=== PATIENT | male | born 1940 | race Caucasian/White ===

== ENCOUNTER → 2018-03-17 | Outpatient (CLI) | payer MEDICARE, BC | END | disposition home or self-care (01) | LOC: RADMRIMAIN 10:21 | PROVIDERS: ATTEND Urology | DX: C61 Malignant neoplasm of prostate (principal) | CPT/HCPCS: 82565 ==

== ENCOUNTER 2020-05-22 06:13 | Day surgery (SDC) | payer MEDICARE, BC ==
--- NOTE | 2020-05-01 15:23 | P.GSHP ---
History of Present Illness H&P Date: 05/01/20 Chief Complaint: Prostate Cancer The patient is a 79-year-old white male originally diagnosed with prostate cancer in May 2016. He was initially managed with active surveillance, but there has been evidence of disease progression. His most recent PSA level was 12.10. 4 of 12 biopsies performed in October 2019 showed evidence of prostate cancer ([place] 3+3/3+4), and the Polaris score was 3.8. His prostate volume is 52 mL. He has elected to be treated with IMRT without androgen deprivation therapy. He has been offered SpaceOAR implant prior to radiation therapy to decrease rectal toxicity and has elected to proceed with this. - Constitutional Constitutional: Denies weight gain, Denies weight loss - Genitourinary (Male) Genitourinary: Reports nocturia Past Medical History Past Medical History: Coronary Artery Disease (CAD), CVA/TIA, Diabetes Mellitus, Eye Disorder, Hyperlipidemia, Hypertension, Myocardial Infarction ([place]), Osteoarthritis (OA), Vascular Disorder Additional Past Medical History / Comment(s): Other HX: Severe PAD with occluded bilateral SFA, L eye catarac-no [facility] Vision LT Eye, [id number] RT Hand; Diet Controlled DM; "leaky valve". AAA, BEING MONITORED. Last Myocardial Infarction Date:: 2011 History of Any Multi-Drug Resistant Organisms: None Reported Past Surgical History: Back Surgery, Coronary Bypass/CABG, Heart Catheterization Additional Past Surgical History / Comment(s): 02/20/15 r femoral popliteal atherectomy with PTBA and 2 stents. Tod Carotid Endarterectomy; Triple Bypass. STENT TOD ILIAC ARTERIES. 08/14/14: LEFT FEMEROL ANGIOGRAM WITH ATTEMPTED CONVERTIBLE SOFA BEDSPRING TESTER. 10-23-14 Stent to Distal SFA. Past Anesthesia/Blood Transfusion Reactions: No Reported Reaction Past Psychological History: No Psychological Hx Reported Additional Psychological History / Comment(s): Pt states he resides with his spouse. He is independent. He uses no assistive device. He drives. Past Alcohol Use History: Rare Additional Past Alcohol Use History / Comment(s): STARTED SMOKING AT AGE 22- SMOKED 1PPD,QUIT -2013 Past Drug Use History: None Reported - Past Family History Father Family Medical History: Hypertension Additional Family Medical History / Comment(s): Father at age 82yrs. Mother Family Medical History: Diabetes Mellitus Additional Family Medical History / Comment(s): Mother at age 69yrs. Medications and Allergies Home Medications Medication Instructions Recorded Confirmed Type Aspirin 81 mg PO HS 01/30/14 02/20/15 History Atorvastatin [Lipitor] 40 mg PO HS 01/30/14 02/20/15 History Fenofibrate [Lofibra] 160 mg PO QAM 01/30/14 02/20/15 History Metoprolol Tartrate [Lopressor] 25 mg PO BID 01/30/14 02/20/15 History allopurinoL [Zyloprim] 100 mg PO DAILY 01/30/14 02/20/15 History lisinopriL [Zestril] 10 mg PO BID 01/30/14 02/20/15 History Acetaminophen/Diphenhydramine 2 tab PO HS PRN 02/01/14 02/20/15 History [Tylenol PM 500-25mg] Cholecalciferol [Vitamin D3 (25 2,000 unit PO DAILY 02/01/14 02/20/15 History Mcg = 1000 Iu)] Clopidogrel [Plavix] 75 mg PO QAM 05/02/14 02/20/15 History Ascorbic Acid [Vitamin C] 500 mg PO HS 08/14/14 02/20/15 History Magnesium Oxide [Mag-Ox] 250 mg PO DAILY 08/14/14 02/20/15 History Chlorthalidone [Hygroton] 25 mg PO PC-SUPPER 12/23/14 02/20/15 History Fluticasone Nasal [place] [Flonase 2 spray EA NOSTRIL HS 12/23/14 02/20/15 History Nasal [place]] Allergies Allergy/AdvReac Type Severity Reaction Status Date / Time No Known Allergies Allergy Verified 02/20/15 13:31 Surgical - Exam - General well developed, well nourished, no distress - Respiratory normal respiratory effort, clear to auscultation - Cardiovascular Rhythm: regular Abnormal Heart Sounds: systolic murmur - Abdomen Abdomen: soft, non tender, no guarding, no rigid, no rebound - Genitourinary normal penis with no external lesions, testicles non-tender - Rectum Rectum: normal sphincter tone, no masses, other (prostate enlarged and smooth) - Psychiatric oriented to time, oriented to person, oriented to place, speech is normal, memory intact Assessment and Plan (1) Malignant neoplasm of prostate Status: Acute Code(s): C61 - MALIGNANT NEOPLASM OF PROSTATE SNOMED Code(s): 095576929 Plan: The SpaceOar implant has been reviewed in detail with the patient. He understands that the rationale for this is to create separation between the prostate and rectum, thus reducing the risk of radiation proctitis. The material begins to breakdown 12-13 weeks following implant, and is reabsorbed by the body. Risks include anesthesia, bleeding, infection, and perineal discomfort. He understands that if the rectal wall is perforated the procedure will need to be aborted.
[2020-05-19 11:44] VITALS: BMI 29.4
[~2020-05-22 06:13] MED LIST: HYDROmorphone 0.5 MG/0.5 ML SYRINGE IVP PRN; LACTATED RINGERS 1,000 ML IV SCH; ONDANSETRON 4 MG/2 ML VIAL IVP ONE; fentaNYL (PF) 50 MCG/ML 2 ML AMP IV PRN
[2020-05-22 06:39] VITALS: RESP 18; TEMP 97.8
[2020-05-22] MEDS ORDERED: LACTATED RINGERS 1,000 ML IV ONE (06:39)
[2020-05-22 06:52] LABS: Glucose,Whole Blood 130 mg/dL (75-99)
[2020-05-22] MEDS ORDERED: MIDAZOLAM 2 MG/2 ML VIAL ONE (07:23)
[2020-05-22] MEDS ORDERED: fentaNYL (PF) 50 MCG/ML 2 ML AMP ONE (07:23)
[2020-05-22] MEDS ORDERED: PROPOFOL 10 MG/ML 20 ML VIAL IV ONE (07:23)
[2020-05-22] MEDS ORDERED: LIDOCAINE 2% INJ 20 MG/ML SQ ONE ×2 (07:44)
--- NOTE | 2020-05-22 08:19 | P.OP ---
Date of Procedure: 05/22/20 Preoperative Diagnosis: Adenocarcinoma of the prostate Postoperative Diagnosis: Same Procedure(s) Performed: SpaceOAR Implant Anesthesia: MAC Surgeon: Sreekanth Parsons Estimated Blood Loss (ml): 10 IV fluids (ml): 500 Pathology: none sent Condition: stable Disposition: PACU Indications for Procedure: The patient is a 79-year-old white male originally diagnosed with prostate cancer in May 2016. He was initially managed with active surveillance, but there has been evidence of disease progression. His most recent PSA level was 12.10. 4 of 12 biopsies performed in October 2019 showed evidence of prostate cancer ([place] 3+3/3+4), and the Polaris score was 3.8. His prostate volume is 52 mL. He has elected to be treated with IMRT without androgen deprivation therapy. He has been offered SpaceOAR implant prior to radiation therapy to decrease rectal toxicity and has elected to proceed with this. Operative Findings: Excellent separation created between prostate and rectum. Description of Procedure: The patient was taken to the operating room and placed in the dorsolithotomy position, with his legs supported in Erwin stirrups. The external genitalia was prepped and draped sterilely. The Bruel and Kjaer transrectal ultrasound probe was placed intrarectally. The prostate was imaged. The probe was then placed within the stabilizing stand. A spinal needle was advanced under ultrasonic guidance to the level of the urogenital diaphragm, and lidocaine was used to infiltrate the tissues as the needle was withdrawn. Next, the SpaceOAR needle was passed through the midline of the perineum, 1-2 cm anterior to the anal opening. The needle was slowly advanced under ultrasonic guidance until the needle tip was located within the fat plane between the prostate and rectum, at the level of the mid prostate gland. The needle was confirmed to be midline on the axial imaging. A small amount of normal saline was injected for hydrodissection. Next, the SpaceOAR components were mixed and loaded into the Y connector per protocol. The Y connector was then connected to the needle, and the components were injected slowly over a course of approximately 12 seconds. A total of 10 ml was injected. Approximately 11 mm of distance was created between the prostate and rectum, as desired. It should be noted that at no point was there any concern of rectal perforation. The needle was withdrawn, as well as the transrectal ultrasound probe, and the procedure was terminated. The patient tolerated the procedure well and was taken to the recovery room in stable condition.
[2020-05-22 09:20] VITALS: BP 110/55; PULSE 53
== END 2020-05-22 09:23 | disposition home or self-care (01) ==
LOC: OR 06:13
PROVIDERS: ATTEND Urology
DX: C61 Malignant neoplasm of prostate (principal); I25.10 Atherosclerotic heart disease of native coronary artery without angina pectoris; I10 Essential (primary) hypertension; I69.398 Other sequelae of cerebral infarction; E11.51 Type 2 diabetes mellitus with diabetic peripheral angiopathy without gangrene; E78.5 Hyperlipidemia, unspecified; I71.4 Abdominal aortic aneurysm, without rupture; I38 Endocarditis, valve unspecified; I25.2 Old myocardial infarction; M19.90 Unspecified osteoarthritis, unspecified site; Z95.1 Presence of aortocoronary bypass graft; Z95.820 Peripheral vascular angioplasty status with implants and grafts; Z98.890 Other specified postprocedural states; H26.9 Unspecified cataract; Z87.891 Personal history of nicotine dependence; Z97.2 Presence of dental prosthetic device (complete) (partial); Z82.49 Family history of ischemic heart disease and other diseases of the circulatory system; Z83.3 Family history of diabetes mellitus; Z79.02 Long term (current) use of antithrombotics/antiplatelets; Z79.82 Long term (current) use of aspirin; Z79.899 Other long term (current) drug therapy
CPT/HCPCS: 55874; J2001; J2250; J0690; J2405; J3010; J2704

== ENCOUNTER 2020-06-16 11:01 | Inpatient (IN) | payer MEDICARE, BC ==
[2020-06-16] MEDS ORDERED: SODIUM CHLORIDE 0.9% 1,000 ML IV ONE (11:48)
[2020-06-16] MEDS ORDERED: SODIUM CHLORIDE 0.9% 1,000 ML IV SCH ×2 (12:00→12:45)
[2020-06-16 12:17] LABS: Basophils % (A) 0 %; Eosinophils % (A) 0 %; HCT 39.4 % (39.0-53.0); Lymphocytes # (A) 0.8 k/uL (1.0-4.8); Lymphocytes % (A) 7 %; MCH 32.8 pg (25.0-35.0); MCHC 33.1 g/dL (31.0-37.0); Mean Platelet Volume 7.2; Monocytes # (A) 0.7 k/uL (0-1.0); Monocytes % (A) 6 %; Neutrophils # (A) 9.3 k/uL (1.3-7.7); Neutrophils % (A) 85 %; Platelet Count 221 k/uL (150-450); RBC 3.97 m/uL (4.30-5.90); RDW 13.7 % (11.5-15.5)
[2020-06-16 12:19] LABS: Albumin 3.8 g/dL (3.5-5.0); Calcium 9.3 mg/dL (8.4-10.2); Magnesium 1.6 mg/dL (1.6-2.3); Potassium 5.2 mmol/L (3.5-5.1); Total Bilirubin 1.3 mg/dL (0.2-1.3); Total Protein 6.7 g/dL (6.3-8.2)
[2020-06-16 12:19] LABS: Appearance,Urine Clear (Clear); Bilirubin,Urine Negative (Negative); Blood,Urine Negative (Negative); Color,Urine Yellow; Glucose,Urine (UA) Negative (Negative); Ketones,Urine Negative (Negative); Leukocyte Esterase,Urine Negative (Negative); Nitrite,Urine Negative (Negative); Protein,Urine Negative (Negative); Specific Gravity,Urine 1.013 (1.001-1.035); Urobilinogen,Urine <2.0 mg/dL (<2.0)
[2020-06-16 12:25] LABS: INR 1.1 (<1.2); Partial Thromboplastin Time 27.7 sec (22.0-30.0); Prothrombin Time 11.8 sec (9.0-12.0)
--- NOTE | 2020-06-16 12:37 | XR ---
EXAMINATION TYPE: XR chest 2V DATE OF EXAM: 06/16/2020 COMPARISON: 01/28/2014 HISTORY: Shortness of breath TECHNIQUE: Frontal and lateral views of the chest are obtained. FINDINGS: Scattered senescent parenchymal changes noted. Hyperinflation compatible with COPD. No evidence for infiltrate. No evidence for atelectasis. Heart size is stable. Mediastinal structures are stable and grossly unremarkable. No evidence for hilar prominence. Degenerative changes dorsal spine. IMPRESSION: 1. No evidence for acute pulmonary disease.
[2020-06-16] MEDS ORDERED: ASPIRIN 81 MG PO STA (12:59)
[2020-06-16] MEDS ORDERED: NALOXONE 0.4 MG/ML 1 ML VIAL IV PRN (13:00)
--- NOTE | 2020-06-16 13:06 | ED ---
Male Urogenital HPI - General Chief complaint: Urogenital Stated complaint: Urinary Issues sent Dr Bradley Time Seen by Provider: 06/16/20 11:13 Source: patient Mode of arrival: wheelchair Limitations: no limitations - History of Present Illness Initial comments: 79-year-old male of CVA/PVD/CO/DM, HTN, HLD, memory loss presenting today for urinary retention x1.5 day. Patient states he has not urinated in a day and a half. Patient states that he recently had radiation of his prostate is not sure if this is related. Patient states he does have active prostate cancer. Patient denies any hematuria he appears slightly pale her on a history taking I asked if he felt unwell patient states he did have a OF lightheaded this morning and felt slightly weak but otherwise at this time he has no complaints he does not feel weak lightheaded dizzy chest pain shortness of breath.she denies palpitations bloody or dark stools. The patient inspiration he denies any leg swelling nausea vomiting abdominal pain. Patient denies additional complaints. he appears nontoxic in no acute distress. very pleasant. - Related Data Home Medications Medication Instructions Recorded Confirmed Aspirin 81 mg PO HS 01/30/14 06/16/20 Atorvastatin [Lipitor] 40 mg PO HS 01/30/14 06/16/20 Metoprolol Tartrate [Lopressor] 12.5 mg PO DAILY 01/30/14 06/16/20 allopurinoL [Zyloprim] 100 mg PO DAILY 01/30/14 06/16/20 Acetaminophen/Diphenhydramine 2 tab PO HS PRN 02/01/14 06/16/20 [Tylenol PM 500-25mg] Cholecalciferol [Vitamin D3 (25 50 mcg PO DAILY 02/01/14 06/16/20 Mcg = 1000 Iu)] Clopidogrel [Plavix] 75 mg PO DAILY 05/02/14 06/16/20 Ascorbic Acid [Vitamin C] 500 mg PO HS 08/14/14 06/16/20 Magnesium Oxide [Mag-Ox] 250 mg PO DAILY 08/14/14 06/16/20 Fluticasone Nasal [place] [Flonase 2 spray EA NOSTRIL HS 12/23/14 06/16/20 Nasal [place]] Ferrous Sulfate [Feosol] 325 mg PO BID 05/19/20 06/16/20 lisinopriL [Zestril] 5 mg PO DAILY 05/19/20 06/16/20 Magnesium Oxide [Mag-Ox] 500 mg PO HS 06/16/20 06/16/20 SILVER sulfADIAZINE Cream 1 applic TOPICAL BID 06/16/20 06/16/20 [Silvadene 1% Cream] Tamsulosin [Flomax] 0.4 mg PO HS 06/16/20 06/16/20 hydroCHLOROthiazide 25 mg PO HS 06/16/20 06/16/20 Allergies Allergy/AdvReac Type Severity Reaction Status Date / Time No Known Allergies Allergy Verified 06/16/20 12:54 Review of Systems ROS Statement: Those systems with pertinent positive or pertinent negative responses have been documented in the HPI. ROS Other: All systems not noted in ROS Statement are negative. Past Medical History Past Medical History: Coronary Artery Disease (CAD), Cancer, CVA/TIA, Diabetes Mellitus, Eye Disorder, Hyperlipidemia, Hypertension, Myocardial Infarction ([place]), Osteoarthritis ([place]), Vascular Disorder Additional Past Medical History / Comment(s): Severe PAD with occluded bilateral SFA, L eye cataract-no [facility] Vision LT Eye, [id number] RT Hand; Diet Controlled DM; "leaky valve". AAA, BEING MONITORED. PROTATE CANCER Last Myocardial Infarction Date:: 2011 History of Any Multi-Drug Resistant Organisms: None Reported Past Surgical History: Back Surgery, Coronary Bypass/CABG, Heart Catheterization, Heart Catheterization With Stent Additional Past Surgical History / Comment(s): 02/20/15 r femoral popliteal atherectomy with PTBA and 2 stents. Ken Carotid Endarterectomy; Triple Bypass. STENT KEN ILIAC ARTERIES. 08/14/14: LEFT FEMEROL ANGIOGRAM WITH ATTEMPTED CHILDCARE ATTENDANT. 10-23-15 Stent to Distal SFA. COLONOSCOPY, PROSTATE BX, Past Anesthesia/Blood Transfusion Reactions: No Reported Reaction Date of Last Stent Placement:: 2014 Past Psychological History: No Psychological Hx Reported Smoking Status: Former smoker - Past Family History Father Family Medical History: Hypertension Additional Family Medical History / Comment(s): Father at age 82yrs. Mother Family Medical History: Diabetes Mellitus Additional Family Medical History / Comment(s): Mother at age 69yrs. General Exam - General Exam Comments Initial Comments: General: The patient is awake and alert, in no distress Eye: +3 mm pupils are equal, round and reactive to light, extra-ocular movements are intact. No nystagmus. There is normal conjunctiva bilaterally. No signs of icterus. Ears, nose, mouth and throat: There are dry mucous membranes and no oral lesions. Neck: The neck is supple, there is no tenderness or JVD. Cardiovascular: There is a regular rate and rhythm. No murmur, rub or gallop is appreciated. Respiratory: Lungs are clear to auscultation, respirations are non-labored, breath sounds are equal. No wheezes, stridor, rales, or rhonchi. Gastrointestinal: Soft, non-distended, non-tender abdomen without masses or or ganomegaly noted. There is no rebound or guarding present. Musculoskeletal: Normal ROM, no tenderness. Strength 5/5. Sensation intact. Radial and DP pulses equal bilaterally 2+. Neurological: A&O x 3. CN II-XII intact grossly, There are no obvious motor or sensory deficits. Coordination appears grossly intact. Speech is normal. Skin: Skin is warm and dry and no rashes or lesions are noted. Psychiatric: Cooperative, appropriate mood & affect, normal judgment. Limitations: no limitations Course Vital Signs 06/16/20 06/16/20 11:07 12:25 Temperature 97.7 F Pulse Rate 59 L 72 Respiratory 18 18 Rate Blood Pressure 95/61 101/58 O2 Sat by Pulse 97 94 L Oximetry Medical Decision Making - Medical Decision Making 79-year-old male presenting for urinary retention. He states he did have episode of lightheadedness/weakness this morning that resolved. Patient's EKG reveals PVCs and some repolarization abnormalities. This is different from his EKG 6 years ago there is not another more recent EKG.patient denied chest pain shortness of breath he did have a mildly elevated troponin at 0.088. We will trend this. Patient states he has not ate or drank very much in the past 1-2 days is concerned of dehydration as well this could contribute to the elevation of troponin patient was given an aspirin serum troponins were placed. Patient w as also found to have hyponatremia at `120 and was placed on 0.9% NS @75ml/hr per attending recommending. at this time we will keep patient for further monitoring, repeat labs. Patient agreeable to admission and care plan. - Lab Data Result diagrams: 06/16/20 11:48 06/16/20 11:48 Lab Results 06/16/20 06/16/20 06/16/20 Range/Units 11:48 11:48 11:48 WBC 11.0 H (3.8-10.6) k/uL RBC 3.97 L (4.30-5.90) m/uL Hgb 13.0 (13.0-17.5) gm/dL Hct 39.4 (39.0-53.0) % MCV 99.0 (80.0-100.0) fL MCH 32.8 (25.0-35.0) pg MCHC 33.1 (31.0-37.0) g/dL RDW 13.7 (11.5-15.5) % Plt Count 221 (150-450) k/uL MPV 7.2 Neutrophils % 85 % Lymphocytes % 7 % Monocytes % 6 % Eosinophils % 0 % Basophils % 0 % Neutrophils # 9.3 H (1.3-7.7) k/uL Lymphocytes # 0.8 L (1.0-4.8) k/uL Monocytes # 0.7 (0-1.0) k/uL Eosinophils # 0.0 (0-0.7) k/uL Basophils # 0.0 (0-0.2) k/uL PT 11.8 (9.0-12.0) sec INR 1.1 (<1.2) APTT 27.7 (22.0-30.0) sec Sodium 120 L (137-145) mmol/L Potassium 5.2 H (3.5-5.1) mmol/L Chloride 89 L (98-107) mmol/L Carbon Dioxide 19 L (22-30) mmol/L Anion Gap 12 mmol/L BUN 34 H (9-20) mg/dL Creatinine 1.75 H (0.66-1.25) mg/dL Est GFR (CKD-EPI)AfAm 43 (>60 ml/min/1.73 sqM) Est GFR (CKD-EPI)NonAf 37 (>60 ml/min/1.73 sqM) Glucose 121 H (74-99) mg/dL Plasma Lactic Acid [place] (0.7-2.0) mmol/L Calcium 9.3 (8.4-10.2) mg/dL Magnesium 1.6 (1.6-2.3) mg/dL Total Bilirubin 1.3 (0.2-1.3) mg/dL AST 24 (17-59) U/L ALT 12 (4-49) U/L Alkaline Phosphatase 43 (38-126) U/L Troponin I (0.000-0.034) ng/mL Total Protein 6.7 (6.3-8.2) g/dL Albumin 3.8 (3.5-5.0) g/dL Urine Color Urine Appearance (Clear) Urine pH (5.0-8.0) Ur Specific [place] (1.001-1.035) Urine Protein (Negative) Urine Glucose (UA) (Negative) Urine Ketones (Negative) Urine Blood (Negative) Urine Nitrite (Negative) Urine Bilirubin (Negative) Urine Urobilinogen (<2.0) mg/dL Ur Leukocyte Esterase (Negative) Blood Type Blood Type Recheck Bld Type Recheck Status Antibody Screen Spec Expiration Date 06/16/20 06/16/20 06/16/20 Range/Units 11:48 11:48 11:50 WBC (3.8-10.6) k/uL RBC (4.30-5.90) m/uL Hgb (13.0-17.5) gm/dL Hct (39.0-53.0) % MCV (80.0-100.0) fL MCH (25.0-35.0) pg MCHC (31.0-37.0) g/dL RDW (11.5-15.5) % Plt Count (150-450) k/uL MPV Neutrophils % % Lymphocytes % % Monocytes % % Eosinophils % % Basophils % % Neutrophils # (1.3-7.7) k/uL Lymphocytes # (1.0-4.8) k/uL Monocytes # (0-1.0) k/uL Eosinophils # (0-0.7) k/uL Basophils # (0-0.2) k/uL PT (9.0-12.0) sec INR (<1.2) APTT (22.0-30.0) sec Sodium (137-145) mmol/L Potassium (3.5-5.1) mmol/L Chloride (98-107) mmol/L Carbon Dioxide (22-30) mmol/L Anion Gap mmol/L BUN (9-20) mg/dL Creatinine (0.66-1.25) mg/dL Est GFR (CKD-EPI)AfAm (>60 ml/min/1.73 sqM) Est GFR (CKD-EPI)NonAf (>60 ml/min/1.73 sqM) Glucose (74-99) mg/dL Plasma Lactic Acid [place] 1.5 (0.7-2.0) mmol/L Calcium (8.4-10.2) mg/dL Magnesium (1.6-2.3) mg/dL Total Bilirubin (0.2-1.3) mg/dL AST (17-59) U/L ALT (4-49) U/L Alkaline Phosphatase (38-126) U/L Troponin I 0.088 H* (0.000-0.034) ng/mL Total Protein (6.3-8.2) g/dL Albumin (3.5-5.0) g/dL Urine Color Urine Appearance (Clear) Urine pH (5.0-8.0) Ur Specific [place] (1.001-1.035) Urine Protein (Negative) Urine Glucose (UA) (Negative) Urine Ketones (Negative) Urine Blood (Negative) Urine Nitrite (Negative) Urine Bilirubin (Negative) Urine Urobilinogen (<2.0) mg/dL Ur Leukocyte Esterase (Negative) Blood Type A Positive Blood Type Recheck A Pos Bld Type Recheck Status No Antibody Screen NEGATIVE Spec Expiration Date 06/19/2020 - 234906/16/20 Range/Units 12:05 WBC (3.8-10.6) k/uL RBC (4.30-5.90) m/uL Hgb (13.0-17.5) gm/dL Hct (39.0-53.0) % MCV (80.0-100.0) fL MCH (25.0-35.0) pg MCHC (31.0-37.0) g/dL RDW (11.5-15.5) % Plt Count (150-450) k/uL MPV Neutrophils % % Lymphocytes % % Monocytes % % Eosinophils % % Basophils % % Neutrophils # (1.3-7.7) k/uL Lymphocytes # (1.0-4.8) k/uL Monocytes # (0-1.0) k/uL Eosinophils # (0-0.7) k/uL Basophils # (0-0.2) k/uL PT (9.0-12.0) sec INR (<1.2) APTT (22.0-30.0) sec Sodium (137-145) mmol/L Potassium (3.5-5.1) mmol/L Chloride (98-107) mmol/L Carbon Dioxide (22-30) mmol/L Anion Gap mmol/L BUN (9-20) mg/dL Creatinine (0.66-1.25) mg/dL Est GFR (CKD-EPI)AfAm (>60 ml/min/1.73 sqM) Est GFR (CKD-EPI)NonAf (>60 ml/min/1.73 sqM) Glucose (74-99) mg/dL Plasma Lactic Acid [place] (0.7-2.0) mmol/L Calcium (8.4-10.2) mg/dL Magnesium (1.6-2.3) mg/dL Total Bilirubin (0.2-1.3) mg/dL AST (17-59) U/L ALT (4-49) U/L Alkaline Phosphatase (38-126) U/L Troponin I (0.000-0.034) ng/mL Total Protein (6.3-8.2) g/dL Albumin (3.5-5.0) g/dL Urine Color Yellow Urine Appearance Clear (Clear) Urine pH 5.0 (5.0-8.0) Ur Specific [place] 1.013 (1.001-1.035) Urine Protein Negative (Negative) Urine Glucose (UA) Negative (Negative) Urine Ketones Negative (Negative) Urine Blood Negative (Negative) Urine Nitrite Negative (Negative) Urine Bilirubin Negative (Negative) Urine Urobilinogen <2.0 (<2.0) mg/dL Ur Leukocyte Esterase Negative (Negative) Blood Type Blood Type Recheck Bld Type Recheck Status Antibody Screen Spec Expiration Date Disposition Clinical Impression: Urinary retention, Elevated troponin, Dehydration, Hyponatremia Disposition: ADMITTED IP TO THIS [facility] Condition: Stable Is patient prescribed a controlled substance at d/c from ED?: No Referrals: Navi Jimenez MD [Primary Care Provider] - 1-2 days Time of Disposition: 13:07 Decision to Admit Reason: Admit from EC Decision Date: 06/16/20 Decision Time: 13:07
[2020-06-16] MEDS ORDERED: NON FORMULARY DRUG (Acetaminophen/Diphenhydramine [Tylenol Pm 500-25mg] 1 EACH Tablet) PO PRN (13:18)
--- NOTE | 2020-06-16 13:26 | P.HPIM ---
History of Present Illness Patient is a pleasant 79-year-old came in with the complaints of inability to urinate for couple days and generalized weakness patient does have history of prostate cancer for which patient is undergoing radiation therapy and the pat ient denied any fever chills nausea vomiting abdominal pain dysuria patient has low sodium of 120 patient is on hydrochlorothiazide patient that presently has a Blanton catheter. Patient does have chronic kidney disease with baseline creatinine of around 1.7 and patient's present creatinine is around 1.7 patient denied any chest pain patient has mildly elevated troponin of 0.88. Patient does have leukocytosis no fever. Urine analysis is essentially within normal limits. Review of Systems REVIEW OF SYSTEMS: CONSTITUTIONAL: No fever, no malaise, no fatigue. HEENT: No recent visual problems or hearing problems. Denied any sore throat. CARDIOVASCULAR: No chest pain, orthopnea, PND, no palpitations, no syncope. PULMONARY: No shortness of breath, no cough, no hemoptysis. GASTROINTESTINAL: No diarrhea, no nausea, no vomiting, no abdominal pain. NEUROLOGICAL: No headaches, no weakness, no numbness. HEMATOLOGICAL: Denies any bleeding or petechiae. GENITOURINARY: As mentioned in HPI MUSCULOSKELETAL/RHEUMATOLOGICAL: Denies any joint pain, swelling, or any muscle pain. ENDOCRINE: Denies any polyuria or polydipsia. The rest of the 14-point review of systems is negative. Past Medical History Past Medical History: Coronary Artery Disease (CAD), Cancer, CVA/TIA, Diabetes Mellitus, Eye Disorder, Hyperlipidemia, Hypertension, Myocardial Infarction ([place]), Osteoarthritis (OA), Vascular Disorder Additional Past Medical History / Comment(s): Severe PAD with occluded bilateral SFA, L eye cataract-no Central Vision LT Eye, [id number] RT Hand; Diet Controlled DM; "leaky valve". AAA, BEING MONITORED. PROTATE CANCER Last Myocardial Infarction Date:: 2011 History of Any Multi-Drug Resistant Organisms: None Reported Past Surgical History: Back Surgery, Coronary Bypass/CABG, Heart Catheterization, Heart Catheterization With Stent Additional Past Surgical History / Comment(s): 02/20/15 r femoral popliteal atherectomy with PTBA and 2 stents. Ken Carotid Endarterectomy; Triple Byp ass. STENT KEN ILIAC ARTERIES. 08/14/14: LEFT FEMEROL ANGIOGRAM WITH ATTEMPTED MULTIPLE DRUM SANDER HELPER. 10-23-14 Stent to Distal SFA. COLONOSCOPY, PROSTATE BX, Past Anesthesia/Blood Transfusion Reactions: No Reported Reaction Date of Last Stent Placement:: 2014 Past Psychological History: No Psychological Hx Reported Smoking Status: Former smoker - Past Family History Father Family Medical History: Hypertension Additional Family Medical History / Comment(s): Father at age 82yrs. Mother Family Medical History: Diabetes Mellitus Additional Family Medical History / Comment(s): Mother at age 69yrs. Medications and Allergies Home Medications Medication Instructions Recorded Confirmed Type Aspirin 81 mg PO HS 01/30/14 06/16/20 History Atorvastatin [Lipitor] 40 mg PO HS 01/30/14 06/16/20 History Metoprolol Tartrate [Lopressor] 12.5 mg PO DAILY 01/30/14 06/16/20 History allopurinoL [Zyloprim] 100 mg PO DAILY 01/30/14 06/16/20 History Acetaminophen/Diphenhydramine 2 tab PO HS PRN 02/01/14 06/16/20 History [Tylenol PM 500-25mg] Cholecalciferol [Vitamin D3 (25 50 mcg PO DAILY 02/01/14 06/16/20 History Mcg = 1000 Iu)] Clopidogrel [Plavix] 75 mg PO DAILY 05/02/14 06/16/20 History Ascorbic Acid [Vitamin C] 500 mg PO HS 08/14/14 06/16/20 History Magnesium Oxide [Mag-Ox] 250 mg PO DAILY 08/14/14 06/16/20 History Fluticasone Nasal [place] [Flonase 2 spray EA NOSTRIL HS 12/23/14 06/16/20 History Nasal [place]] Ferrous Sulfate [Feosol] 325 mg PO BID 05/19/20 06/16/20 History lisinopriL [Zestril] 5 mg PO DAILY 05/19/20 06/16/20 History Magnesium Oxide [Mag-Ox] 500 mg PO HS 06/16/20 06/16/20 History SILVER sulfADIAZINE Cream 1 applic TOPICAL BID 06/16/20 06/16/20 History [Silvadene 1% Cream] Tamsulosin [Flomax] 0.4 mg PO HS 06/16/20 06/16/20 History hydroCHLOROthiazide 25 mg PO HS 06/16/20 06/16/20 History Allergies Allergy/AdvReac Type Severity Reaction Status Date / Time No Known Allergies Allergy Verified 06/16/20 12:54 Physical Exam Vitals: Vital Signs Temp Pulse Resp BP Pulse Ox 06/16/20 13:05 64 18 106/75 98 06/16/20 12:25 72 18 101/58 94 L 06/16/20 11:07 97.7 F 59 L 18 95/61 97 Intake and Output 06/15/20 06/16/20 06/16/20 22:59 06:59 14:59 Output Total 450 Balance -450 Output: Urine 450 Uretheral (Blanton) 450 Other: Weight 111.13 kg PHYSICAL EXAMINATION: GENERAL: The patient is alert and oriented x3, not in any acute distress. Well developed, well nourished. HEENT: Pupils are round and equally reacting to light. EOMI. No scleral icterus. No conjunctival pallor. Normocephalic, atraumatic. No pharyngeal erythema. No thyromegaly. CARDIOVASCULAR: S1 and S2 present. No murmurs, rubs, or gallops. PULMONARY: Chest is clear to auscultation, no wheezing or crackles. ABDOMEN: Soft, nontender, nondistended, normoactive bowel sounds. No palpable organomegaly. MUSCULOSKELETAL: No joint swelling or deformity. EXTREMITIES: No cyanosis, clubbing, or pedal edema. NEUROLOGICAL: Gross neurological examination did not reveal any focal deficits. SKIN: No rashes. Results CBC & Chem 7: 06/16/20 11:48 06/16/20 11:48 Labs: Abnormal Lab Results - Last 24 Hours (Table) 06/16/20 06/16/20 06/16/20 Range/Units 11:48 11:48 11:48 WBC 11.0 H (3.8-10.6) k/uL RBC 3.97 L (4.30-5.90) m/uL Neutrophils # 9.3 H (1.3-7.7) k/uL Lymphocytes # 0.8 L (1.0-4.8) k/uL Sodium 120 L (137-145) mmol/L Potassium 5.2 H (3.5-5.1) mmol/L Chloride 89 L (98-107) mmol/L Carbon Dioxide 19 L (22-30) mmol/L BUN 34 H (9-20) mg/dL Creatinine 1.75 H (0.66-1.25) mg/dL Glucose 121 H (74-99) mg/dL Troponin I 0.088 H* (0.000-0.034) ng/mL Assessment and Plan Plan: -Severe hyponatremia: Most probably seconded urine any obstruction. Patient has a Port-A-Cath for now we'll obtain ultrasound of the kidney urology will be consulted. We'll also obtain urine random sodium urine random creatinine TSH, urine and serum osmolality and urine random uric acid. Nephrology will be consulted -hyperkalemia secondary to obstructive uropathy and the lisinopril lisinopril is being held -Non-anion gap of ACIDOSIS secondary to renal failure -Generalized weakness secondary to cancer next and-mildly elevated troponin seconded chronic kidney disease stage III. 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
--- NOTE | 2020-06-16 14:09 | US ---
EXAMINATION TYPE: US kidneys/renal and bladder DATE OF EXAM: 06/16/2020 COMPARISON: NONE CLINICAL HISTORY: VERONICA. VERONICA EXAM MEASUREMENTS: Right Kidney: 12.8 x 5.9 x 5.7 cm Left Kidney: 11.8 x 6.0 x 5.0 cm Right Kidney: Two hypoechoic lesions lower pole 1)= 1.3 x 1.3 cm 2= 1.2 x 1.5 cm, No evidence of hy genesis Left Kidney: Two hypoechoic lesions, 1)= lateral 2.1 x 1.8 cm, 2)= 2.4 x 1.7 cm, No evidence of hyd ro Bladder: Pt has cath in place There is no evidence for hydronephrosis at this point in time. No nephrolithiasis is seen. No solid masses are identified. The urinary bladder is anechoic. Bilateral ureteral jets are seen. IMPRESSION: Hypoechoic lesions bilaterally felt to reflect cysts.
[2020-06-16] MEDS: ATORVASTATIN 40 MG TAB PO SCH (21:18)
[2020-06-16] MEDS: MAGNESIUM OXIDE 400 MG TAB PO SCH (21:18)
[2020-06-16] MEDS: TAMSULOSIN 0.4 MG CAP.ER.24H PO SCH (21:19)
[2020-06-16] MEDS: HEPARIN SODIUM,PORCINE 5,000 UNIT/ML 1 ML VIAL SQ SCH (21:19)
[2020-06-17 06:28] LABS: Glucose,Whole Blood 99 mg/dL (75-99)
[2020-06-17 09:03] LABS: Calcium 9.2 mg/dL (8.4-10.2); Magnesium 1.8 mg/dL (1.6-2.3); Potassium 4.4 mmol/L (3.5-5.1)
[2020-06-17] MEDS: allopurinoL 100 MG TAB PO SCH (09:19)
[2020-06-17] MEDS: CLOPIDOGREL 75 MG TAB PO SCH (09:19)
[2020-06-17] MEDS: HEPARIN SODIUM,PORCINE 5,000 UNIT/ML 1 ML VIAL SQ SCH ×2 (09:20→20:08)
[2020-06-17] MEDS ORDERED: DEXTROSE 5% IN WATER 1,000 ML IV ONE (09:22)
[2020-06-17] MEDS: MAGNESIUM OXIDE 400 MG TAB PO SCH ×2 (09:24→20:08)
[2020-06-17] MEDS: METOPROLOL TARTRATE 12.5 MG TAB PO SCH (09:26)
--- NOTE | 2020-06-17 10:51 | P.NPCON ---
History of Present Illness - Reason for Consult acute renal failure, hyponatremia - History of Present Illness Reason for consultation: Acute kidney injury and hyponatremia History of present illness: Patient is a 79-year-old male seen in renal consultation for hyponatremia. Sodium level was 120 on admission on 06/16/2020. He was given a fluid bolus in the ER and then started on normal saline at 75 mL an hour. Later in the evening his sodium was 125 and the fluids were discontinued. This morning his sodium level is 129. He is awake and alert. Sitting up in a chair. He is wearing compression stocking as he does get edema in his lower extremity intermittently. Good urine output. Has a Blanton catheter at this time. Patient has chronic kidney disease stage with baseline creatinine near 1.6-1.8. This admission his creatinine was 2.1 and is down to 1.44 today. He denies use of nonsteroidals. He was on hydrochlorothiazide outpatient. Patient has history of prostate cancer and recently started radiation therapy. Patient is a developed quite a bit of diarrhea the last few days. He was having difficulty urinating and subsequently came to the hospital. Overall he is feeling better. Oral intake is also improving. Hemodynamically stable. Vital signs are stable. General: The patient appeared well nourished and normally developed. HEENT: Head exam is unremarkable. Neck is without jugular venous distension. LUNGS: Breath sounds decreased. HEART: Rate and Rhythm are regular. ABDOMEN: Soft, nontender. EXTREMITITES: No clubbing, cyanosis, or edema. 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 Last Myocardial Infarction Date:: 2011 History of Any Multi-Drug Resistant Organisms: None Reported Past Surgical History: Back Surgery, Coronary Bypass/CABG, Heart Catheterization, Heart Catheterization With Stent Additional Past Surgical History / Comment(s): 2011 CABG 3 vessel, vascular procedures/stents in bilaeteral common iliac arteries, bilateral SFA stents, colonoscopy, prostate biopsy, spacOAR implant Past Anesthesia/Blood Transfusion Reactions: No Reported Reaction Date of Last Stent Placement:: 2014 Smoking Status: Former smoker - Past Family History Father Family Medical History: Hypertension Additional Family Medical History / Comment(s): Father at age 82yrs. Mother Family Medical History: Diabetes Mellitus Additional Family Medical History / Comment(s): Mother at age 69yrs. Medications and Allergies Home Medications Medication Instructions Recorded Confirmed Type Aspirin 81 mg PO HS 01/30/14 06/16/20 History Atorvastatin [Lipitor] 40 mg PO HS 01/30/14 06/16/20 History Metoprolol Tartrate [Lopressor] 12.5 mg PO DAILY 01/30/14 06/16/20 History allopurinoL [Zyloprim] 100 mg PO DAILY 01/30/14 06/16/20 History Acetaminophen/Diphenhydramine 2 tab PO HS PRN 02/01/14 06/16/20 History [Tylenol PM 500-25mg] Cholecalciferol [Vitamin D3 (25 50 mcg PO DAILY 02/01/14 06/16/20 History Mcg = 1000 Iu)] Clopidogrel [Plavix] 75 mg PO DAILY 05/02/14 06/16/20 History Ascorbic Acid [Vitamin C] 500 mg PO HS 08/14/14 06/16/20 History Magnesium Oxide [Mag-Ox] 250 mg PO DAILY 08/14/14 06/16/20 History Fluticasone Nasal [place] [Flonase 2 spray EA NOSTRIL HS 12/23/14 06/16/20 History Nasal [place]] Ferrous Sulfate [Feosol] 325 mg PO BID 05/19/20 06/16/20 History lisinopriL [Zestril] 5 mg PO DAILY 05/19/20 06/16/20 History Magnesium Oxide [Mag-Ox] 500 mg PO HS 06/16/20 06/16/20 History SILVER sulfADIAZINE Cream 1 applic TOPICAL BID 06/16/20 06/16/20 History [Silvadene 1% Cream] Tamsulosin [Flomax] 0.4 mg PO HS 06/16/20 06/16/20 History hydroCHLOROthiazide 25 mg PO HS 06/16/20 06/16/20 History Allergies Allergy/AdvReac Type Severity Reaction Status Date / Time No Known Allergies Allergy Verified 06/16/20 12:54 Physical Exam Vitals: Vital Signs Temp Pulse Pulse Resp BP BP Pulse Ox 06/17/20 07:52 98.1 F 78 16 140/65 97 06/17/20 03:33 88 17 149/69 96 06/17/20 01:05 85 17 06/17/20 00:00 85 17 117/62 93 L 06/16/20 20:00 97.9 F 73 17 129/60 94 L 06/16/20 14:50 98.2 F 85 16 152/83 94 L 06/16/20 13:05 64 18 106/75 98 06/16/20 12:25 72 18 101/58 94 L 06/16/20 11:07 97.7 F 59 L 18 95/61 97 Intake and Output 06/16/20 06/17/20 06/17/20 22:59 06:59 14:59 Intake Total 600 270 Output Total 1300 2850 Balance -700 -2580 Intake: IV 75 Sodium Chloride 0.9% 1, 75 000 ml @ 75 mls/hr IV . [id number] [facility] Rx#:[id number] Intake, IV Titration 35 20 Amount Sodium Chloride 0.9% 1, 35 000 ml @ 130 mls/hr IV . [id number] [facility] Rx#:[id number] Sodium Chloride 0.9% 1, 20 000 ml @ 75 mls/hr IV . [id number] [facility] Rx#:[id number] Oral 490 250 Output: Urine 1300 2850 Other: Voiding Method Indwelling Catheter Indwelling Catheter # Bowel Movements 2 Weight 112.5 kg Results - Lab Results Most recent lab results Calcium 9.2 mg/dL (8.4-10.2) 06/17/20 07:41 Magnesium 1.8 mg/dL (1.6-2.3) 06/17/20 07:41 06/16/20 11:48 06/17/20 07:41 Assessment and Plan Plan: Assessment: 1. Hypovolemic hyponatremia further worsened with the use of hydrochlorothiazide. Improved with IV hydration. Sodium level 129 this morning. Urine osmolality 314. Urine sodium 54. 2. Acute kidney injury mostly prerenal secondary to hypovolemia improved with IV hydration. 3. Chronic kidney disease stage IIIB with baseline creatinine in the range of 1.6-1.8. Etiology is nephrosclerosis. UA benign. 4. Metabolic acidosis secondary to GI losses and acute kidney injury. Resolved. 5. Prostate cancer. Recently started on radiation therapy. Plan: Start D5W at 75 mL an hour. Recheck sodium level this afternoon. Encourage oral intake. Avoid nephrotoxins. Hold hydrochlorothiazide. Thank you for the consultation. I will continue to follow the patient with you during his hospital stay.
--- NOTE | 2020-06-17 11:50 | P.PN ---
Subjective 79-year-old came in with the complaints of inability to urinate for couple days and generalized weakness patient does have history of prostate cancer for which patient is undergoing radiation therapy and the patient denied any fever chills nausea vomiting abdominal pain dysuria patient has low sodium of 120 patient is on hydrochlorothiazide patient that presently has a Blanton catheter. Patient does have chronic kidney disease with baseline creatinine of around 1.7 and patient's present creatinine is around 1.7 patient denied any chest pain patient has mildly elevated troponin of 0.88. Patient does have leukocytosis no fever. Urine analysis is essentially within normal limits. 06/17/2020 Patient's creatinine improved to 1.44 potassium improved as well as sodium improved although sodium rapidly improved from 120-129 because of which patient is being started on D5W with nephrology. Patient's HIDA chlorothiazide is being held. Constitutional: Denied any fatigue denied any fever. Cardio vascular: denied any chest pain, palpitations Gastrointestinal denied any nausea vomiting Pulmonary: Denied any shortness of breath cough Neurologic denied any new focal deficits All inpatient medications were reviewed and appropriate changes in these medications as dictated in the interval history and assessment and plan. Objective - Vital Signs Vital signs: Vital Signs Temp 98 F 06/17/20 11:47 Pulse 69 06/17/20 11:47 Resp 16 06/17/20 11:47 BP 110/56 06/17/20 11:47 Pulse Ox 95 06/17/20 11:47 Intake & Output 06/16/20 06/17/20 06/17/20 18:59 06:59 18:59 Intake Total 315 555 Output Total 1275 3325 350 Balance -960 -2770 -350 Weight 111.13 kg 112.5 kg Intake: IV 75 Sodium Chloride 0.9% 1, 75 000 ml @ 75 mls/hr IV . [id number] [facility] Rx#:[id number] Intake, IV Titration 55 Amount Sodium Chloride 0.9% 1, 35 000 ml @ 130 mls/hr IV . [id number] [facility] Rx#:[id number] Sodium Chloride 0.9% 1, 20 000 ml @ 75 mls/hr IV . [id number] [facility] Rx#:[id number] Oral 240 500 Output: Urine 1275 3325 350 Uretheral (Blanton) 450 Other: Voiding Method Indwelling Catheter Indwelling Catheter Indwelling Catheter # Bowel Movements 2 - Exam PHYSICAL EXAMINATION: GENERAL: The patient is alert and oriented x3, not in any acute distress. Well developed, well nourished. HEENT: Pupils are round and equally reacting to light. EOMI. No scleral icterus. No conjunctival pallor. Normocephalic, atraumatic. No pharyngeal erythema. No thyromegaly. CARDIOVASCULAR: S1 and S2 present. No murmurs, rubs, or gallops. PULMONARY: Chest is clear to auscultation, no wheezing or crackles. ABDOMEN: Soft, nontender, nondistended, normoactive bowel sounds. No palpable organomegaly. MUSCULOSKELETAL: No joint swelling or deformity. EXTREMITIES: No cyanosis, clubbing, or pedal edema. NEUROLOGICAL: Gross neurological examination did not reveal any focal deficits. SKIN: No rashes. - Labs CBC & Chem 7: 06/16/20 11:48 06/17/20 07:41 Labs: Abnormal Lab Results - Last 24 Hours (Table) 06/16/20 06/16/20 06/16/20 Range/Units 11:48 11:48 11:48 WBC 11.0 H (3.8-10.6) k/uL RBC 3.97 L (4.30-5.90) m/uL Neutrophils # 9.3 H (1.3-7.7) k/uL Lymphocytes # 0.8 L (1.0-4.8) k/uL Sodium 120 L (137-145) mmol/L Potassium 5.2 H (3.5-5.1) mmol/L Chloride 89 L (98-107) mmol/L Carbon Dioxide 19 L (22-30) mmol/L BUN 34 H (9-20) mg/dL Creatinine 1.75 H (0.66-1.25) mg/dL Glucose 121 H (74-99) mg/dL Osmolality (280-301) mosm/kg Troponin I 0.088 H* (0.000-0.034) ng/mL 06/16/20 06/16/20 06/16/20 Range/Units 11:48 15:04 17:54 WBC (3.8-10.6) k/uL RBC (4.30-5.90) m/uL Neutrophils # (1.3-7.7) k/uL Lymphocytes # (1.0-4.8) k/uL Sodium 125 L (137-145) mmol/L Potassium (3.5-5.1) mmol/L Chloride (98-107) mmol/L Carbon Dioxide (22-30) mmol/L BUN (9-20) mg/dL Creatinine (0.66-1.25) mg/dL Glucose (74-99) mg/dL Osmolality 265 L (280-301) mosm/kg Troponin I 0.095 H* (0.000-0.034) ng/mL 06/17/20 Range/Units 07:41 WBC (3.8-10.6) k/uL RBC (4.30-5.90) m/uL Neutrophils # (1.3-7.7) k/uL Lymphocytes # (1.0-4.8) k/uL Sodium 129 L (137-145) mmol/L Potassium (3.5-5.1) mmol/L Chloride 92 L (98-107) mmol/L Carbon Dioxide (22-30) mmol/L BUN 33 H (9-20) mg/dL Creatinine 1.44 H (0.66-1.25) mg/dL Glucose 100 H (74-99) mg/dL Osmolality (280-301) mosm/kg Troponin I (0.000-0.034) ng/mL Assessment and Plan Plan: -Severe hyponatremia: Most probably secondary to hydrochlorothiazide and urinary obstruction. Patient presently has a Blanton catheter in place urology will evaluated the patient probably related to the patient patient's sodium went up to rapidly because of which patient was started on D5W -hyperkalemia secondary to obstructive uropathy and the lisinopril lisinopril is being held for hyperkalemia improved -Acute renal failure pedal azotemia improved with IV fluids -Non-anion gap of ACIDOSIS secondary to renal failure -Generalized weakness secondary to cancer n -mildly elevated troponin seconded chronic kidney disease stage III. 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 -Diarrhea will rule out C. diff most probably secondary to radiation patient will be started on symptomatic treatment for that
--- NOTE | 2020-06-17 12:48 | P.GSCN ---
History of Present Illness Consult date: 06/17/20 Reason for Consult: Urinary retention History of present illness: Mr Chapman is a 79 yo male with hx of prostate cancer currently on EBRT. He pr esented to the ED with difficulty voiding an weakness. In the ED his bladder scan showed PVR of 450 mL and reese was placed. Denies any voiding issues at baseline. Denies any hx of gross hematuria or dysuria. No previous hx of urinary retention. His creat was elevated to 1.77 on presentation which is up from his baseline of 1.4-1.5. His RBUS showed no evidence of hydronephrosis. He denies any complaints today, reese draining clear yellow Review of Systems - Constitutional Reports weakness, Denies chills, Denies fever, Denies weight loss - Cardiovascular Denies chest pain, Denies shortness of breath - Respiratory Denies cough, Denies 7 - Gastrointestinal Reports as per HPI - Genitourinary Reports urinary retention - Integumentary Denies rash, Denies unusual bruising - Psychiatric Denies anxiety, Denies confusion Past Medical History Past Medical History: Coronary Artery Disease (CAD), Cancer, CVA/TIA, Diabetes Mellitus, Eye Disorder, Hyperlipidemia, Hypertension, Myocardial Infarction ([place]), Osteoarthritis (OA), Vascular Disorder Additional Past Medical History / Comment(s): 2017 Prostate cancer and is currently undergoing radiation treatments, 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 Last Myocardial Infarction Date:: 2011 History of Any Multi-Drug Resistant Organisms: None Reported Past Surgical History: Back Surgery, Coronary Bypass/CABG, Heart Catheterization, Heart Catheterization With Stent Additional Past Surgical History / Comment(s): 2011 CABG 3 vessel, vascular procedures/stents in bilaeteral common iliac arteries, bilateral SFA stents, colonoscopy, prostate biopsy, spacOAR implant Past Anesthesia/Blood Transfusion Reactions: No Reported Reaction Date of Last Stent Placement:: 2014 Smoking Status: Former smoker - Past Family History Father Family Medical History: Hypertension Additional Family Medical History / Comment(s): Father at age 82yrs. Mother Family Medical History: Diabetes Mellitus Additional Family Medical History / Comment(s): Mother at age 69yrs. Medications and Allergies Home Medications Medication Instructions Recorded Confirmed Type Aspirin 81 mg PO HS 01/30/14 06/16/20 History Atorvastatin [Lipitor] 40 mg PO HS 01/30/14 06/16/20 History Metoprolol Tartrate [Lopressor] 12.5 mg PO DAILY 01/30/14 06/16/20 History allopurinoL [Zyloprim] 100 mg PO DAILY 01/30/14 06/16/20 History Acetaminophen/Diphenhydramine 2 tab PO HS PRN 02/01/14 06/16/20 History [Tylenol PM 500-25mg] Cholecalciferol [Vitamin D3 (25 50 mcg PO DAILY 02/01/14 06/16/20 History Mcg = 1000 Iu)] Clopidogrel [Plavix] 75 mg PO DAILY 05/02/14 06/16/20 History Ascorbic Acid [Vitamin C] 500 mg PO HS 08/14/14 06/16/20 History Magnesium Oxide [Mag-Ox] 250 mg PO DAILY 08/14/14 06/16/20 History Fluticasone Nasal [place] [Flonase 2 spray EA NOSTRIL HS 12/23/14 06/16/20 History Nasal [place]] Ferrous Sulfate [Feosol] 325 mg PO BID 05/19/20 06/16/20 History lisinopriL [Zestril] 5 mg PO DAILY 05/19/20 06/16/20 History Magnesium Oxide [Mag-Ox] 500 mg PO HS 06/16/20 06/16/20 History SILVER sulfADIAZINE Cream 1 applic TOPICAL BID 06/16/20 06/16/20 History [Silvadene 1% Cream] Tamsulosin [Flomax] 0.4 mg PO HS 06/16/20 06/16/20 History hydroCHLOROthiazide 25 mg PO HS 06/16/20 06/16/20 History Allergies Allergy/AdvReac Type Severity Reaction Status Date / Time No Known Allergies Allergy Verified 06/16/20 12:54 Surgical - Exam Vital Signs Temp Pulse Resp BP Pulse Ox 97.7 F 59 L 18 95/61 97 06/16/20 11:07 06/16/20 11:07 06/16/20 11:07 06/16/20 11:07 06/16/20 11:07 - General well developed, well nourished, no distress, no pain - Eyes PERRL, normal ocular movement - ENT normal nares, no hearing loss - Respiratory normal expansion, normal respiratory effort - Abdomen Abdomen: soft, non tender - Psychiatric oriented to time, oriented to person, oriented to place, speech is normal Results - Labs 06/16/20 11:48 06/17/20 07:41 Abnormal Lab Results - Last 24 Hours (Table) 06/16/20 06/16/20 06/16/20 Range/Units 11:48 11:48 15:04 Sodium (137-145) mmol/L Chloride (98-107) mmol/L BUN (9-20) mg/dL Creatinine (0.66-1.25) mg/dL Glucose (74-99) mg/dL Osmolality 265 L (280-301) mosm/kg Troponin I 0.088 H* 0.095 H* (0.000-0.034) ng/mL 06/16/20 06/17/20 Range/Units 17:54 07:41 Sodium 125 L 129 L (137-145) mmol/L Chloride 92 L (98-107) mmol/L BUN 33 H (9-20) mg/dL Creatinine 1.44 H (0.66-1.25) mg/dL Glucose 100 H (74-99) mg/dL Osmolality (280-301) mosm/kg Troponin I (0.000-0.034) ng/mL Diabetes panel 06/16/20 06/17/20 Range/Units 17:54 07:41 Sodium 125 L 129 L (137-145) mmol/L Potassium 4.4 (3.5-5.1) mmol/L Chloride 92 L (98-107) mmol/L Carbon Dioxide 28 (22-30) mmol/L BUN 33 H (9-20) mg/dL Creatinine 1.44 H (0.66-1.25) mg/dL Glucose 100 H (74-99) mg/dL Calcium 9.2 (8.4-10.2) mg/dL Thyroid panel 06/16/20 Range/Units 11:48 TSH 1.420 (0.465-4.680) mIU/L Calcium panel 06/17/20 Range/Units 07:41 Calcium 9.2 (8.4-10.2) mg/dL Pituitary panel 06/16/20 06/16/20 06/17/20 Range/Units 11:48 17:54 07:41 Sodium 125 L 129 L (137-145) mmol/L Potassium 4.4 (3.5-5.1) mmol/L Chloride 92 L (98-107) mmol/L Carbon Dioxide 28 (22-30) mmol/L BUN 33 H (9-20) mg/dL Creatinine 1.44 H (0.66-1.25) mg/dL Glucose 100 H (74-99) mg/dL Calcium 9.2 (8.4-10.2) mg/dL TSH 1.420 (0.465-4.680) mIU/L Adrenal panel 06/16/20 06/17/20 Range/Units 17:54 07:41 Sodium 125 L 129 L (137-145) mmol/L Potassium 4.4 (3.5-5.1) mmol/L Chloride 92 L (98-107) mmol/L Carbon Dioxide 28 (22-30) mmol/L BUN 33 H (9-20) mg/dL Creatinine 1.44 H (0.66-1.25) mg/dL Glucose 100 H (74-99) mg/dL Calcium 9.2 (8.4-10.2) mg/dL Assessment and Plan Assessment: 79 yo male with hx of prostate cancer currently undergoing EBRT. Admitted with urinary retention, VERONICA and hyponatremia. Reese placed for PVR of 450 mL no previous hx of retention. UA negative for UTI, his urinary retention is most likely secondary to inflammation secondary to his EBRT. recommend to keep reese in placed for one week, ok for discharge home with the reese, he can f/u with Dr Parsons in one week for TOV. Recommend to discharge home with the flomax
[2020-06-17] MEDS: LOPERAMIDE 2 MG CAP PO PRN ×3 (15:00→20:08)
[2020-06-17] MEDS: TAMSULOSIN 0.4 MG CAP.ER.24H PO SCH (20:08)
[2020-06-17] MEDS: ATORVASTATIN 40 MG TAB PO SCH (20:08)
[2020-06-17] MEDS ORDERED: ASPIRIN 81 MG PO SCH (21:00)
[2020-06-18 08:32] LABS: Calcium 8.7 mg/dL (8.4-10.2); Magnesium 1.6 mg/dL (1.6-2.3); Potassium 4.2 mmol/L (3.5-5.1)
--- NOTE | 2020-06-18 09:03 | P.PN ---
Subjective Patient is seen in follow-up for hyponatremia. Sodium level 132 this morning. Having breakfast. Nonoliguric. Has a Blanton catheter. No chest pain or shortness of breath. Vital signs are stable. General: The patient appeared well nourished and normally developed. HEENT: Head exam is unremarkable. Neck is without jugular venous distension. LUNGS: Breath sounds decreased. HEART: Rate and Rhythm are regular. ABDOMEN: Soft, nontender. EXTREMITITES: No edema. Lower extremities wrapped. Objective - Vital Signs Vital signs: Vital Signs Temp 97.6 F 06/18/20 08:00 Pulse 89 06/18/20 08:00 Resp 19 06/18/20 08:00 BP 130/62 06/18/20 08:00 Pulse Ox 95 06/18/20 08:00 Intake & Output 06/17/20 06/18/20 06/18/20 18:59 06:59 18:59 Intake Total 1040 100 Output Total 1550 1425 450 Balance -510 -1325 -450 Weight 108.2 kg Intake: Oral 1040 100 Output: Urine 1550 1425 450 Other: Voiding Method Indwelling Catheter Indwelling Catheter - Labs CBC & Chem 7: 06/16/20 11:48 06/18/20 07:12 Labs: Abnormal Lab Results - Last 24 Hours (Table) 06/17/20 06/17/20 06/17/20 Range/Units 07:41 10:39 12:38 Sodium 129 L 129 L (137-145) mmol/L Chloride 92 L (98-107) mmol/L BUN 33 H (9-20) mg/dL Creatinine 1.44 H (0.66-1.25) mg/dL Glucose 100 H (74-99) mg/dL Troponin I 0.064 H* (0.000-0.034) ng/mL 06/18/20 Range/Units 07:12 Sodium 132 L (137-145) mmol/L Chloride 95 L (98-107) mmol/L BUN 30 H (9-20) mg/dL Creatinine (0.66-1.25) mg/dL Glucose 102 H (74-99) mg/dL Troponin I (0.000-0.034) ng/mL Assessment and Plan Plan: Assessment: 1. Hypovolemic hyponatremia further worsened with the use of hydrochlorothiaz benita. Improved with IV hydration. Sodium level 132 this morning. Urine osmolality 314. Urine sodium 54. 2. Acute kidney injury mostly prerenal secondary to hypovolemia improved with IV hydration. Creatinine 1.1 today. 3. Chronic kidney disease stage IIIB with baseline creatinine in the range of 1.6-1.8. Etiology is nephrosclerosis. UA benign. 4. Metabolic acidosis secondary to GI losses and acute kidney injury. Resolved. 5. Prostate cancer. Recently started on radiation therapy. 6. Diarrhea. C. diff negative. 7. Hypomagnesemia secondary to diuretics and GI losses. Maintained on oral magnesium oxide. Plan: Encouraged oral intake. Avoid nephrotoxins. Hold hydrochlorothiazide. 2 g IV magnesium sulfate today. Anticipate discharge soon. Follow up outpatient in 1-2 weeks.
[2020-06-18] MEDS: CLOPIDOGREL 75 MG TAB PO SCH (09:57)
[2020-06-18] MEDS: allopurinoL 100 MG TAB PO SCH (09:57)
[2020-06-18] MEDS: HEPARIN SODIUM,PORCINE 5,000 UNIT/ML 1 ML VIAL SQ SCH (09:58)
[2020-06-18] MEDS: METOPROLOL TARTRATE 12.5 MG TAB PO SCH (09:59)
[2020-06-18] MEDS: MAGNESIUM OXIDE 400 MG TAB PO SCH (09:59)
[2020-06-18] MEDS: MAGNESIUM SULFATE-D5W PMX 1 GM in DEXTROSE/WATER 1 100ML.BAG IVPB SCH ×2 (11:45→13:37)
[2020-06-18] MEDS ORDERED: MAGNESIUM SULFATE-D5W PMX 1 GM in DEXTROSE/WATER 1 100ML.BAG IVPB ONE (11:48)
--- NOTE | 2020-06-18 11:58 | P.DS ---
Providers Date of admission: 06/16/20 13:05 Attending physician: Toma An Consults: 06/16/20 13:16 Consult Physician Routine Consulting Provider: Titus Disla Consult Reason/Comments: Hyponatremia Do you want consulting provider notified?: Yes 06/16/20 13:18 Consult Physician Routine Consulting Provider: Sreekanth Parsons Consult Reason/Comments: Obstructive uropathy Do you want consulting provider notified?: Yes 06/17/20 11:06 Consult Physician Routine Consulting Provider: Josiah Bradley Consult Reason/Comments: currently receiving radiation Do you want consulting provider notified?: Yes Primary care physician: Navi Jimenez MD Hospital Course: 79-year-old came in with the complaints of inability to urinate for couple days and generalized weakness patient does have history of prostate cancer for which patient is undergoing radiation therapy and the patient denied any fever chills nausea vomiting abdominal pain dysuria patient has low sodium of 120 patient is on hydrochlorothiazide patient that presently has a Blanton catheter. Patient does have chronic kidney disease with baseline creatinine of around 1.7 and patient's present creatinine is around 1.7 patient denied any chest pain patient has mildly elevated troponin of 0.88. Patient does have leukocytosis no fever. Urine analysis is essentially within normal limits. 06/17/2020 Patient's creatinine improved to 1.44 potassium improved as well as sodium improved although sodium rapidly improved from 120-129 because of which patient is being started on D5W with nephrology. Patient's HIDA chlorothiazide is being held. 06/18/2020 Patient's sodium did improve to 131 hyponatremia as it will be discontinued patient will be discharged today creatinine improved. Neurology evaluated the patient and recommended keeping the Blanton catheter for a week and follow-up with urology as an outpatient. PHYSICAL EXAMINATION: GENERAL: The patient is alert and oriented x3, not in any acute distress. Well developed, well nourished. HEENT: Pupils are round and equally reacting to light. EOMI. No scleral icterus. No conjunctival pallor. Normocephalic, atraumatic. No pharyngeal erythema. No thyromegaly. CARDIOVASCULAR: S1 and S2 present. No murmurs, rubs, or gallops. PULMONARY: Chest is clear to auscultation, no wheezing or crackles. ABDOMEN: Soft, nontender, nondistended, normoactive bowel sounds. No palpable organomegaly. MUSCULOSKELETAL: No joint swelling or deformity. EXTREMITIES: No cyanosis, clubbing, or pedal edema. NEUROLOGICAL: Gross neurological examination did not reveal any focal deficits. SKIN: No rashes. Assessment and Plan Plan: -Severe hyponatremia: Most probably secondary to hydrochlorothiazide and urinary obstruction. Patient's a sodium improved to 131 -hyperkalemia secondary to obstructive uropathy and the lisinopril, hypokalemia improved patient will be discharged today -Acute renal failure pedal azotemia improved with IV fluids -Non-anion gap of ACIDOSIS secondary to renal failure -Generalized weakness secondary to cancer n -mildly elevated troponin seconded chronic kidney disease stage III. 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 -Diarrhea will rule out C. diff most probably secondary to radiation patient will be started on symptomatic treatment for that Patient Condition at Discharge: Stable Plan - Discharge Summary Discharge Rx Participant: No New Discharge Prescriptions: Continue Metoprolol Tartrate [Lopressor] 12.5 mg PO DAILY allopurinoL [Zyloprim] 100 mg PO DAILY Atorvastatin [Lipitor] 40 mg PO HS Aspirin 81 mg PO HS Acetaminophen/Diphenhydramine [Tylenol PM 500-25mg] 2 tab PO HS PRN PRN Reason: Insomnia Cholecalciferol [Vitamin D3 (25 Mcg = 1000 Iu)] 50 mcg PO DAILY Clopidogrel [Plavix] 75 mg PO DAILY Magnesium Oxide [Mag-Ox] 250 mg PO DAILY Ascorbic Acid [Vitamin C] 500 mg PO HS Fluticasone Nasal [place] [Flonase Nasal [place]] 2 spray EA NOSTRIL HS lisinopriL [Zestril] 5 mg PO DAILY Ferrous Sulfate [Iron (65 MG Elemental)] 325 mg PO BID SILVER sulfADIAZINE Cream [Silvadene 1% Cream] 1 applic TOPICAL BID Magnesium Oxide [Mag-Ox] 500 mg PO HS Tamsulosin [Flomax] 0.4 mg PO HS Discontinued hydroCHLOROthiazide 25 mg PO HS Discharge Medication List Aspirin 81 mg PO HS 01/30/14 [History] Atorvastatin [Lipitor] 40 mg PO HS 01/30/14 [History] allopurinoL [Zyloprim] 100 mg PO DAILY 01/30/14 [History] Acetaminophen/Diphenhydramine [Tylenol PM 500-25mg] 2 tab PO HS PRN 02/01/14 [History] Cholecalciferol [Vitamin D3 (25 Mcg = 1000 Iu)] 50 mcg PO DAILY 02/01/14 [History] Clopidogrel [Plavix] 75 mg PO DAILY 05/02/14 [History] Ascorbic Acid [Vitamin C] 500 mg PO HS 08/14/14 [History] Magnesium Oxide [Mag-Ox] 250 mg PO DAILY 08/14/14 [History] Fluticasone Nasal [place] [Flonase Nasal [place]] 2 spray EA NOSTRIL HS 12/23/14 [History] Ferrous Sulfate [Iron (65 MG Elemental)] 325 mg PO BID 05/19/20 [History] lisinopriL [Zestril] 5 mg PO DAILY 05/19/20 [History] Magnesium Oxide [Mag-Ox] 500 mg PO HS 06/16/20 [History] SILVER sulfADIAZINE Cream [Silvadene 1% Cream] 1 applic TOPICAL BID 06/16/20 [History] Tamsulosin [Flomax] 0.4 mg PO HS 06/16/20 [History] Metoprolol Tartrate [Lopressor] 12.5 mg PO BID #0 06/18/20 [Rx] Follow up Appointment(s)/Referral(s): Navi Jimenez MD [Primary Care Provider] - 3 Days Sreekanth Parsons MD [STAFF PHYSICIAN] - 1 Week
[2020-06-18 12:03] VITALS: BP 101/61; PULSE 80; RESP 18; TEMP 98.1
== END 2020-06-18 16:45 | disposition home or self-care (01) | DRG 641 ==
LOC: EC 11:01 → 3SCARD 13:05
PROVIDERS: ADMIT Internal Medicine; ATTEND Internal Medicine
DX: E87.1 Hypo-osmolality and hyponatremia (principal); N17.9 Acute kidney failure, unspecified; K52.0 Gastroenteritis and colitis due to radiation; I12.9 Hypertensive chronic kidney disease with stage 1 through stage 4 chronic kidney disease, or unspecified chronic kidney disease; I25.10 Atherosclerotic heart disease of native coronary artery without angina pectoris; E87.6 Hypokalemia; E87.5 Hyperkalemia; E87.2 Acidosis; I49.3 Ventricular premature depolarization; N18.32 Chronic kidney disease, stage 3b; C61 Malignant neoplasm of prostate; N13.9 Obstructive and reflux uropathy, unspecified; T50.2X5A Adverse effect of carbonic-anhydrase inhibitors, benzothiadiazides and other diuretics, initial encounter; E86.0 Dehydration; E83.42 Hypomagnesemia; E11.51 Type 2 diabetes mellitus with diabetic peripheral angiopathy without gangrene; E11.22 Type 2 diabetes mellitus with diabetic chronic kidney disease; E78.5 Hyperlipidemia, unspecified; E86.1 Hypovolemia; I25.2 Old myocardial infarction; Z85.46 Personal history of malignant neoplasm of prostate; Z83.3 Family history of diabetes mellitus; Z82.49 Family history of ischemic heart disease and other diseases of the circulatory system; Z79.899 Other long term (current) drug therapy; Z79.02 Long term (current) use of antithrombotics/antiplatelets; Z95.1 Presence of aortocoronary bypass graft; Z86.73 Personal history of transient ischemic attack (TIA), and cerebral infarction without residual deficits; Z79.82 Long term (current) use of aspirin; Z87.891 Personal history of nicotine dependence
CPT/HCPCS: 36415; 51702; 51798; 71046; 76770; 80048; 80053; 81003; 82570; 83605; 83735; 83930; 83935; 84295; 84300; 84443; 84484; 84560; 85025; 85610; 85730; 86850; 86900; 86901; 87324; 93005; 96360; 96361; 99285

== ENCOUNTER 2020-06-23 05:46 | Emergency (ER) | payer MEDICARE, BC ==
[2020-06-23 05:57] VITALS: TEMP 98.6
--- NOTE | 2020-06-23 06:31 | ED ---
General Adult HPI - General Chief complaint: Urogenital Stated complaint: Catheter issues Time Seen by Provider: 06/23/20 06:06 Source: patient, EMS, RN notes reviewed Mode of arrival: EMS Limitations: no limitations - History of Present Illness Initial comments: Patient's a 79-year-old male presenting to the emergency room today by EMS, the chief complaint of problem removing his Blanton catheter. He does need a Blanton catheter placed last week. He states that he was going for treatment today for prostate cancer at [facility]. He was instructed to remove the Blanton catheter at home. He states he cut the Blanton. He states that he is concerned that he did not deflate the balloon first was concerned that there could be something left in. He does admit that he's had blood coming from the penis. Patient does admit that he was on blood thinner Plavix. Patient denies any recent fever, chills, shortness of breath, chest pain, back pain, abdominal pain, nausea or vomiting, headaches or visual changes, or any other complaints. - Related Data Home Medications Medication Instructions Recorded Confirmed Aspirin 81 mg PO HS 01/30/14 06/23/20 Atorvastatin [Lipitor] 40 mg PO HS 01/30/14 06/23/20 allopurinoL [Zyloprim] 100 mg PO DAILY 01/30/14 06/23/20 Acetaminophen/Diphenhydramine 2 tab PO HS PRN 02/01/14 06/23/20 [Tylenol PM 500-25mg] Cholecalciferol [Vitamin D3 (25 50 mcg PO DAILY 02/01/14 06/23/20 Mcg = 1000 Iu)] Clopidogrel [Plavix] 75 mg PO DAILY 05/02/14 06/23/20 Ascorbic Acid [Vitamin C] 500 mg PO HS 08/14/14 06/23/20 Magnesium Oxide [Mag-Ox] 250 mg PO DAILY 08/14/14 06/23/20 Fluticasone Nasal [place] [Flonase 2 spray EA NOSTRIL HS 12/23/14 06/23/20 Nasal [place]] Ferrous Sulfate [Iron (65 MG 325 mg PO BID 05/19/20 06/23/20 Elemental)] lisinopriL [Zestril] 5 mg PO DAILY 05/19/20 06/23/20 Magnesium Oxide [Mag-Ox] 500 mg PO HS 06/16/20 06/23/20 SILVER sulfADIAZINE Cream 1 applic TOPICAL BID 06/16/20 06/23/20 [Silvadene 1% Cream] Tamsulosin [Flomax] 0.4 mg PO HS 06/16/20 06/23/20 Previous Rx's Medication Instructions Recorded Metoprolol Tartrate [Lopressor] 12.5 mg PO BID #0 06/18/20 Allergies Allergy/AdvReac Type Severity Reaction Status Date / Time No Known Allergies Allergy Verified 06/23/20 07:21 Review of Systems ROS Statement: Those systems with pertinent positive or pertinent negative responses have been documented in the HPI. ROS Other: All systems not noted in ROS Statement are negative. 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 Last Myocardial Infarction Date:: 2011 History of Any Multi-Drug Resistant Organisms: None Reported Past Surgical History: Back Surgery, Coronary Bypass/CABG, Heart Catheterization, Heart Catheterization With Stent Additional Past Surgical History / Comment(s): 2011 CABG 3 vessel, vascular procedures/stents in bilaeteral common iliac arteries, bilateral SFA stents, colonoscopy, prostate biopsy, spacOAR implant Past Anesthesia/Blood Transfusion Reactions: No Reported Reaction Date of Last Stent Placement:: 2014 Past Psychological History: No Psychological Hx Reported Smoking Status: Former smoker Past Alcohol Use History: Rare Past Drug Use History: None Reported - Past Family History Father Family Medical History: Hypertension Additional Family Medical History / Comment(s): Father at age 82yrs. Mother Family Medical History: Diabetes Mellitus Additional Family Medical History / Comment(s): Mother at age 69yrs. General Exam - General Exam Comments Initial Comments: General: The patient is awake and alert, in no distress, and does not appear acutely ill. Eye: There is normal conjunctiva bilaterally. No signs of icterus. Ears, nose, mouth and throat: There are moist mucous membranes and no oral lesions. Neck: The neck is supple Respiratory: respirations are non-labored, breath sounds are equal. Gastrointestinal: Soft on palpation. Nontender. Musculoskeletal: Normal ROM, no tenderness. Strength 5/5. Sensation intact. Pulses equal bilaterally 2+. Neurological: A&O x 3. CN II-XII intact, There are no obvious motor or sensory deficits. Coordination appears grossly intact. Speech is normal. Skin: Skin is warm and dry and no rashes or lesions are noted. Psychiatric: Cooperative, appropriate mood & affect, normal judgment. Limitations: no limitations Course Vital Signs 06/23/20 05:48 Temperature 98.6 F Pulse Rate 82 Respiratory 18 Rate Blood Pressure 125/65 O2 Sat by Pulse 96 Oximetry Medical Decision Making - Medical Decision Making Patient reexamined at this time is resting comfortably. He does not that this morning he cut the Blanton catheter. He states that he then removed it but he did have some difficulty. Is unclear if the wound completely deflated or not. At this time but can was obtained had 160 mL in the bladder. He does not feel the urge to void. Patient did have some bleeding this morning which has stopped. Was discussed with patient about replacing Blanton catheter. He states that the urologist oncologist 1 full catheter removed this morning does have appointment 11:30 AM. Was discussed with continuing to follow with his appointment to have him evaluated then and return if he is unable to void for Blanton catheter. He is in agreement with this plan. Disposition Clinical Impression: Blanton catheter problem Disposition: HOME SELF-CARE Condition: Good Instructions (If sedation given, give patient instructions): Blanton Catheter Placement and Care (ED) Is patient prescribed a controlled substance at d/c from ED?: No Referrals: Navi Jimenez MD [Primary Care Provider] - 1-2 days Time of Disposition: 08:00
[2020-06-23 08:06] VITALS: BP 96/70; PULSE 81; RESP 16
== END 2020-06-23 08:24 | disposition home or self-care (01) ==
LOC: EC 05:46
DX: T83.091A Other mechanical complication of indwelling urethral catheter, initial encounter (principal); C61 Malignant neoplasm of prostate; E78.5 Hyperlipidemia, unspecified; I10 Essential (primary) hypertension; M19.90 Unspecified osteoarthritis, unspecified site; I25.10 Atherosclerotic heart disease of native coronary artery without angina pectoris; I25.2 Old myocardial infarction; Z79.899 Other long term (current) drug therapy; Z79.82 Long term (current) use of aspirin; Z79.02 Long term (current) use of antithrombotics/antiplatelets; Z79.51 Long term (current) use of inhaled steroids; Z86.73 Personal history of transient ischemic attack (TIA), and cerebral infarction without residual deficits; Z87.891 Personal history of nicotine dependence
CPT/HCPCS: 51798; 99283

== ENCOUNTER 2020-08-04 19:24 | Inpatient (IN) | payer MEDICARE, BC ==
[2020-08-04] MEDS ORDERED: SODIUM CHLORIDE 0.9% 500 ML 500 ML IV STA (20:02)
[2020-08-04] MEDS ORDERED: SODIUM CHLORIDE 0.9% 1,000 ML IV STA (20:02)
[2020-08-04] MEDS ORDERED: guaiFENesin-DM 600/30MG 1 EACH TAB.ER.12H PO STA (20:06)
[2020-08-04] MEDS ORDERED: LOPERAMIDE 2 MG CAP PO STA (20:39)
[2020-08-04 21:33] LABS: Appearance,Urine Turbid (Clear); Bacteria,Urine Rare /hpf; Bilirubin,Urine Negative (Negative); Blood,Urine Moderate (Negative); Budding Yeast,Urine Few /hpf; Color,Urine Yellow; Glucose,Urine (UA) Negative (Negative); Hyaline Casts,Urine 44 /lpf (0-2); Ketones,Urine Negative (Negative); Leukocyte Esterase,Urine Large (Negative); Mucus,Urine Occasional /hpf; Nitrite,Urine Negative (Negative); PH, Urine 5.5 (5.0-8.0); Protein,Urine 1+ (Negative); RBC,Urine 71 /hpf (0-5); Specific Gravity,Urine 1.024 (1.001-1.035); Squamous Epithelial Cell,Urine 1 /hpf (0-4); Urobilinogen,Urine <2.0 mg/dL (<2.0); WBC,Urine >182 /hpf (0-5)
--- NOTE | 2020-08-04 21:44 | ED ---
General Adult HPI - General Chief complaint: Recheck/Abnormal Lab/Rx Stated complaint: Cardiac issues Time Seen by Provider: 08/04/20 19:36 Source: patient, EMS Mode of arrival: EMS - History of Present Illness Initial comments: This 79-year-old male presents with a complaint of falling. He was sent here from [facility] after he had a workup at their facility. He relates that he has had recurrent falls over the last 2 months. He has been treated for prostate cancer and states that he had an intensive radiation treatment cycle over a short period of time. He started having some diarrhea prior to this but it got worse after his radiation therapy. He has fallen many times. Today he apparently stood up and was walking to answer the phone when he became weak and fell and hit his head. He also obtained right arm abrasions. He was seen at the other hospital and found to have a heart rate of approximately 44 and his blood pressure was down to 70 systolic. This did improve to over 100 systolic with IV fluids. He also had a elevated d-dimer but his BUN/creatinine and creatinine was elevated so they did not perform a VQ scan. The patient does relate having some nasal congestion which is due to his sinuses and states that this is been somewhat chronic in nature and he normally takes DayQuil and NyQuil for this. He denies any fevers or chills. He does have a chronic indwelling Blanton catheter. His urinalysis from the other hospital is positive for infection. He states that he feels improved at this point in time. No other complaints or modifying factors. - Related Data Home Medications Medication Instructions Recorded Confirmed Aspirin 81 mg PO HS 01/30/14 08/04/20 Atorvastatin [Lipitor] 40 mg PO HS 01/30/14 08/04/20 allopurinoL [Zyloprim] 100 mg PO DAILY 01/30/14 08/04/20 Acetaminophen/Diphenhydramine 2 tab PO HS PRN 02/01/14 08/04/20 [Tylenol PM 500-25mg] Cholecalciferol [Vitamin D3 (25 50 mcg PO DAILY 02/01/14 08/04/20 Mcg = 1000 Iu)] Clopidogrel [Plavix] 75 mg PO DAILY 05/02/14 08/04/20 Ascorbic Acid [Vitamin C] 500 mg PO HS 08/14/14 08/04/20 Magnesium Oxide [Mag-Ox] 250 mg PO DAILY 08/14/14 08/04/20 Fluticasone Nasal [place] [Flonase 2 spray EA NOSTRIL HS 12/23/14 08/04/20 Nasal [place]] Ferrous Sulfate [Iron (65 MG 325 mg PO BID 05/19/20 08/04/20 Elemental)] lisinopriL [Zestril] 5 mg PO DAILY 05/19/20 08/04/20 Magnesium Oxide [Mag-Ox] 500 mg PO HS 06/16/20 08/04/20 SILVER sulfADIAZINE Cream 1 applic TOPICAL BID 06/16/20 08/04/20 [Silvadene 1% Cream] Tamsulosin [Flomax] 0.4 mg PO BID 06/16/20 08/04/20 ALPRAZolam [Xanax] 0.25 mg PO BID PRN 08/04/20 08/04/20 Previous Rx's Medication Instructions Recorded Metoprolol Tartrate [Lopressor] 12.5 mg PO BID #0 06/18/20 Allergies Allergy/AdvReac Type Severity Reaction Status Date / Time No Known Allergies Allergy Verified 08/04/20 20:07 Review of Systems ROS Statement: Those systems with pertinent positive or pertinent negative responses have been documented in the HPI. ROS Other: All systems not noted in ROS Statement are negative. 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 Last Myocardial Infarction Date:: 2011 History of Any Multi-Drug Resistant Organisms: None Reported Past Surgical History: Back Surgery, Coronary Bypass/CABG, Heart Catheterization, Heart Catheterization With Stent Additional Past Surgical History / Comment(s): 2011 CABG 3 vessel, vascular procedures/stents in bilaeteral common iliac arteries, bilateral SFA stents, colonoscopy, prostate biopsy, spacOAR implant Past Anesthesia/Blood Transfusion Reactions: No Reported Reaction Date of Last Stent Placement:: 2014 Past Psychological History: No Psychological Hx Reported Smoking Status: Former smoker Past Alcohol Use History: Rare Past Drug Use History: None Reported - Past Family History Father Family Medical History: Hypertension Additional Family Medical History / Comment(s): Father at age 82yrs. Mother Family Medical History: Diabetes Mellitus Additional Family Medical History / Comment(s): Mother at age 69yrs. General Exam - General Exam Comments Initial Comments: GENERAL: The patient is well nourished and well hydrated. VITAL SIGNS: Heart rate, blood pressure, respiratory rate reviewed as recorded in nurse's notes. EYES: Pupils are round and reactive. Extraocular movements are intact. No conjunctival / lid redness or swelling. ENT: No external evidence of injury, swelling, or ecchymosis. Airway is patent. Throat is clear. NECK: Nontender. No swelling or evidence of injury. No subcutaneous emphysema. Trachea is midline. No thyroid mass. HEART: Regular rate and rhythm. Good peripheral pulses. LUNGS/CHEST: Breath sounds clear and equal bilaterally. No rales, rhonchi, or wheezes. No ecchymosis, subcutaneous emphysema, or tenderness. ABDOMEN: Abdomen soft without tenderness. No palpable masses or organomegaly. No peritoneal signs. No abdominal wall swelling or ecchymosis. EXTREMITIES: No extremity tenderness. Normal muscle tone and function. No thoracolumbar tenderness. NEUROLOGIC: Sensation is grossly intact. Cranial nerve exam reveals face is symmetrical, tongue is midline, speech is clear. SKIN: Right arm abrasions noted. No induration or masses noted. PSYCHIATRIC: Alert and oriented. Appropriate behavior and judgment. Course Vital Signs 08/04/20 08/04/20 08/04/20 19:27 19:38 20:00 Temperature 97.8 F Pulse Rate 70 62 Pulse Rate [ 67 Community Marketing Manager ] Respiratory 18 18 18 Rate Blood Pressure 110/63 101/59 O2 Sat by Pulse 94 L 98 Oximetry 08/04/20 21:00 Temperature Pulse Rate 65 Pulse Rate [ Community Marketing Manager ] Respiratory 18 Rate Blood Pressure 104/59 O2 Sat by Pulse 98 Oximetry Medical Decision Making - Medical Decision Making The patient was seen and examined. The results were reviewed from the other hospital. A repeat EKG was done at our facility and this does show evidence of a normal sinus rhythm at a rate of 68. There is evidence of a left bundle branch block with associated ST-T wave changes. The KS intervals 216, QRS duration is 174, and the QTc interval is 512. The workup from the other facility did show a negative computed tomography scan of the head and neck as well as a chest x-ray which shows cardiomegaly and chronic changes. The urinalysis is positive for infection with many bacteria and over 100 white blood cells and positive leukocyte esterase. Laboratory does show a chloride low at 93 creatinine elevated at 1.74, B urine elevated at 36, sodium low at 125, and a d-dimer elevated. He is given some IV fluids as well as Rocephin intravenously. Blanton catheter is been present for approximately one month and this is changed out and urine cultures completed. The case is discussed with Dr. Levy and he is agreeable with admission with cardiology to consult. It is felt as though he could have a degree of dehydration from his diarrhea related to his radiation treatment. The exact cause of his bradycardia is not determined. - Lab Data Lab Results 08/04/20 Range/Units 21:05 Urine Color Yellow Urine Appearance Turbid (Clear) Urine pH 5.5 (5.0-8.0) Ur Specific [place] 1.024 (1.001-1.035) Urine Protein 1+ H (Negative) Urine Glucose (UA) Negative (Negative) Urine Ketones Negative (Negative) Urine Blood Moderate H (Negative) Urine Nitrite Negative (Negative) Urine Bilirubin Negative (Negative) Urine Urobilinogen <2.0 (<2.0) mg/dL Ur Leukocyte Esterase Large H (Negative) Urine RBC 71 H (0-5) /hpf Urine WBC >182 H (0-5) /hpf Urine WBC Clumps Many H (None) /hpf Ur Squamous Epith Cells 1 (0-4) /hpf Urine Bacteria Rare H (None) /hpf Hyaline Casts 44 H (0-2) /lpf Urine Mucus Occasional H (None) /hpf Urine Yeast (Budding) Few H (None) /hpf Disposition Clinical Impression: Bradycardia, Hypotension, Head injury, Arm abrasion, Hyponatremia, UTI (urinary tract infection), Elevated d-dimer, History of prostate cancer, Hypochloremia, Diarrhea Disposition: ADMITTED IP TO THIS HOSP Condition: Fair Is patient prescribed a controlled substance at d/c from ED?: No Referrals: Navi Jimenez MD [Primary Care Provider] - 1-2 days Time of Disposition: 21:44 Decision Date: 08/04/20 Decision Time: 21:44
[2020-08-04] MEDS ORDERED: ALPRAZolam 0.25 MG TAB PO PRN (21:45)
[2020-08-04] MEDS ORDERED: NON FORMULARY DRUG (Acetaminophen/Diphenhydramine [Tylenol Pm 500-25mg] 1 EACH Tablet) PO PRN (21:45)
[2020-08-04] MEDS ORDERED: LOPERAMIDE 2 MG CAP PO PRN (21:46)
[2020-08-04] MEDS ORDERED: ONDANSETRON 4 MG/2 ML VIAL IVP PRN (21:46)
[2020-08-04] MEDS ORDERED: NALOXONE 0.4 MG/ML 1 ML VIAL IV PRN (21:46)
[2020-08-04] MEDS ORDERED: ACETAMINOPHEN TAB 325 MG TAB PO PRN (21:46)
[2020-08-05] MEDS: ENOXAPARIN 40 MG/0.4 ML SYRINGE SQ SCH ×2 (00:12→11:16)
[2020-08-05 03:30] LABS: Basophils # (A) 0.1 k/uL (0-0.2); Basophils % (A) 1 %; Eosinophils # (A) 0.1 k/uL (0-0.7); Eosinophils % (A) 1 %; HCT 32.7 % (39.0-53.0); HGB 10.8 gm/dL (13.0-17.5); Lymphocytes # (A) 0.5 k/uL (1.0-4.8); Lymphocytes % (A) 7 %; MCH 32.4 pg (25.0-35.0); MCV 98.3 fL (80.0-100.0); Macrocytosis Slight; Mean Platelet Volume 7.3; Monocytes # (A) 0.6 k/uL (0-1.0); Monocytes % (A) 9 %; Neutrophils # (A) 5.9 k/uL (1.3-7.7); Neutrophils % (A) 82 %; Platelet Count 224 k/uL (150-450); RBC 3.33 m/uL (4.30-5.90); RDW 15.1 % (11.5-15.5); WBC 7.2 k/uL (3.8-10.6)
[2020-08-05 03:50] LABS: Albumin 2.9 g/dL (3.5-5.0); Calcium 8.5 mg/dL (8.4-10.2); Potassium 4.8 mmol/L (3.5-5.1); Total Bilirubin 0.4 mg/dL (0.2-1.3); Total Protein 5.6 g/dL (6.3-8.2)
[2020-08-05] MEDS ORDERED: FERROUS SULFATE 325 MG TAB PO SCH (09:00)
[2020-08-05] MEDS ORDERED: lisinopriL 5 MG TAB PO SCH (09:00)
--- NOTE | 2020-08-05 09:23 | NM ---
EXAMINATION TYPE: NM pul vent and perfuse DATE OF EXAM: 08/05/2020 COMPARISON: Chest x-ray 08/04/2020, CT 08/04/2020 from outside institution HISTORY: Weakness, elevated d-dimer TECHNIQUE: Utilizing inhalation of 36.1 mCi Tc 99m DTPA aerosol and intravenous injection of 5.0 mCi of Tc 99m MAA, ventilation and perfusion images are acquired post injection in multiple projections. FINDINGS: Overall the radiotracer uptake on perfusion imaging is improved as compared to the ventilation imagin g. Central clumping of radiopharmaceutical is noted on dilation images suggesting underlying COPD, co nfirmed on CT. Chest x-ray demonstrates some patchy lower lobe increased attenuation, CT scan shows p robable right pleural effusion. No ventilation/perfusion mismatches. IMPRESSION: Low probability for pulmonary embolus.
[2020-08-05] MEDS: allopurinoL 100 MG TAB PO SCH (11:15)
[2020-08-05] MEDS: CHOLECALCIFEROL 25 MCG (1000 IU) TABLET PO SCH (11:15)
[2020-08-05] MEDS: CLOPIDOGREL 75 MG TAB PO SCH (11:16)
[2020-08-05] MEDS: MAGNESIUM OXIDE 400 MG TAB PO SCH ×2 (11:17→20:56)
[2020-08-05] MEDS: METOPROLOL TARTRATE 12.5 MG TAB PO SCH ×2 (11:17→20:57)
[2020-08-05] MEDS: TAMSULOSIN 0.4 MG CAP.ER.24H PO SCH ×3 (11:18→20:57)
--- NOTE | 2020-08-05 11:30 | ECHOF ---
Referral Reason:hypotension, bradycardia MEASUREMENTS -------- HEIGHT: 193.0 cm WEIGHT: 102.1 kg BP: 102/60 RVIDd: 3.5 cm (< 3.3) IVSd: 1.4 cm (0.6 - 1.1) LVIDd: 6.0 cm (3.9 - 5.3) LVPWd: 1.2 cm (0.6 - 1.1) IVSs: 1.9 cm LVIDs: 4.5 cm LVPWs: 1.7 cm LA Diam: 3.9 cm (2.7 - 3.8) LAESV Index (A-L): 43.81 ml/m Ao Diam: 3.7 cm (2.0 - 3.7) MV EXCURSION: 12.495 mm (> 18.000) MV EF SLOPE: 66 mm/s (70 - 150) EPSS: 1.7 cm MV E Matthew: 1.11 m/s MV DecT: 188 ms MV A Matthew: 0.98 m/s MV E/A Ratio: 1.13 AV maxP.53 mmHg AV meanP.46 mmHg RAP: 5.00 mmHg RVSP: 54.92 mmHg FINDINGS -------- This was a technically difficult study with suboptimal apical views. The left ventricle is mildly dilated. There is moderate concentric left ventricular hypertrophy. Overall left ventricular systolic function is severely impaired with, an EF < 20%. The right ventricle is mildly enlarged. LA is severely dilated >40 ml/m2 The right atrium is normal in size. 5.0mg of Lumason was utilized for enhancement of images Interatrial and interventricular septum intact. There is severe aortic valve sclerosis. There is mild aortic regurgitation. Moderate to severe ao rtic stenosis with peak/mean pressure gradient of 34.53mmHg / 15.46mmHg, the aortic valve area by con tinuity equation is 0.9cm. Peak/mean gradient across the Aortic Valve is 34.53mmHg / 15.46mmHg. The mitral valve leaflets are mildly thickened. Mild mitral regurgitation is present. Mild tricuspid regurgitation present. There is moderate to severe pulmonary hypertension. The rig ht ventricular systolic pressure, as measured by Doppler, is 54.92mmHg. Trace/mild (physiologic) pulmonic regurgitation. The aortic root size is normal. The inferior vena cava is mildly dilated. There is no pericardial effusion. CONCLUSIONS -------- 1. The left ventricle is mildly dilated. 2. There is moderate concentric left ventricular hypertrophy. 3. Overall left ventricular systolic function is severely impaired with, an EF < 20%. 4. The right ventricle is mildly enlarged. 5. LA is severely dilated >40 ml/m2 6. 5.0mg of Lumason was utilized for enhancement of images 7. There is severe aortic valve sclerosis. 8. There is mild aortic regurgitation. 9. Moderate to severe aortic stenosis with peak/mean pressure gradient of 34.53mmHg / 15.46mmHg, the aortic valve area by continuity equation is 0.9cm. 10. Peak/mean gradient across the Aortic Valve is 34.53mmHg / 15.46mmHg. 11. The mitral valve leaflets are mildly thickened. 12. Mild mitral regurgitation is present. 13. Mild tricuspid regurgitation present. 14. There is moderate to severe pulmonary hypertension. 15. The right ventricular systolic pressure, as measured by Doppler, is 54.92mmHg. 16. Trace/mild (physiologic) pulmonic regurgitation. 17. The inferior vena cava is mildly dilated. 18. There is no pericardial effusion. SURGICAL BRACE MAKER: Aileen Thomas RDCS
--- NOTE | 2020-08-05 12:13 | P.CRDCN ---
History of Present Illness History of present illness: HISTORY OF PRESENTING ILLNESS This is a pleasant 79-year-old male past medical history significant for abdominal aortic aneurysm, bilateral carotid artery disease, hypertension, coronary artery disease status post bypass grafting 2012, ischemic cardiomyopathy with ejection fraction 35%, valvular heart disease with moderate mitral regurgitation and moderate aortic insufficiency, dyslipidemia, chronic kidney disease and former nicotine dependence. He follows in the office with Dr. Cochran. We have been asked to see in consultation for bradycardia and hypotension. He presented to the hospital after suffering a fall at home. He states for the previous 2 months he has been having frequent falls secondary to overall generalized weakness. He completed radiation for prostate cancer in June and feels as though since that time he has been extremely weak and has no energy. He is seen and examined resting comfortably in bed in no acute distress. He denies having symptoms of chest discomfort, shortness of breath, palpitations or dizziness. He initially presented to [facility] and was found to be hypotensive on arrival. His blood pressure did improve with IV fluids and he was transferred here for further evaluation. DIAGNOSTICS EKG reveals left bundle branch block with underlying sinus mechanism and PVCs. VQ scan has a low probability for PE. Laboratory reviewed, WBC 7.2, hemoglobin 10.8, sodium 127, potassium 4.8, creatinine 1.54, troponin 0.120, 0.119 and 0.130. Current cardiac medications include aspirin 81 mg daily, atorvastatin 40 mg daily, Plavix 75 mg daily, lisinopril 5 mg daily and Lopressor 12.5 mg twice a day. Most recent echocardiogram obtained December 2019 revealed severely decreased LV systolic function with ejection fraction 35%, moderate concentric LV hypertrophy hypertrophy, akinesia with an aneurysm of the inferior wall from the base to the mid wall, the remainder of the LV is hypokinetic, grade 2 diastolic dysfunction, moderately calcified aortic valve with moderate aortic regurgitation, mild to moderate aortic stenosis with a valve area of 0.82 cm and a mean gradient of 14 mmHg, moderate mitral regurgitation and mild pulmonic regurgitation. REVIEW OF SYSTEMS At the time of my exam: CONSTITUTIONAL: Denies fever or chills. CARDIOVASCULAR: Denies chest pain, shortness of breath, orthopnea, PND or palpitations. RESPIRATORY: Denies cough. GASTROINTESTINAL: Denies abdominal pain, diarrhea, constipation, nausea or vomiting. MUSCULOSKELETAL: Denies myalgias. NEUROLOGIC: Denies numbness, tingling, headacbe or weakness. ENDOCRINE: Denies fatigue, weight change, polydipsia or polyurina. GENITOURINARY: Denies burning, hematuria or urgency with micturation. HEMATOLOGIC: Denies history of anemia or bleeding. PHYSICAL EXAMINATION Blood pressure 102/60 heart rate 67 afebrile and maintaining oxygen saturation on room air. CONSTITUTIONAL: No apparent distress. HEENT: Head is normocephalic. Pupils are equal, round. Sclerae anicteric. Mucous membranes of the mouth are moist. No JVD. No carotid bruit. CHEST EXAMINATION: Lungs are clear to auscultation. No chest wall tenderness is noted on palpation or with deep breathing. HEART EXAMINATION: Regular rate and rhythm. S1, S2 heard. Systolic ejection murmur at the base, no gallops or rub. ABDOMEN: Soft, nontender. Positive bowel sounds. EXTREMITIES: 2+ peripheral pulses, no lower extremity edema and no calf tenderness. NEUROLOGIC EXAMINATION: Patient is awake, alert and oriented x3. ASSESSMENT Hyponatremia Dehydration Fall Troponin leak not related to primary myocardial injury Urinary tract infection History of coronary artery disease status post bypass grafting Chronic systolic heart failure Ischemic cardiomyopathy Chronic kidney disease Hypertension Dyslipidemia Valvular heart disease, aortic stenosis, aortic regurgitation and mitral regurgi tation PLAN Repeat echo has been ordered and will be reviewed. Continue medical management of urinary tract infection and dehydration. He is maintained on appropriate heart failure regimen. Thank you kindly for this consultation. Nurse Practitioner note has been reviewed, I agree with a documented findings and plan of care. Patient was seen and examined. 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 Last Myocardial Infarction Date:: 2011 History of Any Multi-Drug Resistant Organisms: None Reported Past Surgical History: Back Surgery, Coronary Bypass/CABG, Heart Catheterization, Heart Catheterization With Stent Additional Past Surgical History / Comment(s): 2011 CABG 3 vessel, vascular procedures/stents in bilaeteral common iliac arteries, bilateral SFA stents, colonoscopy, prostate biopsy, spacOAR implant Past Anesthesia/Blood Transfusion Reactions: No Reported Reaction Date of Last Stent Placement:: 2014 Past Psychological History: No Psychological Hx Reported Additional Psychological History / Comment(s): Pt resides alone. He is independent. Smoking Status: Former smoker Past Alcohol Use History: Rare Additional Past Alcohol Use History / Comment(s): Pt started smoking in 1962 and quit in 2011 Past Drug Use History: None Reported - Past Family History Father Family Medical History: Hypertension Additional Family Medical History / Comment(s): Father at age 82yrs. Mother Family Medical History: Diabetes Mellitus Additional Family Medical History / Comment(s): Mother at age 69yrs. Medications and Allergies Home Medications Medication Instructions Recorded Confirmed Type Aspirin 81 mg PO HS 01/30/14 08/04/20 History Atorvastatin [Lipitor] 40 mg PO HS 01/30/14 08/04/20 History allopurinoL [Zyloprim] 100 mg PO DAILY 01/30/14 08/04/20 History Acetaminophen/Diphenhydramine 2 tab PO HS PRN 02/01/14 08/04/20 History [Tylenol PM 500-25mg] Cholecalciferol [Vitamin D3 (25 50 mcg PO DAILY 02/01/14 08/04/20 History Mcg = 1000 Iu)] Clopidogrel [Plavix] 75 mg PO DAILY 05/02/14 08/04/20 History Ascorbic Acid [Vitamin C] 500 mg PO HS 08/14/14 08/04/20 History Magnesium Oxide [Mag-Ox] 250 mg PO DAILY 08/14/14 08/04/20 History Fluticasone Nasal [place] [Flonase 2 spray EA NOSTRIL HS 12/23/14 08/04/20 History Nasal [place]] Ferrous Sulfate [Iron (65 MG 325 mg PO BID 05/19/20 08/04/20 History Elemental)] lisinopriL [Zestril] 5 mg PO DAILY 05/19/20 08/04/20 History Magnesium Oxide [Mag-Ox] 500 mg PO HS 06/16/20 08/04/20 History SILVER sulfADIAZINE Cream 1 applic TOPICAL BID 06/16/20 08/04/20 History [Silvadene 1% Cream] Tamsulosin [Flomax] 0.4 mg PO BID 06/16/20 08/04/20 History Metoprolol Tartrate [Lopressor] 12.5 mg PO BID #0 06/18/20 08/04/20 Rx ALPRAZolam [Xanax] 0.25 mg PO BID PRN 08/04/20 08/04/20 History Allergies Allergy/AdvReac Type Severity Reaction Status Date / Time No Known Allergies Allergy Verified 08/04/20 20:07 Physical Exam Vitals: Vital Signs Temp Pulse Pulse Resp BP Pulse Ox 08/05/20 04:38 98.7 F 67 18 102/60 96 08/05/20 04:00 68 16 08/05/20 03:00 97.0 F L 66 16 109/67 94 L 08/05/20 00:00 98.0 F 67 18 92/65 95 08/04/20 22:00 54 L 18 97 08/04/20 21:00 65 18 104/59 98 08/04/20 20:00 62 18 101/59 98 08/04/20 19:38 67 18 08/04/20 19:27 97.8 F 70 18 110/63 94 L Intake and Output 08/04/20 08/05/20 08/05/20 22:59 06:59 14:59 Other: Voiding Method Indwelling Catheter Weight 102.058 kg 102.058 kg Results 08/05/20 02:52 08/05/20 02:52 Cardiac Enzymes 08/04/20 08/04/20 08/05/20 Range/Units 21:05 23:50 02:52 AST (17-59) U/L Troponin I 0.120 H* 0.119 H* 0.130 H* (0.000-0.034) ng/mL 08/05/20 Range/Units 02:52 AST 40 (17-59) U/L Troponin I (0.000-0.034) ng/mL CBC 08/05/20 Range/Units 02:52 WBC 7.2 (3.8-10.6) k/uL RBC 3.33 L (4.30-5.90) m/uL Hgb 10.8 L (13.0-17.5) gm/dL Hct 32.7 L (39.0-53.0) % Plt Count 224 (150-450) k/uL Comprehensive Metabolic Panel 08/05/20 Range/Units 02:52 Sodium 127 L (137-145) mmol/L Potassium 4.8 (3.5-5.1) mmol/L Chloride 94 L (98-107) mmol/L Carbon Dioxide 25 (22-30) mmol/L BUN 39 H (9-20) mg/dL Creatinine 1.54 H (0.66-1.25) mg/dL Glucose 124 H (74-99) mg/dL Calcium 8.5 (8.4-10.2) mg/dL AST 40 (17-59) U/L ALT 21 (4-49) U/L Alkaline Phosphatase 74 (38-126) U/L Total Protein 5.6 L (6.3-8.2) g/dL Albumin 2.9 L (3.5-5.0) g/dL Current Medications Generic Name Dose Route Start Last Admin Trade Name Freq PRN Reason Stop Dose Admin Acetaminophen 650 mg 08/04/20 21:46 Acetaminophen Tab 325 Mg Tab PO Q6HR PRN Mild Pain or Fever > 100.5 Allopurinol 100 mg 08/05/20 09:00 08/05/20 11:15 Allopurinol 100 Mg Tab PO 100 mg DAILY JOSI Administration Alprazolam 0.25 mg 08/04/20 21:45 Alprazolam 0.25 Mg Tab PO BID PRN Anxiety Ascorbic Acid 500 mg 08/05/20 21:00 Ascorbic Acid 500 Mg Tab PO HS JOSI Aspirin 81 mg 08/05/20 21:00 Aspirin 81 Mg PO HS JOSI Atorvastatin Calcium 40 mg 08/05/20 21:00 Atorvastatin 40 Mg Tab PO HS [facility] Cholecalciferol 50 mcg 08/05/20 09:00 08/05/20 11:15 Cholecalciferol 25 Mcg (1000 Iu) Tablet PO 50 mcg DAILY JOSI Administration Clopidogrel Bisulfate 75 mg 08/05/20 09:00 08/05/20 11:16 Clopidogrel 75 Mg Tab PO 75 mg DAILY JOSI Administration Enoxaparin Sodium 40 mg 08/04/20 22:00 08/05/20 11:16 Enoxaparin 40 Mg/0.4 Ml Syringe SQ 40 mg DAILY JOSI Administration Ferrous Sulfate 325 mg 08/05/20 09:00 08/05/20 11:17 Ferrous Sulfate 325 Mg Tab PO 325 mg BID JOSI Administration Fluticasone Propionate 2 spray 08/05/20 21:00 Fluticasone 50mcg/[place] Nasal 16gm EA NOSTRIL HS JOSI Ceftriaxone Sodium 1 gm/ 50 mls @ 100 mls/hr 08/05/20 21:00 Sodium Chloride IVPB DAILY@2100 [facility] Lisinopril 5 mg 08/05/20 09:00 08/05/20 11:17 Lisinopril 5 Mg Tab PO 5 mg DAILY JOSI Administration Loperamide HCl 2 mg 08/04/20 21:46 08/05/20 04:32 Loperamide 2 Mg Cap PO 2 mg Q2HR PRN Administration Loose Stool Magnesium Oxide 400 mg 08/05/20 09:00 08/05/20 11:17 Magnesium Oxide 400 Mg Tab PO 400 mg DAILY JOSI Administration Magnesium Oxide 400 mg 08/05/20 21:00 Magnesium Oxide 400 Mg Tab PO [facility] Metoprolol Tartrate 12.5 mg 08/05/20 09:00 08/05/20 11:17 Metoprolol Tartrate 12.5 Mg Tab PO 12.5 mg BID JOSI Administration Naloxone HCl 0.2 mg 08/04/20 21:46 Naloxone 0.4 Mg/Ml 1 Ml Vial IV Q2M PRN Opioid Reversal Ondansetron HCl 4 mg 08/04/20 21:46 Ondansetron 4 Mg/2 Ml Vial IVP Q8HR PRN Nausea And Vomiting Silver Sulfadiazine 1 applic 08/05/20 09:00 Silver Sulfadiazine 1% Cream 25 Gm Tube TOPICAL BID [facility] Tamsulosin HCl 0.4 mg 08/05/20 09:00 08/05/20 11:18 Tamsulosin 0.4 Mg Cap.Er.24h PO Not Given BID [facility] Intake and Output 08/04/20 08/05/20 08/05/20 22:59 06:59 14:59 Other: Voiding Method Indwelling Catheter Weight 102.058 kg 102.058 kg 08/05/20 02:52 08/05/20 02:52
[2020-08-05] MEDS: PSYLLIUM HUSK 100% 6 GM PACKET PO SCH ×2 (14:43→20:56)
[2020-08-05 17:06] LABS: Glucose,Whole Blood 122 mg/dL (75-99)
--- NOTE | 2020-08-05 19:58 | P.HPIM ---
History of Present Illness H&P Date: 08/05/20 Chief Complaint: Fall History of presenting complaint: This is a pleasant 79-year-old patient of Dr. Navi Jimenez. Chronic stable medical conditions include coronary artery disease with history of bypass and stent, diabetes, hypertension, hyperlipidemia, Lia arthritis. Patient was diagnosed with prostate cancer in 2017. Being followed by Dr. Anderson and Dr. Bradley from radiation oncology.. Patient's last radiation treatment was in June of this year. Patient states he is enrolled into her radiation trial. Following his last radiation has been feeling rather weak and legs feel extremely weak. Has had about 5-6 falls.. Appetite is gone on. Poor oral i ntake. No fever no chills. Is also had diarrhea for last 5-6 weeks. Anyway from 1-3 times a day. Tired and rundown. He is also has a Blanton catheter is supposed to follow with Dr. Anderson at his office. His coming Tuesday. Yet again patient presented after he took a fall after he is to reach Dr. West before his legs simply gave September. 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 2011 had a three-vessel bypass. Social history: Lives alone. Does use a walker. Smoked from [id number]. Alcohol rarely. Physical examination: VITAL SIGNS: 97.8, 70, 18, 110/63, 94% on room air GENERAL: BMI 27.4, laying in bed, tired. EYES: [Pupils equal. Conjunctiva pale. HEENT: External appearance of nose and ears normal, oral cavity grossly normal. NECK: JVD not raised; masses not palpable. HEART: First and second heart sounds are normal; no edema. LUNGS: Respiratory rate normal; decreased breath sounds. ABDOMEN: Soft, nontender, liver spleen not palpable, no masses palpable. Blanton catheter PSYCH: Alert and oriented x3; mood and affect normal MUSCULAR skeletal: Evidence of OA. NEUROLOGICAL: Cranial nerves grossly intact; no facial asymmetry, power and sensation grossly intact. LYMPHATICS: No lymph nodes palpable in the axilla and neck INVESTIGATIONS, reviewed in the clinical context: WBC 7.2 hemoglobin 10.8 platelets 224 sodium 127 potassium 4.8 creatinine 1.5 for Troponin I 0.12, 0.11, 0.13 albumin 2.9 UA positive for leukoesterase WBC Coronavirus [PCR] not detected EKG tracing personally reviewed by me-sinus rhythm, first-degree AV block, questionable flutter 2-D echocardiogram: Moderate concentric LVH, EF less than 20% moderate to severe aortic stenosis valve area of 0.9 cm peak and mean gradient 34.5/15.4 moderate to severe pulmonary hypertension Pulmonary ventilation/perfusion scan: Low probability for PE Assessment and plan: -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 Fall precautions. Consult PTOT -Acute UTI with cystitis secondary to Blanton catheter, started on IV ceftriaxone -Acute kidney injury, prerenal from decreased oral intake. Gentle IV fluids. Follow renal function. Hold off GORDY inhibitor -Coronary artery disease with a prior history of bypass and stent. Continue with aspirin, Lopressor -Diabetes mellitus type 2, diet controlled. Follow Accu-Cheks -Essential hypertension, follow blood pressure. Continue antihypertensive -Hyperlipidemia, continue Lipitor -Primary osteoarthritis, use analgesics when necessary -Prostate cancer being treated with radiation treatment. Consult Dr. 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 Due to see Dr. Anderson this Tuesday. We'll consult him -Severe peripheral arterial disease, continue with aspirin -Chronic congestive heart failure from systolic dysfunction EF less than 20%, continue clinically -Moderate to severe aortic stenosis with a valve area of 0.97 m, follow clinically and with cardiology -Secondary pulmonary hypertension -Hyponatremia likely hypoosmolar from decreased oral intake. Gentle saline. -Acute diarrhea. No abdominal pain. No fever no chills. Add Metamucil. For bulk forming. Rule out C. diff though unlikely Consult cardiology, Dr. Harlan Bradley from radiation oncology, Dr. Anderson from neurology. Full liquid diet. 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 Last Myocardial Infarction Date:: 2011 History of Any Multi-Drug Resistant Organisms: None Reported Past Surgical History: Back Surgery, Coronary Bypass/CABG, Heart Catheterization, Heart Catheterization With Stent Additional Past Surgical History / Comment(s): 2011 CABG 3 vessel, vascular procedures/stents in bilaeteral common iliac arteries, bilateral SFA stents, colonoscopy, prostate biopsy, spacOAR implant Past Anesthesia/Blood Transfusion Reactions: No Reported Reaction Date of Last Stent Placement:: 2014 Past Psychological History: No Psychological Hx Reported Additional Psychological History / Comment(s): Pt resides alone. He is independent. Smoking Status: Former smoker Past Alcohol Use History: Rare Additional Past Alcohol Use History / Comment(s): Pt started smoking in 1962 and quit in 2011 Past Drug Use History: None Reported - Past Family History Father Family Medical History: Hypertension Additional Family Medical History / Comment(s): Father at age 82yrs. Mother Family Medical History: Diabetes Mellitus Additional Family Medical History / Comment(s): Mother at age 69yrs. Medications and Allergies Home Medications Medication Instructions Recorded Confirmed Type Aspirin 81 mg PO HS 01/30/14 08/04/20 History Atorvastatin [Lipitor] 40 mg PO HS 01/30/14 08/04/20 History allopurinoL [Zyloprim] 100 mg PO DAILY 01/30/14 08/04/20 History Acetaminophen/Diphenhydramine 2 tab PO HS PRN 02/01/14 08/04/20 History [Tylenol PM 500-25mg] Cholecalciferol [Vitamin D3 (25 50 mcg PO DAILY 02/01/14 08/04/20 History Mcg = 1000 Iu)] Clopidogrel [Plavix] 75 mg PO DAILY 05/02/14 08/04/20 History Ascorbic Acid [Vitamin C] 500 mg PO HS 08/14/14 08/04/20 History Magnesium Oxide [Mag-Ox] 250 mg PO DAILY 08/14/14 08/04/20 History Fluticasone Nasal [place] [Flonase 2 spray EA NOSTRIL HS 12/23/14 08/04/20 History Nasal [place]] Ferrous Sulfate [Iron (65 MG 325 mg PO BID 05/19/20 08/04/20 History Elemental)] lisinopriL [Zestril] 5 mg PO DAILY 05/19/20 08/04/20 History Magnesium Oxide [Mag-Ox] 500 mg PO HS 06/16/20 08/04/20 History SILVER sulfADIAZINE Cream 1 applic TOPICAL BID 06/16/20 08/04/20 History [Silvadene 1% Cream] Tamsulosin [Flomax] 0.4 mg PO BID 06/16/20 08/04/20 History Metoprolol Tartrate [Lopressor] 12.5 mg PO BID #0 06/18/20 08/04/20 Rx ALPRAZolam [Xanax] 0.25 mg PO BID PRN 08/04/20 08/04/20 History Allergies Allergy/AdvReac Type Severity Reaction Status Date / Time No Known Allergies Allergy Verified 08/04/20 20:07 Physical Exam Vitals: Vital Signs Temp Pulse Pulse Resp BP Pulse Ox 08/05/20 04:38 98.7 F 67 18 102/60 96 08/05/20 04:00 68 16 08/05/20 03:00 97.0 F L 66 16 109/67 94 L 08/05/20 00:00 98.0 F 67 18 92/65 95 08/04/20 22:00 54 L 18 97 08/04/20 21:00 65 18 104/59 98 08/04/20 20:00 62 18 101/59 98 08/04/20 19:38 67 18 08/04/20 19:27 97.8 F 70 18 110/63 94 L Intake and Output 08/04/20 08/05/20 08/05/20 22:59 06:59 14:59 Other: Voiding Method Indwelling Catheter Weight 102.058 kg 102.058 kg Results CBC & Chem 7: 08/05/20 02:52 08/05/20 02:52 Labs: Abnormal Lab Results - Last 24 Hours (Table) 08/04/20 08/04/20 08/04/20 Range/Units 21:05 21:05 23:50 RBC (4.30-5.90) m/uL Hgb (13.0-17.5) gm/dL Hct (39.0-53.0) % Lymphocytes # (1.0-4.8) k/uL Sodium (137-145) mmol/L Chloride (98-107) mmol/L BUN (9-20) mg/dL Creatinine (0.66-1.25) mg/dL Glucose (74-99) mg/dL Troponin I 0.120 H* 0.119 H* (0.000-0.034) ng/mL Total Protein (6.3-8.2) g/dL Albumin (3.5-5.0) g/dL Urine Protein 1+ H (Negative) Urine Blood Moderate H (Negative) Ur Leukocyte Esterase Large H (Negative) Urine RBC 71 H (0-5) /hpf Urine WBC >182 H (0-5) /hpf Urine WBC Clumps Many H (None) /hpf Urine Bacteria Rare H (None) /hpf Hyaline Casts 44 H (0-2) /lpf Urine Mucus Occasional H (None) /hpf Urine Yeast (Budding) Few H (None) /hpf 08/05/20 08/05/20 08/05/20 Range/Units 02:52 02:52 02:52 RBC 3.33 L (4.30-5.90) m/uL Hgb 10.8 L (13.0-17.5) gm/dL Hct 32.7 L (39.0-53.0) % Lymphocytes # 0.5 L (1.0-4.8) k/uL Sodium 127 L (137-145) mmol/L Chloride 94 L (98-107) mmol/L BUN 39 H (9-20) mg/dL Creatinine 1.54 H (0.66-1.25) mg/dL Glucose 124 H (74-99) mg/dL Troponin I 0.130 H* (0.000-0.034) ng/mL Total Protein 5.6 L (6.3-8.2) g/dL Albumin 2.9 L (3.5-5.0) g/dL Urine Protein (Negative) Urine Blood (Negative) Ur Leukocyte Esterase (Negative) Urine RBC (0-5) /hpf Urine WBC (0-5) /hpf Urine WBC Clumps (None) /hpf Urine Bacteria (None) /hpf Hyaline Casts (0-2) /lpf Urine Mucus (None) /hpf Urine Yeast (Budding) (None) /hpf Microbiology - Last 24 Hours (Table) 08/04/20 21:05 Urine Culture - Preliminary Urine,Clean Catch Thrombosis Risk Factor Assmnt - Choose All That Apply Each Factor Represents 1 point: Obesity (BMI >25) Each Risk Factor Represents 3 Points: Age 75 years or older Thrombosis Risk Factor Assessment Total Risk Factor Score: 4 Thrombosis Risk Factor Assessment Level: Moderate Risk
[2020-08-05 20:11] LABS: Glucose,Whole Blood 121 mg/dL (75-99)
[2020-08-05] MEDS: SODIUM CHLORIDE 0.9% 1,000 ML IV SCH (20:55)
[2020-08-05] MEDS: ASPIRIN 81 MG PO SCH (20:56)
[2020-08-05] MEDS: ASCORBIC ACID 500 MG TAB PO SCH (20:56)
[2020-08-05] MEDS: ATORVASTATIN 40 MG TAB PO SCH (20:56)
--- NOTE | 2020-08-05 21:55 | P.GSCN ---
History of Present Illness Consult date: 08/05/20 Reason for Consult: Urinary retention, prostate cancer History of present illness: Mr Chapman is a 79-year-old patient with history of [place] 7 prostate cancer, treated with external beam radiation. He is a patient of Dr Parsons. Since starting radiation patient has developed urinary retention, he has failed multiple trial of voids. His urinary retention is currently being managed with a Blanton catheter. He is scheduled to undergo cystoscopy, with urodynamics with Dr. Parsons on August 08. He presents to the ED with weakness and recurrent falls. 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 Last Myocardial Infarction Date:: 2011 History of Any Multi-Drug Resistant Organisms: None Reported Past Surgical History: Back Surgery, Coronary Bypass/CABG, Heart Catheterization, Heart Catheterization With Stent Additional Past Surgical History / Comment(s): 2011 CABG 3 vessel, vascular pr ocedures/stents in bilaeteral common iliac arteries, bilateral SFA stents, colonoscopy, prostate biopsy, spacOAR implant Past Anesthesia/Blood Transfusion Reactions: No Reported Reaction Date of Last Stent Placement:: 2014 Past Psychological History: No Psychological Hx Reported Additional Psychological History / Comment(s): Pt resides alone. He is independent. Smoking Status: Former smoker Past Alcohol Use History: Rare Additional Past Alcohol Use History / Comment(s): Pt started smoking in 1962 and quit in 2011 Past Drug Use History: None Reported - Past Family History Father Family Medical History: Hypertension Additional Family Medical History / Comment(s): Father at age 82yrs. Mother Family Medical History: Diabetes Mellitus Additional Family Medical History / Comment(s): Mother at age 69yrs. Medications and Allergies Home Medications Medication Instructions Recorded Confirmed Type Aspirin 81 mg PO HS 01/30/14 08/04/20 History Atorvastatin [Lipitor] 40 mg PO HS 01/30/14 08/04/20 History allopurinoL [Zyloprim] 100 mg PO DAILY 01/30/14 08/04/20 History Acetaminophen/Diphenhydramine 2 tab PO HS PRN 02/01/14 08/04/20 History [Tylenol PM 500-25mg] Cholecalciferol [Vitamin D3 (25 50 mcg PO DAILY 02/01/14 08/04/20 History Mcg = 1000 Iu)] Clopidogrel [Plavix] 75 mg PO DAILY 05/02/14 08/04/20 History Ascorbic Acid [Vitamin C] 500 mg PO HS 08/14/14 08/04/20 History Magnesium Oxide [Mag-Ox] 250 mg PO DAILY 08/14/14 08/04/20 History Fluticasone Nasal [place] [Flonase 2 spray EA NOSTRIL HS 12/23/14 08/04/20 History Nasal [place]] Ferrous Sulfate [Iron (65 MG 325 mg PO BID 05/19/20 08/04/20 History Elemental)] lisinopriL [Zestril] 5 mg PO DAILY 05/19/20 08/04/20 History Magnesium Oxide [Mag-Ox] 500 mg PO HS 06/16/20 08/04/20 History SILVER sulfADIAZINE Cream 1 applic TOPICAL BID 06/16/20 08/04/20 History [Silvadene 1% Cream] Tamsulosin [Flomax] 0.4 mg PO BID 06/16/20 08/04/20 History Metoprolol Tartrate [Lopressor] 12.5 mg PO BID #0 06/18/20 08/04/20 Rx ALPRAZolam [Xanax] 0.25 mg PO BID PRN 08/04/20 08/04/20 History Allergies Allergy/AdvReac Type Severity Reaction Status Date / Time No Known Allergies Allergy Verified 08/04/20 20:07 Surgical - Exam Vital Signs Temp Pulse Resp BP Pulse Ox 97.8 F 70 18 110/63 94 L 08/04/20 19:27 08/04/20 19:27 08/04/20 19:27 08/04/20 19:27 08/04/20 19:27 - General well developed, well nourished, no distress, no pain - Eyes PERRL, normal ocular movement - ENT normal nares, normal mucosa - Respiratory normal expansion, normal respiratory effort - Genitourinary Blanton in place draining clear yellow urine - Psychiatric oriented to time, oriented to person, oriented to place Results - Labs 08/05/20 02:52 08/05/20 02:52 Abnormal Lab Results - Last 24 Hours (Table) 08/04/20 08/04/20 08/05/20 Range/Units 21:05 23:50 02:52 RBC (4.30-5.90) m/uL Hgb (13.0-17.5) gm/dL Hct (39.0-53.0) % Lymphocytes # (1.0-4.8) k/uL Sodium (137-145) mmol/L Chloride (98-107) mmol/L BUN (9-20) mg/dL Creatinine (0.66-1.25) mg/dL Glucose (74-99) mg/dL POC Glucose (mg/dL) (75-99) mg/dL Troponin I 0.120 H* 0.119 H* 0.130 H* (0.000-0.034) ng/mL Total Protein (6.3-8.2) g/dL Albumin (3.5-5.0) g/dL 08/05/20 08/05/20 08/05/20 Range/Units 02:52 02:52 16:56 RBC 3.33 L (4.30-5.90) m/uL Hgb 10.8 L (13.0-17.5) gm/dL Hct 32.7 L (39.0-53.0) % Lymphocytes # 0.5 L (1.0-4.8) k/uL Sodium 127 L (137-145) mmol/L Chloride 94 L (98-107) mmol/L BUN 39 H (9-20) mg/dL Creatinine 1.54 H (0.66-1.25) mg/dL Glucose 124 H (74-99) mg/dL POC Glucose (mg/dL) 122 H (75-99) mg/dL Troponin I (0.000-0.034) ng/mL Total Protein 5.6 L (6.3-8.2) g/dL Albumin 2.9 L (3.5-5.0) g/dL 08/05/20 Range/Units 20:09 RBC (4.30-5.90) m/uL Hgb (13.0-17.5) gm/dL Hct (39.0-53.0) % Lymphocytes # (1.0-4.8) k/uL Sodium (137-145) mmol/L Chloride (98-107) mmol/L BUN (9-20) mg/dL Creatinine (0.66-1.25) mg/dL Glucose (74-99) mg/dL POC Glucose (mg/dL) 121 H (75-99) mg/dL Troponin I (0.000-0.034) ng/mL Total Protein (6.3-8.2) g/dL Albumin (3.5-5.0) g/dL Microbiology - Last 24 Hours (Table) 08/04/20 21:05 Urine Culture - Preliminary Urine,Clean Catch Diabetes panel 08/05/20 Range/Units 02:52 Sodium 127 L (137-145) mmol/L Potassium 4.8 (3.5-5.1) mmol/L Chloride 94 L (98-107) mmol/L Carbon Dioxide 25 (22-30) mmol/L BUN 39 H (9-20) mg/dL Creatinine 1.54 H (0.66-1.25) mg/dL Glucose 124 H (74-99) mg/dL Calcium 8.5 (8.4-10.2) mg/dL AST 40 (17-59) U/L ALT 21 (4-49) U/L Alkaline Phosphatase 74 (38-126) U/L Total Protein 5.6 L (6.3-8.2) g/dL Albumin 2.9 L (3.5-5.0) g/dL Calcium panel 08/05/20 Range/Units 02:52 Calcium 8.5 (8.4-10.2) mg/dL Albumin 2.9 L (3.5-5.0) g/dL Pituitary panel 08/05/20 Range/Units 02:52 Sodium 127 L (137-145) mmol/L Potassium 4.8 (3.5-5.1) mmol/L Chloride 94 L (98-107) mmol/L Carbon Dioxide 25 (22-30) mmol/L BUN 39 H (9-20) mg/dL Creatinine 1.54 H (0.66-1.25) mg/dL Glucose 124 H (74-99) mg/dL Calcium 8.5 (8.4-10.2) mg/dL Adrenal panel 08/05/20 Range/Units 02:52 Sodium 127 L (137-145) mmol/L Potassium 4.8 (3.5-5.1) mmol/L Chloride 94 L (98-107) mmol/L Carbon Dioxide 25 (22-30) mmol/L BUN 39 H (9-20) mg/dL Creatinine 1.54 H (0.66-1.25) mg/dL Glucose 124 H (74-99) mg/dL Calcium 8.5 (8.4-10.2) mg/dL Total Bilirubin 0.4 (0.2-1.3) mg/dL AST 40 (17-59) U/L ALT 21 (4-49) U/L Alkaline Phosphatase 74 (38-126) U/L Total Protein 5.6 L (6.3-8.2) g/dL Albumin 2.9 L (3.5-5.0) g/dL Assessment and Plan Assessment: 79-year-old male with history of [place] 7 prostate cancer, treated with external beam radiation therapy. He follows up with Dr. Parsons . Post radiation he has developed urinary retention, and has failed multiple trial of void. He's admitted to the hospital with weakness and recurrent falls. Plan: -Keep the catheter in place, if patient is discharged home prior to August 08 then he can keep his follow-up with Dr. Parsons for the cystoscopy and a urody namic. If still in the hospital, then we'll plan on rescheduling his follow-up
[2020-08-05] MEDS: FLUTICASONE 50MCG/SPRAY NASAL 16GM EA NOSTRIL SCH (23:10)
[2020-08-05] MEDS: LORATADINE-PSEUDOEPH 5-120 MG 1 EACH TAB.ER.12H PO SCH (23:10)
[2020-08-06 06:10] LABS: Glucose,Whole Blood 101 mg/dL (75-99)
[2020-08-06] MEDS: allopurinoL 100 MG TAB PO SCH (10:02)
[2020-08-06] MEDS: CHOLECALCIFEROL 25 MCG (1000 IU) TABLET PO SCH (10:03)
[2020-08-06] MEDS: CLOPIDOGREL 75 MG TAB PO SCH (10:03)
[2020-08-06] MEDS: ENOXAPARIN 40 MG/0.4 ML SYRINGE SQ SCH (10:03)
[2020-08-06] MEDS: METOPROLOL TARTRATE 12.5 MG TAB PO SCH (10:05)
[2020-08-06] MEDS: LORATADINE-PSEUDOEPH 5-120 MG 1 EACH TAB.ER.12H PO SCH ×2 (10:05→21:36)
[2020-08-06] MEDS: MAGNESIUM OXIDE 400 MG TAB PO SCH ×2 (10:05→21:37)
[2020-08-06] MEDS: PSYLLIUM HUSK 100% 6 GM PACKET PO SCH ×2 (10:06→21:38)
[2020-08-06] MEDS: TAMSULOSIN 0.4 MG CAP.ER.24H PO SCH ×2 (10:07→21:36)
[2020-08-06 10:16] LABS: Calcium 8.5 mg/dL (8.4-10.2); Potassium 4.6 mmol/L (3.5-5.1)
[2020-08-06 11:53] LABS: Glucose,Whole Blood 155 mg/dL (75-99)
--- NOTE | 2020-08-06 13:12 | CDI ---
Documentation Clarification Form Date: 08/06/2020 12:36:11 PM From: Diane Dos Santos RN CCDS Admit Date: 08/04/2020 09:46:00 PM Patient Name: Justin Chapman Visit Number: [id number] Discharge Date: ATTENTION: The Clinical Documentation Specialists (CDI) and [facility] Coding Staff appreciate your assistance in clarifying documentation. Please respond to the clarification below the line at the bottom and electronically sign. The CDI & [facility] Coding staff will review the response and follow-up if needed. Please note: Queries are made part of the Legal Health Record. If you have any questions, please contact the author of this message via ITS. Dr. Hermelindo Levy, A right buttock pressure ulcer was documented in the Nursing wound assessment and Physical assessment 08/05. Clarification is needed. History/Risk Factors: 79-year-old male presents to the ED for recurrent falls and feeling weak, especially in the legs. Medical History: Diarrhea for the last 5 -6 weeks. DM; Prostate CA last radiation 06/2020 and indwelling reese catheter. H&P 08/05. Clinical Indicators: Nursing Physical assessment 08/05. Patient reports having pressure injury on buttocks for years. Nursing wound assessment and Physical assessment 08/05. Location: Right Buttock Wound description: Stage II Pressure Injury; Skin condition: Warm; Moisture: Moist; Skin color: Erythema; Drainage: Scant. Treatment: Silvadene 08/05 Cream BID; 08/05 Absorbent underpad check hourly. 08/06 Medicated Gel. 08/06 Foam with border. Is there an additional diagnosis that is clinically appropriate for this patient? Right Buttock Pressure Ulcer Stage 2 Other condition, please specify Unable to determine Clinical Definitions: Stage 1 Pressure Ulcer: intact skin, non-blanching redness of local area Stage 2 Pressure Ulcer: Partial thickness, loss of dermis, pink wound bed Stage 3 Pressure Ulcer: Full thickness tissue loss Stage 4 Pressure Ulcer: Full thickness tissue loss with exposed bone, tendon, or muscle. Unstageable pressure ulcer: Full thickness tissue loss in which the base of the ulcer is covered by slough (yellow, valiente, justin, green or brown) and/or eschar (valiente, brown or black) in the wound bed. (Last Revision: February 2017) Right buttock pressure ulcer stage II, POA MTDD
[2020-08-06] MEDS: SODIUM CHLORIDE TAB 1 GM TAB PO SCH ×3 (13:36→21:37)
--- NOTE | 2020-08-06 13:38 | CDI ---
Documentation Clarification Form Date: 08/06/2020 01:13:54 PM From: Diane Dos Santos RN CCDS Admit Date: 08/04/2020 09:46:00 PM Patient Name: Justin Chapman Visit Number: [id number] Discharge Date: ATTENTION: The Clinical Documentation Specialists (CDI) and [facility] Coding Staff appreciate your assistance in clarifying documentation. Please respond to the clarification below the line at the bottom and electronically sign. The CDI & [facility] Coding staff will review the response and follow-up if needed. Please note: Queries are made part of the Legal Health Record. If you have any questions, please contact the author of this message via ITS. Dr. Hermelindo Levy, A stage 2 left buttock distal pressure ulcer is documented in the Nursing Wound Assessment 08/05. Clarification is needed. History/Risk Factors: 79-year-old male presents to the ED for recurrent falls and feeling weak, especially in the legs. Medical History: Diarrhea for the last 5 -6 weeks. DM; Prostate CA last radiation 06/2020 and indwelling reese catheter. H&P 08/05. Clinical Indicators: Nursing Physical assessment 08/05. Patient reports having pressure injury on buttocks for years. Nursing Wound assessment 08/05. Location: Left buttock distal Wound description: Pressure Injury: Stage 2; [place] wound texture: No abnormality; [place] wound moisture: No abnormality; [place] wound color: No abnormality; Drainage amount: Scant. Treatment: 08/05 Silvadene cream bid; 08/05 Absorbent underpad check hourly. 08/06 Saline Irritant, Medicated gel, foam with border. Is there an additional diagnosis that is clinically appropriate for this patient? Left buttock distal Pressure Ulcer Stage 2 Other condition, please specify Unable to determine Clinical Definitions: Stage 1 Pressure Ulcer: intact skin, non-blanching redness of local area Stage 2 Pressure Ulcer: Partial thickness, loss of dermis, pink wound bed Stage 3 Pressure Ulcer: Full thickness tissue loss Stage 4 Pressure Ulcer: Full thickness tissue loss with exposed bone, tendon, or muscle. Unstageable pressure ulcer: Full thickness tissue loss in which the base of the ulcer is covered by slough (yellow, valiente, justin, green or brown) and/or eschar (valiente, brown or black) in the wound bed. (Last Revision: February 2017) Left buttock distal pressure ulcer stage II MTDD
--- NOTE | 2020-08-06 13:38 | P.PN ---
Subjective HISTORY OF PRESENTING ILLNESS This is a pleasant 79-year-old male past medical history significant for abdominal aortic aneurysm, bilateral carotid artery disease, hypertension, coronary artery disease status post bypass grafting 2012, ischemic cardiomyopathy with ejection fraction 35%, valvular heart disease with moderate mitral regurgitation and moderate aortic insufficiency, dyslipidemia, chronic kidney disease and former nicotine dependence. He follows in the office with Dr. Cochran. We have been asked to see in consultation for bradycardia and hypotension. He presented to the hospital after suffering a fall at home. He states for the previous 2 months he has been having frequent falls secondary to overall generalized weakness. He completed radiation for prostate cancer in June and feels as though since that time he has been extremely weak and has no energy. He is seen and examined resting comfortably in bed in no acute distress. He denies having symptoms of chest discomfort, shortness of breath, palpitations or dizziness. He initially presented to [facility] and was found to be hypotensive on arrival. His blood pressure did improve with IV fluids and he was transferred here for further evaluation. 08/06/2020 Patient is seen and examined sitting up in the recliner in no acute distress. He has no symptoms of chest discomfort, shortness of breath, dizziness or palpitations. Echocardiogram obtained revealed severely impaired LV systolic function with ejection fraction less than 20%, severely dilated left atrium, mild aortic stenosis with a mean gradient of 15 mmHg, mild tricuspid regur gitation and moderate to severe pulmonary hypertension with RVSP of 54 mmHg. Blood pressure 96/54 heart rate 60 afebrile maintaining oxygen saturation on room air. Laboratory data reviewed, sodium 127, potassium 4.6, creatinine 1.12. Currently maintained on aspirin 81 mg daily, atorvastatin 40 mg daily, Plavix 75 mg daily, Lopressor 12.5 mg twice a day. Telemetry tracings indicate one episode of atrial tachycardia. PHYSICAL EXAMINATION CONSTITUTIONAL: No apparent distress. HEENT: Head is normocephalic. Pupils are equal, round. Sclerae anicteric. Mucous membranes of the mouth are moist. No JVD. No carotid bruit. CHEST EXAMINATION: Lungs are clear to auscultation. No chest wall tenderness is noted on palpation or with deep breathing. HEART EXAMINATION: Regular rate and rhythm. S1, S2 heard. Systolic ejection murmur at the base, no gallops or rub. EXTREMITIES: 2+ peripheral pulses, no lower extremity edema and no calf tenderness. ASSESSMENT Hyponatremia Dehydration Fall Troponin leak not related to primary myocardial injury Urinary tract infection History of coronary artery disease status post bypass grafting Chronic systolic heart failure Ischemic cardiomyopathy Chronic kidney disease Hypertension Dyslipidemia Valvular heart disease, aortic stenosis, aortic regurgitation and mitral regurgitation PLAN Increase lopressor to 25 mg BID. Not currently on an jayashree secondary to hypotension. Recommend follow up in the outpatient setting for further testing such as possible stress test to assess for change in LV function. Follow up with Dr. Cochran upon discharge, we will follow along as needed. Nurse Practitioner note has been reviewed, I agree with a documented findings and plan of care. Patient was seen and examined. Objective - Vital Signs Vital signs: Vital Signs Temp 97.3 F L 08/06/20 11:37 Pulse 60 08/06/20 11:37 Resp 18 08/06/20 11:37 BP 96/54 08/06/20 11:37 Pulse Ox 97 08/06/20 11:37 Intake & Output 08/05/20 08/06/20 08/06/20 18:59 06:59 18:59 Intake Total 700 236 Output Total 500 925 600 Balance -500 -225 -364 Weight 106.2 kg Intake: Intake, IV Titration 250 Amount Sodium Chloride 0.9% 1, 250 000 ml @ 50 mls/hr IV . Q20H [facility] Rx#:[id number] Oral 450 236 Output: Urine 500 925 600 Other: Voiding Method Indwelling Catheter Indwelling Catheter - Labs CBC & Chem 7: 08/05/20 02:52 08/06/20 09:24 Labs: Abnormal Lab Results - Last 24 Hours (Table) 08/05/20 08/05/20 08/06/20 Range/Units 16:56 20:09 06:09 Sodium (137-145) mmol/L Chloride (98-107) mmol/L BUN (9-20) mg/dL Glucose (74-99) mg/dL POC Glucose (mg/dL) 122 H 121 H 101 H (75-99) mg/dL Osmolality (280-301) mosm/kg 08/06/20 08/06/20 Range/Units 09:24 11:42 Sodium 127 L (137-145) mmol/L Chloride 95 L (98-107) mmol/L BUN 35 H (9-20) mg/dL Glucose 121 H (74-99) mg/dL POC Glucose (mg/dL) 155 H (75-99) mg/dL Osmolality 276 L (280-301) mosm/kg Microbiology - Last 24 Hours (Table) 08/04/20 21:05 Blood Culture - Preliminary Blood No Growth after 24 hours 08/04/20 21:05 Blood Culture - Preliminary Blood No Growth after 24 hours 08/04/20 21:05 Urine Culture - Preliminary Urine,Clean Catch Presumptive Staph aureus Group D Enterococcus
[2020-08-06 13:51] VITALS: BMI 28.5
--- NOTE | 2020-08-06 13:54 | CDI ---
Documentation Clarification Form Date: 08/06/2020 01:39:58 PM From: Diane Dos Santos RN CCDS Admit Date: 08/04/2020 09:46:00 PM Patient Name: Justin Chapman Visit Number: [id number] Discharge Date: ATTENTION: The Clinical Documentation Specialists (CDI) and [facility] Coding Staff appreciate your assistance in clarifying documentation. Please respond to the clarification below the line at the bottom and electronically sign. The CDI & [facility] Coding staff will review the response and follow-up if needed. Please note: Queries are made part of the Legal Health Record. If you have any questions, please contact the author of this message via ITS. Dr. Hermelindo Levy, A stage 2 left buttock proximal pressure ulcer is documented in Nursing wound assessment 08/05. Clarification is needed. History/Risk Factors: 79-year-old male presents to the ED for recurrent falls and feeling weak, especially in the legs. Medical History: Diarrhea for the last 5 -6 weeks. DM; Prostate CA last radiation 06/2020 and indwelling reese catheter. H&P 08/05. Clinical Indicators: Nursing Physical assessment 08/05. Patient reports having pressure injury on buttocks for years. Nursing Wound assessment 08/05. Location: Left buttock proximal. Wound description: Stage 2 pressure injury with scant serosanguineous drainage. Treatment: 08/05 Silvadene cream bid; 08/05 Absorbent underpad check hourly. 08/06 Saline Irritant, Medicated gel, foam with border. Is there an additional diagnosis that is clinically appropriate for this patient? Left buttock proximal Pressure Ulcer Stage 2 Other condition, please specify Unable to determine Clinical Definitions: Stage 1 Pressure Ulcer: intact skin, non-blanching redness of local area Stage 2 Pressure Ulcer: Partial thickness, loss of dermis, pink wound bed Stage 3 Pressure Ulcer: Full thickness tissue loss Stage 4 Pressure Ulcer: Full thickness tissue loss with exposed bone, tendon, or muscle. Unstageable pressure ulcer: Full thickness tissue loss in which the base of the ulcer is covered by slough (yellow, valiente, justin, green or brown) and/or eschar (valiente, brown or black) in the wound bed. (Last Revision: February 2017) Left buttock proximal pressure ulcer stage II MTDD
[2020-08-06] MEDS: SODIUM CHLORIDE 0.9% 1,000 ML IV SCH (16:03)
--- NOTE | 2020-08-06 16:19 | P.PN ---
Subjective Progress Note Date: 08/06/20 No acute overnight events, having good urine output, urine is clear. His urine culture is growing staph aureus and enterococcus. Objective - Vital Signs Vital signs: Vital Signs Temp 97.4 F L 08/06/20 16:07 Pulse 69 08/06/20 16:07 Resp 18 08/06/20 16:07 BP 96/54 08/06/20 16:07 Pulse Ox 94 L 08/06/20 16:07 Intake & Output 08/05/20 08/06/20 08/06/20 18:59 06:59 18:59 Intake Total 700 476 Output Total 500 925 900 Balance -500 -225 -424 Weight 106.2 kg Intake: Intake, IV Titration 250 Amount Sodium Chloride 0.9% 1, 250 000 ml @ 50 mls/hr IV . Q20H [facility] Rx#:[id number] Oral 450 476 Output: Urine 500 925 900 Other: Voiding Method Indwelling Catheter Indwelling Catheter Indwelling Catheter # Bowel Movements 1 - Constitutional General appearance: Present: no acute distress - Gastrointestinal General gastrointestinal: Present: soft. Absent: distended - Genitourinary Genitourinary Comment(s): Blanton draining clear yellow urine - Psychiatric Psychiatric: Present: A&O x's 3 - Labs CBC & Chem 7: 08/05/20 02:52 08/06/20 09:24 Labs: Abnormal Lab Results - Last 24 Hours (Table) 08/05/20 08/05/20 08/06/20 Range/Units 16:56 20:09 06:09 Sodium (137-145) mmol/L Chloride (98-107) mmol/L BUN (9-20) mg/dL Glucose (74-99) mg/dL POC Glucose (mg/dL) 122 H 121 H 101 H (75-99) mg/dL Osmolality (280-301) mosm/kg 08/06/20 08/06/20 Range/Units 09:24 11:42 Sodium 127 L (137-145) mmol/L Chloride 95 L (98-107) mmol/L BUN 35 H (9-20) mg/dL Glucose 121 H (74-99) mg/dL POC Glucose (mg/dL) 155 H (75-99) mg/dL Osmolality 276 L (280-301) mosm/kg Microbiology - Last 24 Hours (Table) 08/04/20 21:05 Blood Culture - Preliminary Blood No Growth after 24 hours 08/04/20 21:05 Blood Culture - Preliminary Blood No Growth after 24 hours 08/04/20 21:05 Urine Culture - Preliminary Urine,Clean Catch Presumptive Staph aureus Group D Enterococcus Assessment and Plan Assessment: 79-year-old male with history of [place] 7 prostate cancer, treated with external beam radiation therapy. He follows up with Dr. Parsons . Post radiation he has developed urinary retention, and has failed multiple trial of void. He's admitted to the hospital with weakness and recurrent falls. His urine culture is growing staph aureus and enterococcus. Plan: -Keep the catheter in place, if patient is discharged home prior to August 08 then he can keep his follow-up with Dr. Parsons for the cystoscopy and a urodynamic. If still in the hospital, then we'll plan on rescheduling his follow-up. -Awaiting final urine culture, His urine culture is growing staph aureus and enterococcus. Recommend treating for a minimum of 7 days, given the planned cystoscopy and urodynamic as an outpatient
[2020-08-06 16:48] LABS: Glucose,Whole Blood 141 mg/dL (75-99)
[2020-08-06 20:05] LABS: Glucose,Whole Blood 146 mg/dL (75-99)
[2020-08-06] MEDS: ASCORBIC ACID 500 MG TAB PO SCH (21:36)
[2020-08-06] MEDS: METOPROLOL TARTRATE 25 MG TAB PO SCH (21:36)
[2020-08-06] MEDS: ASPIRIN 81 MG PO SCH (21:36)
[2020-08-06] MEDS: ATORVASTATIN 40 MG TAB PO SCH (21:36)
[2020-08-06] MEDS: FLUTICASONE 50MCG/SPRAY NASAL 16GM EA NOSTRIL SCH (21:38)
--- NOTE | 2020-08-06 23:20 | P.PN ---
Progress Note - Text Progress Note Date: 08/06/20 Chief Complaint: Fall History of presenting complaint: This is a pleasant 79-year-old patient of Dr. Navi Jimenez. Chronic stable medical conditions include coronary artery disease with history of bypass and stent, diabetes, hypertension, hyperlipidemia, Lia arthritis. Patient was diagnosed with prostate cancer in 2017. Being followed by Dr. Anderson and Dr. Bradley from radiation oncology.. Patient's last radiation treatment was in June of this year. Patient states he is enrolled into her radiation trial. Following his last radiation has been feeling rather weak and legs feel extremely weak. Has had about 5-6 falls.. Appetite is gone on. Poor oral intake. No fever no chills. Is also had diarrhea for last 5-6 weeks. Anyway from 1-3 times a day. Tired and rundown. He is also has a Blanton catheter is supposed to follow with Dr. Anderson at his office. His coming Tuesday. Yet again patient presented after he took a fall after he is to reach Dr. West before his legs simply gave September. No chest pain or palpitation Admitted with recurrent falls from myopathy secondary to metabolic and abnormalities including acute kidney injury. Acute UTI with cystitis secondary to Blanton catheter started on IV ceftriaxone. Acute kidney injury prerenal from decreased oral intake. IV fluids. GORDY inhibitor was held. Acute diarrhea Metamucil added Today-feeling much better. Oral intake improving. Less dizzy and tired. Active Medications Acetaminophen (Acetaminophen Tab 325 Mg Tab) 650 mg PO Q6HR PRN PRN Reason: Mild Pain or Fever > 100.5 Allopurinol (Allopurinol 100 Mg Tab) 100 mg PO DAILY [facility] Last Admin: 08/06/20 10:02 Dose: 100 mg Documented by: Alprazolam (Alprazolam 0.25 Mg Tab) 0.25 mg PO BID PRN PRN Reason: Anxiety Last Admin: 08/06/20 23:06 Dose: 0.25 mg Documented by: Ascorbic Acid (Ascorbic Acid 500 Mg Tab) 500 mg PO [facility] Last Admin: 08/06/20 21:36 Dose: 500 mg Documented by: Aspirin (Aspirin 81 Mg) 81 mg PO [facility] Last Admin: 08/06/20 21:36 Dose: 81 mg Documented by: Atorvastatin Calcium (Atorvastatin 40 Mg Tab) 40 mg PO [facility] Last Admin: 08/06/20 21:36 Dose: 40 mg Documented by: Cholecalciferol (Cholecalciferol 25 Mcg (1000 Iu) Tablet) 50 mcg PO DAILY [facility] Last Admin: 08/06/20 10:03 Dose: 50 mcg Documented by: Clopidogrel Bisulfate (Clopidogrel 75 Mg Tab) 75 mg PO DAILY [facility] Last Admin: 08/06/20 10:03 Dose: 75 mg Documented by: Enoxaparin Sodium (Enoxaparin 40 Mg/0.4 Ml Syringe) 40 mg SQ DAILY [facility] Last Admin: 08/06/20 10:03 Dose: 40 mg Documented by: Fluticasone Propionate (Fluticasone 50mcg/[place] Nasal 16gm) 2 spray EA NOSTRIL [facility] Last Admin: 08/06/20 21:38 Dose: 2 spray Documented by: Sodium Chloride (Saline 0.9%) 1,000 mls @ 50 mls/hr IV .Q20H [facility] Last Admin: 08/06/20 16:03 Dose: 50 mls/hr Documented by: Ceftriaxone Sodium 2 gm/ (Sodium Chloride) 50 mls @ 100 mls/hr IVPB DAILY@2100 [facility] Loperamide HCl (Loperamide 2 Mg Cap) 2 mg PO Q2HR PRN PRN Reason: Loose Stool Last Admin: 08/05/20 04:32 Dose: 2 mg Documented by: Loratadine/Pseudoephedrine Sulfate (Loratadine-Pseudoeph 5-120 Mg 1 Each Tab.Er.12h) 1 each PO Q12HR [facility] Last Admin: 08/06/20 21:36 Dose: 1 each Documented by: Magnesium Oxide (Magnesium Oxide 400 Mg Tab) 400 mg PO DAILY [facility] Last Admin: 08/06/20 10:05 Dose: 400 mg Documented by: Magnesium Oxide (Magnesium Oxide 400 Mg Tab) 400 mg PO [facility] Last Admin: 08/06/20 21:37 Dose: 400 mg Documented by: Metoprolol Tartrate (Metoprolol Tartrate 25 Mg Tab) 25 mg PO BID [facility] Last Admin: 08/06/20 21:36 Dose: 25 mg Documented by: Naloxone HCl (Naloxone 0.4 Mg/Ml 1 Ml Vial) 0.2 mg IV Q2M PRN PRN Reason: Opioid Reversal Ondansetron HCl (Ondansetron 4 Mg/2 Ml Vial) 4 mg IVP Q8HR PRN PRN Reason: Nausea And Vomiting Psyllium Hydrophilic Mucilloid (Psyllium Husk 100% 6 Gm Packet) 6 gm PO BID [facility] Last Admin: 08/06/20 21:38 Dose: 6 gm Documented by: Silver Sulfadiazine (Silver Sulfadiazine 1% Cream 25 Gm Tube) 1 applic TOPICAL BID [facility] Last Admin: 08/06/20 21:39 Dose: 1 applic Documented by: Sodium Chloride (Sodium Chloride Tab 1 Gm Tab) 1 gm PO TID [facility] Last Admin: 08/06/20 21:37 Dose: 1 gm Documented by: Tamsulosin HCl (Tamsulosin 0.4 Mg Cap.Er.24h) 0.4 mg PO BID [facility] Last Admin: 08/06/20 21:36 Dose: 0.4 mg Documented by: Past medical history to include: Coronary artery disease with bypass and stent, diabetes, stroke, hypertension, hyperlipidemia, osteoarthritis, 2017-prostate cancer undergoing radiation treatment, 1997 had a stroke with right-sided shakiness, diabetes type 2 diet controlled, severe peripheral artery disease, abdominal aortic is a being monitored, candidate artery disease. 2011 had a three-vessel bypass. Social history: Lives alone. Does use a walker. Smoked from [id number]. Alcohol rarely. Physical examination: VITAL SIGNS: 97.3, 60, 18, 96/54, 97% room air GENERAL: BMI 27.4, laying in bed, tired. EYES: [Pupils equal. Conjunctiva pale. HEENT: External appearance of nose and ears normal, oral cavity grossly normal. NECK: JVD not raised; masses not palpable. HEART: First and second heart sounds are normal; no edema. LUNGS: Respiratory rate normal; decreased breath sounds. ABDOMEN: Soft, nontender, liver spleen not palpable, no masses palpable. Blanton catheter PSYCH: Alert and oriented x3; mood and affect normal MUSCULAR skeletal: Evidence of OA. NEUROLOGICAL: Cranial nerves grossly intact; no facial asymmetry, power and sensation grossly intact. LYMPHATICS: No lymph nodes palpable in the axilla and neck INVESTIGATIONS, reviewed in the clinical context: Urine culture presumptive staph aureus, group D enterococcus WBC 7.2 hemoglobin 10.8 platelets 224 sodium 127 potassium 4.8 creatinine 1.5 for Troponin I 0.12, 0.11, 0.13 albumin 2.9 UA positive for leukoesterase WBC Coronavirus [PCR] not detected EKG tracing personally reviewed by me-sinus rhythm, first-degree AV block, 2-D echocardiogram: Moderate concentric LVH, EF less than 20% moderate to severe aortic stenosis valve area of 0.9 cm peak and mean gradient 34.5/15.4 moderate to severe pulmonary hypertension Pulmonary ventilation/perfusion scan: Low probability for PE Assessment and plan: -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 Fall precautions. Consult PTOT -Acute UTI with cystitis secondary to Blanton catheter, presumptive staph aureus. Group D enterococcus. Changed to IV Unasyn for now -Acute kidney injury, prerenal from decreased oral intake. Gentle IV fluids. Follow renal function. Hold off GORDY inhibitor -Coronary artery disease with a prior history of bypass and stent. Continue with aspirin, Lopressor -Diabetes mellitus type 2, diet controlled. Follow Accu-Cheks -Essential hypertension, follow blood pressure. Continue antihypertensive -Hyperlipidemia, continue Lipitor -Primary osteoarthritis, use analgesics when necessary -Prostate cancer being treated with radiation treatment. Consult Dr. 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 Seen by Dr. marks. Patient to keep the Blanton catheter and -Severe peripheral arterial disease, continue with aspirin -Chronic congestive heart failure from systolic dysfunction EF less than 20%, continue clinically -Moderate to severe aortic stenosis with a valve area of 0.97 m, follow clinically and with cardiology -Secondary pulmonary hypertension, moderate to severe -Hyponatremia likely hypoosmolar from decreased oral intake. Gentle saline. -Acute diarrhea. No abdominal pain. No fever no chills. Add Metamucil. For bulk forming.-Improved Diet advanced. Diarrhea resolved.
[2020-08-07] MEDS: AMPICILLIN-SULBACTAM 1.5 GM in SODIUM CHLORIDE 0.9% 50 ML IVPB SCH ×2 (02:02→11:00)
[2020-08-07 06:18] LABS: Glucose,Whole Blood 109 mg/dL (75-99)
--- NOTE | 2020-08-07 08:51 | P.CONS ---
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 He elected to undergo SBRT finishing his treatment on 07/02/2020. Unfortunately, part-way through his radiotherapy the patient developed urinary retention and required catheterization. Unfortunately, the patient has continued to have significant difficulties. Specifically, he has had generalized weakness and has had several falls at home. He has been found to be hypotensive, and is also been found to have a worsening ejection fraction. He has unfortunately failed at least 2 separate voiding trials since the completion of his radiation, and is tentatively scheduled to undergo cystoscopy with Dr. Parsons. The patient reports that at this time he is feeling somewhat better but still overall week. He reports he has had loose bowels for a couple of weeks, but this is starting to improve. He notes no difficulty with blood in the stool or blood in the urine. He denies lower abdominal discomfort. Review of Systems Constitutional: Denies chills, Denies fever Eyes: denies blurred vision Cardiovascular: Reports lightheadedness, Denies chest pain Gastrointestinal: Denies abdominal pain, Denies hematochezia Genitourinary: Denies discharge, Denies flank pain Musculoskeletal: Reports muscle weakness Integumentary: Denies rash Neurological: Denies confusion, Denies convulsions Psychiatric: Denies anxiety Past Medical History Past Medical History: Coronary Artery Disease (CAD), Cancer, CVA/TIA, Diabetes Mellitus, Eye Disorder, Hyperlipidemia, Hypertension, Myocardial Infarction (MT), Osteoarthritis (OA), Vascular Disorder Additional Past Medical History / Comment(s): 2016 Prostate cancer and is currently undergoing radiation treatments, 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 Last Myocardial Infarction Date:: 2011 History of Any Multi-Drug Resistant Organisms: None Reported Past Surgical History: Back Surgery, Coronary Bypass/CABG, Heart Catheterization, Heart Catheterization With Stent Additional Past Surgical History / Comment(s): 2011 CABG 3 vessel, vascular procedures/stents in bilaeteral common iliac arteries, bilateral SFA stents, colonoscopy, prostate biopsy, spacOAR implant Past Anesthesia/Blood Transfusion Reactions: No Reported Reaction Date of Last Stent Placement:: 2014 Past Psychological History: No Psychological Hx Reported Additional Psychological History / Comment(s): Pt resides alone. He is independent. Smoking Status: Former smoker Past Alcohol Use History: Rare Additional Past Alcohol Use History / Comment(s): Pt started smoking in 1962 and quit in 2011 Past Drug Use History: None Reported - Past Family History Father Family Medical History: Hypertension Additional Family Medical History / Comment(s): Father at age 82yrs. Mother Family Medical History: Diabetes Mellitus Additional Family Medical History / Comment(s): Mother at age 69yrs. Medications and Allergies Home Medications Medication Instructions Recorded Confirmed Type Aspirin 81 mg PO HS 01/30/14 08/04/20 History Atorvastatin [Lipitor] 40 mg PO HS 01/30/14 08/04/20 History allopurinoL [Zyloprim] 100 mg PO DAILY 01/30/14 08/04/20 History Acetaminophen/Diphenhydramine 2 tab PO HS PRN 02/01/14 08/04/20 History [Tylenol PM 500-25mg] Cholecalciferol [Vitamin D3 (25 50 mcg PO DAILY 02/01/14 08/04/20 History Mcg = 1000 Iu)] Clopidogrel [Plavix] 75 mg PO DAILY 05/02/14 08/04/20 History Ascorbic Acid [Vitamin C] 500 mg PO HS 08/14/14 08/04/20 History Magnesium Oxide [Mag-Ox] 250 mg PO DAILY 08/14/14 08/04/20 History Fluticasone Nasal [place] [Flonase 2 spray EA NOSTRIL HS 12/23/14 08/04/20 History Nasal [place]] Ferrous Sulfate [Iron (65 MG 325 mg PO BID 05/19/20 08/04/20 History Elemental)] lisinopriL [Zestril] 5 mg PO DAILY 05/19/20 08/04/20 History Magnesium Oxide [Mag-Ox] 500 mg PO HS 06/16/20 08/04/20 History SILVER sulfADIAZINE Cream 1 applic TOPICAL BID 06/16/20 08/04/20 History [Silvadene 1% Cream] Tamsulosin [Flomax] 0.4 mg PO BID 06/16/20 08/04/20 History Metoprolol Tartrate [Lopressor] 12.5 mg PO BID #0 06/18/20 08/04/20 Rx ALPRAZolam [Xanax] 0.25 mg PO BID PRN 08/04/20 08/04/20 History Allergies Allergy/AdvReac Type Severity Reaction Status Date / Time No Known Allergies Allergy Verified 08/04/20 20:07 Physical Exam Vitals: Vital Signs Temp Pulse Resp BP Pulse Ox 08/07/20 04:00 65 18 105/86 100 08/07/20 00:00 92 18 93/54 92 L 08/06/20 20:00 76 18 97/52 94 L 08/06/20 16:07 97.4 F L 69 18 96/54 94 L 08/06/20 13:31 60 18 08/06/20 11:37 97.3 F L 60 18 96/54 97 08/06/20 08:52 22 Intake and Output 08/06/20 08/07/20 08/07/20 22:59 06:59 14:59 Intake Total 118 480 Output Total 520 Balance -402 480 Intake: Oral 118 480 Output: Urine 520 Other: Voiding Method Indwelling Catheter Indwelling Catheter Weight 105.5 kg - Constitutional General appearance: no acute distress - EENT Eyes: EOMI, PERRLA ENT: hearing grossly normal - Neck Neck: no lymphadenopathy - Respiratory Respiratory: bilateral: CTA - Cardiovascular Rhythm: regular - Gastrointestinal General gastrointestinal: no distended, soft, no tenderness - Integumentary Integumentary: no calor, no cellulitis - Neurologic Neurologic: CNII-XII intact - Musculoskeletal Musculoskeletal: gait normal - Psychiatric Psychiatric: A&O x's 3, appropriate affect Results CBC & Chem 7: 08/05/20 02:52 08/06/20 09:24 Labs: Abnormal Lab Results - Last 24 Hours (Table) 08/06/20 08/06/20 08/06/20 Range/Units 09:24 11:42 16:46 Sodium 127 L (137-145) mmol/L Chloride 95 L (98-107) mmol/L BUN 35 H (9-20) mg/dL Glucose 121 H (74-99) mg/dL POC Glucose (mg/dL) 155 H 141 H (75-99) mg/dL Osmolality 276 L (280-301) mosm/kg 08/06/20 08/07/20 Range/Units 20:03 06:16 Sodium (137-145) mmol/L Chloride (98-107) mmol/L BUN (9-20) mg/dL Glucose (74-99) mg/dL POC Glucose (mg/dL) 146 H 109 H (75-99) mg/dL Osmolality (280-301) mosm/kg Microbiology - Last 24 Hours (Table) 08/04/20 21:05 Urine Culture - Final Urine,Clean Catch Staphylococcus aureus Enterococcus faecalis 08/04/20 21:05 Blood Culture - Preliminary Blood No Growth after 48 hours 08/04/20 21:05 Blood Culture - Preliminary Blood No Growth after [address] Scan - head: image reviewed Assessment and Plan Assessment: The patient is a 79-year-old male with a history of a group IIB (cT1c, cN0, M0) 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 He elected to undergo SBRT finishing his treatment on 07/02/2020. Unfortunately, part-way through his radiotherapy the patient developed urinary retention and required catheterization. He was hospitalized due to generalized weakness and falls. Plan: 1. Generalized weakness/falls: As per the ongoing medical workup, the patient unfortunately has had persistent difficulty with hypotension and heart failure. I explained to the patient that while radiation may cause some fatigue, typically it will resolve within a few weeks of the completion of therapy. I explained to the patient that it would be unlikely the radiotherapy alone to cause his profound fatigue, generalized weakness and falls. 2. Prostate cancer - s/p radiotherapy. The patient developed urinary retention just partway through his radiation, which was admittedly surprising. He has failed 2 trials voids, and at least one time the patient removed his catheter on his own without properly deflating the balloon likely traumatizing the urethra. I recommended the patient have repeat PSA testing while he is in the hospital. I agree with the patient undergoing cystoscopy in the near future to further evaluate this persistent urinary retention. The patient does have a telehealth visit with me scheduled for next month which we will keep. Time with Patient: Less than 30
[2020-08-07] MEDS: CLOPIDOGREL 75 MG TAB PO SCH (10:02)
[2020-08-07] MEDS: METOPROLOL TARTRATE 25 MG TAB PO SCH (10:02)
[2020-08-07] MEDS: PSYLLIUM HUSK 100% 6 GM PACKET PO SCH (10:02)
[2020-08-07] MEDS: LORATADINE-PSEUDOEPH 5-120 MG 1 EACH TAB.ER.12H PO SCH (10:02)
[2020-08-07] MEDS: CHOLECALCIFEROL 25 MCG (1000 IU) TABLET PO SCH (10:03)
[2020-08-07] MEDS: SODIUM CHLORIDE TAB 1 GM TAB PO SCH (10:03)
[2020-08-07] MEDS: allopurinoL 100 MG TAB PO SCH (10:03)
[2020-08-07] MEDS: TAMSULOSIN 0.4 MG CAP.ER.24H PO SCH (10:03)
[2020-08-07] MEDS: ENOXAPARIN 40 MG/0.4 ML SYRINGE SQ SCH (10:03)
[2020-08-07] MEDS: MAGNESIUM OXIDE 400 MG TAB PO SCH (10:03)
[2020-08-07 10:20] LABS: Basophils % (A) 1 %; Eosinophils # (A) 0.2 k/uL (0-0.7); Eosinophils % (A) 2 %; HCT 34.7 % (39.0-53.0); HGB 10.9 gm/dL (13.0-17.5); Lymphocytes # (A) 0.5 k/uL (1.0-4.8); Lymphocytes % (A) 8 %; MCHC 31.5 g/dL (31.0-37.0); MCV 98.7 fL (80.0-100.0); Macrocytosis Slight; Monocytes # (A) 0.5 k/uL (0-1.0); Monocytes % (A) 7 %; Neutrophils # (A) 5.4 k/uL (1.3-7.7); Neutrophils % (A) 81 %; Platelet Count 249 k/uL (150-450); RBC 3.52 m/uL (4.30-5.90); RDW 15.8 % (11.5-15.5); WBC 6.7 k/uL (3.8-10.6)
[2020-08-07 10:28] LABS: Calcium 8.8 mg/dL (8.4-10.2); Potassium 4.9 mmol/L (3.5-5.1)
[2020-08-07 11:44] LABS: Glucose,Whole Blood 124 mg/dL (75-99)
[2020-08-07] MEDS: SODIUM CHLORIDE 0.9% 1,000 ML IV SCH (12:39)
[2020-08-07 13:24] VITALS: BP 88/50; PULSE 60; RESP 20; TEMP 96
--- NOTE | 2020-08-07 16:04 | CONS ---
CONSULTATION DATE OF SERVICE: 08/07/2020 REASON FOR CONSULTATION: Urinary tract infection. HISTORY OF PRESENT ILLNESS: The patient is a 79-year-old male with a past medical history significant for prostate cancer treated with external beam radiation in this patient who did have problem with urinary retention and did have chronic indwelling Blanton catheter. The patient presented to the ER at [facility] on the July for evaluation of weakness and multiple falls. The patient denies having any fever or any chills. Patient denies having any chest pain or shortness of breath, cough, no abdominal pain. The patient did have diarrhea with multiple loose stools, no blood or in the stool though. The patient has been evaluated by the ER physician. On arrival to the ER, the patient has been afebrile. The patient did have a normal white count. Creatinine was 1.54 on admission with elevated BUN. Did have a positive UA however this has been obtained from the Blanton catheter which has been there for a couple of weeks. Stone PCR was negative. The patient did have blood cultures obtained, which so far negative. Urine is now showing MSSA, Enterococcus faecalis infection. Infectious Disease was consulted for discharge antibiotic. The patient is currently on IV Unasyn. REVIEW OF SYSTEMS: Positive points have been mentioned in HPI. Rest of systems are negative. PAST MEDICAL HISTORY: Coronary artery disease, CVA, TIA, diabetes mellitus, hypertension, hyperlipidemia, HI, osteoarthritis, prostate cancer. PAST SURGICAL HISTORY: Back surgery, coronary artery bypass grafting, PTCA with stent. SOCIAL HISTORY: Remote history of smoking. Rarely drinks. No drug use. FAMILY HISTORY: Father history of hypertension. Mother history of diabetes. ALLERGIES: No known drug allergies. MEDICATIONS: Medications include the patient is currently on Tylenol, Zyloprim, Xanax, Unasyn 1.5 q.8. He is on vitamin C, aspirin, Lipitor, vitamin D3, Plavix, Lovenox, Imodium, Claritin-D, Mag oxide, Lopressor, Narcan, Zofran, Flomax. PHYSICAL EXAMINATION: Blood pressure is 105/86, pulse of 65, temperature 98. He is 100% on room air. General description is an elderly male up in the chair in no distress. No tachypnea or accessory muscles of respiration use. HEENT: Examination shows slight pallor. No scleral icterus. Oral mucous membrane is dry. NECK: Trachea central. No thyromegaly. LUNGS: Unlabored breathing with decreased intensity of breath sounds. No wheeze. HEART: S1, S2. Regular rate and rhythm. ABDOMEN: Soft, no tenderness. EXTREMITIES: No edema of feet. SKIN EXAMINATION: Showed multiple bruises. NEUROLOGICAL: Patient is awake, alert, oriented x3. Mood and affect normal. LABS: Hemoglobin is 10.9, white count 6.7, BUN of 31, creatinine 1.02. Urine is positive. DIAGNOSTIC IMPRESSION AND PLAN: Patient with admission to the hospital with multiple falls, weakness, which is likely multifactorial in this patient who did have a positive urine culture showing MSSA and Enterococcus faecalis. However, this has been obtained from the Blanton catheter with concern for possible Blanton colonization as the patient has no fever or elevated white count. Underlying urinary tract infection not entirely excluded. PLAN: 1. The patient did have change of his Blanton catheter. However, the patient stated that he did have an appointment with his urologist and will be done tomorrow. 2. Antibiotic will be switched over to Augmentin 875 b.i.d. for 10 days. Prescription sent to pharmacy. Thank you for this consultation. MMODL / IJN: [id number] /
--- NOTE | 2020-08-07 16:58 | P.PN ---
Subjective Progress Note Date: 08/07/20 No acute overnight event, Urine clear, Potential discharge home today Objective - Vital Signs Vital signs: Vital Signs Temp 96.0 F L 08/07/20 12:00 Pulse 60 08/07/20 12:00 Resp 20 08/07/20 12:00 BP 88/50 08/07/20 12:00 Pulse Ox 95 08/07/20 12:00 Intake & Output 08/06/20 08/07/20 08/07/20 18:59 06:59 18:59 Intake Total 594 480 240 Output Total 900 220 400 Balance -306 260 -160 Weight 106.2 kg 105.5 kg Intake: Oral 594 480 240 Output: Urine 900 220 400 Other: Voiding Method Indwelling Catheter Indwelling Catheter Indwelling Catheter # Bowel Movements 1 - Constitutional General appearance: Present: no acute distress - Genitourinary Genitourinary Comment(s): Urine clear - Psychiatric Psychiatric: Present: A&O x's 3 - Labs CBC & Chem 7: 08/07/20 09:26 08/07/20 09:26 Labs: Abnormal Lab Results - Last 24 Hours (Table) 08/06/20 08/07/20 08/07/20 Range/Units 20:03 06:16 09:26 RBC 3.52 L (4.30-5.90) m/uL Hgb 10.9 L (13.0-17.5) gm/dL Hct 34.7 L (39.0-53.0) % RDW 15.8 H (11.5-15.5) % Lymphocytes # 0.5 L (1.0-4.8) k/uL Sodium (137-145) mmol/L BUN (9-20) mg/dL Glucose (74-99) mg/dL POC Glucose (mg/dL) 146 H 109 H (75-99) mg/dL 08/07/20 08/07/20 Range/Units 09:26 11:42 RBC (4.30-5.90) m/uL Hgb (13.0-17.5) gm/dL Hct (39.0-53.0) % RDW (11.5-15.5) % Lymphocytes # (1.0-4.8) k/uL Sodium 129 L (137-145) mmol/L BUN 31 H (9-20) mg/dL Glucose 119 H (74-99) mg/dL POC Glucose (mg/dL) 124 H (75-99) mg/dL Microbiology - Last 24 Hours (Table) 08/04/20 21:05 Urine Culture - Final Urine,Clean Catch Staphylococcus aureus Enterococcus faecalis 08/04/20 21:05 Blood Culture - Preliminary Blood No Growth after 48 hours 08/04/20 21:05 Blood Culture - Preliminary Blood No Growth after 48 hours Assessment and Plan Assessment: 79-year-old male with history of Bicknell 7 prostate cancer, treated with external beam radiation therapy. He follows up with Dr. Parsons . Post radiation he has developed urinary retention, and has failed multiple trial of void. He's admitted to the hospital with weakness and recurrent falls. His urine culture is growing staph aureus and enterococcus. Plan: -Keep the catheter in place, the plan is to discharge patient home today, he can keep his follow up with Dr Parsons tomorrow for cystoscopy and a urodynamic. If s - His urine culture is growing staph aureus and enterococcus. Recommend treating for a minimum of 7 days based on susceptibility, given the planned cystoscopy and urodynamic as an outpatient
[2020-08-07 17:07] LABS: Glucose,Whole Blood 131 mg/dL (75-99)
--- NOTE | 2020-08-08 07:07 | P.DS ---
Providers Date of admission: 08/04/20 21:46 Attending physician: Hermelindo Levy Consults: 08/04/20 21:47 Consult Physician Routine Consulting Provider: Mert Cochran Consult Reason/Comments: bradycardia, hypotension Do you want consulting provider notified?: Yes 08/05/20 13:23 Consult Physician Routine Consulting Provider: Sreekanth Parsons Consult Reason/Comments: prostate ca/reese/radiation Do you want consulting provider notified?: Yes 08/05/20 19:53 Consult Physician Routine Consulting Provider: Josiah Bradley Consult Reason/Comments: Prostate cancer/radiation Do you want consulting provider notified?: Yes 08/06/20 21:15 Consult Physician Routine Consulting Provider: Kenya Morales Consult Reason/Comments: UTI Do you want consulting provider notified?: Yes, Notify in am Primary care physician: Navi Jimenez MD Hospital Course: Diagnoses: -Prostate cancer status post radiotherapy and status post indwelling chronic Reese catheter -Acute urinary tract infection secondary to staph aureus and enterococcus, discharged on short course of oral Augmentin -Troponin leak -Cardiomyopathy with ejection fraction less than 20% -Acute kidney injury, improved and back to normal -Chronic hyponatremia, stable -History of Coronary artery disease with a prior history of bypass and stent. -Diabetes mellitus type 2 -Essential hypertension -Hyperlipidemia -Primary osteoarthritis -Severe peripheral arterial disease -Chronic congestive heart failure from systolic dysfunction EF less than 20%, continue clinically -Moderate to severe aortic stenosis with a valve area of 0.97 m -Secondary pulmonary hypertension, moderate to severe Hospital course: This is a pleasant 79-year-old patient of Dr. Navi Jimenez. Chronic stable medical conditions include coronary artery disease with history of bypass and stent, diabetes, hypertension, hyperlipidemia, Lia arthritis. Patient was diagnosed with prostate cancer in 2017. Being followed by Dr. Galarza and Dr. Bradley from radiation oncology.. Patient's last radiation treatment was in June of this year. Patient states he is enrolled into her radiation trial. Following his last radiation has been feeling rather weak and legs feel extremely weak. Has had about 5-6 falls. Patient found to have UTI secondary to staph and enterococcus and treated with Unasyn and Augmentin upon discharge per ID team recommendation. Reese catheter was kept in place and patient today was so eager to be discharged to follow-up with his appointment with Dr. Galarza tomorrow on 3/26. His blood pressure was on the low side after service person increase his metoprolol from 12.5 up to 25 mg twice a day, however patient confirmed to me that at home he was actually on 25 mg twice a day. Lisinopril was held upon discharge and patient informed. His blood pressure upon discharge was 88/50 with heart rate 60, however patient is asymptomatic. Patient also was cleared for discharge by service person Patient wants to go home today and follow-up with his appointment tomorrow. He denies chest pain or dyspnea. No abdominal pain or nausea vomiting. No change in urine or bowel habits. No fever. Patient was cleared for discharge by ID and neurology teams Problems and management plan were discussed with the patient and he verbalized understanding and acceptance Patient was found stable and can be discharged home however he needs follow-up as an outpatient. Patient was instructed to follow up with PCP Dr. Jimenez within one week and patient agrees. Also patient was instructed to follow up with service person Dr. Olson for recommended outpatient stress test and patient agrees with the appointments made for him on 08/29. Also instructed to follow-up with Dr. Parsons tomorrow on 08/08 and he is looking for Physical exam Gen: patient is a AAOx3, no distress CVS: S1-S2, RRR, no murmur Lungs: B/L CTA, no wheezing -Abdomen: soft, no distention, no tenderness, positive bowel sounds. Reese catheter is in place Extremity: no leg edema or induration Time spent more than 35 minutes Patient Condition at Discharge: Fair Plan - Discharge Summary Discharge Rx Participant: No New Discharge Prescriptions: New Amoxic-Pot Clav 875-125Mg [Augmentin 875-125] 1 tab PO Q12HR 10 Days #20 tab Loratadine-Pseudoeph 5-120 mg [Claritin-D 12 Hour] 1 each PO Q12HR 7 Days #14 tab.er.12h Metoprolol Tartrate [Lopressor] 25 mg PO BID #60 tab Acetaminophen Tab [Tylenol] 650 mg PO Q6HR PRN tab PRN Reason: Mild Pain Or Fever > 100.5 Continue allopurinoL [Zyloprim] 100 mg PO DAILY Atorvastatin [Lipitor] 40 mg PO HS Aspirin 81 mg PO HS Cholecalciferol [Vitamin D3 (25 Mcg = 1000 Iu)] 50 mcg PO DAILY Clopidogrel [Plavix] 75 mg PO DAILY Magnesium Oxide [Mag-Ox] 250 mg PO DAILY Ascorbic Acid [Vitamin C] 500 mg PO HS Fluticasone Nasal [place] [Flonase Nasal [place]] 2 spray EA NOSTRIL HS Ferrous Sulfate [Iron (65 MG Elemental)] 325 mg PO BID SILVER sulfADIAZINE Cream [Silvadene 1% Cream] 1 applic TOPICAL BID Magnesium Oxide [Mag-Ox] 500 mg PO HS Tamsulosin [Flomax] 0.4 mg PO BID Discontinued Acetaminophen/Diphenhydramine [Tylenol PM 500-25mg] 2 tab PO HS PRN PRN Reason: Insomnia lisinopriL [Zestril] 5 mg PO DAILY Metoprolol Tartrate [Lopressor] 12.5 mg PO BID #0 ALPRAZolam [Xanax] 0.25 mg PO BID PRN PRN Reason: Anxiety Discharge Medication List Aspirin 81 mg PO HS 01/30/14 [History] Atorvastatin [Lipitor] 40 mg PO HS 01/30/14 [History] allopurinoL [Zyloprim] 100 mg PO DAILY 01/30/14 [History] Cholecalciferol [Vitamin D3 (25 Mcg = 1000 Iu)] 50 mcg PO DAILY 02/01/14 [History] Clopidogrel [Plavix] 75 mg PO DAILY 05/02/14 [History] Ascorbic Acid [Vitamin C] 500 mg PO HS 08/14/14 [History] Magnesium Oxide [Mag-Ox] 250 mg PO DAILY 08/14/14 [History] Fluticasone Nasal [place] [Flonase Nasal [place]] 2 spray EA NOSTRIL HS 12/23/14 [History] Ferrous Sulfate [Iron (65 MG Elemental)] 325 mg PO BID 05/19/20 [History] Magnesium Oxide [Mag-Ox] 500 mg PO HS 06/16/20 [History] SILVER sulfADIAZINE Cream [Silvadene 1% Cream] 1 applic TOPICAL BID 06/16/20 [History] Tamsulosin [Flomax] 0.4 mg PO BID 06/16/20 [History] Acetaminophen Tab [Tylenol] 650 mg PO Q6HR PRN tab 08/07/20 [Rx] Amoxic-Pot Clav 875-125Mg [Augmentin 875-125] 1 tab PO Q12HR 10 Days #20 tab 08/07/20 [Rx] Loratadine-Pseudoeph 5-120 mg [Claritin-D 12 Hour] 1 each PO Q12HR 7 Days #14 tab.er.12h 08/07/20 [Rx] Metoprolol Tartrate [Lopressor] 25 mg PO BID #60 tab 08/07/20 [Rx] Follow up Appointment(s)/Referral(s): Navi Jimenez MD [Primary Care Provider] - 1-2 days (THE OFFICE WILL CALL YOU WITH FOLLOW UP APPOINTMENT DATE AND TIME. ) Mert Cochran MD [STAFF PHYSICIAN] - 08/29/20 10:30 am (we recommend stress test as outpatient) Sreekanth Parsons MD [STAFF PHYSICIAN] - 08/08/20 (Keep original scheduled appointment. ) Jewell Preciado [NON-STAFF] - Patient Instructions/Handouts: Heart Failure (DC), Urinary Tract Infection in Men (DC), Syncope (DC), Hypotension (DC) Discharge Disposition: HOME WITH HOME HEALTH SERVICES
== END 2020-08-07 17:38 | disposition home health service (06) | DRG 699 ==
LOC: EC 19:24 → 5NMEDONC 21:46 → 3SCARD 22:18
PROVIDERS: ADMIT Hospitalist; ATTEND Hospitalist
DX: T83.511A Infection and inflammatory reaction due to indwelling urethral catheter, initial encounter (principal); N30.00 Acute cystitis without hematuria; N17.9 Acute kidney failure, unspecified; I13.0 Hypertensive heart and chronic kidney disease with heart failure and stage 1 through stage 4 chronic kidney disease, or unspecified chronic kidney disease; I47.1 Supraventricular tachycardia; E87.1 Hypo-osmolality and hyponatremia; I50.22 Chronic systolic (congestive) heart failure; I27.29 Other secondary pulmonary hypertension; C61 Malignant neoplasm of prostate; B95.61 Methicillin susceptible Staphylococcus aureus infection as the cause of diseases classified elsewhere; B95.2 Enterococcus as the cause of diseases classified elsewhere; L89.322 Pressure ulcer of left buttock, stage 2; L89.312 Pressure ulcer of right buttock, stage 2; E11.51 Type 2 diabetes mellitus with diabetic peripheral angiopathy without gangrene; E11.22 Type 2 diabetes mellitus with diabetic chronic kidney disease; I71.4 Abdominal aortic aneurysm, without rupture; Z20.822 Contact with and (suspected) exposure to COVID-19; S09.90XA Unspecified injury of head, initial encounter; E87.8 Other disorders of electrolyte and fluid balance, not elsewhere classified; N18.9 Chronic kidney disease, unspecified; S40.811A Abrasion of right upper arm, initial encounter; E78.5 Hyperlipidemia, unspecified; E86.0 Dehydration; I25.5 Ischemic cardiomyopathy; I44.0 Atrioventricular block, first degree; R00.1 Bradycardia, unspecified; I25.10 Atherosclerotic heart disease of native coronary artery without angina pectoris; I08.8 Other rheumatic multiple valve diseases; I44.7 Left bundle-branch block, unspecified; M19.91 Primary osteoarthritis, unspecified site; N32.0 Bladder-neck obstruction; R33.9 Retention of urine, unspecified; R29.6 Repeated falls; H26.9 Unspecified cataract; I95.9 Hypotension, unspecified; F41.9 Anxiety disorder, unspecified; R19.7 Diarrhea, unspecified; I25.2 Old myocardial infarction; R77.8 Other specified abnormalities of plasma proteins; Z79.82 Long term (current) use of aspirin; Z79.02 Long term (current) use of antithrombotics/antiplatelets; Z79.899 Other long term (current) drug therapy; Z95.1 Presence of aortocoronary bypass graft; Z95.5 Presence of coronary angioplasty implant and graft; Z87.891 Personal history of nicotine dependence; Z86.73 Personal history of transient ischemic attack (TIA), and cerebral infarction without residual deficits; W19.XXXA Unspecified fall, initial encounter; Y92.009 Unspecified place in unspecified non-institutional (private) residence as the place of occurrence of the external cause; Y84.6 Urinary catheterization as the cause of abnormal reaction of the patient, or of later complication, without mention of misadventure at the time of the procedure; Z83.3 Family history of diabetes mellitus; Z82.49 Family history of ischemic heart disease and other diseases of the circulatory system
CPT/HCPCS: 36415; 78582; 80048; 80053; 81001; 83735; 83930; 84153; 84484; 85025; 87040; 87077; 87086; 87186; 87635; 93005; 93306; 96372; 99285

== ENCOUNTER 2020-09-03 09:02 | Inpatient (IN) | payer MEDICARE, BC ==
[2020-09-03] MEDS ORDERED: SODIUM CHLORIDE 0.9% 1,000 ML IV STA (09:23)
--- NOTE | 2020-09-03 09:32 | ED ---
Nausea/Vomiting/Diarrhea HPI - General Chief complaint: Nausea/Vomiting/Diarrhea Stated complaint: low pulse ox Time Seen by Provider: 09/03/20 09:02 Source: EMS, RN notes reviewed Mode of arrival: EMS Limitations: no limitations - History of Present Illness Initial comments: This is a 79-year-old male history of multiple medical problems including pros oneal cancer who is status post radiation chemotherapy his last treatment apparently was in July of this year who was brought in from his [facility] with reports of low pulse ox up. Patient has had some nausea and decreased oral intake. He does have a chronic indwelling Blanton catheter. Per paramedics he did have cold extremities so this may be a reason for the low pulse ox. Upon arrival here he had pulse ox is between 90-93%. No cough or phlegm production no chest pain he does have peripheral edema he states he's had since his radiation therapy. No other current complaints or modifying factors MD complaint: nausea, other - Related Data Home Medications Medication Instructions Recorded Confirmed Aspirin 81 mg PO DAILY 01/30/14 09/03/20 Atorvastatin [Lipitor] 40 mg PO HS 01/30/14 09/03/20 allopurinoL [Zyloprim] 100 mg PO DAILY 01/30/14 09/03/20 Clopidogrel [Plavix] 75 mg PO DAILY 05/02/14 09/03/20 Ascorbic Acid [Vitamin C] 500 mg PO DAILY 08/14/14 09/03/20 Magnesium Oxide [Mag-Ox] 250 mg PO DAILY 08/14/14 09/03/20 Ferrous Sulfate [Iron (65 MG 325 mg PO DAILY 05/19/20 09/03/20 Elemental)] Acetaminophen Tab [Tylenol] 650 mg PO HS 09/03/20 09/03/20 Cefuroxime Axetil [Ceftin] 500 mg PO BID 09/03/20 09/03/20 Cholecalciferol [Vitamin D3 (25 50 mcg PO DAILY 09/03/20 09/03/20 Mcg = 1000 Iu)] Cholestyramine (with Sugar) 4 gm PO DAILY 09/03/20 09/03/20 [Cholestyramine Packet] Furosemide [Lasix] 40 mg PO DAILY 09/03/20 09/03/20 Lactobacillus Acidophilus 1 cap PO DAILY 09/03/20 09/03/20 [Acidophilus Probiotic] Loperamide [Imodium] 2 mg PO Q8H PRN 09/03/20 09/03/20 Metoprolol Tartrate [Lopressor] 25 mg PO DAILY 09/03/20 09/03/20 Midodrine HCl [ProAmantine] 2.5 mg PO Q12H 09/03/20 09/03/20 Ondansetron [Zofran] 4 mg PO Q8HR PRN 09/03/20 09/03/20 Temazepam [Restoril] 7.5 mg PO HS PRN 09/03/20 09/03/20 Allergies Allergy/AdvReac Type Severity Reaction Status Date / Time No Known Allergies Allergy Verified 09/03/20 09:57 Review of Systems ROS Statement: Those systems with pertinent positive or pertinent negative responses have been documented in the HPI. ROS Other: All systems not noted in ROS Statement are negative. 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 Last Myocardial Infarction Date:: 2011 History of Any Multi-Drug Resistant Organisms: None Reported Past Surgical History: Back Surgery, Coronary Bypass/CABG, Heart Catheterization, Heart Catheterization With Stent Additional Past Surgical History / Comment(s): 2011 CABG 3 vessel, vascular p rocedures/stents in bilaeteral common iliac arteries, bilateral SFA stents, colonoscopy, prostate biopsy, spacOAR implant Past Anesthesia/Blood Transfusion Reactions: No Reported Reaction Date of Last Stent Placement:: 2014 Past Psychological History: No Psychological Hx Reported Smoking Status: Former smoker Past Alcohol Use History: Rare Past Drug Use History: None Reported - Past Family History Father Family Medical History: Hypertension Additional Family Medical History / Comment(s): Father at age 82yrs. Mother Family Medical History: Diabetes Mellitus Additional Family Medical History / Comment(s): Mother at age 69yrs. General Exam - General Exam Comments Initial Comments: This is a well-developed well-nourished awake alert oriented 3 male Limitations: no limitations General appearance: alert, in no apparent distress Head exam: Present: atraumatic, normocephalic, normal inspection Eye exam: Present: normal appearance, PERRL, EOMI. Absent: scleral icterus, conjunctival injection, periorbital swelling ENT exam: Present: mucous membranes dry Neck exam: Present: normal inspection. Absent: tenderness, meningismus, lymphadenopathy Respiratory exam: Present: decreased breath sounds. Absent: respiratory distress, wheezes, rales, rhonchi, stridor Cardiovascular Exam: Present: regular rate, normal rhythm, normal heart sounds. Absent: systolic murmur, diastolic murmur, rubs, gallop, clicks GI/Abdominal exam: Present: soft, normal bowel sounds. Absent: distended, tenderness, guarding, rebound, rigid, bruit, pulsatile mass exam: Present: other (Blanton catheter in place) Extremities exam: Present: full ROM, normal capillary refill, pedal edema. Absent: tenderness, joint swelling, calf tenderness Back exam: Present: normal inspection Neurological exam: Present: alert, oriented X3, CN II-XII intact Psychiatric exam: Present: normal affect, normal mood Skin exam: Present: dry, intact, pallor, other (Cool extremities to touch). A bsent: rash Course Vital Signs 09/03/20 09/03/20 09:04 09:38 Temperature 98.7 F Pulse Rate 80 74 Respiratory 18 18 Rate Blood Pressure 98/67 92/70 O2 Sat by Pulse 93 L 92 L Oximetry Medical Decision Making - Medical Decision Making I did discuss findings the patient patient will be admitted patient is a city call patient will be admitted his Dr. Zamora. Consultation by cardiology - Lab Data Result diagrams: 09/03/20 09:31 09/03/20 09:31 Lab Results 09/03/20 09/03/20 09/03/20 Range/Units 09:31 09:31 09:31 WBC 8.2 (3.8-10.6) k/uL RBC 4.04 L (4.30-5.90) m/uL Hgb 12.5 L (13.0-17.5) gm/dL Hct 40.1 (39.0-53.0) % MCV 99.3 (80.0-100.0) fL MCH 30.9 (25.0-35.0) pg MCHC 31.2 (31.0-37.0) g/dL RDW 17.2 H (11.5-15.5) % Plt Count 164 (150-450) k/uL MPV 8.6 Neutrophils % 87 % Lymphocytes % 6 % Monocytes % 6 % Eosinophils % 0 % Basophils % 0 % Neutrophils # 7.2 (1.3-7.7) k/uL Lymphocytes # 0.5 L (1.0-4.8) k/uL Monocytes # 0.5 (0-1.0) k/uL Eosinophils # 0.0 (0-0.7) k/uL Basophils # 0.0 (0-0.2) k/uL Hypochromasia Slight Anisocytosis Slight Macrocytosis Slight Sodium 128 L (137-145) mmol/L Potassium 4.5 (3.5-5.1) mmol/L Chloride 92 L (98-107) mmol/L Carbon Dioxide 25 (22-30) mmol/L Anion Gap 11 mmol/L BUN 35 H (9-20) mg/dL Creatinine 1.25 (0.66-1.25) mg/dL Est GFR (CKD-EPI)AfAm 64 (>60 ml/min/1.73 sqM) Est GFR (CKD-EPI)NonAf 56 (>60 ml/min/1.73 sqM) Glucose 136 H (74-99) mg/dL Calcium 8.9 (8.4-10.2) mg/dL Magnesium 1.5 L (1.6-2.3) mg/dL Total Bilirubin 0.9 (0.2-1.3) mg/dL AST 52 (17-59) U/L ALT 34 (4-49) U/L Alkaline Phosphatase 83 (38-126) U/L Creatine Kinase 46 L (55-170) U/L Troponin I (0.000-0.034) ng/mL Total Protein 5.9 L (6.3-8.2) g/dL Albumin 3.2 L (3.5-5.0) g/dL Lipase 97 (23-300) U/L Urine Color Yellow Urine Appearance Cloudy (Clear) Urine pH 5.5 (5.0-8.0) Ur Specific [place] 1.024 (1.001-1.035) Urine Protein 2+ H (Negative) Urine Glucose (UA) Negative (Negative) Urine Ketones Negative (Negative) Urine Blood Negative (Negative) Urine Nitrite Negative (Negative) Urine Bilirubin Negative (Negative) Urine Urobilinogen <2.0 (<2.0) mg/dL Ur Leukocyte Esterase Large H (Negative) Urine WBC >182 H (0-5) /hpf Urine WBC Clumps Occasional H (None) /hpf Ur Squamous Epith Cells 1 (0-4) /hpf Hyaline Casts 7 H (0-2) /lpf Urine Mucus Occasional H (None) /hpf Urine Yeast (Budding) Many H (None) /hpf Coronavirus (PCR) (Not Detectd) 09/03/20 09/03/20 Range/Units 09:31 09:46 WBC (3.8-10.6) k/uL RBC (4.30-5.90) m/uL Hgb (13.0-17.5) gm/dL Hct (39.0-53.0) % MCV (80.0-100.0) fL MCH (25.0-35.0) pg MCHC (31.0-37.0) g/dL RDW (11.5-15.5) % Plt Count (150-450) k/uL MPV Neutrophils % % Lymphocytes % % Monocytes % % Eosinophils % % Basophils % % Neutrophils # (1.3-7.7) k/uL Lymphocytes # (1.0-4.8) k/uL Monocytes # (0-1.0) k/uL Eosinophils # (0-0.7) k/uL Basophils # (0-0.2) k/uL Hypochromasia Anisocytosis Macrocytosis Sodium (137-145) mmol/L Potassium (3.5-5.1) mmol/L Chloride (98-107) mmol/L Carbon Dioxide (22-30) mmol/L Anion Gap mmol/L BUN (9-20) mg/dL Creatinine (0.66-1.25) mg/dL Est GFR (CKD-EPI)AfAm (>60 ml/min/1.73 sqM) Est GFR (CKD-EPI)NonAf (>60 ml/min/1.73 sqM) Glucose (74-99) mg/dL Calcium (8.4-10.2) mg/dL Magnesium (1.6-2.3) mg/dL Total Bilirubin (0.2-1.3) mg/dL AST (17-59) U/L ALT (4-49) U/L Alkaline Phosphatase (38-126) U/L Creatine Kinase (55-170) U/L Troponin I 0.057 H* (0.000-0.034) ng/mL Total Protein (6.3-8.2) g/dL Albumin (3.5-5.0) g/dL Lipase (23-300) U/L Urine Color Urine Appearance (Clear) Urine pH (5.0-8.0) Ur Specific [place] (1.001-1.035) Urine Protein (Negative) Urine Glucose (UA) (Negative) Urine Ketones (Negative) Urine Blood (Negative) Urine Nitrite (Negative) Urine Bilirubin (Negative) Urine Urobilinogen (<2.0) mg/dL Ur Leukocyte Esterase (Negative) Urine WBC (0-5) /hpf Urine WBC Clumps (None) /hpf Ur Squamous Epith Cells (0-4) /hpf Hyaline Casts (0-2) /lpf Urine Mucus (None) /hpf Urine Yeast (Budding) (None) /hpf Coronavirus (PCR) Not Detected (Not Detectd) - Radiology Data Radiology results: report reviewed (Imaging reviewed evidence of increased pulmonary vascular markings pneumonia as not ruled out.), image reviewed Disposition Clinical Impression: Elevated troponin, Urinary tract infection, Hypomagnesemia, Hyponatremia Disposition: ADMITTED IP TO THIS [facility] Condition: Fair Referrals: Alfonso Gross DO [Primary Care Provider] - 1-2 days
[2020-09-03] MEDS: SODIUM CHLORIDE 0.9% 1,000 ML IV STA ×2 (09:38→11:45)
[2020-09-03 10:20] LABS: Albumin 3.2 g/dL (3.5-5.0); Calcium 8.9 mg/dL (8.4-10.2); Magnesium 1.5 mg/dL (1.6-2.3); Potassium 4.5 mmol/L (3.5-5.1); Total Bilirubin 0.9 mg/dL (0.2-1.3); Total Protein 5.9 g/dL (6.3-8.2)
--- NOTE | 2020-09-03 10:22 | XR ---
EXAMINATION TYPE: XR chest 2V DATE OF EXAM: 09/03/2020 COMPARISON: Chest x-ray 06/16/2020, 08/04/2020 HISTORY: Hypoxemia, nausea TECHNIQUE: Frontal and lateral views of the chest are obtained. FINDINGS: Patient is post median sternotomy. There is prominence of the central vascularity and inte rstitium. There is no evident pneumothorax. Difficult to exclude small effusions. There are coronary artery calcifications present. Aorta is dense. IMPRESSION: Correlate for congestive heart failure. Pneumonia not excluded. Possible small effusions .
--- NOTE | 2020-09-03 10:25 | XR ---
KUB HISTORY: Nausea, pain Frontal KUB submitted on 2 images There are dense vascular calcifications present, stent is present along the distribution of the super ficial femoral artery in the right, common iliac arteries. There is a spinal curvature with associate d degenerative disc change. There are overlying leads. No evident bowel obstruction or pneumoperitone um. Gas-filled loops of bowel are present without distention. IMPRESSION: Peripheral vascular occlusive disease. Nonobstructive bowel gas pattern, possible underly ing ileus. Follow-up as indicated.
[2020-09-03 10:32] LABS: Appearance,Urine Cloudy (Clear); Bilirubin,Urine Negative (Negative); Blood,Urine Negative (Negative); Budding Yeast,Urine Many /hpf; Color,Urine Yellow; Glucose,Urine (UA) Negative (Negative); Hyaline Casts,Urine 7 /lpf (0-2); Ketones,Urine Negative (Negative); Leukocyte Esterase,Urine Large (Negative); Mucus,Urine Occasional /hpf; Nitrite,Urine Negative (Negative); PH, Urine 5.5 (5.0-8.0); Protein,Urine 2+ (Negative); Specific Gravity,Urine 1.024 (1.001-1.035); Squamous Epithelial Cell,Urine 1 /hpf (0-4); Urobilinogen,Urine <2.0 mg/dL (<2.0); WBC,Urine >182 /hpf (0-5)
[2020-09-03 10:44] LABS: Anisocytosis Slight; Basophils % (A) 0 %; Eosinophils % (A) 0 %; HCT 40.1 % (39.0-53.0); HGB 12.5 gm/dL (13.0-17.5); Hypochromasia Slight; Lymphocytes # (A) 0.5 k/uL (1.0-4.8); Lymphocytes % (A) 6 %; MCH 30.9 pg (25.0-35.0); MCHC 31.2 g/dL (31.0-37.0); MCV 99.3 fL (80.0-100.0); Macrocytosis Slight; Mean Platelet Volume 8.6; Monocytes # (A) 0.5 k/uL (0-1.0); Monocytes % (A) 6 %; Neutrophils # (A) 7.2 k/uL (1.3-7.7); Neutrophils % (A) 87 %; Platelet Count 164 k/uL (150-450); RBC 4.04 m/uL (4.30-5.90); RDW 17.2 % (11.5-15.5); WBC 8.2 k/uL (3.8-10.6)
[2020-09-03] MEDS ORDERED: MAGNESIUM SULFATE-D5W PMX 1 GM in DEXTROSE/WATER 1 100ML.BAG IVPB ONE (11:01)
[2020-09-03] MEDS ORDERED: NITROGLYCERIN SL TABS 0.4 MG TAB SUBLINGUAL PRN (11:17)
[2020-09-03] MEDS ORDERED: ONDANSETRON 4 MG TAB PO PRN (11:19)
[2020-09-03] MEDS ORDERED: LOPERAMIDE 2 MG CAP PO PRN (11:19)
[2020-09-03] MEDS ORDERED: cefTRIAXone IN SWFI 1,000 MG/10 ML SYRINGE IVP STA (11:20)
[2020-09-03] MEDS: SODIUM CHLORIDE 0.9% 1,000 ML IV SCH ×2 (13:03→20:06)
[2020-09-03] MEDS: MIDODRINE 5 MG TAB PO SCH (20:05)
[2020-09-03] MEDS: ATORVASTATIN 40 MG TAB PO SCH (20:05)
[2020-09-03] MEDS: ACETAMINOPHEN TAB 325 MG TAB PO SCH (20:05)
[2020-09-03 20:48] LABS: Glucose,Whole Blood 147 mg/dL (75-99)
--- NOTE | 2020-09-03 20:59 | HP ---
HISTORY AND PHYSICAL 79-year-old white male comes in with medical problems with a history of prostate cancer status post radiation, chemo July of this year, who was brought in from skilled nursing due to low pulse ox, found to have severe urosepsis and started on IV antibiotics and increased oral intake. He has a chronic indwelling Blanton catheter. He is negative for COVID. His saturations were 90 to 93. I suspect he has urosepsis, hypoxemia of unclear etiology. May be run a CT scan of his lungs later. Home medication: Mag oxide 250 daily, iron 325 daily, Ceftin 500 b.i.d., Cholecystastyrime 4 g daily, Lasix 40 mg daily, Imodium 2 mg q.8 hours, metoprolol tartrate 25 daily, Midodrine 2.5 a.c. q.12h, Zofran 4 mg q.8h, Restoril 7.5 q.h.s. ALLERGIES: No known drug allergies. REVIEW OF SYMPTOMS: 14-point review of systems otherwise negative, unobtainable as he is pretty lethargic and not giving appropriate answers. PAST MEDICAL HISTORY: Coronary artery disease, cancer, CVA, diabetes mellitus, eye disorder, dyslipidemia, hypertension, myocardial infarction, osteoarthritis, vascular disorder in 1997. He had a CVA and prostate cancer in 2017, radiation treatment, AAA being monitored, cataract eye surgery, carotid artery disease. SURGERIES: Back surgery, bypass, heart catheterization with stents, bilateral SFA stents, bilateral common iliac arteries. FAMILY HISTORY: Father hypertension, at age 82. Mother diabetes mellitus. PHYSICAL EXAM: Well developed, well nourished, no acute distress. Cardiovascular S1, S2. LUNGS: Clear. GI soft, distended, obesity. EXTREMITIES: 2+ edema. He has a Blanton in. PSYCH: He is lethargic, not giving any answers. He is sleepy, obtunded. SKIN: He has cool extremities to touch. Decreased skin turgor. Temp 98.7, blood pressure is 90s over 60s, O2 92-93 percent, pulse 74-80, temp 97. ASSESSMENT: 1. Urosepsis. 2. Acute on chronic anemia. 3. Hyponatremia secondary to dehydration. 4. Prerenal renal insufficiency. 5. Hypomagnesemia. 6. Diabetes mellitus. 7. Elevated troponin, unclear etiology. 8. IV antibiotics. 9. IV fluids. 10.Replacement electrolytes. Prognosis guarded. Get multiple consultations. Please see further orders. MMODL / IJN: [id number] /
[2020-09-04 06:00] LABS: Glucose,Whole Blood 144 mg/dL (75-99)
[2020-09-04] MEDS: MIDODRINE 5 MG TAB PO SCH ×2 (06:29→15:47)
[2020-09-04] MEDS ORDERED: FUROSEMIDE 40 MG TAB PO SCH (09:00)
[2020-09-04] MEDS ORDERED: cefTRIAXone 1,000 MG VIAL (IM USE) IM SCH (09:00)
[2020-09-04 09:18] LABS: Albumin 3.1 g/dL (3.5-5.0); Calcium 8.5 mg/dL (8.4-10.2); Total Bilirubin 0.8 mg/dL (0.2-1.3)
--- NOTE | 2020-09-04 09:37 | CONS ---
CONSULTATION DATE OF SERVICE: 09/03/2020 REASON FOR CONSULTATION: Urinary tract infection. HISTORY OF PRESENT ILLNESS: The patient is a 79-year-old male with a past medical history significant for prostate cancer status post radiation chemotherapy in this patient who is a care home resident. The patient has been sent to [facility] for evaluation of nausea and decreased oral intake in this patient that has been going on for a day or two before presentation to the hospital. The patient has been complaining of feeling weak and tired. No energy. The patient denies having any headache or URI symptoms. Denies having any chest pain or shortness of breath. Minimal cough. Some nausea, but no vomiting and abdominal pain. Has been complaining of diarrhea since April with no blood or mucus in the stool. The patient did have a chronic indwelling Blanton catheter. He is not sure when the last time it was changed. Patient on presentation to the hospital was afebrile. The patient saturating 93% to 94%, subsequently 100% on room air. The patient did have a normal white count with mild lymphopenia. Creatinine 1.25. Troponins were elevated. The patient did have a positive UA with large leukocyte esterase more than 182 WBC. Stone PCR was negative. Urine culture has been obtained. The patient did have a chest x-ray, correlate for congestive heart failure. The patient was started on Rocephin and admitted to the hospital. Infectious Disease was consulted for further management of antibiotic therapy. REVIEW OF SYSTEMS: Positive points have been mentioned in HPI. Rest of systems are negative. PAST MEDICAL HISTORY: Coronary artery disease, CVA, TIA, diabetes mellitus, hyperlipidemia, hypertension, RI, osteoarthritis, and prostate cancer. PAST SURGICAL HISTORY: Left cataract extraction, prostate biopsy, colonoscopy, bilateral SFA stents, coronary artery bypass grafting. SOCIAL HISTORY: Remote history of smoking. No drinking or drug use. FAMILY HISTORY: Mother history of diabetes. Father history of hypertension. ALLERGIES: No known drug allergies. MEDICATIONS: Medications include the patient is currently on Tylenol, Zyloprim, vitamin C, aspirin, Lipitor, Rocephin, Questran, Plavix, iron sulfate, Lasix, Imodium, Mag oxide, Lopressor, Nitrostat, Zofran and Restoril. PHYSICAL EXAMINATION: Blood pressure 109/71 with pulse of 74, temperature 97.6. He is 99% on 2 L nasal cannula. General description is an elderly male lying in bed in no distress. No tachypnea or accessory muscles of respiration use. HEENT: Examination shows no pallor or scleral icterus. Oral mucous membrane is dry. NECK: Trachea central. No thyromegaly. LUNGS: Unlabored breathing, decreased intensity of breath sounds. No wheeze. HEART: S1, S2. Regular rate and rhythm. ABDOMEN: Soft, no tenderness. No guarding or rigidity. EXTREMITIES: No edema of feet. SKIN EXAMINATION: No rash or mass palpable. NEUROLOGIC: The patient is awake, alert, oriented x3. Mood and affect normal. LABS: Hemoglobin is 12.5, white count 8.2, BUN of 35, creatinine 1.25. Troponins are elevated. Inflammatory markers were not checked. Did have a positive UA. DIAGNOSTIC IMPRESSION: Patient admitted to the hospital with generalized weakness, no energy, in this patient who did have a chronic indwelling Blanton catheter with a history of prostate cancer, now with evidence of positive UA. Concern for possible Blanton colonization plus-minus catheter associated urinary tract infection. Some of his respiratory symptoms could be related to underlying cardiac condition as the patient did have elevated troponin and possible congestive heart failure. PLAN: 1. We will change his Blanton catheter. Obtain urine culture from new Blanton. 2. Continue the patient on Rocephin 1 gram p.o. daily. 3. We will follow on clinical condition and culture to further adjust medication if needed. Thank you for this consultation. Will follow this patient along with you. MMBINTAL / NINAN: [id number] /
[2020-09-04] MEDS: SODIUM CHLORIDE 0.9% 1,000 ML IV SCH (09:42)
[2020-09-04] MEDS: MAGNESIUM OXIDE 400 MG TAB PO SCH (09:46)
[2020-09-04] MEDS: CLOPIDOGREL 75 MG TAB PO SCH (09:47)
[2020-09-04] MEDS: ASCORBIC ACID 500 MG TAB PO SCH (09:47)
[2020-09-04] MEDS: METOPROLOL TARTRATE 25 MG TAB PO SCH (09:47)
[2020-09-04] MEDS: LACTOBACILLUS ACIDOPH & BULGAR 1 EACH PACKET PO SCH (09:47)
[2020-09-04] MEDS: ASPIRIN 325 MG TAB PO SCH (09:47)
[2020-09-04] MEDS: CHOLECALCIFEROL 25 MCG (1000 IU) TABLET PO SCH (09:47)
[2020-09-04] MEDS: allopurinoL 100 MG TAB PO SCH (09:47)
[2020-09-04] MEDS: CHOLESTYRAMINE (WITH SUGAR) 4 GM PACKET PO SCH (09:48)
[2020-09-04] MEDS: FERROUS SULFATE 325 MG TAB PO SCH (09:48)
[2020-09-04 09:55] LABS: Anisocytosis Slight; Basophils % (A) 0 %; Eosinophils % (A) 1 %; HCT 37.7 % (39.0-53.0); HGB 12.1 gm/dL (13.0-17.5); Hypochromasia Slight; Lymphocytes # (A) 0.5 k/uL (1.0-4.8); Lymphocytes % (A) 6 %; MCH 31.8 pg (25.0-35.0); MCHC 32.2 g/dL (31.0-37.0); MCV 98.8 fL (80.0-100.0); Macrocytosis Slight; Mean Platelet Volume 7.7; Monocytes # (A) 0.4 k/uL (0-1.0); Monocytes % (A) 5 %; Neutrophils # (A) 6.3 k/uL (1.3-7.7); Neutrophils % (A) 87 %; Platelet Count 183 k/uL (150-450); RBC 3.81 m/uL (4.30-5.90); RDW 17.3 % (11.5-15.5); WBC 7.3 k/uL (3.8-10.6)
--- NOTE | 2020-09-04 11:14 | P.CRDCN ---
History of Present Illness History of present illness: HISTORY OF PRESENTING ILLNESS Patient is pleasant 80-year-old male with history of abdominal aortic aneurysm, bilateral carotid artery disease, prostate cancer s/p radiation, hypertension, c oronary artery disease status post CABG in 2011, ischemic cardiomyopathy with ejection fraction <20%, moderate mitral regurgitation, moderate aortic insufficiency, hyperlipidemia, chronic kidney disease and former tobacco abuse. Patient states he has been in and out of the hospital since the beginning of July. He states he initially was evaluated at [facility] and had a Blanton placed. He had been feeling very weak and less stable on his feet and therefore has been in rehab facility, [facility] since that time and also has been in and out of the hospital. He is unsure as to why he was brought in however apparently per chart he had some hypoxia as well as concern of UTI. He denies any chest pain, pressure, shortness breath. Per chart he has been having decreased oral intake. Admit to generalized fatigue and feeling fairly weak. He follows in the office with Dr Ccohran. On presentation his pulse ox was 93% on room air. Blood work showed white blood cell count 8.2, hemoglobin 12.5, platelets 164, sodium 128, creatinine 1.25, BUN 35, magnesium 1.5, troponin 0.057, 0.087, 0.14, cruz virus not detected, urinalysis large leukocyte esterase and greater than 182 white blood cells. 08/05/2020 showed ejection fraction less than 20%, aortic stenosis concerning for low-flow low gradient with aortic valve area by continuity 0.9 REVIEW OF SYSTEMS At the time of my exam: CONSTITUTIONAL: Denies fever or chills. CARDIOVASCULAR: Denies chest pain, shortness of breath, orthopnea, PND or palpitations. RESPIRATORY: Denies cough. GASTROINTESTINAL: Denies abdominal pain, diarrhea, constipation, nausea or vomiting. MUSCULOSKELETAL: Denies myalgias. NEUROLOGIC: Denies numbness, tingling or weakness. ENDOCRINE: Denies fatigue, weight change, polydipsia or polyurina. GENITOURINARY: Denies burning, hematuria or urgency with micturation. HEMATOLOGIC: Denies history of anemia or bleeding. PHYSICAL EXAMINATION Vitals reviewed CONSTITUTIONAL: No apparent distress. HEENT: Head is normocephalic. Pupils are equal, round. Sclerae anicteric. Mucous membranes of the mouth are moist. No JVD. No carotid bruit. CHEST EXAMINATION: Lungs are clear to auscultation. No chest wall tenderness is noted on palpation or with deep breathing. HEART EXAMINATION: Regular rate and rhythm. S1, S2 heard. No murmurs, gallops or rub. ABDOMEN: Soft, nontender. Positive bowel sounds. EXTREMITIES: 2+ peripheral pulses, 2+ lower extremity edema and no calf tenderness. NEUROLOGIC EXAMINATION: Patient is awake, alert and oriented x3. ASSESSMENT 1. Elevated troponins of unclear significance. Patient denying any specific angina-type symptoms. 2. Reported hypoxia however 93% on room air on presentation 3. Weakness, fatigue 4. Hyponatremia 5. Chronic kidney disease 6. Coronary artery disease with history of CABG in 2011 7. Carotid artery disease 8. History of ischemic cardiomyopathy ejection fraction <20% 9. History of prostate cancer status post radiation, currently with a Blanton in place for last month and a half 10. UTI 11. Acute on chronic systolic heart failure 12. Aortic stenosis, may be low flow low gradient with AMANDA by continuity of 0.9cm2 however no elevated gradients PLAN Patient with reported hypoxia however fairly stable on room air however he does have 2+ lower extremity edema as well as chest x-ray concerning for heart failure as well as hyponatremia all pointing towards a fluid overload state. We will attempt IV Lasix and monitor response of kidney function as well as hyponatremia and volume status. Check repeat troponin to verify it flattens out. He denies any angina-type symptoms and may be type II mechanism from reported hypoxia, heart failure. Echo from July 2020 showed severe cardiomyopathy ejection fraction less than 20% as well as possible aortic stenosis with AMANDA 0.9cm2. 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 Last Myocardial Infarction Date:: 2011 History of Any Multi-Drug Resistant Organisms: None Reported Past Surgical History: Back Surgery, Coronary Bypass/CABG, Heart Catheterization, Heart Catheterization With Stent Additional Past Surgical History / Comment(s): 2011 CABG 3 vessel, vascular procedures/stents in bilaeteral common iliac arteries, bilateral SFA stents, colonoscopy, prostate biopsy, spacOAR implant Past Anesthesia/Blood Transfusion Reactions: No Reported Reaction Date of Last Stent Placement:: 2014 Past Psychological History: No Psychological Hx Reported Additional Psychological History / Comment(s): Pt resides alone. He is independent. Smoking Status: Former smoker Past Alcohol Use History: Rare Additional Past Alcohol Use History / Comment(s): Pt started smoking in 1962 and quit in 2011 Past Drug Use History: None Reported - Past Family History Father Family Medical History: Hypertension Additional Family Medical History / Comment(s): Father at age 82yrs. Mother Family Medical History: Diabetes Mellitus Additional Family Medical History / Comment(s): Mother at age 69yrs. Medications and Allergies Home Medications Medication Instructions Recorded Confirmed Type Aspirin 81 mg PO DAILY 01/30/14 09/03/20 History Atorvastatin [Lipitor] 40 mg PO HS 01/30/14 09/03/20 History allopurinoL [Zyloprim] 100 mg PO DAILY 01/30/14 09/03/20 History Clopidogrel [Plavix] 75 mg PO DAILY 05/02/14 09/03/20 History Ascorbic Acid [Vitamin C] 500 mg PO DAILY 08/14/14 09/03/20 History Magnesium Oxide [Mag-Ox] 250 mg PO DAILY 08/14/14 09/03/20 History Ferrous Sulfate [Iron (65 MG 325 mg PO DAILY 05/19/20 09/03/20 History Elemental)] Acetaminophen Tab [Tylenol] 650 mg PO HS 09/03/20 09/03/20 History Cefuroxime Axetil [Ceftin] 500 mg PO BID 09/03/20 09/03/20 History Cholecalciferol [Vitamin D3 (25 50 mcg PO DAILY 09/03/20 09/03/20 History Mcg = 1000 Iu)] Cholestyramine (with Sugar) 4 gm PO DAILY 09/03/20 09/03/20 History [Cholestyramine Packet] Furosemide [Lasix] 40 mg PO DAILY 09/03/20 09/03/20 History Lactobacillus Acidophilus 1 cap PO DAILY 09/03/20 09/03/20 History [Acidophilus Probiotic] Loperamide [Imodium] 2 mg PO Q8H PRN 09/03/20 09/03/20 History Metoprolol Tartrate [Lopressor] 25 mg PO DAILY 09/03/20 09/03/20 History Midodrine HCl [ProAmantine] 2.5 mg PO Q12H 09/03/20 09/03/20 History Ondansetron [Zofran] 4 mg PO Q8HR PRN 09/03/20 09/03/20 History Temazepam [Restoril] 7.5 mg PO HS PRN 09/03/20 09/03/20 History Allergies Allergy/AdvReac Type Severity Reaction Status Date / Time No Known Allergies Allergy Verified 09/03/20 09:57 Physical Exam Vitals: Vital Signs Temp Pulse Pulse Resp BP BP Pulse Ox 09/04/20 08:29 97.7 F 60 16 121/67 98 09/04/20 04:00 97.6 F 68 18 144/76 94 L 09/04/20 00:32 74 16 09/04/20 00:00 74 16 139/65 97 09/03/20 22:06 97.6 F 74 18 109/71 99 09/03/20 20:00 97.6 F 74 18 109/71 99 09/03/20 18:30 97.6 F 66 16 124/63 99 09/03/20 17:36 76 18 100/58 100 09/03/20 12:45 68 16 94/65 100 09/03/20 12:31 74 18 146/84 96 Intake and Output 09/03/20 09/04/20 09/04/20 22:59 06:59 14:59 Intake Total 240 Output Total 425 200 Balance -425 -200 240 Intake: Oral 240 Output: Urine 425 200 Other: Voiding Method Indwelling Catheter Indwelling Catheter Weight 111.13 kg 108 kg Results 09/04/20 08:23 09/04/20 08:23 Cardiac Enzymes 09/03/20 09/03/20 09/04/20 Range/Units 11:56 17:53 08:23 AST 43 (17-59) U/L Troponin I 0.087 H* 0.140 H* (0.000-0.034) ng/mL Lipids 09/04/20 Range/Units 08:23 Triglycerides 77 (<150) mg/dL Cholesterol 63 (<200) mg/dL HDL Cholesterol 22 L (40-60) mg/dL CBC 09/04/20 Range/Units 08:23 WBC 7.3 (3.8-10.6) k/uL RBC 3.81 L (4.30-5.90) m/uL Hgb 12.1 L (13.0-17.5) gm/dL Hct 37.7 L (39.0-53.0) % Plt Count 183 (150-450) k/uL Comprehensive Metabolic Panel 09/04/20 Range/Units 08:23 Sodium 128 L (137-145) mmol/L Potassium 4.0 (3.5-5.1) mmol/L Chloride 93 L (98-107) mmol/L Carbon Dioxide 27 (22-30) mmol/L BUN 37 H (9-20) mg/dL Creatinine 1.20 (0.66-1.25) mg/dL Glucose 124 H (74-99) mg/dL Calcium 8.5 (8.4-10.2) mg/dL AST 43 (17-59) U/L ALT 33 (4-49) U/L Alkaline Phosphatase 76 (38-126) U/L Total Protein 6.0 L (6.3-8.2) g/dL Albumin 3.1 L (3.5-5.0) g/dL Current Medications Generic Name Dose Route Start Last Admin Trade Name Freq PRN Reason Stop Dose Admin Acetaminophen 650 mg 09/03/20 21:00 09/03/20 20:05 Acetaminophen Tab 325 Mg Tab PO 650 mg HS JOSI Administration Allopurinol 100 mg 09/04/20 09:00 09/04/20 09:47 Allopurinol 100 Mg Tab PO 100 mg DAILY JOSI Administration Ascorbic Acid 500 mg 09/04/20 09:00 09/04/20 09:47 Ascorbic Acid 500 Mg Tab PO 500 mg DAILY JOSI Administration Aspirin 325 mg 09/04/20 09:00 09/04/20 09:47 Aspirin 325 Mg Tab PO 325 mg DAILY JOSI Administration Atorvastatin Calcium 40 mg 09/03/20 21:00 09/03/20 20:05 Atorvastatin 40 Mg Tab PO 40 mg HS JOSI Administration Cholecalciferol 50 mcg 09/04/20 09:00 09/04/20 09:47 Cholecalciferol 25 Mcg (1000 Iu) Tablet PO 50 mcg DAILY JOSI Administration Cholestyramine Resin 4 gm 09/04/20 09:00 09/04/20 09:48 Cholestyramine (With Sugar) 4 Gm Packet PO 4 gm DAILY JOSI Administration Clopidogrel Bisulfate 75 mg 09/04/20 09:00 09/04/20 09:47 Clopidogrel 75 Mg Tab PO 75 mg DAILY JOSI Administration Ferrous Sulfate 325 mg 09/04/20 09:00 09/04/20 09:48 Ferrous Sulfate 325 Mg Tab PO 325 mg DAILY JOSI Administration Furosemide 40 mg 09/04/20 09:00 09/04/20 09:48 Furosemide 40 Mg Tab PO 40 mg DAILY JOSI Administration Sodium Chloride 1,000 mls @ 100 mls/hr 09/03/20 11:30 09/04/20 09:42 Saline 0.9% IV Not Given .Q10H JOSI Ceftriaxone Sodium 1 gm/ 50 mls @ 100 mls/hr 09/04/20 09:00 09/04/20 09:47 Sodium Chloride IVPB 100 mls/hr Q24HR JOSI Administration Lactobacillus Acidoph/Bulgaricus 1 each 09/04/20 09:00 09/04/20 09:47 Lactobacillus Acidoph & Bulgar 1 Each Packet PO 1 each DAILY JOSI Administration Loperamide HCl 2 mg 09/03/20 11:19 Loperamide 2 Mg Cap PO Q8H PRN Diarrhea Magnesium Oxide 400 mg 09/04/20 09:00 09/04/20 09:46 Magnesium Oxide 400 Mg Tab PO 400 mg DAILY JOSI Administration Metoprolol Tartrate 25 mg 09/04/20 09:00 09/04/20 09:47 Metoprolol Tartrate 25 Mg Tab PO 25 mg DAILY JOSI Administration Midodrine 2.5 mg 09/03/20 18:00 09/04/20 06:29 Midodrine 5 Mg Tab PO 2.5 mg Q12H JOSI Administration Nitroglycerin 0.4 mg 09/03/20 11:17 Nitroglycerin Sl Tabs 0.4 Mg Tab SUBLINGUAL Q5M PRN Chest Pain Ondansetron HCl 4 mg 09/03/20 11:19 Ondansetron 4 Mg Tab PO Q8HR PRN Nausea And Vomiting Temazepam 7.5 mg 09/03/20 11:19 Temazepam 7.5 Mg Cap PO HS PRN Insomnia Intake and Output 09/03/20 09/04/20 09/04/20 22:59 06:59 14:59 Intake Total 240 Output Total 425 200 Balance -425 -200 240 Intake: Oral 240 Output: Urine 425 200 Other: Voiding Method Indwelling Catheter Indwelling Catheter Weight 111.13 kg 108 kg 09/04/20 08:23 09/04/20 08:23
[2020-09-04 11:44] LABS: Glucose,Whole Blood 119 mg/dL (75-99)
--- NOTE | 2020-09-04 11:52 | P.CONS ---
History of Present Illness - Reason for Consult Consult date: 09/04/20 Wound care - History of Present Illness This is a 79-year-old patient being seen by the wound care center on 3 for nonhealing ulcerations to the right and left buttocks. Patient states that the ulcerations have been there approximately 4 weeks. He uses Silvadene at home that was prescribed by his primary care physician. He stated that the ulcerations were much smaller until he came to the hospital where they have gotten significantly larger. Patient does have tenderness to the site. Left buttocks: Cluster of 2 ulcerations with fat layer exposure, wound edges are attached to wound base, granulation seen within wound bed with Slough, no tunneling or undermining noted. Right buttocks: Stage II pressure ulcer with fatty layer exposure granulation seen throughout wound bed wound edges are tested wound base. No tunneling or undermining noted. Patient spends the majority of his time sitting in a chair at this time he has been sitting in bed for a prolonged period. Patient past medical history significant for prostate cancer, CVA with right hand tremors, diabetes, severe peripheral arterial disease, coronary artery disease, hyperlipidemia, hypertension. Review Of Systems: Constitutional: No fever, no chills, no night sweats. No weight change. No weakness, fatigue or lethargy. No daytime sleepiness. Integumentary:reports wounds, no lesions. No rash or pruritus. No unusual bruising. No change in hair or nails. Physical exam: General Appearance: Alert, cooperative, no distress, appears stated age. Skin: See HPI all other Skin color, texture, tugor normal, no rashes or lesions. Neurologic: Alert oriented x3 Assessment: 1. Stage II pressure ulcer left buttocks 2. Stage II pressure ulcer right buttocks 3. Diabetes with skin ulcer Plan: 1. Apply triad border foam to the ulceration changes daily. Patient may be up in a chair utilizing a waffle cushion for sitting. Turn patient every 2 hours. Thank you for the consultation any questions please contact the wound care center DNP note has been reviewed and discussed with Dr. Pugh and the impression and plan of care has been directed as dictated. 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 Last Myocardial Infarction Date:: 2011 History of Any Multi-Drug Resistant Organisms: None Reported Past Surgical History: Back Surgery, Coronary Bypass/CABG, Heart Catheteriza tion, Heart Catheterization With Stent Additional Past Surgical History / Comment(s): 2011 CABG 3 vessel, vascular procedures/stents in bilaeteral common iliac arteries, bilateral SFA stents, colonoscopy, prostate biopsy, spacOAR implant Past Anesthesia/Blood Transfusion Reactions: No Reported Reaction Date of Last Stent Placement:: 2014 Past Psychological History: No Psychological Hx Reported Additional Psychological History / Comment(s): Pt resides alone. He is indepe ndent. Smoking Status: Former smoker Past Alcohol Use History: Rare Additional Past Alcohol Use History / Comment(s): Pt started smoking in 1962 and quit in 2011 Past Drug Use History: None Reported - Past Family History Father Family Medical History: Hypertension Additional Family Medical History / Comment(s): Father at age 82yrs. Mother Family Medical History: Diabetes Mellitus Additional Family Medical History / Comment(s): Mother at age 69yrs. Medications and Allergies Home Medications Medication Instructions Recorded Confirmed Type Aspirin 81 mg PO DAILY 01/30/14 09/03/20 History Atorvastatin [Lipitor] 40 mg PO HS 01/30/14 09/03/20 History allopurinoL [Zyloprim] 100 mg PO DAILY 01/30/14 09/03/20 History Clopidogrel [Plavix] 75 mg PO DAILY 05/02/14 09/03/20 History Ascorbic Acid [Vitamin C] 500 mg PO DAILY 08/14/14 09/03/20 History Magnesium Oxide [Mag-Ox] 250 mg PO DAILY 08/14/14 09/03/20 History Ferrous Sulfate [Iron (65 MG 325 mg PO DAILY 05/19/20 09/03/20 History Elemental)] Acetaminophen Tab [Tylenol] 650 mg PO HS 09/03/20 09/03/20 History Cefuroxime Axetil [Ceftin] 500 mg PO BID 09/03/20 09/03/20 History Cholecalciferol [Vitamin D3 (25 50 mcg PO DAILY 09/03/20 09/03/20 History Mcg = 1000 Iu)] Cholestyramine (with Sugar) 4 gm PO DAILY 09/03/20 09/03/20 History [Cholestyramine Packet] Furosemide [Lasix] 40 mg PO DAILY 09/03/20 09/03/20 History Lactobacillus Acidophilus 1 cap PO DAILY 09/03/20 09/03/20 History [Acidophilus Probiotic] Loperamide [Imodium] 2 mg PO Q8H PRN 09/03/20 09/03/20 History Metoprolol Tartrate [Lopressor] 25 mg PO DAILY 09/03/20 09/03/20 History Midodrine HCl [ProAmantine] 2.5 mg PO Q12H 09/03/20 09/03/20 History Ondansetron [Zofran] 4 mg PO Q8HR PRN 09/03/20 09/03/20 History Temazepam [Restoril] 7.5 mg PO HS PRN 09/03/20 09/03/20 History Allergies Allergy/AdvReac Type Severity Reaction Status Date / Time No Known Allergies Allergy Verified 09/03/20 09:57 Physical Exam Vitals: Vital Signs Temp Pulse Pulse Resp BP BP Pulse Ox 09/04/20 08:29 97.7 F 60 16 121/67 98 09/04/20 04:00 97.6 F 68 18 144/76 94 L 09/04/20 00:32 74 16 09/04/20 00:00 74 16 139/65 97 09/03/20 22:06 97.6 F 74 18 109/71 99 09/03/20 20:00 97.6 F 74 18 109/71 99 09/03/20 18:30 97.6 F 66 16 124/63 99 09/03/20 17:36 76 18 100/58 100 09/03/20 12:45 68 16 94/65 100 09/03/20 12:31 74 18 146/84 96 Intake and Output 09/03/20 09/04/20 09/04/20 22:59 06:59 14:59 Intake Total 250 Output Total 425 200 Balance -425 -200 250 Intake: IV 10 Invasive Line 1 10 Oral 240 Output: Urine 425 200 Other: Voiding Method Indwelling Catheter Indwelling Catheter Indwelling Catheter Weight 111.13 kg 108 kg Results CBC & Chem 7: 09/04/20 08:23 09/04/20 08:23 Labs: Abnormal Lab Results - Last 24 Hours (Table) 09/03/20 09/03/20 09/03/20 Range/Units 11:56 17:53 20:46 RBC (4.30-5.90) m/uL Hgb (13.0-17.5) gm/dL Hct (39.0-53.0) % RDW (11.5-15.5) % Lymphocytes # (1.0-4.8) k/uL Sodium (137-145) mmol/L Chloride (98-107) mmol/L BUN (9-20) mg/dL Glucose (74-99) mg/dL POC Glucose (mg/dL) 147 H (75-99) mg/dL Troponin I 0.087 H* 0.140 H* (0.000-0.034) ng/mL Total Protein (6.3-8.2) g/dL Albumin (3.5-5.0) g/dL HDL Cholesterol (40-60) mg/dL 09/04/20 09/04/20 09/04/20 Range/Units 05:58 08:23 08:23 RBC 3.81 L (4.30-5.90) m/uL Hgb 12.1 L (13.0-17.5) gm/dL Hct 37.7 L (39.0-53.0) % RDW 17.3 H (11.5-15.5) % Lymphocytes # 0.5 L (1.0-4.8) k/uL Sodium 128 L (137-145) mmol/L Chloride 93 L (98-107) mmol/L BUN 37 H (9-20) mg/dL Glucose 124 H (74-99) mg/dL POC Glucose (mg/dL) 144 H (75-99) mg/dL Troponin I (0.000-0.034) ng/mL Total Protein 6.0 L (6.3-8.2) g/dL Albumin 3.1 L (3.5-5.0) g/dL HDL Cholesterol 22 L (40-60) mg/dL 09/04/20 Range/Units 11:42 RBC (4.30-5.90) m/uL Hgb (13.0-17.5) gm/dL Hct (39.0-53.0) % RDW (11.5-15.5) % Lymphocytes # (1.0-4.8) k/uL Sodium (137-145) mmol/L Chloride (98-107) mmol/L BUN (9-20) mg/dL Glucose (74-99) mg/dL POC Glucose (mg/dL) 119 H (75-99) mg/dL Troponin I (0.000-0.034) ng/mL Total Protein (6.3-8.2) g/dL Albumin (3.5-5.0) g/dL HDL Cholesterol (40-60) mg/dL Microbiology - Last 24 Hours (Table) 09/03/20 09:31 Urine Culture - Preliminary Urine,Voided Assessment and Plan (1) Pressure ulcer of left buttock, stage 2 Current Visit: Yes Status: Acute Code(s): L89.322 - PRESSURE ULCER OF LEFT BUTTOCK, STAGE 2 SNOMED Code(s): 29141293139481567 (2) Pressure ulcer of right buttock, stage 2 Current Visit: Yes Status: Acute Code(s): L89.312 - PRESSURE ULCER OF RIGHT BUTTOCK, STAGE 2 SNOMED Code(s): 67259772218102295 (3) Diabetes with skin ulcer Current Visit: Yes Status: Acute Code(s): E11.622 - TYPE 2 DIABETES MELLITUS WITH OTHER SKIN ULCER; L98.499 - NON-PRESSURE CHRONIC ULCER OF SKIN OF SITES W UNSP SEVERITY SNOMED Code(s): 02168391
--- NOTE | 2020-09-04 12:42 | P.PN ---
Subjective This is a pleasant 79 years old male from [facility], with past medical history of diabetes mellitus, hypertension, hyperlipidemia, hyponatremia, osteoarthritis, prostate cancer in 2017 status post chemotherapy, last dose was 07/2020. History with CVA and right heart shakiness. Chronic kidney disease. He is status post CABG and stent placement. Presents with generalized weakness and nausea Patient found to have acute urinary tract infection, and was started on ceftriaxone and urine culture is pending. The patient also has Blanton catheter which he states it is from his snf. His creatinine is 1.2 with GFR is 58, which is stage III CKD. Chest x-ray showing CHF. KUB peripheral vascular occlusive disease. Nonobstructive bowel gas pattern. Possible underlying ileus Patient had slightly elevated troponin, application development consultant team think it secondary to his kidney disease. No chest pain or dyspnea. No palpitation or dizziness. Patient was complaining of from diarrhea about 2-4 times per day, but this has b een going on for the last 6 months. At baseline patient is not working for the last 3 months. He has recent echocardiogram showed ejection fraction less than 20%. Because of bilateral leg edema and pulmonary congestion patient was started on Lasix 40 mg twice daily intravenously Review of systems CONSTITUTIONAL: No fever, no malaise, no fatigue. HEENT: No recent visual problems or hearing problems. Denied any sore throat. CARDIOVASCULAR: No orthopnea, PND, no palpitations, no syncope. PULMONARY: No shortness of breath, no cough, no hemoptysis. GASTROINTESTINAL: No diarrhea, no nausea, no vomiting, no abdominal pain. Normoactive bowel sounds. NEUROLOGICAL: No headaches, no weakness, no numbness. HEMATOLOGICAL: Denies any bleeding or petechiae. Active Medications Generic Name Dose Route Start Last Admin Trade Name Freq PRN Reason Stop Dose Admin Acetaminophen 650 mg 09/03/20 21:00 09/03/20 20:05 Acetaminophen Tab 325 Mg Tab PO 650 mg HS JOSI Administration Allopurinol 100 mg 09/04/20 09:00 09/04/20 09:47 Allopurinol 100 Mg Tab PO 100 mg DAILY JOSI Administration Ascorbic Acid 500 mg 09/04/20 09:00 09/04/20 09:47 Ascorbic Acid 500 Mg Tab PO 500 mg DAILY JOSI Administration Aspirin 325 mg 09/04/20 09:00 09/04/20 09:47 Aspirin 325 Mg Tab PO 325 mg DAILY JOSI Administration Atorvastatin Calcium 40 mg 09/03/20 21:00 09/03/20 20:05 Atorvastatin 40 Mg Tab PO 40 mg HS JOSI Administration Cholecalciferol 50 mcg 09/04/20 09:00 09/04/20 09:47 Cholecalciferol 25 Mcg (1000 Iu) Tablet PO 50 mcg DAILY JOSI Administration Cholestyramine Resin 4 gm 09/04/20 09:00 09/04/20 09:48 Cholestyramine (With Sugar) 4 Gm Packet PO 4 gm DAILY JOSI Administration Clopidogrel Bisulfate 75 mg 09/04/20 09:00 09/04/20 09:47 Clopidogrel 75 Mg Tab PO 75 mg DAILY JOSI Administration Ferrous Sulfate 325 mg 09/04/20 09:00 09/04/20 09:48 Ferrous Sulfate 325 Mg Tab PO 325 mg DAILY JOSI Administration Furosemide 80 mg 09/04/20 11:15 Furosemide 10 Mg/Ml 10 Ml Vial IV Q12HR JOSI Ceftriaxone Sodium 1 gm/ 50 mls @ 100 mls/hr 09/04/20 09:00 09/04/20 09:47 Sodium Chloride IVPB 100 mls/hr Q24HR JOSI Administration Lactobacillus Acidoph/Bulgaricus 1 each 09/04/20 09:00 09/04/20 09:47 Lactobacillus Acidoph & Bulgar 1 Each Packet PO 1 each DAILY JOSI Administration Loperamide HCl 2 mg 09/03/20 11:19 Loperamide 2 Mg Cap PO Q8H PRN Diarrhea Magnesium Oxide 400 mg 09/04/20 09:00 09/04/20 09:46 Magnesium Oxide 400 Mg Tab PO 400 mg DAILY JOSI Administration Metoprolol Tartrate 25 mg 09/04/20 09:00 09/04/20 09:47 Metoprolol Tartrate 25 Mg Tab PO 25 mg DAILY JOSI Administration Midodrine 2.5 mg 09/03/20 18:00 09/04/20 06:29 Midodrine 5 Mg Tab PO 2.5 mg Q12H JOSI Administration Multi-Ingred Cream/Lotion/Oil/Oint 1 applic 09/04/20 11:45 Hydrophilic Cream 180 Gm Tube TOPICAL DAILY JOSI Nitroglycerin 0.4 mg 09/03/20 11:17 Nitroglycerin Sl Tabs 0.4 Mg Tab SUBLINGUAL Q5M PRN Chest Pain Ondansetron HCl 4 mg 09/03/20 11:19 Ondansetron 4 Mg Tab PO Q8HR PRN Nausea And Vomiting Temazepam 7.5 mg 09/03/20 11:19 Temazepam 7.5 Mg Cap PO HS PRN Insomnia Objective - Vital Signs Vital signs: Vital Signs Temp 97.7 F 09/04/20 08:29 Pulse 60 09/04/20 08:29 Resp 16 09/04/20 08:29 BP 121/67 09/04/20 08:29 Pulse Ox 98 09/04/20 08:29 Intake & Output 09/03/20 09/04/20 09/04/20 18:59 06:59 18:59 Intake Total 250 Output Total 625 Balance -625 250 Weight 111.13 kg 108 kg Intake: IV 10 Invasive Line 1 10 Oral 240 Output: Urine 625 Other: Voiding Method Indwelling Catheter Indwelling Catheter - Exam -GENERAL: The patient is alert and oriented x3, not in any acute distress. Obese HEENT: Pupils are round and equally reacting to light. EOMI. No scleral icterus. No conjunctival pallor. Normocephalic, atraumatic. No pharyngeal erythema. No thyromegaly. CARDIOVASCULAR: S1 and S2 present. No murmurs, rubs, or gallops. -PULMONARY: Chest is clear to auscultation, no wheezing . Bilateral basal crepitation -ABDOMEN: Soft, nontender, nondistended, normoactive bowel sounds. No palpable organomegaly. Patient has a Blanton catheter is in place MUSCULOSKELETAL: No joint swelling or deformity. -EXTREMITIES: No cyanosis, clubbing. Bilateral pitting leg edema NEUROLOGICAL: Gross neurological examination did not reveal any focal deficits. SKIN: No rashes. no petechiae. - Labs CBC & Chem 7: 09/04/20 08:23 09/04/20 08:23 Labs: Abnormal Lab Results - Last 24 Hours (Table) 09/03/20 09/03/20 09/03/20 Range/Units 11:56 17:53 20:46 RBC (4.30-5.90) m/uL Hgb (13.0-17.5) gm/dL Hct (39.0-53.0) % RDW (11.5-15.5) % Lymphocytes # (1.0-4.8) k/uL Sodium (137-145) mmol/L Chloride (98-107) mmol/L BUN (9-20) mg/dL Glucose (74-99) mg/dL POC Glucose (mg/dL) 147 H (75-99) mg/dL Troponin I 0.087 H* 0.140 H* (0.000-0.034) ng/mL Total Protein (6.3-8.2) g/dL Albumin (3.5-5.0) g/dL HDL Cholesterol (40-60) mg/dL 09/04/20 09/04/20 09/04/20 Range/Units 05:58 08:23 08:23 RBC 3.81 L (4.30-5.90) m/uL Hgb 12.1 L (13.0-17.5) gm/dL Hct 37.7 L (39.0-53.0) % RDW 17.3 H (11.5-15.5) % Lymphocytes # 0.5 L (1.0-4.8) k/uL Sodium 128 L (137-145) mmol/L Chloride 93 L (98-107) mmol/L BUN 37 H (9-20) mg/dL Glucose 124 H (74-99) mg/dL POC Glucose (mg/dL) 144 H (75-99) mg/dL Troponin I (0.000-0.034) ng/mL Total Protein 6.0 L (6.3-8.2) g/dL Albumin 3.1 L (3.5-5.0) g/dL HDL Cholesterol 22 L (40-60) mg/dL 09/04/20 Range/Units 11:42 RBC (4.30-5.90) m/uL Hgb (13.0-17.5) gm/dL Hct (39.0-53.0) % RDW (11.5-15.5) % Lymphocytes # (1.0-4.8) k/uL Sodium (137-145) mmol/L Chloride (98-107) mmol/L BUN (9-20) mg/dL Glucose (74-99) mg/dL POC Glucose (mg/dL) 119 H (75-99) mg/dL Troponin I (0.000-0.034) ng/mL Total Protein (6.3-8.2) g/dL Albumin (3.5-5.0) g/dL HDL Cholesterol (40-60) mg/dL Microbiology - Last 24 Hours (Table) 09/03/20 09:31 Urine Culture - Preliminary Urine,Voided Assessment and Plan Assessment: Acute urinary tract infection, related to Blanton catheter from snf Acute on chronic systolic CHF with ejection fraction less than 20% Chronic hyponatremia since 2014 Stage II sacral pressure ulcer on both right and left buttocks History of prostate cancer status post recent chemotherapy on 07/2019 Type 2 diabetes mellitus Chronic kidney disease, stage 2-3. Most likely diabetic nephropathy Hypertension Hyperlipidemia Obesity with BMI of 20 9.0K. Plan: This is a pleasant 79 years old male who presents with UTI and CHF. Continue with IV Lasix and monitor input and output. Continue with ceftriaxone follow-up urine culture The patient is on Blanton catheter Labs and medication were reviewed.. Continue same treatment. Continue with symptomatic treatment. Resume home medication. Monitor lytes and vitals. DVT and GI prophylaxis. Further recommendationsas per clinical course of the patient DVT prophylaxis: Subcutaneous heparin GI Prophylaxis: Ppi Prognosis is guarded
[2020-09-04] MEDS: FUROSEMIDE 10 MG/ML 10 ML VIAL IV SCH ×2 (12:52→21:05)
[2020-09-04] MEDS: HYDROPHILIC CREAM 180 GM TUBE TOPICAL SCH (15:47)
[2020-09-04] MEDS: FLUCONAZOLE 100 MG TAB PO SCH (15:47)
--- NOTE | 2020-09-04 16:09 | PN ---
PROGRESS NOTE DATE OF SERVICE: 09/04/2020 REASON FOR FOLLOWUP: Urinary tract infection. INTERVAL HISTORY: The patient is afebrile. The patient is more awake and alert. The patient is breathing comfortably. The patient denies having any chest pain or shortness of breath or cough. No abdominal pain or diarrhea. PHYSICAL EXAMINATION: Blood pressure 111/64, pulse of 61, temperature of 97.4. He is 96% on room air. General description is an elderly male up in the bed in no distress. RESPIRATORY SYSTEM: Unlabored breathing. Clear to auscultation anteriorly. HEART: S1, S2. Regular rate and rhythm. ABDOMEN: Soft. No tenderness. LABS: Hemoglobin 12.9, white count 7.3. Urine culture came back positive with Kitty albicans. DIAGNOSTIC IMPRESSION AND PLAN: Patient with a catheter-associated urinary tract infection. Urine is showing Kitty albicans. Will add Diflucan. Blanton catheter should have been changed. We will monitor his clinical course closely. Continue supportive care. MMODL / IJN: [id number] /
--- NOTE | 2020-09-04 16:21 | P.CNPUL ---
History of Present Illness Consult date: 09/04/20 Reason for consult: dyspnea, hypoxemia Chief complaint: Intermittent shortness of breath and desaturation at home History of present illness: This is a 79-year-old male who was seen eval reexamined, patient does have a h istory of prostate cancer with chronic lower extremity swelling which were getting worse post radiation therapy, patient noted to have a low pulse ox advised to be evaluated further, patient has +3 lower extremity edema he has a history of dyslipidemia, coronary artery disease, prostate cancer, prior [place], history of status post stroke with right-sided weakness, carotid endarterectomy with history of cardiac bypass surgery, used to smoke in the past, on arrival he was noted to have hypertensive with evidence of chronic kidney injury, covert testing was negative, labs were mildly elevated, and was positive for leukocyte esterase trace, patient has significant electrolyte abnormality including h yponatremia and hypomagnesemia as well, patient has a previous echocardiogram back in July 2020 shown to have a significant chronic systolic heart failure ejection fraction of less than 20% and severe aortic stenosis with a valve 80 or less than a centimeter, chest x-ray revealed cardiomegaly along with interstitial edema and small pleural effusion consistent with heart failure among currently oxygen saturation is 94-98% on 2 L oxygen, Review of Systems All systems: negative Past Medical History Past Medical History: Coronary Artery Disease (CAD), Cancer, CVA/TIA, Diabetes Mellitus, Eye Disorder, Hyperlipidemia, Hypertension, Myocardial Infarction (ND), Osteoarthritis (OA), Vascular Disorder Additional Past Medical History / Comment(s): 2016 Prostate cancer last chemo 07/2020, 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 Last Myocardial Infarction Date:: 2011 History of Any Multi-Drug Resistant Organisms: None Reported Past Surgical History: Back Surgery, Coronary Bypass/CABG, Heart Catheterization, Heart Catheterization With Stent Additional Past Surgical History / Comment(s): 2011 CABG 3 vessel, vascular procedures/stents in bilaeteral common iliac arteries, bilateral SFA stents, colonoscopy, prostate biopsy, spacOAR implant Past Anesthesia/Blood Transfusion Reactions: No Reported Reaction Date of Last Stent Placement:: 2014 Past Psychological History: No Psychological Hx Reported Additional Psychological History / Comment(s): Pt resides alone. He is independent. Smoking Status: Former smoker Past Alcohol Use History: Rare Additional Past Alcohol Use History / Comment(s): Pt started smoking in 1962 and quit in 2011 Past Drug Use History: None Reported - Past Family History Father Family Medical History: Hypertension Additional Family Medical History / Comment(s): Father at age 82yrs. Mother Family Medical History: Diabetes Mellitus Additional Family Medical History / Comment(s): Mother at age 69yrs. Medications and Allergies Home Medications Medication Instructions Recorded Confirmed Type Aspirin 81 mg PO DAILY 01/30/14 09/03/20 History Atorvastatin [Lipitor] 40 mg PO HS 01/30/14 09/03/20 History allopurinoL [Zyloprim] 100 mg PO DAILY 01/30/14 09/03/20 History Clopidogrel [Plavix] 75 mg PO DAILY 05/02/14 09/03/20 History Ascorbic Acid [Vitamin C] 500 mg PO DAILY 08/14/14 09/03/20 History Magnesium Oxide [Mag-Ox] 250 mg PO DAILY 08/14/14 09/03/20 History Ferrous Sulfate [Iron (65 MG 325 mg PO DAILY 05/19/20 09/03/20 History Elemental)] Acetaminophen Tab [Tylenol] 650 mg PO HS 09/03/20 09/03/20 History Cefuroxime Axetil [Ceftin] 500 mg PO BID 09/03/20 09/03/20 History Cholecalciferol [Vitamin D3 (25 50 mcg PO DAILY 09/03/20 09/03/20 History Mcg = 1000 Iu)] Cholestyramine (with Sugar) 4 gm PO DAILY 09/03/20 09/03/20 History [Cholestyramine Packet] Furosemide [Lasix] 40 mg PO DAILY 09/03/20 09/03/20 History Lactobacillus Acidophilus 1 cap PO DAILY 09/03/20 09/03/20 History [Acidophilus Probiotic] Loperamide [Imodium] 2 mg PO Q8H PRN 09/03/20 09/03/20 History Metoprolol Tartrate [Lopressor] 25 mg PO DAILY 09/03/20 09/03/20 History Midodrine HCl [ProAmantine] 2.5 mg PO Q12H 09/03/20 09/03/20 History Ondansetron [Zofran] 4 mg PO Q8HR PRN 09/03/20 09/03/20 History Temazepam [Restoril] 7.5 mg PO HS PRN 09/03/20 09/03/20 History Allergies Allergy/AdvReac Type Severity Reaction Status Date / Time No Known Allergies Allergy Verified 09/03/20 09:57 Physical Exam Vitals: Vital Signs Temp Pulse Pulse Resp BP BP Pulse Ox 09/04/20 13:47 61 18 09/04/20 13:46 97.4 F L 61 18 111/64 96 09/04/20 08:29 97.7 F 60 16 121/67 98 09/04/20 04:00 97.6 F 68 18 144/76 94 L 09/04/20 00:32 74 16 09/04/20 00:00 74 16 139/65 97 09/03/20 22:06 97.6 F 74 18 109/71 99 09/03/20 20:00 97.6 F 74 18 109/71 99 09/03/20 18:30 97.6 F 66 16 124/63 99 09/03/20 17:36 76 18 100/58 100 Intake and Output 09/04/20 09/04/20 09/04/20 06:59 14:59 22:59 Intake Total 430 Output Total 200 150 Balance -200 280 Intake: IV 10 Invasive Line 1 10 Oral 420 Output: Urine 200 150 Other: Voiding Method Indwelling Catheter Indwelling Catheter Weight 108 kg - Constitutional General appearance: disheveled, morbidly obese, no acute distress - EENT Eyes: PERRLA Ears: bilateral: normal - Neck Carotids: bilateral: upstroke delayed Thyroid: bilateral: normal size - Respiratory Respiratory: bilateral: diminished - Cardiovascular Rhythm: regular Heart sounds: normal: S1, S2 - Gastrointestinal General gastrointestinal: hyperactive bowel sounds - Integumentary +3 lower extremity edema Integumentary: normal, normal turgor - Neurologic Neurologic: CNII-XII intact - Musculoskeletal Musculoskeletal: gait normal, generalized weakness, strength equal bilaterally - Psychiatric Psychiatric: A&O x's 3, appropriate affect, intact judgment & insight Results - Laboratory Findings CBC and BMP: 09/04/20 08:23 09/04/20 08:23 Abnormal lab findings: Abnormal Labs 09/03/20 09/03/20 09/03/20 09:31 09:31 09:31 RBC 4.04 L Hgb 12.5 L Hct RDW 17.2 H Lymphocytes # 0.5 L Sodium 128 L Chloride 92 L BUN 35 H Glucose 136 H POC Glucose (mg/dL) Magnesium 1.5 L Creatine Kinase 46 L Troponin I Total Protein 5.9 L Albumin 3.2 L HDL Cholesterol Urine Protein 2+ H Ur Leukocyte Esterase Large H Urine WBC >182 H Urine WBC Clumps Occasional H Hyaline Casts 7 H Urine Mucus Occasional H Urine Yeast (Budding) Many H 09/03/20 09/03/20 09/03/20 09:31 11:56 17:53 RBC Hgb Hct RDW Lymphocytes # Sodium Chloride BUN Glucose POC Glucose (mg/dL) Magnesium Creatine Kinase Troponin I 0.057 H* 0.087 H* 0.140 H* Total Protein Albumin HDL Cholesterol Urine Protein Ur Leukocyte Esterase Urine WBC Urine WBC Clumps Hyaline Casts Urine Mucus Urine Yeast (Budding) 09/03/20 09/04/20 09/04/20 20:46 05:58 08:23 RBC Hgb Hct RDW Lymphocytes # Sodium 128 L Chloride 93 L BUN 37 H Glucose 124 H POC Glucose (mg/dL) 147 H 144 H Magnesium Creatine Kinase Troponin I Total Protein 6.0 L Albumin 3.1 L HDL Cholesterol 22 L Urine Protein Ur Leukocyte Esterase Urine WBC Urine WBC Clumps Hyaline Casts Urine Mucus Urine Yeast (Budding) 09/04/20 09/04/20 09/04/20 08:23 08:23 11:42 RBC 3.81 L Hgb 12.1 L Hct 37.7 L RDW 17.3 H Lymphocytes # 0.5 L Sodium Chloride BUN Glucose POC Glucose (mg/dL) 119 H Magnesium Creatine Kinase Troponin I 0.085 H* Total Protein Albumin HDL Cholesterol Urine Protein Ur Leukocyte Esterase Urine WBC Urine WBC Clumps Hyaline Casts Urine Mucus Urine Yeast (Budding) - Diagnostic Findings Chest x-ray: report reviewed, image reviewed Assessment and Plan Assessment: Shortness of breath related to acute on chronic systolic heart failure Severe systolic heart failure ejection fraction of less than 20%, Bilateral small pleural effusion likely related to acute on chronic systolic heart failure Acute hypoxic respiratory failure slowly improving with supplemental oxygen, Elevated troponin of unclear etiology Positive leukocyte is trace likely related to candidauria, Diflucan has been started with advice to change the Blanton's catheter Plan: Supplemental oxygen Gentle diuresis Breathing exercise Incentive spirometry No aggressive intervention recommended for small pleural effusion will monitor observe closely Time with Patient: Greater than 30
[2020-09-04 16:43] LABS: Glucose,Whole Blood 120 mg/dL (75-99)
[2020-09-04 18:06] LABS: Appearance,Urine Cloudy (Clear); Bacteria,Urine Occasional /hpf; Bilirubin,Urine Negative (Negative); Blood,Urine Trace (Negative); Budding Yeast,Urine Moderate /hpf; Color,Urine Light Yellow; Glucose,Urine (UA) Negative (Negative); Hyaline Casts,Urine 19 /lpf (0-2); Ketones,Urine Negative (Negative); Leukocyte Esterase,Urine Large (Negative); Mucus,Urine Rare /hpf; Nitrite,Urine Negative (Negative); Protein,Urine Negative (Negative); RBC,Urine 20 /hpf (0-5); Specific Gravity,Urine 1.007 (1.001-1.035); Squamous Epithelial Cell,Urine 1 /hpf (0-4); Urobilinogen,Urine <2.0 mg/dL (<2.0); WBC,Urine 132 /hpf (0-5)
[2020-09-04] MEDS: BENZOCAINE/MENTHOL LOZENG 1 EACH LOZENGE MUCOUS MEM PRN (18:14)
[2020-09-04 20:10] LABS: Glucose,Whole Blood 127 mg/dL (75-99)
[2020-09-04] MEDS: ACETAMINOPHEN TAB 325 MG TAB PO SCH (21:05)
[2020-09-04] MEDS: TEMAZEPAM 7.5 MG CAP PO PRN (21:06)
[2020-09-04] MEDS: ATORVASTATIN 40 MG TAB PO SCH (21:06)
[2020-09-05] MEDS: BENZOCAINE/MENTHOL LOZENG 1 EACH LOZENGE MUCOUS MEM PRN ×2 (00:20→18:49)
[2020-09-05 05:46] LABS: Glucose,Whole Blood 119 mg/dL (75-99)
[2020-09-05] MEDS: MIDODRINE 5 MG TAB PO SCH ×2 (05:56→16:46)
[2020-09-05] MEDS: allopurinoL 100 MG TAB PO SCH (09:26)
[2020-09-05] MEDS: METOPROLOL TARTRATE 25 MG TAB PO SCH (09:26)
[2020-09-05] MEDS: FERROUS SULFATE 325 MG TAB PO SCH (09:26)
[2020-09-05] MEDS: CLOPIDOGREL 75 MG TAB PO SCH (09:26)
[2020-09-05] MEDS: CHOLECALCIFEROL 25 MCG (1000 IU) TABLET PO SCH (09:26)
[2020-09-05] MEDS: ASPIRIN 325 MG TAB PO SCH (09:27)
[2020-09-05] MEDS: CHOLESTYRAMINE (WITH SUGAR) 4 GM PACKET PO SCH (09:27)
[2020-09-05] MEDS: FLUCONAZOLE 100 MG TAB PO SCH (09:27)
[2020-09-05] MEDS: LACTOBACILLUS ACIDOPH & BULGAR 1 EACH PACKET PO SCH (09:27)
[2020-09-05] MEDS: MAGNESIUM OXIDE 400 MG TAB PO SCH (09:27)
[2020-09-05] MEDS: FUROSEMIDE 10 MG/ML 10 ML VIAL IV SCH ×2 (09:27→21:40)
[2020-09-05] MEDS: ASCORBIC ACID 500 MG TAB PO SCH (09:27)
[2020-09-05] MEDS: HYDROPHILIC CREAM 180 GM TUBE TOPICAL SCH (09:28)
[2020-09-05 11:28] LABS: Calcium 8.5 mg/dL (8.4-10.2); Magnesium 1.3 mg/dL (1.6-2.3); Potassium 3.4 mmol/L (3.5-5.1)
--- NOTE | 2020-09-05 11:56 | P.PN ---
Subjective Progress Note Date: 09/05/20 Principal diagnosis: Shortness of breath related to acute on chronic systolic heart failure Severe systolic heart failure ejection fraction of less than 20%, Bilateral small pleural effusion likely related to acute on chronic systolic heart failure Acute hypoxic respiratory failure slowly improving with supplemental oxygen, Elevated troponin of unclear etiology Positive leukocyte is trace likely related to candidauria, Diflucan has been started with advice to change the Blanton's catheter 09/05/2020, patient seen eval examined during the rounds labs reviewed medications reviewed, still short of breath on 2 L oxygen, patient is being diuresed, he is wrapping is to be applied on the lower extremity as well, denies any cough or sputum production remains afebrile otherwise This is a 79-year-old male who was seen eval reexamined, patient does have a history of prostate cancer with chronic lower extremity swelling which were getting worse post radiation therapy, patient noted to have a low pulse ox advised to be evaluated further, patient has +3 lower extremity edema he has a history of dyslipidemia, coronary artery disease, prostate cancer, prior [place], history of status post stroke with right-sided weakness, carotid endarterectomy with history of cardiac bypass surgery, used to smoke in the past, on arrival he was noted to have hypertensive with evidence of chronic kidney injury, covert testing was negative, labs were mildly elevated, and was positive for leukocyte esterase trace, patient has significant electrolyte abnormality including hyponatremia and hypomagnesemia as well, patient has a previous echocardiogram back in July 2020 shown to have a significant chronic systolic heart failure ejection fraction of less than 20% and severe aortic stenosis with a valve 80 or less than a centimeter, chest x-ray revealed cardiomegaly along with interstitia l edema and small pleural effusion consistent with heart failure among currently oxygen saturation is 94-98% on 2 L oxygen, Objective - Vital Signs Vital signs: Vital Signs Temp 97.4 F L 09/05/20 07:56 Pulse 72 09/05/20 07:56 Resp 18 09/05/20 07:56 BP 114/65 09/05/20 07:56 Pulse Ox 98 09/05/20 07:56 Intake & Output 09/04/20 09/05/20 09/05/20 18:59 06:59 18:59 Intake Total 690 10 118 Output Total 1100 2650 Balance -410 -2640 118 Weight 108.499 kg Intake: IV 30 10 Invasive Line 1 30 10 Oral 660 118 Output: Urine 1100 2650 Uretheral (Blanton) 700 750 Other: Voiding Method Indwelling Catheter Indwelling Catheter - Exam - Constitutional General appearance: disheveled, morbidly obese, no acute distress - EENT Eyes: PERRLA Ears: bilateral: normal - Neck Carotids: bilateral: upstroke delayed Thyroid: bilateral: normal size - Respiratory Respiratory: bilateral: diminished - Cardiovascular Rhythm: regular Heart sounds: normal: S1, S2 - Gastrointestinal General gastrointestinal: hyperactive bowel sounds - Integumentary +3 lower extremity edema Integumentary: normal, normal turgor - Neurologic Neurologic: CNII-XII intact - Musculoskeletal Musculoskeletal: gait normal, generalized weakness, strength equal bilaterally - Psychiatric Psychiatric: A&O x's 3, appropriate affect, intact judgment & insight - Labs CBC & Chem 7: 09/04/20 08:23 09/05/20 10:09 Labs: Abnormal Lab Results - Last 24 Hours (Table) 09/04/20 09/04/20 09/04/20 Range/Units 08:23 16:12 16:42 Sodium (137-145) mmol/L Potassium (3.5-5.1) mmol/L Chloride (98-107) mmol/L Carbon Dioxide (22-30) mmol/L BUN (9-20) mg/dL Glucose (74-99) mg/dL POC Glucose (mg/dL) 120 H (75-99) mg/dL Magnesium (1.6-2.3) mg/dL Troponin I 0.085 H* (0.000-0.034) ng/mL Urine Blood Trace H (Negative) Ur Leukocyte Esterase Large H (Negative) Urine RBC 20 H (0-5) /hpf Urine WBC 132 H (0-5) /hpf Urine WBC Clumps Many H (None) /hpf Urine Bacteria Occasional H (None) /hpf Hyaline Casts 19 H (0-2) /lpf Urine Mucus Rare H (None) /hpf Urine Yeast (Budding) Moderate H (None) /hpf 09/04/20 09/05/20 09/05/20 Range/Units 20:08 05:44 10:09 Sodium 130 L (137-145) mmol/L Potassium 3.4 L (3.5-5.1) mmol/L Chloride 90 L (98-107) mmol/L Carbon Dioxide 34 H (22-30) mmol/L BUN 34 H (9-20) mg/dL Glucose 103 H (74-99) mg/dL POC Glucose (mg/dL) 127 H 119 H (75-99) mg/dL Magnesium 1.3 L (1.6-2.3) mg/dL Troponin I (0.000-0.034) ng/mL Urine Blood (Negative) Ur Leukocyte Esterase (Negative) Urine RBC (0-5) /hpf Urine WBC (0-5) /hpf Urine WBC Clumps (None) /hpf Urine Bacteria (None) /hpf Hyaline Casts (0-2) /lpf Urine Mucus (None) /hpf Urine Yeast (Budding) (None) /hpf Microbiology - Last 24 Hours (Table) 09/04/20 16:12 Urine Culture - Preliminary Urine,Clean Catch 09/03/20 09:31 Urine Culture - Final Urine,Voided Kitty albicans Assessment and Plan Assessment: Shortness of breath related to acute on chronic systolic heart failure Severe systolic heart failure ejection fraction of less than 20%, Bilateral small pleural effusion likely related to acute on chronic systolic heart failure Acute hypoxic respiratory failure slowly improving with supplemental oxygen, Elevated troponin of unclear etiology Severe lower extremity edema Positive leukocyte is trace likely related to candidauria, Diflucan has been started with advice to change the Blanton's catheter Plan: Robin wrap to lower extremity Supplemental oxygen Gentle diuresis Breathing exercise Incentive spirometry No aggressive intervention recommended for small pleural effusion will monitor observe closely Time with Patient: Greater than 30
[2020-09-05] MEDS ORDERED: POTASSIUM CHLORIDE ER 20 MEQ TAB.ER PO STA (12:01)
[2020-09-05 12:08] LABS: Glucose,Whole Blood 123 mg/dL (75-99)
[2020-09-05] MEDS ORDERED: Magnesium Replacement Protocol 1 EACH MISC MISCELLANE PRN (12:21)
--- NOTE | 2020-09-05 13:30 | P.PN ---
Subjective HISTORY OF PRESENTING ILLNESS Patient is pleasant 80-year-old male with history of abdominal aortic aneurysm, bilateral carotid artery disease, prostate cancer s/p radiation, hypertension, coronary artery disease status post CABG in 2011, ischemic cardiomyopathy with ejection fraction <20%, moderate mitral regurgitation, moderate aortic insuffici ency, hyperlipidemia, chronic kidney disease and former tobacco abuse. Patient states he has been in and out of the hospital since the beginning of July. He states he initially was evaluated at [facility] and had a Blanton placed. He had been feeling very weak and less stable on his feet and therefore has been in rehab facility, [facility] since that time and also has been in and out of the hospital. He is unsure as to why he was brought in however apparently per chart he had some hypoxia as well as concern of UTI. He denies any chest pain, pressure, shortness breath. Per chart he has been having decreased oral intake. Admit to generalized fatigue and feeling fairly weak. He follows in the office with Dr Cochran. On presentation his pulse ox was 93% on room air. Blood work showed white blood cell count 8.2, hemoglobin 12.5, platelets 164, sodium 128, creatinine 1.25, BUN 35, magnesium 1.5, troponin 0.057, 0.087, 0.14, cruz virus not detected, urinalysis large leukocyte esterase and greater than 182 white blood cells. 08/05/2020 showed ejection fraction less than 20%, aortic stenosis concerning for low-flow low gradient with aortic valve area by continuity 0.9 09/05 Patient seen and examined. Patient states he is not much change from when he came in and is eager to go home. Discussed that he has been in and out of the hospital multiple times and is high risk for readmission. Still has 2+ lower extremity edema some of which is likely chronic however has been putting out good urine with IV Lasix and creatinine is stable. REVIEW OF SYSTEMS At the time of my exam: CONSTITUTIONAL: Denies fever or chills. CARDIOVASCULAR: Denies chest pain, shortness of breath, orthopnea, PND or palpitations. RESPIRATORY: Denies cough. GASTROINTESTINAL: Denies abdominal pain, diarrhea, constipation, nausea or vomiting. MUSCULOSKELETAL: Denies myalgias. NEUROLOGIC: Denies numbness, tingling or weakness. ENDOCRINE: Denies fatigue, weight change, polydipsia or polyurina. GENITOURINARY: Denies burning, hematuria or urgency with micturation. HEMATOLOGIC: Denies history of anemia or bleeding. PHYSICAL EXAMINATION Vitals reviewed CONSTITUTIONAL: No apparent distress. HEENT: Head is normocephalic. Pupils are equal, round. Sclerae anicteric. Mucous membranes of the mouth are moist. No JVD. No carotid bruit. CHEST EXAMINATION: Lungs are clear to auscultation. No chest wall tenderness is noted on palpation or with deep breathing. HEART EXAMINATION: Regular rate and rhythm. S1, S2 heard. No murmurs, gallops or rub. ABDOMEN: Soft, nontender. Positive bowel sounds. EXTREMITIES: 2+ peripheral pulses, 2+ lower extremity edema and no calf tenderness. NEUROLOGIC EXAMINATION: Patient is awake, alert and oriented x3. ASSESSMENT 1. Elevated troponins. Patient denying any specific angina-type symptoms. Do not suspect a primary cardiac injury, likely related to CKD, heart failure 2. Reported hypoxia however 93% on room air on presentation 3. Weakness, fatigue 4. Hyponatremia 5. Chronic kidney disease 6. Coronary artery disease with history of CABG in 2011 7. Carotid artery disease 8. History of ischemic cardiomyopathy ejection fraction <20% 9. History of prostate cancer status post radiation, currently with a Blanton in place for last month and a half 10. UTI 11. Acute on chronic systolic heart failure 12. Aortic stenosis, may be low flow low gradient with AMANDA by continuity of 0.9cm2 however no elevated gradients PLAN Long discussion with patient regarding high risk of readmission and optimizing heart failure before discharge. Continue diuresis as creatinine has been stable and he still does have some lower extremity edema although some of this is likely chronic. Monitor creatinine, sodium, electrolytes. Electrolytes being replaced. Further recommendations to follow. Objective - Vital Signs Vital signs: Vital Signs Temp 97.3 F L 09/05/20 12:21 Pulse 57 L 09/05/20 12:23 Resp 18 09/05/20 12:23 BP 103/54 09/05/20 12:21 Pulse Ox 91 L 09/05/20 12:21 Intake & Output 09/04/20 09/05/20 09/05/20 18:59 06:59 18:59 Intake Total 690 10 148 Output Total 1100 2650 600 Balance -410 -0241 -450 Weight 108.499 kg Intake: IV 30 10 30 Invasive Line 1 30 10 30 Oral 660 118 Output: Urine 1100 2650 600 Uretheral (Blanton) 700 750 600 Other: Voiding Method Indwelling Catheter Indwelling Catheter Indwelling Catheter - Labs CBC & Chem 7: 09/04/20 08:23 09/05/20 10:09 Labs: Abnormal Lab Results - Last 24 Hours (Table) 09/04/20 09/04/20 09/04/20 Range/Units 16:12 16:42 20:08 Sodium (137-145) mmol/L Potassium (3.5-5.1) mmol/L Chloride (98-107) mmol/L Carbon Dioxide (22-30) mmol/L BUN (9-20) mg/dL Glucose (74-99) mg/dL POC Glucose (mg/dL) 120 H 127 H (75-99) mg/dL Magnesium (1.6-2.3) mg/dL Urine Blood Trace H (Negative) Ur Leukocyte Esterase Large H (Negative) Urine RBC 20 H (0-5) /hpf Urine WBC 132 H (0-5) /hpf Urine WBC Clumps Many H (None) /hpf Urine Bacteria Occasional H (None) /hpf Hyaline Casts 19 H (0-2) /lpf Urine Mucus Rare H (None) /hpf Urine Yeast (Budding) Moderate H (None) /hpf 09/05/20 09/05/20 09/05/20 Range/Units 05:44 10:09 12:06 Sodium 130 L (137-145) mmol/L Potassium 3.4 L (3.5-5.1) mmol/L Chloride 90 L (98-107) mmol/L Carbon Dioxide 34 H (22-30) mmol/L BUN 34 H (9-20) mg/dL Glucose 103 H (74-99) mg/dL POC Glucose (mg/dL) 119 H 123 H (75-99) mg/dL Magnesium 1.3 L (1.6-2.3) mg/dL Urine Blood (Negative) Ur Leukocyte Esterase (Negative) Urine RBC (0-5) /hpf Urine WBC (0-5) /hpf Urine WBC Clumps (None) /hpf Urine Bacteria (None) /hpf Hyaline Casts (0-2) /lpf Urine Mucus (None) /hpf Urine Yeast (Budding) (None) /hpf Microbiology - Last 24 Hours (Table) 09/04/20 16:12 Urine Culture - Preliminary Urine,Clean Catch 09/03/20 09:31 Urine Culture - Final Urine,Voided Kitty albicans
[2020-09-05] MEDS: MAGNESIUM SULFATE-D5W PMX 1 GM in DEXTROSE/WATER 1 100ML.BAG IVPB SCH ×3 (14:07→16:07)
[2020-09-05] MEDS: ACETAMINOPHEN TAB 325 MG TAB PO PRN (14:55)
--- NOTE | 2020-09-05 15:47 | PN ---
PROGRESS NOTE DATE OF SERVICE: 09/05/2020 REASON FOR FOLLOWUP: Catheter associated urinary tract infection. INTERVAL HISTORY: The patient is currently afebrile. Patient is breathing comfortably. Patient denies having any chest pain or shortness of breath or cough. No abdominal pain or diarrhea. PHYSICAL EXAMINATION: Blood pressure 103/54, pulse of 57, temperature 97.3. He is 91% on room air. General description is an elderly male up in chair, no distress. RESPIRATORY SYSTEM: Unlabored breathing, clear to auscultation anteriorly. HEART: S1, S2. Regular rate and rhythm. ABDOMEN: Soft, no tenderness. LABS: BUN of 34, creatinine is 1.13. DIAGNOSTIC IMPRESSION AND PLAN: Patient with catheter-associated urinary tract infection. Urine has been finalized with Kitty albicans. Plan is for Diflucan 100 mg daily for a week and close outpatient followup. MMODL / IJN: [id number] /
[2020-09-05 17:00] LABS: Glucose,Whole Blood 133 mg/dL (75-99)
[2020-09-05 20:17] LABS: Glucose,Whole Blood 124 mg/dL (75-99)
[2020-09-05] MEDS: ACETAMINOPHEN TAB 325 MG TAB PO SCH (21:39)
[2020-09-05] MEDS: TEMAZEPAM 7.5 MG CAP PO PRN ×2 (21:40→23:39)
[2020-09-05] MEDS: ATORVASTATIN 40 MG TAB PO SCH (21:40)
[2020-09-06] MEDS: MIDODRINE 5 MG TAB PO SCH ×2 (05:45→17:21)
[2020-09-06 06:23] LABS: Glucose,Whole Blood 116 mg/dL (75-99)
--- NOTE | 2020-09-06 08:48 | P.PN ---
Subjective Progress Note Date: 09/06/20 Principal diagnosis: Shortness of breath related to acute on chronic systolic heart failure Severe systolic heart failure ejection fraction of less than 20%, Bilateral small pleural effusion likely related to acute on chronic systolic heart failure Acute hypoxic respiratory failure slowly improving with supplemental oxygen, Elevated troponin of unclear etiology Positive leukocyte is trace likely related to candidauria, Diflucan has been started with advice to change the Blanton's catheter 09/06/2020, patient seen eval examined respiratory status remains stable off and on 2 L nasal cannula, denies any chest pain, exertional dyspnea however is present, cardiovascular services following, patient is being diuresed, patient has been applied Robin wrap and lower extremity seems to be helping, 09/05/2020, patient seen eval examined during the rounds labs reviewed medicatio ns reviewed, still short of breath on 2 L oxygen, patient is being diuresed, he is wrapping is to be applied on the lower extremity as well, denies any cough or sputum production remains afebrile otherwise This is a 79-year-old male who was seen eval reexamined, patient does have a history of prostate cancer with chronic lower extremity swelling which were getting worse post radiation therapy, patient noted to have a low pulse ox advised to be evaluated further, patient has +3 lower extremity edema he has a history of dyslipidemia, coronary artery disease, prostate cancer, prior NE, history of status post stroke with right-sided weakness, carotid endarterectomy with history of cardiac bypass surgery, used to smoke in the past, on arrival he was noted to have hypertensive with evidence of chronic kidney injury, covert testing was negative, labs were mildly elevated, and was positive for leukocyte esterase trace, patient has significant electrolyte abnormality including hyponatremia and hypomagnesemia as well, patient has a previous echocardiogram back in July 2020 shown to have a significant chronic systolic heart failure ejection fraction of less than 20% and severe aortic stenosis with a valve 80 or less than a centimeter, chest x-ray revealed cardiomegaly along with interstit ial edema and small pleural effusion consistent with heart failure among currently oxygen saturation is 94-98% on 2 L oxygen, Objective - Vital Signs Vital signs: Vital Signs Temp 97.9 F 09/06/20 04:00 Pulse 78 09/06/20 04:00 Resp 16 09/06/20 04:00 BP 106/57 09/06/20 04:00 Pulse Ox 90 L 09/06/20 04:00 Intake & Output 09/05/20 09/06/20 09/06/20 18:59 06:59 18:59 Intake Total 758 Output Total 1825 1150 Balance -1067 -1150 Weight 108.499 kg Intake: IV 40 Invasive Line 1 40 Oral 718 Output: Urine 1825 1150 Uretheral (Blanton) 600 300 Other: Voiding Method Indwelling Catheter Indwelling Catheter - Exam - Constitutional General appearance: disheveled, morbidly obese, no acute distress - EENT Eyes: PERRLA Ears: bilateral: normal - Neck Carotids: bilateral: upstroke delayed Thyroid: bilateral: normal size - Respiratory Respiratory: bilateral: diminished - Cardiovascular Rhythm: regular Heart sounds: normal: S1, S2 - Gastrointestinal General gastrointestinal: hyperactive bowel sounds - Integumentary +3 lower extremity edema Integumentary: normal, normal turgor - Neurologic Neurologic: CNII-XII intact - Musculoskeletal Musculoskeletal: gait normal, generalized weakness, strength equal bilaterally - Psychiatric Psychiatric: A&O x's 3, appropriate affect, intact judgment & insight - Labs CBC & Chem 7: 09/04/20 08:23 09/05/20 10:09 Labs: Abnormal Lab Results - Last 24 Hours (Table) 09/05/20 09/05/20 09/05/20 Range/Units 10:09 12:06 16:58 Sodium 130 L (137-145) mmol/L Potassium 3.4 L (3.5-5.1) mmol/L Chloride 90 L (98-107) mmol/L Carbon Dioxide 34 H (22-30) mmol/L BUN 34 H (9-20) mg/dL Glucose 103 H (74-99) mg/dL POC Glucose (mg/dL) 123 H 133 H (75-99) mg/dL Magnesium 1.3 L (1.6-2.3) mg/dL 09/05/20 09/06/20 Range/Units 20:15 06:19 Sodium (137-145) mmol/L Potassium (3.5-5.1) mmol/L Chloride (98-107) mmol/L Carbon Dioxide (22-30) mmol/L BUN (9-20) mg/dL Glucose (74-99) mg/dL POC Glucose (mg/dL) 124 H 116 H (75-99) mg/dL Magnesium (1.6-2.3) mg/dL Microbiology - Last 24 Hours (Table) 09/04/20 16:12 Urine Culture - Preliminary Urine,Clean Catch Assessment and Plan Assessment: Shortness of breath related to acute on chronic systolic heart failure Severe systolic heart failure ejection fraction of less than 20%, Bilateral small pleural effusion likely related to acute on chronic systolic heart failure Acute hypoxic respiratory failure slowly improving with supplemental oxygen, Elevated troponin of unclear etiology Severe lower extremity edema Positive leukocyte is trace likely related to candidauria, Diflucan has been started with advice to change the Blanton's catheter Plan: Robin wrap to lower extremity Supplemental oxygen Gentle diuresis Breathing exercise Incentive spirometry No aggressive intervention recommended for small pleural effusion will monitor observe closely Time with Patient: Greater than 30
[2020-09-06] MEDS: allopurinoL 100 MG TAB PO SCH (09:01)
[2020-09-06] MEDS: CHOLESTYRAMINE (WITH SUGAR) 4 GM PACKET PO SCH (09:01)
[2020-09-06] MEDS: FERROUS SULFATE 325 MG TAB PO SCH (09:01)
[2020-09-06] MEDS: ASPIRIN 325 MG TAB PO SCH (09:01)
[2020-09-06] MEDS: CHOLECALCIFEROL 25 MCG (1000 IU) TABLET PO SCH (09:01)
[2020-09-06] MEDS: CLOPIDOGREL 75 MG TAB PO SCH (09:01)
[2020-09-06] MEDS: METOPROLOL TARTRATE 25 MG TAB PO SCH (09:01)
[2020-09-06] MEDS: FLUCONAZOLE 100 MG TAB PO SCH (09:01)
[2020-09-06] MEDS: ASCORBIC ACID 500 MG TAB PO SCH (09:01)
[2020-09-06] MEDS: MAGNESIUM OXIDE 400 MG TAB PO SCH (09:01)
[2020-09-06] MEDS: ACETAMINOPHEN TAB 325 MG TAB PO PRN (09:02)
[2020-09-06] MEDS: HYDROPHILIC CREAM 180 GM TUBE TOPICAL SCH (09:02)
[2020-09-06] MEDS: FUROSEMIDE 10 MG/ML 10 ML VIAL IV SCH ×2 (09:02→21:28)
[2020-09-06] MEDS: LACTOBACILLUS ACIDOPH & BULGAR 1 EACH PACKET PO SCH (09:03)
[2020-09-06 09:13] LABS: Albumin 3.2 g/dL (3.5-5.0); Calcium 8.7 mg/dL (8.4-10.2); Magnesium 1.6 mg/dL (1.6-2.3); Potassium 3.4 mmol/L (3.5-5.1); Total Bilirubin 0.7 mg/dL (0.2-1.3)
[2020-09-06] MEDS ORDERED: Potassium Replacement Protocol 1 EACH MISC MISCELLANE PRN (09:17)
[2020-09-06] MEDS: POTASSIUM CHLORIDE ER 20 MEQ TAB.ER PO SCH ×2 (09:24→12:56)
[2020-09-06] MEDS: MAGNESIUM SULFATE-D5W PMX 1 GM in DEXTROSE/WATER 1 100ML.BAG IVPB SCH ×2 (09:25→10:25)
[2020-09-06 09:40] LABS: Anisocytosis Slight; Basophils % (A) 1 %; Eosinophils # (A) 0.1 k/uL (0-0.7); Eosinophils % (A) 2 %; HCT 39.3 % (39.0-53.0); HGB 12.2 gm/dL (13.0-17.5); Hypochromasia Slight; Lymphocytes # (A) 0.8 k/uL (1.0-4.8); Lymphocytes % (A) 10 %; MCH 30.5 pg (25.0-35.0); MCV 98.3 fL (80.0-100.0); Macrocytosis Slight; Mean Platelet Volume 7.9; Monocytes # (A) 0.5 k/uL (0-1.0); Monocytes % (A) 6 %; Neutrophils # (A) 6.3 k/uL (1.3-7.7); Neutrophils % (A) 80 %; Platelet Count 193 k/uL (150-450); RDW 17.2 % (11.5-15.5); WBC 7.9 k/uL (3.8-10.6)
--- NOTE | 2020-09-06 10:13 | P.PN ---
Subjective This is a pleasant 79 years old male from [facility], with past medical history of diabetes mellitus, hypertension, hyperlipidemia, hyponatremia, osteoarthritis, prostate cancer in 2017 status post chemotherapy, last dose was 07/2020. History with CVA and right heart shakiness. Chronic kidney disease. He is status post CABG and stent placement. Presents with generalized weakness and nausea Patient found to have acute urinary tract infection, and was started on ceftriaxone and urine culture is pending. The patient also has Blanton catheter which he states it is from his half-way. His creatinine is 1.2 with GFR is 58, which is stage III CKD. Chest x-ray showing CHF. KUB peripheral vascular occlusive disease. Nonobstructive bowel gas pattern. Possible underlying ileus Patient had slightly elevated troponin, workforce planner team think it secondary to his kidney disease. No chest pain or dyspnea. No palpitation or dizziness. Patient was complaining of from diarrhea about 2-4 times per day, but this has b een going on for the last 6 months. At baseline patient is not working for the last 3 months. He has recent echocardiogram showed ejection fraction less than 20%. Because of bilateral leg edema and pulmonary congestion patient was started on Lasix 40 mg twice daily intravenously 09/05/2020 Patient is a pleasant 79 years old male was admitted from half-way for generalized weakness. Found to have UTI secondary to kitty associated with his Blanton catheter from half-way, ID team on the case was started on fluconazole, change Blanton catheter and repeated urine culture today. The second problem is his ischemic cardiomyopathy with fluid overload, his ejection fraction less than 20%. He has significant leg edema, however his breathing is fine and he is only on 2 L oxygen with no dyspnea. Patient is followed closely by cardiology team who did not clear from today to go to his half-way. And they opted to continue with IV Lasix Other than that patient has no other symptoms and he is eager to go back to his half-way today He is bedbound for the last 3 months at baseline Possible discharge in 24-48 hour back to his half-way once cleared by cardiology and ID teams Objective - Vital Signs Vital signs: Vital Signs Temp 97.3 F L 09/05/20 12:21 Pulse 57 L 09/05/20 12:23 Resp 18 09/05/20 12:23 BP 103/54 09/05/20 12:21 Pulse Ox 91 L 04/23/21 12:21 Intake & Output 09/04/20 09/05/20 09/05/20 18:59 06:59 18:59 Intake Total 690 10 458 Output Total 1100 2650 1600 Balance -012 -6869 -114 Weight 108.499 kg 108.499 kg Intake: IV 30 10 40 Invasive Line 1 30 10 40 Oral 660 418 Output: Urine 1100 2650 1600 Uretheral (Blanton) 700 750 600 Other: Voiding Method Indwelling Catheter Indwelling Catheter Indwelling Catheter - Exam -GENERAL: The patient is alert and oriented x3, not in any acute distress. Obese HEENT: Pupils are round and equally reacting to light. EOMI. No scleral icterus. No conjunctival pallor. Normocephalic, atraumatic. No pharyngeal erythema. No thyromegaly. CARDIOVASCULAR: S1 and S2 present. No murmurs, rubs, or gallops. -PULMONARY: Chest is clear to auscultation, no wheezing . Bilateral basal crepitation -ABDOMEN: Soft, nontender, nondistended, normoactive bowel sounds. No palpable organomegaly. Patient has a Blanton catheter is in place MUSCULOSKELETAL: No joint swelling or deformity. -EXTREMITIES: No cyanosis, clubbing. Bilateral pitting leg edema NEUROLOGICAL: Gross neurological examination did not reveal any focal deficits. SKIN: No rashes. no petechiae. - Labs CBC & Chem 7: 09/06/20 07:54 09/06/20 07:54 Labs: Abnormal Lab Results - Last 24 Hours (Table) 09/04/20 09/04/20 09/04/20 Range/Units 16:12 16:42 20:08 Sodium (137-145) mmol/L Potassium (3.5-5.1) mmol/L Chloride (98-107) mmol/L Carbon Dioxide (22-30) mmol/L BUN (9-20) mg/dL Glucose (74-99) mg/dL POC Glucose (mg/dL) 120 H 127 H (75-99) mg/dL Magnesium (1.6-2.3) mg/dL Urine Blood Trace H (Negative) Ur Leukocyte Esterase Large H (Negative) Urine RBC 20 H (0-5) /hpf Urine WBC 132 H (0-5) /hpf Urine WBC Clumps Many H (None) /hpf Urine Bacteria Occasional H (None) /hpf Hyaline Casts 19 H (0-2) /lpf Urine Mucus Rare H (None) /hpf Urine Yeast (Budding) Moderate H (None) /hpf 09/05/20 09/05/20 09/05/20 Range/Units 05:44 10:09 12:06 Sodium 130 L (137-145) mmol/L Potassium 3.4 L (3.5-5.1) mmol/L Chloride 90 L (98-107) mmol/L Carbon Dioxide 34 H (22-30) mmol/L BUN 34 H (9-20) mg/dL Glucose 103 H (74-99) mg/dL POC Glucose (mg/dL) 119 H 123 H (75-99) mg/dL Magnesium 1.3 L (1.6-2.3) mg/dL Urine Blood (Negative) Ur Leukocyte Esterase (Negative) Urine RBC (0-5) /hpf Urine WBC (0-5) /hpf Urine WBC Clumps (None) /hpf Urine Bacteria (None) /hpf Hyaline Casts (0-2) /lpf Urine Mucus (None) /hpf Urine Yeast (Budding) (None) /hpf Microbiology - Last 24 Hours (Table) 09/04/20 16:12 Urine Culture - Preliminary Urine,Clean Catch 09/03/20 09:31 Urine Culture - Final Urine,Voided Kitty albicans Assessment and Plan Assessment: Acute urinary tract infection, related to Blanton catheter from half-way Acute on chronic systolic CHF with ejection fraction less than 20% Chronic hyponatremia since 2014 Stage II sacral pressure ulcer on both right and left buttocks History of prostate cancer status post recent chemotherapy on 07/2019 Type 2 diabetes mellitus Chronic kidney disease, stage 2-3. Most likely diabetic nephropathy Hypertension Hyperlipidemia Obesity with BMI of 20 9.0K. Plan: This is a pleasant 79 years old male who presents with UTI and CHF. Continue with IV Lasix and monitor input and output. Continue with ceftriaxone follow-up urine culture The patient is on Blanton catheter Labs and medication were reviewed.. Continue same treatment. Continue with symptomatic treatment. Resume home medication. Monitor lytes and vitals. DVT and GI prophylaxis. Further recommendationsas per clinical course of the patient DVT prophylaxis: Subcutaneous heparin GI Prophylaxis: Ppi Prognosis is guarded
[2020-09-06 11:47] LABS: Glucose,Whole Blood 134 mg/dL (75-99)
[2020-09-06 16:39] LABS: Glucose,Whole Blood 192 mg/dL (75-99)
--- NOTE | 2020-09-06 17:31 | P.PN ---
Subjective HISTORY OF PRESENTING ILLNESS Patient is pleasant 80-year-old male with history of abdominal aortic aneurysm, bilateral carotid artery disease, prostate cancer s/p radiation, hypertension, coronary artery disease status post CABG in 2011, ischemic cardiomyopathy with ejection fraction <20%, moderate mitral regurgitation, moderate aortic insuffici ency, hyperlipidemia, chronic kidney disease and former tobacco abuse. Patient states he has been in and out of the hospital since the beginning of July. He states he initially was evaluated at [facility] and had a Blanton placed. He had been feeling very weak and less stable on his feet and therefore has been in rehab facility, [facility] since that time and also has been in and out of the hospital. He is unsure as to why he was brought in however apparently per chart he had some hypoxia as well as concern of UTI. He denies any chest pain, pressure, shortness breath. Per chart he has been having decreased oral intake. Admit to generalized fatigue and feeling fairly weak. He follows in the office with Dr Cochran. On presentation his pulse ox was 93% on room air. Blood work showed white blood cell count 8.2, hemoglobin 12.5, platelets 164, sodium 128, creatinine 1.25, BUN 35, magnesium 1.5, troponin 0.057, 0.087, 0.14, cruz virus not detected, urinalysis large leukocyte esterase and greater than 182 white blood cells. 08/05/2020 showed ejection fraction less than 20%, aortic stenosis concerning for low-flow low gradient with aortic valve area by continuity 0.9 09/05 Patient seen and examined. Patient states he is not much change from when he came in and is eager to go home. Discussed that he has been in and out of the hospital multiple times and is high risk for readmission. Still has 2+ lower extremity edema some of which is likely chronic however has been putting out good urine with IV Lasix and creatinine is stable. 09/06 Patient seen and examined. Patient with our extremities wrapped and decreased lower extremity edema however has 2-3+ pitting edema of his thighs and back. He admits he has not been walking a few months. He has however been up to the chair. He denies any chest pain or pressure. Patient receiving IV Lasix with continued increased urine output. REVIEW OF SYSTEMS At the time of my exam: CONSTITUTIONAL: Denies fever or chills. CARDIOVASCULAR: Denies chest pain, shortness of breath, orthopnea, PND or palpitations. RESPIRATORY: Denies cough. GASTROINTESTINAL: Denies abdominal pain, diarrhea, constipation, nausea or vomiting. MUSCULOSKELETAL: Denies myalgias. NEUROLOGIC: Denies numbness, tingling or weakness. ENDOCRINE: Denies fatigue, weight change, polydipsia or polyurina. GENITOURINARY: Denies burning, hematuria or urgency with micturation. HEMATOLOGIC: Denies history of anemia or bleeding. PHYSICAL EXAMINATION Vitals reviewed CONSTITUTIONAL: No apparent distress. HEENT: Head is normocephalic. Pupils are equal, round. Sclerae anicteric. Mucous membranes of the mouth are moist. No JVD. No carotid bruit. CHEST EXAMINATION: Lungs are clear to auscultation. No chest wall tenderness is noted on palpation or with deep breathing. HEART EXAMINATION: Regular rate and rhythm. S1, S2 heard. No murmurs, gallops or rub. ABDOMEN: Soft, nontender. Positive bowel sounds. EXTREMITIES: 2+ peripheral pulses, 2+ lower extremity edema and no calf tenderness. +thigh and buttocks 2-3+ edema NEUROLOGIC EXAMINATION: Patient is awake, alert and oriented x3. ASSESSMENT 1. Elevated troponins. Patient denying any specific angina-type symptoms. Do not suspect a primary cardiac injury, likely related to CKD, heart failure 2. Reported hypoxia however 93% on room air on presentation 3. Weakness, fatigue 4. Hyponatremia 5. Chronic kidney disease 6. Coronary artery disease with history of CABG in 2011 7. Carotid artery disease 8. History of ischemic cardiomyopathy ejection fraction <20% 9. History of prostate cancer status post radiation, currently with a Blanton in place for last month and a half 10. UTI 11. Acute on chronic systolic heart failure 12. Aortic stenosis, may be low flow low gradient with AMANDA by continuity of 0.9cm2 however no elevated gradients PLAN Patient with continued thigh and buttocks edema although lower extremities appear better after being wraps and elevated. Continue diuresis. Continue to monitor electrolytes, creatinine. Replace electrolytes as needed. Objective Objective - Vital Signs Vital signs: Vital Signs Temp 97.6 F 09/06/20 09:00 Pulse 65 09/06/20 09:00 Resp 16 09/06/20 09:00 BP 117/64 09/06/20 09:00 Pulse Ox 94 L 09/06/20 09:00 Intake & Output 09/05/20 09/06/20 09/06/20 18:59 06:59 18:59 Intake Total 758 360 Output Total 1825 1150 1450 Balance -1067 -1150 -1090 Weight 108.499 kg Intake: IV 40 Invasive Line 1 40 Oral 718 360 Output: Urine 1825 1150 1450 Uretheral (Blanton) 600 300 600 Other: Voiding Method Indwelling Catheter Indwelling Catheter Indwelling Catheter - Labs CBC & Chem 7: 09/06/20 07:54 09/06/20 07:54 Labs: Abnormal Lab Results - Last 24 Hours (Table) 09/05/20 09/06/20 09/06/20 Range/Units 20:15 06:19 07:54 RBC (4.30-5.90) m/uL Hgb (13.0-17.5) gm/dL RDW (11.5-15.5) % Lymphocytes # (1.0-4.8) k/uL Sodium 130 L (137-145) mmol/L Potassium 3.4 L (3.5-5.1) mmol/L Chloride 89 L (98-107) mmol/L Carbon Dioxide 33 H (22-30) mmol/L BUN 33 H (9-20) mg/dL Glucose 110 H (74-99) mg/dL POC Glucose (mg/dL) 124 H 116 H (75-99) mg/dL Total Protein 6.0 L (6.3-8.2) g/dL Albumin 3.2 L (3.5-5.0) g/dL 09/06/20 09/06/20 09/06/20 Range/Units 07:54 11:38 16:32 RBC 4.00 L (4.30-5.90) m/uL Hgb 12.2 L (13.0-17.5) gm/dL RDW 17.2 H (11.5-15.5) % Lymphocytes # 0.8 L (1.0-4.8) k/uL Sodium (137-145) mmol/L Potassium (3.5-5.1) mmol/L Chloride (98-107) mmol/L Carbon Dioxide (22-30) mmol/L BUN (9-20) mg/dL Glucose (74-99) mg/dL POC Glucose (mg/dL) 134 H 192 H (75-99) mg/dL Total Protein (6.3-8.2) g/dL Albumin (3.5-5.0) g/dL Microbiology - Last 24 Hours (Table) 09/04/20 16:12 Urine Culture - Final Urine,Clean Catch Kitty sp,not albicans/galbr
--- NOTE | 2020-09-06 18:11 | P.PN ---
Subjective Progress Note Date: 09/06/20 Principal diagnosis: Acute urinary tract infection, related to Blanton catheter Mr. Chapman is a 79-year-old male from [facility] with a past medical history of hypertension, diverticulitis, hyperlipidemia, osteoarthritis, prostate cancer in 2017 status post chemotherapy, CVA, CK D, CAD status post CABG coming in with generalized weakness. He was found to have UTI was initially started on ceftriaxone. Patient's urine culture was found to be positive for Kitty albicans on 09/03/2020. So patient was started on fluconazole and repeat urine cultures pending. On 09/06/2020- patient was seen and examined at the bedside. Patient is comfortably sitting up in a chair by the bedside. He denies having any fevers chills or rigors. No cough or difficulty in breathing. No chest pain or palpitations. He states that he still has swelling in his bilateral lower extremities. Patient denies having abdominal pain nausea vomiting or diarrhea. On reviewing her vitals temperature of 97.6, heart rate 68, respiratory 16, blood pressure 117/64, saturating at 94 on room air. On reviewing labs from today white count 7.9, hemoglobin 12.2, platelets 193. Sodium 1:30, potassium 3.4, chloride 89, bicarb 33, BNP 33, creatinine 1.04. Albumin 3.2. Active Medications Acetaminophen (Acetaminophen Tab 325 Mg Tab) 650 mg PO HS [facility] Last Admin: 09/05/20 21:39 Dose: 650 mg Documented by: Acetaminophen (Acetaminophen Tab 325 Mg Tab) 650 mg PO Q6HR PRN PRN Reason: Fever and/ or Mild Pain Last Admin: 09/06/20 09:02 Dose: 650 mg Documented by: Allopurinol (Allopurinol 100 Mg Tab) 100 mg PO DAILY [facility] Last Admin: 09/06/20 09:01 Dose: 100 mg Documented by: Ascorbic Acid (Ascorbic Acid 500 Mg Tab) 500 mg PO DAILY [facility] Last Admin: 09/06/20 09:01 Dose: 500 mg Documented by: Aspirin (Aspirin 325 Mg Tab) 325 mg PO DAILY [facility] Last Admin: 09/06/20 09:01 Dose: 325 mg Documented by: Atorvastatin Calcium (Atorvastatin 40 Mg Tab) 40 mg PO [facility] Last Admin: 09/05/20 21:40 Dose: 40 mg Documented by: Benzocaine/Menthol (Benzocaine/Menthol Lozeng 1 Each Lozenge) 1 each MUCOUS MEM Q4HR PRN PRN Reason: Cough Last Admin: 09/05/20 18:49 Dose: 1 each Documented by: Cholecalciferol (Cholecalciferol 25 Mcg (1000 Iu) Tablet) 50 mcg PO DAILY [facility] Last Admin: 09/06/20 09:01 Dose: 50 mcg Documented by: Cholestyramine Resin (Cholestyramine (With Sugar) 4 Gm Packet) 4 gm PO DAILY [facility] Last Admin: 09/06/20 09:01 Dose: Not Given Documented by: Clopidogrel Bisulfate (Clopidogrel 75 Mg Tab) 75 mg PO DAILY [facility] Last Admin: 09/06/20 09:01 Dose: 75 mg Documented by: Ferrous Sulfate (Ferrous Sulfate 325 Mg Tab) 325 mg PO DAILY [facility] Last Admin: 09/06/20 09:01 Dose: 325 mg Documented by: Fluconazole (Fluconazole 100 Mg Tab) 100 mg PO DAILY [facility] Last Admin: 09/06/20 09:01 Dose: 100 mg Documented by: Furosemide (Furosemide 10 Mg/Ml 10 Ml Vial) 80 mg IV Q12HR [facility] Last Admin: 09/06/20 09:02 Dose: 80 mg Documented by: Lactobacillus Acidoph/Bulgaricus (Lactobacillus Acidoph & Bulgar 1 Each Packet) 1 each PO DAILY [facility] Last Admin: 09/06/20 09:03 Dose: Not Given Documented by: Loperamide HCl (Loperamide 2 Mg Cap) 2 mg PO Q8H PRN PRN Reason: Diarrhea Magnesium Oxide (Magnesium Oxide 400 Mg Tab) 400 mg PO DAILY [facility] Last Admin: 09/06/20 09:01 Dose: 400 mg Documented by: Metoprolol Tartrate (Metoprolol Tartrate 25 Mg Tab) 25 mg PO DAILY [facility] Last Admin: 09/06/20 09:01 Dose: 25 mg Documented by: Midodrine (Midodrine 5 Mg Tab) 2.5 mg PO Q12H [facility] Last Admin: 09/06/20 17:21 Dose: 2.5 mg Documented by: Miscellaneous Information (Magnesium Replacement Protocol 1 Each Misc) 1 each MISCELLANE DAILY PRN; Protocol PRN Reason: Per Protocol Miscellaneous Information (Potassium Replacement Protocol 1 Each Misc) 1 each MISCELLANE DAILY PRN; Protocol PRN Reason: Per Protocol Multi-Ingred Cream/Lotion/Oil/Oint (Hydrophilic Cream 180 Gm Tube) 1 applic TOPICAL DAILY [facility] Last Admin: 09/06/20 09:02 Dose: 1 applic Documented by: Nitroglycerin (Nitroglycerin Sl Tabs 0.4 Mg Tab) 0.4 mg SUBLINGUAL Q5M PRN PRN Reason: Chest Pain Ondansetron HCl (Ondansetron 4 Mg Tab) 4 mg PO Q8HR PRN PRN Reason: Nausea And Vomiting Temazepam (Temazepam 7.5 Mg Cap) 7.5 mg PO HS PRN PRN Reason: Insomnia Last Admin: 09/05/20 23:39 Dose: 7.5 mg Documented by: Objective - Vital Signs Vital signs: Vital Signs Temp 97.6 F 09/06/20 09:00 Pulse 65 09/06/20 09:00 Resp 16 09/06/20 09:00 BP 117/64 09/06/20 09:00 Pulse Ox 94 L 09/06/20 09:00 Intake & Output 09/05/20 09/06/20 09/06/20 18:59 06:59 18:59 Intake Total 758 Output Total 1825 1150 1200 Balance -1067 -1150 -1200 Weight 108.499 kg Intake: IV 40 Invasive Line 1 40 Oral 718 Output: Urine 1825 1150 1200 Uretheral (Blanton) 600 300 600 Other: Voiding Method Indwelling Catheter Indwelling Catheter Indwelling Catheter - Exam -GENERAL: The patient is alert and oriented x3, not in any acute distress. HEENT: Pupils are round and equally reacting to light. EOMI. No scleral icterus. No conjunctival pallor. CARDIOVASCULAR: S1 and S2 present. No murmurs, rubs, or gallops. -PULMONARY: Chest is clear to auscultation, no wheezing . Bilateral basal crepitation -ABDOMEN: Soft, nontender, nondistended, normoactive bowel sounds. No palpable organomegaly. Patient has a Blanton catheter is in place MUSCULOSKELETAL: No joint swelling or deformity. -EXTREMITIES: 2+ peripheral pulses, 2+ lower extremity edema and no calf tenderness. +thigh and buttocks 2-3+ edema NEUROLOGICAL: Gross neurological examination did not reveal any focal deficits. SKIN: No rashes. no petechiae. - Labs CBC & Chem 7: 09/06/20 07:54 09/06/20 07:54 Labs: Abnormal Lab Results - Last 24 Hours (Table) 09/05/20 09/05/20 09/06/20 Range/Units 16:58 20:15 06:19 RBC (4.30-5.90) m/uL Hgb (13.0-17.5) gm/dL RDW (11.5-15.5) % Lymphocytes # (1.0-4.8) k/uL Sodium (137-145) mmol/L Potassium (3.5-5.1) mmol/L Chloride (98-107) mmol/L Carbon Dioxide (22-30) mmol/L BUN (9-20) mg/dL Glucose (74-99) mg/dL POC Glucose (mg/dL) 133 H 124 H 116 H (75-99) mg/dL Total Protein (6.3-8.2) g/dL Albumin (3.5-5.0) g/dL 09/06/20 09/06/20 09/06/20 Range/Units 07:54 07:54 11:38 RBC 4.00 L (4.30-5.90) m/uL Hgb 12.2 L (13.0-17.5) gm/dL RDW 17.2 H (11.5-15.5) % Lymphocytes # 0.8 L (1.0-4.8) k/uL Sodium 130 L (137-145) mmol/L Potassium 3.4 L (3.5-5.1) mmol/L Chloride 89 L (98-107) mmol/L Carbon Dioxide 33 H (22-30) mmol/L BUN 33 H (9-20) mg/dL Glucose 110 H (74-99) mg/dL POC Glucose (mg/dL) 134 H (75-99) mg/dL Total Protein 6.0 L (6.3-8.2) g/dL Albumin 3.2 L (3.5-5.0) g/dL Microbiology - Last 24 Hours (Table) 09/04/20 16:12 Urine Culture - Final Urine,Clean Catch Kitty sp,not albicans/galbr Assessment and Plan Assessment: ASSESSMENT Acute urinary tract infection, related to Blanton catheter present on admission Acute on chronic systolic CHF with ejection fraction less than 20% Chronic hyponatremia since 2014 Stage II sacral pressure ulcer on both right and left buttocks History of prostate cancer status post recent chemotherapy on 07/2019 Type 2 diabetes mellitus Chronic kidney disease, stage 2-3. Most likely diabetic nephropathy Hypertension Hyperlipidemia Obesity with BMI of 29.1 Mild protein calorie malnutrition PLAN: Patient to be continued on fluconazole for Kitty albicans in the urine culture. ID on board and following the patient. As the patient has bilateral lower extremity edema, he will still need IV Lasix, currently on 80 mg twice a day. Labs and medication were reviewed. Continue same treatment. Continue with symptomatic treatment. Monitor lytes and vitals. DVT and GI prophylaxis. Further recommendations as per clinical course of the patient. DVT prophylaxis: Subcutaneous heparin GI Prophylaxis: PPI Prognosis is guarded
--- NOTE | 2020-09-06 18:50 | PN ---
PROGRESS NOTE DATE OF SERVICE: 09/06/2020 REASON FOR FOLLOWUP: Urinary tract infection. INTERVAL HISTORY: Patient is currently afebrile. The patient is breathing comfortably on room air. Denies having any chest pain, shortness of breath or cough. No vomiting or diarrhea. PHYSICAL EXAMINATION: Blood pressure 113/64, pulse of 65, temperature 97.6. He is 94% on room air. General description is an elderly male in the bed in no distress. Respiratory system: Unlabored breathing, clear to auscultation anteriorly. Heart S1, S2. Regular rate and rhythm. Abdomen soft, no tenderness. LABS: Hemoglobin is 12.1, white count 7.9, BUN of 33, creatinine 1.04. Urine with Kitty. DIAGNOSTIC IMPRESSION AND PLAN: Patient with catheter associated urinary tract infection, urine with Kitty on Diflucan to continue for about a week to finish a course of therapy. Continue supportive care. MMODL / IJN: [id number] /
[2020-09-06 20:21] LABS: Glucose,Whole Blood 128 mg/dL (75-99)
[2020-09-06] MEDS: ACETAMINOPHEN TAB 325 MG TAB PO SCH (21:28)
[2020-09-06] MEDS: ATORVASTATIN 40 MG TAB PO SCH (21:29)
[2020-09-06] MEDS: TEMAZEPAM 7.5 MG CAP PO PRN (21:29)
[2020-09-07] MEDS: MIDODRINE 5 MG TAB PO SCH ×2 (05:10→16:42)
[2020-09-07 06:40] LABS: Glucose,Whole Blood 131 mg/dL (75-99)
[2020-09-07 08:08] LABS: Albumin 3.4 g/dL (3.5-5.0); Calcium 8.8 mg/dL (8.4-10.2); Magnesium 1.7 mg/dL (1.6-2.3); Total Bilirubin 0.7 mg/dL (0.2-1.3); Total Protein 6.4 g/dL (6.3-8.2)
[2020-09-07] MEDS: ASCORBIC ACID 500 MG TAB PO SCH (08:30)
[2020-09-07] MEDS: METOPROLOL TARTRATE 25 MG TAB PO SCH (08:30)
[2020-09-07] MEDS: ASPIRIN 325 MG TAB PO SCH (08:30)
[2020-09-07] MEDS: allopurinoL 100 MG TAB PO SCH (08:30)
[2020-09-07] MEDS: CLOPIDOGREL 75 MG TAB PO SCH (08:30)
[2020-09-07] MEDS: MAGNESIUM OXIDE 400 MG TAB PO SCH (08:30)
[2020-09-07] MEDS: FLUCONAZOLE 100 MG TAB PO SCH (08:30)
[2020-09-07] MEDS: CHOLECALCIFEROL 25 MCG (1000 IU) TABLET PO SCH (08:30)
[2020-09-07] MEDS: FERROUS SULFATE 325 MG TAB PO SCH (08:31)
[2020-09-07] MEDS: CHOLESTYRAMINE (WITH SUGAR) 4 GM PACKET PO SCH (08:31)
[2020-09-07] MEDS: ACETAMINOPHEN TAB 325 MG TAB PO PRN (08:31)
[2020-09-07] MEDS: LACTOBACILLUS ACIDOPH & BULGAR 1 EACH PACKET PO SCH (08:31)
[2020-09-07] MEDS: FUROSEMIDE 10 MG/ML 10 ML VIAL IV SCH ×2 (08:31→20:39)
[2020-09-07] MEDS: HYDROPHILIC CREAM 180 GM TUBE TOPICAL SCH (08:32)
--- NOTE | 2020-09-07 09:34 | P.PN ---
Subjective Progress Note Date: 09/07/20 Principal diagnosis: Shortness of breath related to acute on chronic systolic heart failure Severe systolic heart failure ejection fraction of less than 20%, Bilateral small pleural effusion likely related to acute on chronic systolic heart failure Acute hypoxic respiratory failure slowly improving with supplemental oxygen, Elevated troponin of unclear etiology Positive leukocyte is trace likely related to candidauria, Diflucan has been started with advice to change the Blanton's catheter 09/07/2020, patient seen eval examined during the rounds labs reviewed medications reviewed care plan discussed, respiratory status stable, on 2 L off and on using oxygen denies any chest pain, making urine adequately, swelling in the extremity continued to improve patient has Robin wrap as well, 09/06/2020, patient seen eval examined respiratory status remains stable off and on 2 L nasal cannula, denies any chest pain, exertional dyspnea however is present, cardiovascular services following, patient is being diuresed, patient has been applied Robin wrap and lower extremity seems to be helping, 09/05/2020, patient seen eval examined during the rounds labs reviewed medications reviewed, still short of breath on 2 L oxygen, patient is being diuresed, he is wrapping is to be applied on the lower extremity as well, denies any cough or sputum production remains afebrile otherwise This is a 79-year-old male who was seen eval reexamined, patient does have a history of prostate cancer with chronic lower extremity swelling which were getting worse post radiation therapy, patient noted to have a low pulse ox advised to be evaluated further, patient has +3 lower extremity edema he has a history of dyslipidemia, coronary artery disease, prostate cancer, prior AR, history of status post stroke with right-sided weakness, carotid endarterectomy with history of cardiac bypass surgery, used to smoke in the past, on arrival he was noted to have hypertensive with evidence of chronic kidney injury, covert testing was negative, labs were mildly elevated, and was positive for leukocyte esterase trace, patient has significant electrolyte abnormality including hyponatremia and hypomagnesemia as well, patient has a previous echocardiogram back in July 2020 shown to have a significant chronic systolic heart failure ejection fraction of less than 20% and severe aortic stenosis with a valve 80 or less than a centimeter, chest x-ray revealed cardiomegaly along with interstitial edema and small pleural effusion consistent with heart failure among currently oxygen saturation is 94-98% on 2 L oxygen, Objective - Vital Signs Vital signs: Vital Signs Temp 98.2 F 09/07/20 08:27 Pulse 106 H 09/07/20 08:27 Resp 16 09/07/20 08:27 BP 117/73 09/07/20 08:27 Pulse Ox 85 L 09/07/20 08:27 Intake & Output 09/06/20 09/07/20 09/07/20 18:59 06:59 18:59 Intake Total 720 20 Output Total 1450 640 Balance -730 -640 20 Intake: IV 20 Invasive Line 1 20 Oral 720 0 Output: Urine 1450 640 Uretheral (Blanton) 600 Other: Voiding Method Indwelling Catheter Indwelling Catheter Indwelling Catheter - Exam - Constitutional General appearance: disheveled, morbidly obese, no acute distress - EENT Eyes: PERRLA Ears: bilateral: normal - Neck Carotids: bilateral: upstroke delayed Thyroid: bilateral: normal size - Respiratory Respiratory: bilateral: diminished - Cardiovascular Rhythm: regular Heart sounds: normal: S1, S2 - Gastrointestinal General gastrointestinal: hyperactive bowel sounds - Integumentary +3 lower extremity edema Integumentary: normal, normal turgor - Neurologic Neurologic: CNII-XII intact - Musculoskeletal Musculoskeletal: gait normal, generalized weakness, strength equal bilaterally - Psychiatric Psychiatric: A&O x's 3, appropriate affect, intact judgment & insight - Labs CBC & Chem 7: 09/06/20 07:54 09/07/20 07:26 Labs: Abnormal Lab Results - Last 24 Hours (Table) 09/06/20 09/06/20 09/06/20 Range/Units 07:54 11:38 16:32 RBC 4.00 L (4.30-5.90) m/uL Hgb 12.2 L (13.0-17.5) gm/dL RDW 17.2 H (11.5-15.5) % Lymphocytes # 0.8 L (1.0-4.8) k/uL Sodium (137-145) mmol/L Chloride (98-107) mmol/L Carbon Dioxide (22-30) mmol/L BUN (9-20) mg/dL Glucose (74-99) mg/dL POC Glucose (mg/dL) 134 H 192 H (75-99) mg/dL Albumin (3.5-5.0) g/dL 09/06/20 09/07/20 09/07/20 Range/Units 20:19 06:37 07:26 RBC (4.30-5.90) m/uL Hgb (13.0-17.5) gm/dL RDW (11.5-15.5) % Lymphocytes # (1.0-4.8) k/uL Sodium 132 L (137-145) mmol/L Chloride 89 L (98-107) mmol/L Carbon Dioxide 35 H (22-30) mmol/L BUN 36 H (9-20) mg/dL Glucose 131 H (74-99) mg/dL POC Glucose (mg/dL) 128 H 131 H (75-99) mg/dL Albumin 3.4 L (3.5-5.0) g/dL Microbiology - Last 24 Hours (Table) 09/04/20 16:12 Urine Culture - Final Urine,Clean Catch Kitty sp,not albicans/galbr Assessment and Plan Assessment: Shortness of breath related to acute on chronic systolic heart failure Severe systolic heart failure ejection fraction of less than 20%, Bilateral small pleural effusion likely related to acute on chronic systolic heart failure Acute hypoxic respiratory failure slowly improving with supplemental oxygen, Elevated troponin of unclear etiology Severe lower extremity edema Positive leukocyte is trace likely related to candidauria, Diflucan has been started with advice to change the Blanton's catheter Plan: Robin wrap to lower extremity Supplemental oxygen Gentle diuresis Breathing exercise Incentive spirometry No aggressive intervention recommended for small pleural effusion will monitor observe closely Time with Patient: Greater than 30
[2020-09-07 11:43] LABS: Glucose,Whole Blood 124 mg/dL (75-99)
--- NOTE | 2020-09-07 15:51 | PN ---
PROGRESS NOTE DATE OF SERVICE: 09/07/2020 REASON FOR FOLLOWUP: Urinary tract infection. INTERVAL HISTORY: The patient is currently afebrile. The patient did have an episode of vomiting earlier. Denies any abdominal pain. No diarrhea or constipation. No chest pain, shortness of breath or cough. PHYSICAL EXAMINATION: Blood pressure 117/67, pulse of 66, temperature is 97.6. He is 98% on 2 L nasal cannula. General description is an elderly male lying in bed in no distress. Respiratory system: Unlabored breathing, clear to auscultation anteriorly. Heart S1, S2. Regular rate and rhythm. Abdomen soft, no tenderness. Extremities: 1+ edema of the feet. LABS: BUN of 36, creatinine 1.13. DIAGNOSTIC IMPRESSION AND PLAN: Patient with catheter-associated urinary tract infection. Urine has been Kitty. Patient is covered with Diflucan, to continue to finish course of therapy and close outpatient followup. MMODL / IJN: [id number] /
[2020-09-07 16:54] LABS: Glucose,Whole Blood 122 mg/dL (75-99)
--- NOTE | 2020-09-07 17:21 | P.PN ---
Subjective HISTORY OF PRESENTING ILLNESS Patient is pleasant 80-year-old male with history of abdominal aortic aneurysm, bilateral carotid artery disease, prostate cancer s/p radiation, hypertension, coronary artery disease status post CABG in 2011, ischemic cardiomyopathy with ejection fraction <20%, moderate mitral regurgitation, moderate aortic insuffici ency, hyperlipidemia, chronic kidney disease and former tobacco abuse. Patient states he has been in and out of the hospital since the beginning of July. He states he initially was evaluated at [facility] and had a Blanton placed. He had been feeling very weak and less stable on his feet and therefore has been in rehab facility, [facility] since that time and also has been in and out of the hospital. He is unsure as to why he was brought in however apparently per chart he had some hypoxia as well as concern of UTI. He denies any chest pain, pressure, shortness breath. Per chart he has been having decreased oral intake. Admit to generalized fatigue and feeling fairly weak. He follows in the office with Dr Cochran. On presentation his pulse ox was 93% on room air. Blood work showed white blood cell count 8.2, hemoglobin 12.5, platelets 164, sodium 128, creatinine 1.25, BUN 35, magnesium 1.5, troponin 0.057, 0.087, 0.14, cruz virus not detected, urinalysis large leukocyte esterase and greater than 182 white blood cells. 08/05/2020 showed ejection fraction less than 20%, aortic stenosis concerning for low-flow low gradient with aortic valve area by continuity 0.9 09/05 Patient seen and examined. Patient states he is not much change from when he came in and is eager to go home. Discussed that he has been in and out of the hospital multiple times and is high risk for readmission. Still has 2+ lower extremity edema some of which is likely chronic however has been putting out good urine with IV Lasix and creatinine is stable. 09/06 Patient seen and examined. Patient with our extremities wrapped and decreased lower extremity edema however has 2-3+ pitting edema of his thighs and back. He admits he has not been walking a few months. He has however been up to the chair. He denies any chest pain or pressure. Patient receiving IV Lasix with continued increased urine output. 09/07 Patient with you continued good urine output. He has had his lower extremities wrapped and continues to have decreased swelling in his lower extremities. Morbid his swelling is now in his thighs and lower back with pitting edema. His sodium continues to improve with diuresis and creatinine remained stable. REVIEW OF SYSTEMS At the time of my exam: CONSTITUTIONAL: Denies fever or chills. CARDIOVASCULAR: Denies chest pain, shortness of breath, orthopnea, PND or p alpitations. RESPIRATORY: Denies cough. GASTROINTESTINAL: Denies abdominal pain, diarrhea, constipation, nausea or vomiting. MUSCULOSKELETAL: Denies myalgias. NEUROLOGIC: Denies numbness, tingling or weakness. ENDOCRINE: Denies fatigue, weight change, polydipsia or polyurina. GENITOURINARY: Denies burning, hematuria or urgency with micturation. HEMATOLOGIC: Denies history of anemia or bleeding. PHYSICAL EXAMINATION Vitals reviewed CONSTITUTIONAL: No apparent distress. HEENT: Head is normocephalic. Pupils are equal, round. Sclerae anicteric. Mucous membranes of the mouth are moist. No JVD. No carotid bruit. CHEST EXAMINATION: Lungs are clear to auscultation. No chest wall tenderness is noted on palpation or with deep breathing. HEART EXAMINATION: Regular rate and rhythm. S1, S2 heard. No murmurs, gallops or rub. ABDOMEN: Soft, nontender. Positive bowel sounds. EXTREMITIES: 2+ peripheral pulses, 2+ lower extremity edema and no calf tenderness. +thigh and buttocks 2-3+ edema NEUROLOGIC EXAMINATION: Patient is awake, alert and oriented x3. ASSESSMENT 1. Elevated troponins. Patient denying any specific angina-type symptoms. Do not suspect a primary cardiac injury, likely related to CKD, heart failure 2. Reported hypoxia however 93% on room air on presentation 3. Weakness, fatigue 4. Hyponatremia 5. Chronic kidney disease 6. Coronary artery disease with history of CABG in 2012 7. Carotid artery disease 8. History of ischemic cardiomyopathy ejection fraction <20% 9. History of prostate cancer status post radiation, currently with a Blanton in place for last month and a half 10. UTI 11. Acute on chronic systolic heart failure 12. Aortic stenosis, may be low flow low gradient with AMANDA by continuity of 0.9cm2 however no elevated gradients PLAN Patient with continued thigh and buttocks edema although lower extremities appear better after being wraps and elevated. Patient's sodium improving with diuresis and suspect this is mainly related to volume overload. BUN and creatinine fairly stable with diuresis. Continue aggressive diuresis as I believe he still has a significant amount of fluid left in likely 2-3 more days of diuresis. Continue to monitor electrolytes, creatinine. Replace electrolytes as needed. Objective - Vital Signs Vital signs: Vital Signs Temp 98.2 F 09/07/20 15:09 Pulse 63 09/07/20 15:09 Resp 16 09/07/20 15:09 BP 108/64 09/07/20 15:09 Pulse Ox 96 09/07/20 15:09 Intake & Output 09/06/20 09/07/20 09/07/20 18:59 06:59 18:59 Intake Total 720 210 Output Total 0339 416 9913 Balance -730 640 -790 Intake: IV 30 Invasive Line 1 30 Oral 720 180 Output: Urine 0964 626 2017 Uretheral (Blanton) 600 Other: Voiding Method Indwelling Catheter Indwelling Catheter Indwelling Catheter - Labs CBC & Chem 7: 09/06/20 07:54 09/07/20 07:26 Labs: Abnormal Lab Results - Last 24 Hours (Table) 09/06/20 09/07/20 09/07/20 Range/Units 20:19 06:37 07:26 Sodium 132 L (137-145) mmol/L Chloride 89 L (98-107) mmol/L Carbon Dioxide 35 H (22-30) mmol/L BUN 36 H (9-20) mg/dL Glucose 131 H (74-99) mg/dL POC Glucose (mg/dL) 128 H 131 H (75-99) mg/dL Albumin 3.4 L (3.5-5.0) g/dL 09/07/20 09/07/20 Range/Units 11:41 16:52 Sodium (137-145) mmol/L Chloride (98-107) mmol/L Carbon Dioxide (22-30) mmol/L BUN (9-20) mg/dL Glucose (74-99) mg/dL POC Glucose (mg/dL) 124 H 122 H (75-99) mg/dL Albumin (3.5-5.0) g/dL
[2020-09-07 20:28] LABS: Glucose,Whole Blood 131 mg/dL (75-99)
[2020-09-07 20:28] LABS: Glucose,Whole Blood >600 mg/dL (75-99)
[2020-09-07] MEDS: ACETAMINOPHEN TAB 325 MG TAB PO SCH (20:39)
[2020-09-07] MEDS: ATORVASTATIN 40 MG TAB PO SCH (20:39)
--- NOTE | 2020-09-07 23:57 | P.PN ---
Subjective Progress Note Date: 09/07/20 Principal diagnosis: Acute urinary tract infection, related to Blanton catheter Mr. Chpaman is a 79-year-old male [facility] with a past medical history of hypertension, diverticulitis, hyperlipidemia, osteoarthritis, prostate cancer in 2017 status post chemotherapy, CVA, CK D, CAD status post CABG coming in with generalized weakness. He was found to have UTI was initially started on ceftriaxone. Patient's urine culture was found to be positive for Kitty albicans on 09/03/2020. So patient was started on fluconazole and repeat urine cultures pending. On 09/06/2020- patient was seen and examined at the bedside. Patient is comfortably sitting up in a chair by the bedside. He denies having any fevers chills or rigors. No cough or difficulty in breathing. No chest pain or palpitations. He states that he still has swelling in his bilateral lower extremities. Patient denies having abdominal pain nausea vomiting or diarrhea. On reviewing her vitals temperature of 97.6, heart rate 68, respiratory 16, blood pressure 117/64, saturating at 94 on room air. On reviewing labs from today white count 7.9, hemoglobin 12.2, platelets 193. Sodium 1:30, potassium 3.4, chloride 89, bicarb 33, BNP 33, creatinine 1.04. Albumin 3.2. On 09/07/2020 -patient was seen and examined at bedside. He states his lower extremity swelling is much better but still has edema in the upper thighs. He denies having any chest pain or palpitations. No cough or difficulty breathing. No fever chills or rigors. He has Blanton's catheter in place. Reviewing the vitals temperature 97.8, heart rate 66, respiratory 16, blood pressure 108 x 64 saturating at 96% on 2 L of nasal cannula. Labs from this morning show sodium 132, potassium 4, chloride 89, bicarb 35, BUN 36, creatinine 1.13 albumin 3.4. Patient's medications have been reviewed. Objective - Vital Signs Vital signs: Vital Signs Temp 98.2 F 09/07/20 15:09 Pulse 63 09/07/20 15:09 Resp 16 09/07/20 15:09 BP 108/64 09/07/20 15:09 Pulse Ox 96 09/07/20 15:09 Intake & Output 04/09/07/20 09/07/20 18:59 06:59 18:59 Intake Total 720 210 Output Total 1924 288 5891 Balance -730 -604 -790 Intake: IV 30 Invasive Line 1 30 Oral 720 180 Output: Urine 7746 424 6293 Uretheral (Blanton) 600 Other: Voiding Method Indwelling Catheter Indwelling Catheter Indwelling Catheter - Exam -GENERAL: The patient is alert and oriented x3, not in any acute distress. HEENT: Pupils are round and equally reacting to light. EOMI. No scleral icterus. CARDIOVASCULAR: S1 and S2 present. No murmurs, rubs, or gallops. -PULMONARY: Chest is clear to auscultation, no wheezing . Bilateral basal crepitation -ABDOMEN: Soft, nontender, nondistended, normoactive bowel sounds. No palpable organomegaly. Patient has a Blanton catheter is in place MUSCULOSKELETAL: No joint swelling or deformity. -EXTREMITIES: 2+ peripheral pulses, 2+ lower extremity edema and no calf tenderness. +thigh and buttocks 2-3+ edema, improving NEUROLOGICAL: Gross neurological examination did not reveal any focal deficits. SKIN: No rashes. no petechiae. - Labs CBC & Chem 7: 09/06/20 07:54 09/07/20 07:26 Labs: Abnormal Lab Results - Last 24 Hours (Table) 09/06/20 09/06/20 09/07/20 Range/Units 16:32 20:19 06:37 Sodium (137-145) mmol/L Chloride (98-107) mmol/L Carbon Dioxide (22-30) mmol/L BUN (9-20) mg/dL Glucose (74-99) mg/dL POC Glucose (mg/dL) 192 H 128 H 131 H (75-99) mg/dL Albumin (3.5-5.0) g/dL 09/07/20 09/07/20 Range/Units 07:26 11:41 Sodium 132 L (137-145) mmol/L Chloride 89 L (98-107) mmol/L Carbon Dioxide 35 H (22-30) mmol/L BUN 36 H (9-20) mg/dL Glucose 131 H (74-99) mg/dL POC Glucose (mg/dL) 124 H (75-99) mg/dL Albumin 3.4 L (3.5-5.0) g/dL Microbiology - Last 24 Hours (Table) 09/04/20 16:12 Urine Culture - Final Urine,Clean Catch Kitty sp,not albicans/galbr Assessment and Plan Assessment: ASSESSMENT Acute urinary tract infection, related to Blanton catheter present on admission Acute on chronic systolic CHF with ejection fraction less than 20% Chronic hyponatremia since 2014 Stage II sacral pressure ulcer on both right and left buttocks History of prostate cancer status post recent chemotherapy on 07/2019 Type 2 diabetes mellitus Chronic kidney disease, stage 2-3. Most likely diabetic nephropathy Hypertension Hyperlipidemia Obesity with BMI of 29.1 Mild protein calorie malnutrition PLAN: Patient to be continued on fluconazole for Kitty albicans in the urine culture. ID on board and following the patient. As the patient has bilateral lower extremity edema, he will still need IV Lasix, currently on 80 mg twice a day.Continue with aggresive diuresis . Cardiology following closely. Labs and medication were reviewed. Continue same treatment. Continue with symptomatic treatment. Monitor lytes and vitals. DVT and GI prophylaxis. Further recommendations as per clinical course of the patient. DVT prophylaxis: Subcutan eous heparin. GI Prophylaxis: PPI . Prognosis is guarded.
[2020-09-08] MEDS: MIDODRINE 5 MG TAB PO SCH ×2 (06:42→16:49)
[2020-09-08 06:56] LABS: Glucose,Whole Blood 120 mg/dL (75-99)
[2020-09-08] MEDS: CLOPIDOGREL 75 MG TAB PO SCH (08:13)
[2020-09-08] MEDS: FUROSEMIDE 10 MG/ML 10 ML VIAL IV SCH ×2 (08:13→21:02)
[2020-09-08] MEDS: LACTOBACILLUS ACIDOPH & BULGAR 1 EACH PACKET PO SCH (08:13)
[2020-09-08] MEDS: ASCORBIC ACID 500 MG TAB PO SCH (08:13)
[2020-09-08] MEDS: CHOLECALCIFEROL 25 MCG (1000 IU) TABLET PO SCH (08:13)
[2020-09-08] MEDS: CHOLESTYRAMINE (WITH SUGAR) 4 GM PACKET PO SCH (08:13)
[2020-09-08] MEDS: FLUCONAZOLE 100 MG TAB PO SCH (08:13)
[2020-09-08] MEDS: HYDROPHILIC CREAM 180 GM TUBE TOPICAL SCH (08:13)
[2020-09-08] MEDS: allopurinoL 100 MG TAB PO SCH (08:13)
[2020-09-08] MEDS: ASPIRIN 325 MG TAB PO SCH (08:13)
[2020-09-08] MEDS: FERROUS SULFATE 325 MG TAB PO SCH (08:13)
[2020-09-08] MEDS: MAGNESIUM OXIDE 400 MG TAB PO SCH (08:18)
[2020-09-08] MEDS: METOPROLOL TARTRATE 25 MG TAB PO SCH (08:18)
--- NOTE | 2020-09-08 10:57 | P.PN ---
Subjective Progress Note Date: 09/08/20 Principal diagnosis: Shortness of breath related to acute on chronic systolic heart failure Severe systolic heart failure ejection fraction of less than 20%, Bilateral small pleural effusion likely related to acute on chronic systolic heart failure Acute hypoxic respiratory failure slowly improving with supplemental oxygen, Elevated troponin of unclear etiology Positive leukocyte is trace likely related to candidauria, Diflucan has been started with advice to change the Blanton's catheter 09/08/2020, patient seen eval examined during the rounds labs reviewed medications reviewed care plan discussed with the patient and staff at length, he remains intermittently short of breath, cardiovascular services following medical therapy is being maximized, on 2 L oxygen denies any chest pain does have shortness dyspnea on exertion however, patient has been having adequate ur ine output, and lower extremities have Robin wrap, 09/07/2020, patient seen eval examined during the rounds labs reviewed medications reviewed care plan discussed, respiratory status stable, on 2 L off and on using oxygen denies any chest pain, making urine adequately, swelling in the extremity continued to improve patient has Robin wrap as well, 09/06/2020, patient seen eval examined respiratory status remains stable off and on 2 L nasal cannula, denies any chest pain, exertional dyspnea however is present, cardiovascular services following, patient is being diuresed, patient has been applied Robin wrap and lower extremity seems to be helping, 09/05/2020, patient seen eval examined during the rounds labs reviewed medications reviewed, still short of breath on 2 L oxygen, patient is being diu resed, he is wrapping is to be applied on the lower extremity as well, denies any cough or sputum production remains afebrile otherwise This is a 79-year-old male who was seen eval reexamined, patient does have a history of prostate cancer with chronic lower extremity swelling which were getting worse post radiation therapy, patient noted to have a low pulse ox advised to be evaluated further, patient has +3 lower extremity edema he has a history of dyslipidemia, coronary artery disease, prostate cancer, prior NH, history of status post stroke with right-sided weakness, carotid endarterectomy with history of cardiac bypass surgery, used to smoke in the past, on arrival he was noted to have hypertensive with evidence of chronic kidney injury, covert testing was negative, labs were mildly elevated, and was positive for leukocyte esterase trace, patient has significant electrolyte abnormality including hyponatremia and hypomagnesemia as well, patient has a previous echocardiogram back in July 2020 shown to have a significant chronic systolic heart failure ejection fraction of less than 20% and severe aortic stenosis with a valve 80 or less than a centimeter, chest x-ray revealed cardiomegaly along with interstitial edema and small pleural effusion consistent with heart failure jesi ng currently oxygen saturation is 94-98% on 2 L oxygen, Objective - Vital Signs Vital signs: Vital Signs Temp 97.6 F 09/08/20 07:57 Pulse 63 09/08/20 03:24 Resp 18 09/08/20 07:57 BP 118/72 09/08/20 07:57 Pulse Ox 94 L 09/08/20 07:57 Intake & Output 09/07/20 09/08/20 09/08/20 18:59 06:59 18:59 Intake Total 710 20 250 Output Total 1300 700 900 Balance -590 -680 -650 Weight 107.5 kg Intake: IV 30 20 10 Invasive Line 1 30 20 10 Oral 680 240 Output: Urine 1300 700 900 Uretheral (Blanton) 300 Other: Voiding Method Indwelling Catheter Indwelling Catheter Indwelling Catheter - Exam - Constitutional General appearance: disheveled, morbidly obese, no acute distress - EENT Eyes: PERRLA Ears: bilateral: normal - Neck Carotids: bilateral: upstroke delayed Thyroid: bilateral: normal size - Respiratory Respiratory: bilateral: diminished - Cardiovascular Rhythm: regular Heart sounds: normal: S1, S2 - Gastrointestinal General gastrointestinal: hyperactive bowel sounds - Integumentary +3 lower extremity edema Integumentary: normal, normal turgor - Neurologic Neurologic: CNII-XII intact - Musculoskeletal Musculoskeletal: gait normal, generalized weakness, strength equal bilaterally - Psychiatric Psychiatric: A&O x's 3, appropriate affect, intact judgment & insight - Labs CBC & Chem 7: 09/06/20 07:54 09/07/20 07:26 Labs: Abnormal Lab Results - Last 24 Hours (Table) 09/07/20 09/07/20 09/07/20 Range/Units 11:41 16:52 20:25 POC Glucose (mg/dL) 124 H 122 H >600 H (75-99) mg/dL 09/07/20 09/08/20 Range/Units 20:26 06:53 POC Glucose (mg/dL) 131 H 120 H (75-99) mg/dL Assessment and Plan Assessment: Shortness of breath related to acute on chronic systolic heart failure Severe systolic heart failure ejection fraction of less than 20%, Bilateral small pleural effusion likely related to acute on chronic systolic h eart failure Acute hypoxic respiratory failure slowly improving with supplemental oxygen, Elevated troponin of unclear etiology Severe lower extremity edema Positive leukocyte is trace likely related to candidauria, Diflucan has been started with advice to change the Blanton's catheter Plan: Robin wrap to lower extremity Supplemental oxygen Gentle diuresis Breathing exercise Incentive spirometry No aggressive intervention recommended for small pleural effusion will monitor observe closely Time with Patient: Greater than 30
[2020-09-08 12:21] LABS: Glucose,Whole Blood 123 mg/dL (75-99)
[2020-09-08] MEDS: valACYclovir HCL 1,000 MG TABLET PO SCH ×2 (15:50→21:02)
[2020-09-08 17:16] LABS: Glucose,Whole Blood 110 mg/dL (75-99)
--- NOTE | 2020-09-08 17:56 | P.PN ---
Subjective Progress Note Date: 09/08/20 This is a 79-year-old gentleman with history of cardiomyopathy with ejection of 20%, moderate mitral regurgitation and also aortic insufficiency who is admitted with urinary retention, fluid overload and CHF. Patient has benign IV diuretics. He is diuresing fairly well. He is feeling better today. He still has significant edema. Is admitted with hyponatremia which seemed to be gradually improving. His renal function is stable.. His leg edema is improving but some of the fluid could be in the buttock area. We'll continue with current dose of diuretics and the rest of the management. Patient also has UTI with fungal infection which is also being addressed. Overall patient seemed relatively stable. Continue current management and follow elect lites closely Objective - Vital Signs Vital signs: Vital Signs Temp 97.6 F 09/08/20 07:57 Pulse 63 09/08/20 03:24 Resp 18 09/08/20 07:57 BP 118/72 09/08/20 07:57 Pulse Ox 94 L 09/08/20 07:57 Intake & Output 09/07/20 09/08/20 09/08/20 18:59 06:59 18:59 Intake Total 710 20 850 Output Total 1300 700 900 Balance -590 -680 -50 Weight 107.5 kg Intake: IV 30 20 10 Invasive Line 1 30 20 10 Oral 680 840 Output: Urine 1300 700 900 Uretheral (Blanton) 300 Other: Voiding Method Indwelling Catheter Indwelling Catheter Indwelling Catheter - Exam GENERAL EXAM: Patient is alert and oriented and doesn't appear to be in any acute distress HEENT: Normocephalic. Normal reaction of pupils, equal size, normal range of extraocular motion. No erythema or exudates in the throat. NECK: No masses, no nuchal rigidity. CHEST: No chest wall deformity. LUNGS: Diminished breath sounds at bases HEART: S1 and S2 normal . Systolic murmur ABDOMEN: No hepatosplenomegaly, normal bowel sounds, no guarding or rigidity. SKIN: No rashes CENTRAL NERVOUS SYSTEM: No focal deficits. EXTREMITIES: Resolving edema of the legs - Labs CBC & Chem 7: 09/06/20 07:54 09/07/20 07:26 Labs: Abnormal Lab Results - Last 24 Hours (Table) 09/07/20 09/07/20 09/08/20 Range/Units 20:25 20:26 06:53 POC Glucose (mg/dL) >600 H 131 H 120 H (75-99) mg/dL 09/08/20 09/08/20 Range/Units 12:15 17:08 POC Glucose (mg/dL) 123 H 110 H (75-99) mg/dL Assessment and Plan (1) Acute on chronic systolic CHF (congestive heart failure) Current Visit: Yes Status: Acute Code(s): I50.23 - ACUTE ON CHRONIC SYSTOLIC (CONGESTIVE) HEART FAILURE SNOMED Code(s): 648902910 (2) Elevated troponin Current Visit: Yes Status: Acute Code(s): R77.8 - OTHER SPECIFIED ABNORMALITIES OF PLASMA PROTEINS SNOMED Code(s): 521476226 (3) Hyponatremia Current Visit: Yes Status: Acute Code(s): E87.1 - HYPO-OSMOLALITY AND HYPONATREMIA SNOMED Code(s): 63537272 (4) UTI (urinary tract infection) Current Visit: Yes Status: Acute Code(s): N39.0 - URINARY TRACT INFECTION, SITE NOT SPECIFIED SNOMED Code(s): 23102679 Plan: Continue with current diuretic therapy. Continue rest of the medication. Follo w renal function and electrolytes closely. We will follow
[2020-09-08 18:29] LABS: Albumin 3.5 g/dL (3.5-5.0); Calcium 9.1 mg/dL (8.4-10.2); Magnesium 1.5 mg/dL (1.6-2.3); Total Bilirubin 0.8 mg/dL (0.2-1.3); Total Protein 6.4 g/dL (6.3-8.2)
[2020-09-08] MEDS: MAGNESIUM SULFATE-D5W PMX 1 GM in DEXTROSE/WATER 1 100ML.BAG IVPB SCH ×2 (21:02→22:21)
[2020-09-08] MEDS: ATORVASTATIN 40 MG TAB PO SCH (21:03)
[2020-09-08] MEDS: ACETAMINOPHEN TAB 325 MG TAB PO SCH (21:03)
[2020-09-08 21:31] LABS: Glucose,Whole Blood 107 mg/dL (75-99)
--- NOTE | 2020-09-08 22:16 | PN ---
PROGRESS NOTE DATE OF SERVICE: 09/08/2020 REASON FOR FOLLOWUP: 1. Catheter-associated UTI. 2. Patient with shingles. INTERVAL HISTORY: The patient is currently afebrile, has been breathing comfortably. Denies having any chest pain. Occasional cough. No abdominal pain. No diarrhea. The patient has developed a vesicular rash on his left gluteal area and pressure ulceration to the right gluteal area. PHYSICAL EXAMINATION: Blood pressure 119/73 with a pulse of 62, temperature 97.6. He is 98% on 2 L nasal cannula. General description is an elderly male up in the chair in no distress. RESPIRATORY SYSTEM: Unlabored breathing with decreased intensity of breath sounds. No wheeze. HEART: S1, S2. Regular rate and rhythm. ABDOMEN: Soft. No tenderness. Examination of the left gluteal area reveals a vesicular lesion in a dermatomal distribution. No cellulitis. Right gluteal area has a stage II pressure ulcer. No cellulitis. LABS: BUN of 32, creatinine 0.98. DIAGNOSTIC IMPRESSION AND PLAN: 1. Patient with catheter-associated urinary tract infection. Urine with yeast. Covered with Diflucan. 2. Patient with shingles; started on Valtrex. Recommending a 7-day course. 3. Right gluteal pressure ulcer. Local care with Aquacel Silver dressing. Keep the area off pressure and dry. MMODL / IJN: [id number] /
[2020-09-09] MEDS: MIDODRINE 5 MG TAB PO SCH ×2 (06:22→17:46)
[2020-09-09 08:18] LABS: Glucose,Whole Blood 122 mg/dL (75-99)
[2020-09-09] MEDS: FUROSEMIDE 10 MG/ML 10 ML VIAL IV SCH (10:10)
[2020-09-09] MEDS: FLUCONAZOLE 100 MG TAB PO SCH (10:10)
[2020-09-09] MEDS: CHOLECALCIFEROL 25 MCG (1000 IU) TABLET PO SCH (10:10)
[2020-09-09] MEDS: METOPROLOL TARTRATE 25 MG TAB PO SCH (10:10)
[2020-09-09] MEDS: ASCORBIC ACID 500 MG TAB PO SCH (10:10)
[2020-09-09] MEDS: CLOPIDOGREL 75 MG TAB PO SCH (10:10)
[2020-09-09] MEDS: FERROUS SULFATE 325 MG TAB PO SCH (10:11)
[2020-09-09] MEDS: valACYclovir HCL 1,000 MG TABLET PO SCH ×2 (10:11→20:37)
[2020-09-09] MEDS: LACTOBACILLUS ACIDOPH & BULGAR 1 EACH PACKET PO SCH (10:11)
[2020-09-09] MEDS: ASPIRIN 325 MG TAB PO SCH (10:11)
[2020-09-09] MEDS: allopurinoL 100 MG TAB PO SCH (10:11)
[2020-09-09] MEDS: CHOLESTYRAMINE (WITH SUGAR) 4 GM PACKET PO SCH (10:11)
[2020-09-09] MEDS: MAGNESIUM OXIDE 400 MG TAB PO SCH (10:11)
[2020-09-09] MEDS: HYDROPHILIC CREAM 180 GM TUBE TOPICAL SCH (10:12)
[2020-09-09 10:27] LABS: Anisocytosis Slight; Basophils # (A) 0.1 k/uL (0-0.2); Basophils % (A) 1 %; Eosinophils # (A) 0.2 k/uL (0-0.7); Eosinophils % (A) 2 %; HCT 40.4 % (39.0-53.0); HGB 13.3 gm/dL (13.0-17.5); Lymphocytes # (A) 0.8 k/uL (1.0-4.8); Lymphocytes % (A) 9 %; MCH 32.2 pg (25.0-35.0); MCHC 32.9 g/dL (31.0-37.0); Macrocytosis Slight; Mean Platelet Volume 7.3; Monocytes # (A) 0.5 k/uL (0-1.0); Monocytes % (A) 6 %; Neutrophils # (A) 7.2 k/uL (1.3-7.7); Neutrophils % (A) 81 %; Platelet Count 194 k/uL (150-450); RBC 4.12 m/uL (4.30-5.90); RDW 16.8 % (11.5-15.5)
--- NOTE | 2020-09-09 10:39 | P.PN ---
Subjective Progress Note Date: 09/09/20 Principal diagnosis: Shortness of breath related to acute on chronic systolic heart failure Severe systolic heart failure ejection fraction of less than 20%, Bilateral small pleural effusion likely related to acute on chronic systolic heart failure Acute hypoxic respiratory failure slowly improving with supplemental oxygen, Elevated troponin of unclear etiology Positive leukocyte is trace likely related to candidauria, Diflucan has been started with advice to change the Blanton's catheter 09/09/2020, patient seen eval examined during the rounds labs reviewed medications reviewed, still have extensive lower extremity edema up to the mid abdominal level, denies any cough or sputum production remains on 2 L, patient is being diuresed as per cardiology recommendations 09/08/2020, patient seen eval examined during the rounds labs reviewed medications reviewed care plan discussed with the patient and staff at length, he remains intermittently short of breath, cardiovascular services following medical therapy is being maximized, on 2 L oxygen denies any chest pain does have shortness dyspnea on exertion however, patient has been having adequate urine output, and lower extremities have Robin wrap, 09/07/2020, patient seen eval examined during the rounds labs reviewed medications reviewed care plan discussed, respiratory status stable, on 2 L off and on using oxygen denies any chest pain, making urine adequately, swelling in the extremity continued to improve patient has Robin wrap as well, 09/06/2020, patient seen eval examined respiratory status remains stable off and on 2 L nasal cannula, denies any chest pain, exertional dyspnea however is present, cardiovascular services following, patient is being diuresed, patient has been applied Robin wrap and lower extremity seems to be helping, 09/05/2020, patient seen eval examined during the rounds labs reviewed medications reviewed, still short of breath on 2 L oxygen, patient is being diuresed, he is wrapping is to be applied on the lower extremity as well, denies any cough or sputum production remains afebrile otherwise This is a 79-year-old male who was seen eval reexamined, patient does have a history of prostate cancer with chronic lower extremity swelling which were getting worse post radiation therapy, patient noted to have a low pulse ox advised to be evaluated further, patient has +3 lower extremity edema he has a history of dyslipidemia, coronary artery disease, prostate cancer, prior [place], history of status post stroke with right-sided weakness, carotid endarterectomy with history of cardiac bypass surgery, used to smoke in the past, on arrival he was noted to have hypertensive with evidence of chronic kidney injury, covert testing was negative, labs were mildly elevated, and was positive for leukocyte esterase trace, patient has significant electrolyte abnormality including hypo natremia and hypomagnesemia as well, patient has a previous echocardiogram back in July 2020 shown to have a significant chronic systolic heart failure ejection fraction of less than 20% and severe aortic stenosis with a valve 80 or less than a centimeter, chest x-ray revealed cardiomegaly along with interstitial edema and small pleural effusion consistent with heart failure among currently oxygen saturation is 94-98% on 2 L oxygen, Objective - Vital Signs Vital signs: Vital Signs Temp 98.1 F 09/09/20 04:00 Pulse 68 09/09/20 04:00 Resp 19 09/09/20 04:00 BP 126/75 09/09/20 04:00 Pulse Ox 95 09/09/20 04:00 Intake & Output 09/08/20 09/09/20 09/09/20 18:59 06:59 18:59 Intake Total 1480 240 Output Total 1500 1400 Balance -20 -1400 240 Weight 107 kg Intake: IV 40 Invasive Line 1 10 Invasive Line 2 30 Oral 1440 240 Output: Urine 1500 1400 Other: Voiding Method Indwelling Catheter Indwelling Catheter - Exam - Constitutional General appearance: disheveled, morbidly obese, no acute distress - EENT Eyes: PERRLA Ears: bilateral: normal - Neck Carotids: bilateral: upstroke delayed Thyroid: bilateral: normal size - Respiratory Respiratory: bilateral: diminished - Cardiovascular Rhythm: regular Heart sounds: normal: S1, S2 - Gastrointestinal General gastrointestinal: hyperactive bowel sounds - Integumentary +3 lower extremity edema Integumentary: normal, normal turgor - Neurologic Neurologic: CNII-XII intact - Musculoskeletal Musculoskeletal: gait normal, generalized weakness, strength equal bilaterally, extensive +3 edema extending up to lower abdomen level - Psychiatric Psychiatric: A&O x's 3, appropriate affect, intact judgment & insight - Labs CBC & Chem 7: 09/09/20 09:22 09/08/20 18:06 Labs: Abnormal Lab Results - Last 24 Hours (Table) 09/08/20 09/08/20 09/08/20 Range/Units 12:15 17:08 18:06 RBC (4.30-5.90) m/uL RDW (11.5-15.5) % Lymphocytes # (1.0-4.8) k/uL Sodium 132 L (137-145) mmol/L Chloride 88 L (98-107) mmol/L Carbon Dioxide 40 H (22-30) mmol/L BUN 32 H (9-20) mg/dL Glucose 125 H (74-99) mg/dL POC Glucose (mg/dL) 123 H 110 H (75-99) mg/dL Magnesium 1.5 L (1.6-2.3) mg/dL 09/08/20 09/09/20 09/09/20 Range/Units 21:29 06:34 09:22 RBC 4.12 L (4.30-5.90) m/uL RDW 16.8 H (11.5-15.5) % Lymphocytes # 0.8 L (1.0-4.8) k/uL Sodium (137-145) mmol/L Chloride (98-107) mmol/L Carbon Dioxide (22-30) mmol/L BUN (9-20) mg/dL Glucose (74-99) mg/dL POC Glucose (mg/dL) 107 H 122 H (75-99) mg/dL Magnesium (1.6-2.3) mg/dL Assessment and Plan Assessment: Shortness of breath related to acute on chronic systolic heart failure Severe systolic heart failure ejection fraction of less than 20%, Bilateral small pleural effusion likely related to acute on chronic systolic heart failure Acute hypoxic respiratory failure slowly improving with supplemental oxygen, Elevated troponin of unclear etiology Severe lower extremity edema Positive leukocyte is trace likely related to candidauria, Diflucan has been started with advice to change the Blanton's catheter Plan: Robin wrap to lower extremity Supplemental oxygen Continue Gentle diuresis Breathing exercise Incentive spirometry No aggressive intervention recommended for small pleural effusion will monitor observe closely Time with Patient: Greater than 30
[2020-09-09 10:50] LABS: ALT 21 U/L (4-49); AST 32 U/L (17-59); African American GFR (CKD) >90 (>60 ml/min/1.73 sqM); Albumin 3.3 g/dL (3.5-5.0); Alkaline Phosphatase 76 U/L (38-126); Anion Gap 6 mmol/L; Blood Urea Nitrogen 29 mg/dL (9-20); Calcium 8.5 mg/dL (8.4-10.2); Carbon Dioxide 39 mmol/L (22-30); Chloride 86 mmol/L (98-107); Glucose 132 mg/dL (74-99); Magnesium 1.7 mg/dL (1.6-2.3); Non-African American GFR(CKD) 83 (>60 ml/min/1.73 sqM); Potassium 3.6 mmol/L (3.5-5.1); Sodium 131 mmol/L (137-145); Total Protein 6.2 g/dL (6.3-8.2)
[2020-09-09 10:59] VITALS: BMI 28.7
[2020-09-09 12:12] LABS: Glucose,Whole Blood 131 mg/dL (75-99)
[2020-09-09] MEDS ORDERED: POTASSIUM CHLORIDE ER 20 MEQ TAB.ER PO SCH (13:00)
[2020-09-09] MEDS: MAGNESIUM SULFATE-D5W PMX 1 GM in DEXTROSE/WATER 1 100ML.BAG IVPB SCH ×2 (13:25→14:25)
--- NOTE | 2020-09-09 15:05 | P.PN ---
Subjective Patient is pleasant 80-year-old male with history of abdominal aortic aneurysm, bilateral carotid artery disease, prostate cancer s/p radiation, hypertension, coronary artery disease status post CABG in 2011, ischemic cardiomyopathy with ejection fraction <20%, moderate mitral regurgitation, moderate aortic insufficiency, hyperlipidemia, chronic kidney disease and former tobacco abuse. Patient follows with Dr. Cochran. We are following the patient for congestive heart failure and elevated troponin. Elevated troponin trend 0.05--0.08--0.14--0.08. Patient has been IV Lasix started on 09/04/20, patient was hyponatremia and his volume status has been monitored. Patient has had a lot of urine output. Echocardiogram 08/05/2020 showed ejection fraction less than 20%, aortic stenosis concerning for low-flow low gradient with aortic valve area by continuity 0.9 09/09/20: Patient seen and examined at bedside. No complaints at this time. Patient with over 2L urine output every day. Continues to have lower extremity edema. Blood pressure 135/80, heart rate 73, afebrile, maintaining oxygen saturations 95% on 2 L nasal cannula. Laboratory data reviewed sodium 131, potassium 3.6, serum creatinine 0.88, BUN 29, magnesium 1.7, albumin 3.3, total protein 6.2 GENERAL: no acute distress. NECK: Supple without JVD or thyromegaly. LUNGS: Breath sounds clear to auscultation bilaterally. Respiration equal and unlabored. No wheezes, rales or rhonchi. HEART: Regular rate and rhythm without murmurs, rubs or gallops. S1 and S2 heard. EXTREMITIES: Bilateral legs wrappe din GORDY wraps. Continues to have 2+ edema in bilateral lower extremities up to thighs. No clubbing or cyanosis. Peripheral pulses intact. ASSESSMENT Elevated troponins of unclear significance. Patient denying any specific angina-type symptoms. Hyponatremia- improving Coronary artery disease with history of CABG in 2012 History of ischemic cardiomyopathy ejection fraction <20% Acute on chronic systolic heart failure History of prostate cancer status post radiation, currently with a Blanton in place for last month and a half Aortic stenosis, may be low flow low gradient with AMANDA by continuity of 0.9cm2 however no elevated gradients PLAN Will transition to PO Lasix today, and monitor patient GORDY wraps to lower extremities Further recommendations based on clinical course Objective - Vital Signs Vital signs: Vital Signs Temp 98.1 F 09/09/20 04:00 Pulse 68 09/09/20 04:00 Resp 19 09/09/20 04:00 BP 126/75 09/09/20 04:00 Pulse Ox 95 09/09/20 04:00 Intake & Output 09/08/20 09/09/20 09/09/20 18:59 06:59 18:59 Intake Total 1480 240 Output Total 1500 1400 Balance -20 -1400 240 Weight 107 kg Intake: IV 40 Invasive Line 1 10 Invasive Line 2 30 Oral 1440 240 Output: Urine 1500 1400 Other: Voiding Method Indwelling Catheter Indwelling Catheter - Labs CBC & Chem 7: 09/09/20 09:22 09/09/20 09:22 Labs: Abnormal Lab Results - Last 24 Hours (Table) 09/08/20 09/08/20 09/08/20 Range/Units 12:15 17:08 18:06 Sodium 132 L (137-145) mmol/L Chloride 88 L (98-107) mmol/L Carbon Dioxide 40 H (22-30) mmol/L BUN 32 H (9-20) mg/dL Glucose 125 H (74-99) mg/dL POC Glucose (mg/dL) 123 H 110 H (75-99) mg/dL Magnesium 1.5 L (1.6-2.3) mg/dL 09/08/20 09/09/20 Range/Units 21:29 06:34 Sodium (137-145) mmol/L Chloride (98-107) mmol/L Carbon Dioxide (22-30) mmol/L BUN (9-20) mg/dL Glucose (74-99) mg/dL POC Glucose (mg/dL) 107 H 122 H (75-99) mg/dL Magnesium (1.6-2.3) mg/dL
--- NOTE | 2020-09-09 15:32 | PN ---
PROGRESS NOTE DATE OF SERVICE: 09/08/2020 White male who was admitted with congestive heart failure, shortness of breath due to systolic heart failure, ejection fraction less than 20%. Continues to diurese on 80 mg Lasix b.i.d. Elevated troponin of unclear etiology. He is more alert. He is on 2 L of oxygen. CARDIOVASCULAR: S1, S2. LUNGS: Rales at the base. HEMATOLOGY: Negative Homans. He has Robin wraps on his lower legs. Sodium is 132, potassium 4.0. White count is 9.0. ASSESSMENT: 1. Shortness of breath due to chronic systolic heart failure, ejection fraction less than 20%. 2. Bilateral pleural effusion. 3. Severe lower extremity edema. 4. Kitty urinary tract infection. Diflucan is added. Prognosis guarded. Continue PT/OT recommendations. Wait for multiple recommendations prior to discharge. MMBINTAL / FEMI: [id number] /
[2020-09-09] MEDS ORDERED: FUROSEMIDE 40 MG TAB PO SCH (16:00)
[2020-09-09 16:55] LABS: Glucose,Whole Blood 132 mg/dL (75-99)
--- NOTE | 2020-09-09 18:28 | PN ---
PROGRESS NOTE This is a 79-year-old white male with systolic congestive heart failure with large amounts of edema in his legs, ejection fraction less than 20%, moderate mitral regurgitation, moderate aortic insufficiency, chronic kidney disease, sees Dr. Cochran. CARDIOVASCULAR: S1, S2. LUNGS: Clear. PSYCH: Fair mood and affect. NEUROLOGIC: Cranial nerves are intact. EXTREMITIES: Has Robin wraps on his lower legs. He has elevated troponin ASSESSMENT: 1. Significant hyponatremia. 2. Coronary artery disease. 3. Ischemic cardiomyopathy. 4. Acute on chronic systolic heart failure. 5. History of prostate cancer. Currently with Blanton in place. 6. Urinary tract infection with a Blanton catheter. PLAN: Continue current medications. Possible discharge back to [facility] in the next day or two. He is greatly improving. MMODL / IJN: [id number] /
--- NOTE | 2020-09-09 18:53 | PN ---
PROGRESS NOTE DATE OF SERVICE: 09/09/2020 REASON FOR FOLLOWUP: 1. Urinary tract infection. 2. Shingles. INTERVAL HISTORY: The patient is currently afebrile. The patient is breathing comfortably. The patient denies having any chest pain or shortness of breath or cough. No abdominal pain. swelling to the lower extremity. Denies any pain to his bilateral gluteal area. PHYSICAL EXAMINATION: Blood pressure 135/80 with a pulse of 73, temperature 97.6. He is 92% on 2 L nasal cannula. General description is an elderly male up in the bed in no distress. RESPIRATORY SYSTEM: Unlabored breathing with decreased intensity of breath sounds. No wheeze. HEART: S1, S2. Regular rate and rhythm. ABDOMEN: Soft. No tenderness. EXTREMITIES: Trace edema of feet. LABS: Hemoglobin is 13.3, white count 9.0, BUN of 29, creatinine 0.88. DIAGNOSTIC IMPRESSION AND PLAN: 1. Patient with a catheter-associated urinary tract infection. Urine has been yeast, covered with Diflucan to finish a 7-day course of therapy. 2. Patient with left gluteal shingles. Continue with Valtrex for a 7-day course of therapy. 3. Patient with a right gluteal stage II pressure ulcer. Local wound care with dry Aquacel Silver dressing. Continue supportive care. MMODL / IJN: [id number] /
[2020-09-09 19:51] LABS: Glucose,Whole Blood 157 mg/dL (75-99)
[2020-09-09] MEDS: polyethylene glycoL 3350 17 GM POWD.PACK PO SCH (20:12)
[2020-09-09] MEDS: ATORVASTATIN 40 MG TAB PO SCH (20:12)
[2020-09-09] MEDS: guaiFENesin 600 MG TABLET.ER PO SCH (20:12)
[2020-09-09] MEDS: ACETAMINOPHEN TAB 325 MG TAB PO SCH (20:13)
[2020-09-10] MEDS: MIDODRINE 5 MG TAB PO SCH ×2 (05:34→16:14)
[2020-09-10 06:32] LABS: Glucose,Whole Blood 127 mg/dL (75-99)
[2020-09-10] MEDS: FERROUS SULFATE 325 MG TAB PO SCH (08:59)
[2020-09-10] MEDS: guaiFENesin 600 MG TABLET.ER PO SCH ×2 (08:59→22:19)
[2020-09-10] MEDS: CHOLECALCIFEROL 25 MCG (1000 IU) TABLET PO SCH (08:59)
[2020-09-10] MEDS: valACYclovir HCL 1,000 MG TABLET PO SCH ×2 (08:59→22:18)
[2020-09-10] MEDS: ASCORBIC ACID 500 MG TAB PO SCH (08:59)
[2020-09-10] MEDS: ASPIRIN 325 MG TAB PO SCH (09:00)
[2020-09-10] MEDS: METOPROLOL TARTRATE 25 MG TAB PO SCH (09:00)
[2020-09-10] MEDS: CLOPIDOGREL 75 MG TAB PO SCH (09:00)
[2020-09-10] MEDS: allopurinoL 100 MG TAB PO SCH (09:00)
[2020-09-10] MEDS: FUROSEMIDE 80 MG TAB PO SCH ×2 (09:00→16:14)
[2020-09-10] MEDS: HYDROPHILIC CREAM 180 GM TUBE TOPICAL SCH (09:00)
[2020-09-10] MEDS: MAGNESIUM OXIDE 400 MG TAB PO SCH (09:00)
[2020-09-10] MEDS: LACTOBACILLUS ACIDOPH & BULGAR 1 EACH PACKET PO SCH (09:00)
[2020-09-10] MEDS: polyethylene glycoL 3350 17 GM POWD.PACK PO SCH (09:01)
[2020-09-10] MEDS: CHOLESTYRAMINE (WITH SUGAR) 4 GM PACKET PO SCH (09:10)
[2020-09-10] MEDS: FLUCONAZOLE 100 MG TAB PO SCH (09:16)
[2020-09-10] MEDS: metOLazone 2.5 MG TAB PO SCH (09:16)
[2020-09-10 09:21] LABS: ALT 21 U/L (4-49); AST 32 U/L (17-59); African American GFR (CKD) >90 (>60 ml/min/1.73 sqM); Albumin 3.2 g/dL (3.5-5.0); Alkaline Phosphatase 84 U/L (38-126); Blood Urea Nitrogen 28 mg/dL (9-20); Calcium 8.8 mg/dL (8.4-10.2); Carbon Dioxide 37 mmol/L (22-30); Glucose 123 mg/dL (74-99); Magnesium 1.7 mg/dL (1.6-2.3); Non-African American GFR(CKD) 82 (>60 ml/min/1.73 sqM); Sodium 130 mmol/L (137-145); Total Bilirubin 1.2 mg/dL (0.2-1.3); Total Protein 5.9 g/dL (6.3-8.2)
[2020-09-10 09:24] LABS: Anion Gap 7 mmol/L; Chloride 86 mmol/L (98-107)
[2020-09-10 10:18] LABS: Anisocytosis Slight; Basophils % (A) 0 %; Eosinophils # (A) 0.1 k/uL (0-0.7); Eosinophils % (A) 1 %; HCT 39.6 % (39.0-53.0); HGB 12.3 gm/dL (13.0-17.5); Hypochromasia Slight; Lymphocytes # (A) 1.7 k/uL (1.0-4.8); Lymphocytes % (A) 23 %; MCH 30.9 pg (25.0-35.0); MCHC 31.1 g/dL (31.0-37.0); MCV 99.5 fL (80.0-100.0); Macrocytosis Slight; Mean Platelet Volume 7.8; Monocytes # (A) 0.5 k/uL (0-1.0); Monocytes % (A) 6 %; Neutrophils # (A) 5.2 k/uL (1.3-7.7); Neutrophils % (A) 68 %; Platelet Count 195 k/uL (150-450); RBC 3.98 m/uL (4.30-5.90); RDW 17.2 % (11.5-15.5); WBC 7.7 k/uL (3.8-10.6)
--- NOTE | 2020-09-10 10:40 | P.PN ---
Subjective Progress Note Date: 09/10/20 Principal diagnosis: Shortness of breath related to acute on chronic systolic heart failure Severe systolic heart failure ejection fraction of less than 20%, Bilateral small pleural effusion likely related to acute on chronic systolic heart failure Acute hypoxic respiratory failure slowly improving with supplemental oxygen, Elevated troponin of unclear etiology Positive leukocyte is trace likely related to candidauria, Diflucan has been started with advice to change the Blanton's catheter 09/10/2020, patient seen eval examined during the rounds labs reviewed medications reviewed care plan discussed, respiratory status remains stable, liter oxygen, patient is still have extensive lower extremity edema in lower abdominal wall edema, Zaroxolyn has been admitted patient continued on Lasix discharge was canceled due to presence of severe third spacing and edema of the lower extremity 09/09/2020, patient seen eval examined during the rounds labs reviewed medications reviewed, still have extensive lower extremity edema up to the mid abdominal level, denies any cough or sputum production remains on 2 L, patient is being diuresed as per cardiology recommendations 09/08/2020, patient seen eval examined during the rounds labs reviewed medications reviewed care plan discussed with the patient and staff at length, he remains intermittently short of breath, cardiovascular services following medical therapy is being maximized, on 2 L oxygen denies any chest pain does have shortness dyspnea on exertion however, patient has been having adequate urine output, and lower extremities have Robin wrap, 09/07/2020, patient seen eval examined during the rounds labs reviewed medications reviewed care plan discussed, respiratory status stable, on 2 L off and on using oxygen denies any chest pain, making urine adequately, swelling in the extremity continued to improve patient has Robin wrap as well, 09/06/2020, patient seen eval examined respiratory status remains stable off and on 2 L nasal cannula, denies any chest pain, exertional dyspnea however is present, cardiovascular services following, patient is being diuresed, patient has been applied Robin wrap and lower extremity seems to be helping, 09/05/2020, patient seen eval examined during the rounds labs reviewed medications reviewed, still short of breath on 2 L oxygen, patient is being diuresed, he is wrapping is to be applied on the lower extremity as well, denies any cough or sputum production remains afebrile otherwise This is a 79-year-old male who was seen eval reexamined, patient does have a history of prostate cancer with chronic lower extremity swelling which were getting worse post radiation therapy, patient noted to have a low pulse ox advised to be evaluated further, patient has +3 lower extremity edema he has a history of dyslipidemia, coronary artery disease, prostate cancer, prior [place], history of status post stroke with right-sided weakness, carotid endarterectomy with history of cardiac bypass surgery, used to smoke in the past, on arrival he was noted to have hypertensive with evidence of chronic kidney injury, covert testing was negative, labs were mildly elevated, and was positive for leukocyte esterase trace, patient has significant electrolyte abnormality including hypon atremia and hypomagnesemia as well, patient has a previous echocardiogram back in July 2020 shown to have a significant chronic systolic heart failure ejection fraction of less than 20% and severe aortic stenosis with a valve 80 or less than a centimeter, chest x-ray revealed cardiomegaly along with interstitial edema and small pleural effusion consistent with heart failure among currently oxygen saturation is 94-98% on 2 L oxygen, Objective - Vital Signs Vital signs: Vital Signs Temp 97.5 F L 09/09/20 20:00 Pulse 84 09/10/20 04:00 Resp 18 09/10/20 04:00 BP 125/79 09/10/20 04:00 Pulse Ox 98 09/10/20 04:00 Intake & Output 09/09/20 09/10/20 09/10/20 18:59 06:59 18:59 Intake Total 1900 520 118 Output Total 700 625 Balance 1200 -105 118 Weight 107 kg 103.419 kg Intake: IV 220 20 Invasive Line 3 20 20 Magnesium Sulfate-D5w Pmx 100 1 gm In Dextrose/Water 1 100ml.bag @ 100 mls/hr IVPB Q1H JOSI Rx#: [id number] Magnesium Sulfate-D5w Pmx 100 1 gm In Dextrose/Water 1 100ml.bag @ 100 mls/hr IVPB Q1H JOSI Rx#: [id number] Oral 1680 500 118 Output: Urine 700 625 Other: Voiding Method Indwelling Catheter Indwelling Catheter - Exam - Constitutional General appearance: disheveled, morbidly obese, no acute distress - EENT Eyes: PERRLA Ears: bilateral: normal - Neck Carotids: bilateral: upstroke delayed Thyroid: bilateral: normal size - Respiratory Respiratory: bilateral: diminished - Cardiovascular Rhythm: regular Heart sounds: normal: S1, S2 - Gastrointestinal General gastrointestinal: hyperactive bowel sounds - Integumentary +3 lower extremity edema Integumentary: normal, normal turgor - Neurologic Neurologic: CNII-XII intact - Musculoskeletal Musculoskeletal: gait normal, generalized weakness, strength equal bilaterally, extensive +3 edema extending up to lower abdomen level - Psychiatric Psychiatric: A&O x's 3, appropriate affect, intact judgment & insight - Labs CBC & Chem 7: 09/10/20 08:20 09/10/20 08:20 Labs: Abnormal Lab Results - Last 24 Hours (Table) 09/09/20 09/09/20 09/09/20 Range/Units 09:22 12:08 16:53 RBC (4.30-5.90) m/uL Hgb (13.0-17.5) gm/dL RDW (11.5-15.5) % Sodium 131 L (137-145) mmol/L Chloride 86 L (98-107) mmol/L Carbon Dioxide 39 H (22-30) mmol/L BUN 29 H (9-20) mg/dL Glucose 132 H (74-99) mg/dL POC Glucose (mg/dL) 131 H 132 H (75-99) mg/dL Total Protein 6.2 L (6.3-8.2) g/dL Albumin 3.3 L (3.5-5.0) g/dL 09/09/20 09/10/20 09/10/20 Range/Units 19:50 06:24 08:20 RBC (4.30-5.90) m/uL Hgb (13.0-17.5) gm/dL RDW (11.5-15.5) % Sodium 130 L (137-145) mmol/L Chloride 86 L (98-107) mmol/L Carbon Dioxide 37 H (22-30) mmol/L BUN 28 H (9-20) mg/dL Glucose 123 H (74-99) mg/dL POC Glucose (mg/dL) 157 H 127 H (75-99) mg/dL Total Protein 5.9 L (6.3-8.2) g/dL Albumin 3.2 L (3.5-5.0) g/dL 09/10/20 Range/Units 08:20 RBC 3.98 L (4.30-5.90) m/uL Hgb 12.3 L (13.0-17.5) gm/dL RDW 17.2 H (11.5-15.5) % Sodium (137-145) mmol/L Chloride (98-107) mmol/L Carbon Dioxide (22-30) mmol/L BUN (9-20) mg/dL Glucose (74-99) mg/dL POC Glucose (mg/dL) (75-99) mg/dL Total Protein (6.3-8.2) g/dL Albumin (3.5-5.0) g/dL Assessment and Plan Assessment: Shortness of breath related to acute on chronic systolic heart failure Severe systolic heart failure ejection fraction of less than 20%, Bilateral small pleural effusion likely related to acute on chronic systolic heart failure Acute hypoxic respiratory failure slowly improving with supplemental oxygen, Elevated troponin of unclear etiology Severe lower extremity edema Positive leukocyte is trace likely related to candidauria, Diflucan has been started with advice to change the Blanton's catheter Plan: Robin wrap to lower extremity Supplemental oxygen Continue Gentle diuresis Breathing exercise Incentive spirometry No aggressive intervention recommended for small pleural effusion will monitor observe closely Time with Patient: Greater than 30
[2020-09-10 11:52] LABS: Glucose,Whole Blood 161 mg/dL (75-99)
[2020-09-10 12:19] LABS: Poikilocytosis (M) Present
[2020-09-10 16:19] LABS: Glucose,Whole Blood 138 mg/dL (75-99)
--- NOTE | 2020-09-10 17:03 | P.PN ---
Subjective Patient is pleasant 80-year-old male with history of abdominal aortic aneurysm, bilateral carotid artery disease, prostate cancer s/p radiation, hypertension, coronary artery disease status post CABG in 2011, ischemic cardiomyopathy with ejection fraction <20%, moderate mitral regurgitation, moderate aortic insufficiency, hyperlipidemia, chronic kidney disease and former tobacco abuse. Patient follows with Dr. Cochran. We are following the patient for congestive heart failure and elevated troponin. Elevated troponin trend 0.05--0.08--0.14--0.08. Patient has been IV Lasix started on 09/04/20, patient was hyponatremia and his volume status has been monitored. Patient has had a lot of urine output. Echocardiogram 08/05/2020 showed ejection fraction less than 20%, aortic stenosis concerning for low-flow low gradient with aortic valve area by continuity 0.9 09/10/20: Patient seen and examined at bedside. No complaints at this time. Patient con tinues to have good urine output with 1.3L urine output yesterday. Continues to have lower extremity edema. Blood pressure 112/67, heart rate 78 afebrile, maintaining oxygen saturations 97 % on 2 L nasal cannula. Laboratory data reviewed sodium 1:30, potassium 4.0, serum creatinine 0. 90, BUN 29, magnesium 1.7, albumin 3. 2, total protein 5.9 GENERAL: no acute distress. NECK: Supple without JVD or thyromegaly. LUNGS: Breath sounds clear to auscultation bilaterally. Respiration equal and unlabored. No wheezes, rales or rhonchi. HEART: Regular rate and rhythm without murmurs, rubs or gallops. S1 and S2 heard. EXTREMITIES: Bilateral legs wrappe din GORDY wraps. Continues to have 2+ edema in bilateral lower extremities up to thighs. No clubbing or cyanosis. Peripheral pulses intact. ASSESSMENT Elevated troponins of unclear significance. Patient denying any specific angina-type symptoms. Hyponatremia- improving Coronary artery disease with history of CABG in 2011 History of ischemic cardiomyopathy ejection fraction <20% Acute on chronic systolic heart failure History of prostate cancer status post radiation, currently with a Blanton in place for last month and a half Aortic stenosis, may be low flow low gradient with AMANDA by continuity of 0.9cm2 however no elevated gradients PLAN PO Lasix increased to by mouth 80mg BID Metolazone 2.5mg daily was added GORDY wraps to lower extremities Patient hemodynamically stable, no further changes from cardiology standpoint. Patient currently being maintained on Plavix 75 mg daily, aspirin 81 mg daily, atorvastatin 40 mg nightly, metoprolol 25mg daily Objective - Vital Signs Vital signs: Vital Signs Temp 98.7 F 09/10/20 16:00 Pulse 78 09/10/20 16:00 Resp 18 09/10/20 16:00 BP 112/67 09/10/20 16:00 Pulse Ox 97 09/10/20 16:00 Intake & Output 09/09/20 09/10/20 09/10/20 18:59 06:59 18:59 Intake Total 1900 520 438 Output Total 700 625 350 Balance 1200 -105 88 Weight 107 kg 103.419 kg Intake: IV 220 20 20 Invasive Line 3 20 20 20 Magnesium Sulfate-D5w Pmx 100 1 gm In Dextrose/Water 1 100ml.bag @ 100 mls/hr IVPB Q1H JOSI Rx#: [id number] Magnesium Sulfate-D5w Pmx 100 1 gm In Dextrose/Water 1 100ml.bag @ 100 mls/hr IVPB Q1H JOSI Rx#: [id number] Oral 1680 500 418 Output: Urine 700 625 350 Other: Voiding Method Indwelling Catheter Indwelling Catheter Indwelling Catheter - Labs CBC & Chem 7: 09/10/20 08:20 09/10/20 08:20 Labs: Abnormal Lab Results - Last 24 Hours (Table) 09/09/20 09/10/20 09/10/20 Range/Units 19:50 06:24 08:20 RBC (4.30-5.90) m/uL Hgb (13.0-17.5) gm/dL RDW (11.5-15.5) % Sodium 130 L (137-145) mmol/L Chloride 86 L (98-107) mmol/L Carbon Dioxide 37 H (22-30) mmol/L BUN 28 H (9-20) mg/dL Glucose 123 H (74-99) mg/dL POC Glucose (mg/dL) 157 H 127 H (75-99) mg/dL Total Protein 5.9 L (6.3-8.2) g/dL Albumin 3.2 L (3.5-5.0) g/dL 09/10/20 09/10/20 09/10/20 Range/Units 08:20 11:50 16:18 RBC 3.98 L (4.30-5.90) m/uL Hgb 12.3 L (13.0-17.5) gm/dL RDW 17.2 H (11.5-15.5) % Sodium (137-145) mmol/L Chloride (98-107) mmol/L Carbon Dioxide (22-30) mmol/L BUN (9-20) mg/dL Glucose (74-99) mg/dL POC Glucose (mg/dL) 161 H 138 H (75-99) mg/dL Total Protein (6.3-8.2) g/dL Albumin (3.5-5.0) g/dL
--- NOTE | 2020-09-10 17:24 | PN ---
PROGRESS NOTE DATE OF SERVICE: 09/10/2020 REASON FOR FOLLOWUP: 1. Urinary tract infection. 2. Left gluteal shingles. INTERVAL HISTORY: The patient is currently afebrile. He is breathing slightly comfortably. Denies having any chest pain. Did have some cough. No abdominal pain and no worsening pain to the bilateral gluteal wound area. PHYSICAL EXAMINATION: Blood pressure 104/64, pulse of 79, temperature 98.6. He is 97% on 2 L nasal cannula. General description is an elderly male lying in bed in no distress. RESPIRATORY SYSTEM: Unlabored breathing. Clear to auscultation anteriorly. HEART: S1, S2. Regular rate and rhythm. ABDOMEN: Soft. No tenderness. LABS: Hemoglobin is 12.8, white count 7.7, BUN of 28, creatinine 0.90. DIAGNOSTIC IMPRESSION AND PLAN: 1. Patient with catheter-associated urinary tract infection. Blanton has been changed. Urine with Kitty, covered with oral Diflucan. 2. Patient with left gluteal shingles. Continue with Valtrex to finish a seven- day course. 3. Right gluteal stage II pressure ulcer. Local wound care with dry Aquacel Silver dressing. Keep the area dry and off pressure. MMODL / IJN: [id number] / TROY
[2020-09-10 20:09] LABS: Glucose,Whole Blood 125 mg/dL (75-99)
--- NOTE | 2020-09-10 20:53 | DS ---
DISCHARGE SUMMARY DISCHARGE MEDICATIONS: 1. Cepacol lozenges p.r.n. for cough. 2. Lasix 80 mg p.o. b.i.d. 3. Aspirin 325 daily. 4. Diflucan 100 mg daily. 5. MiraLAX 17 grams p.o. daily. 6. Nitroglycerin sublingually 0.4 mg p.r.n. for pain. 7. Triad cream topically daily to decubitus wounds. 8. Acetaminophen 650 q.8 hours p.r.n. for pain. 9. Valtrex 1000 mg b.i.d. 10.Zaroxolyn 2.5 mg daily. 11.Zyloprim 100 mg daily. 12.Lipitor 40 mg daily. 13.Plavix 75 mg daily. 14.Magnesium oxide 250 daily. 15.Ascorbic acid 500 mg daily. 16.Ferrous sulfate 325 daily. 17.Restoril 7.5 mg p.o. at bedtime p.r.n. for insomnia. 18.Metoprolol tartrate 25 mg daily. 19.Cholestyramine packet 4 grams p.o. daily p.r.n. for diarrhea. 20.Vitamin D3 2000 international units daily. 21.Zofran 4 mg q.8 hours p.r.n. for nausea, vomiting. 22.Primatene 2.5 mg b.i.d. 23.Imodium 2 mg p.o. q.8 hours p.r.n. for diarrhea. 24.Probiotics daily. 25.Tylenol 650 as mentioned above at bedtime and every 4-6 p.r.n. 26.Lipitor 40 mg at bedtime. 27.Zyloprim 100 mg daily. 28.Plavix 75 mg daily. 29.Ascorbic acid 500 mg daily. 30.Magnesium oxide 250 daily. 31.Ferrous sulfate 325 daily. CONDITION: Stable. PROGNOSIS: Guarded. Ambulate as tolerated. His main problems are systolic congestive heart failure, ejection fraction less than 20%, on top of a urinary tract infection due to ayesha infection, for which he is going to be placed on Diflucan for the next week or two, and for probably another 10 days. He was treated with IV Lasix. Switch to oral Lasix. He had severe amount of third-spacing anasarca type changes due to CHF; that on top of the UTI made him obtunded. He had elevated troponin secondary to inflammation, hypomagnesemia. Will have to monitor his electrolytes as an outpatient. He had swelling in his lower trunk and extremities and upper legs. Monitor his electrolytes and his breathing, but he greatly improved in the hospital. He became much better with his breathing and mental status. He had metabolic encephalopathy. He is on 2 L, saturating 97% on discharge. Temperature 98.6, pulse 70 to 79, respiratory rate 16 to 18. Condition stable. Prognosis guarded. Diet as tolerated. MMODL / IJN: [id number] /
[2020-09-10] MEDS: ATORVASTATIN 40 MG TAB PO SCH (22:18)
[2020-09-10] MEDS: TEMAZEPAM 7.5 MG CAP PO PRN (22:18)
[2020-09-10] MEDS: ACETAMINOPHEN TAB 325 MG TAB PO SCH (22:19)
[2020-09-11 01:19] VITALS: RESP 18
[2020-09-11] MEDS: MIDODRINE 5 MG TAB PO SCH (05:57)
[2020-09-11 06:13] LABS: Glucose,Whole Blood 120 mg/dL (75-99)
[2020-09-11] MEDS ORDERED: ASPIRIN 81 MG PO SCH (09:00)
[2020-09-11] MEDS: FUROSEMIDE 80 MG TAB PO SCH ×2 (10:08→15:50)
[2020-09-11] MEDS: polyethylene glycoL 3350 17 GM POWD.PACK PO SCH (10:08)
[2020-09-11] MEDS: FLUCONAZOLE 100 MG TAB PO SCH (10:08)
[2020-09-11] MEDS: CHOLESTYRAMINE (WITH SUGAR) 4 GM PACKET PO SCH (10:08)
[2020-09-11] MEDS: LACTOBACILLUS ACIDOPH & BULGAR 1 EACH PACKET PO SCH (10:08)
[2020-09-11] MEDS: valACYclovir HCL 1,000 MG TABLET PO SCH (10:09)
[2020-09-11] MEDS: METOPROLOL TARTRATE 25 MG TAB PO SCH (10:09)
[2020-09-11] MEDS: FERROUS SULFATE 325 MG TAB PO SCH (10:09)
[2020-09-11] MEDS: guaiFENesin 600 MG TABLET.ER PO SCH (10:09)
[2020-09-11] MEDS: CHOLECALCIFEROL 25 MCG (1000 IU) TABLET PO SCH (10:09)
[2020-09-11] MEDS: ASCORBIC ACID 500 MG TAB PO SCH (10:09)
[2020-09-11] MEDS: MAGNESIUM OXIDE 400 MG TAB PO SCH (10:09)
[2020-09-11] MEDS: CLOPIDOGREL 75 MG TAB PO SCH (10:09)
[2020-09-11] MEDS: allopurinoL 100 MG TAB PO SCH (10:10)
[2020-09-11] MEDS: metOLazone 2.5 MG TAB PO SCH (10:10)
[2020-09-11] MEDS: HYDROPHILIC CREAM 180 GM TUBE TOPICAL SCH (10:23)
[2020-09-11 10:37] VITALS: TEMP 97.6
--- NOTE | 2020-09-11 11:17 | P.PN ---
Subjective Progress Note Date: 09/11/20 Principal diagnosis: Shortness of breath related to acute on chronic systolic heart failure Severe systolic heart failure ejection fraction of less than 20%, Bilateral small pleural effusion likely related to acute on chronic systolic heart failure Acute hypoxic respiratory failure slowly improving with supplemental oxygen, Elevated troponin of unclear etiology Positive leukocyte is trace likely related to candidauria, Diflucan has been started with advice to change the Blanton's catheter 09/11/2020, patient seen eval examined during the rounds labs reviewed medications reviewed care plan discussed, respiratory status remains stable but however patient continued to require 2 L oxygen, lower extremity edema and swelling slightly better, patient is being planned for placement in ECF, 09/10/2020, patient seen eval examined during the rounds labs reviewed medications reviewed care plan discussed, respiratory status remains stable, liter oxygen, patient is still have extensive lower extremity edema in lower abdominal wall edema, Zaroxolyn has been admitted patient continued on Lasix discharge was canceled due to presence of severe third spacing and edema of the lower extremity 09/09/2020, patient seen eval examined during the rounds labs reviewed medications reviewed, still have extensive lower extremity edema up to the mid abdominal level, denies any cough or sputum production remains on 2 L, patient is being diuresed as per cardiology recommendations 09/08/2020, patient seen eval examined during the rounds labs reviewed medications reviewed care plan discussed with the patient and staff at length, he remains intermittently short of breath, cardiovascular services following medical therapy is being maximized, on 2 L oxygen denies any chest pain does have shortness dyspnea on exertion however, patient has been having adequate urine output, and lower extremities have Robin wrap, 09/07/2020, patient seen eval examined during the rounds labs reviewed medications reviewed care plan discussed, respiratory status stable, on 2 L off and on using oxygen denies any chest pain, making urine adequately, swelling in the extremity continued to improve patient has Robin wrap as well, 09/06/2020, patient seen eval examined respiratory status remains stable off and on 2 L nasal cannula, denies any chest pain, exertional dyspnea however is present, cardiovascular services following, patient is being diuresed, patient has been applied Robin wrap and lower extremity seems to be helping, 09/05/2020, patient seen eval examined during the rounds labs reviewed medications reviewed, still short of breath on 2 L oxygen, patient is being diuresed, he is wrapping is to be applied on the lower extremity as well, denies any cough or sputum production remains afebrile otherwise This is a 79-year-old male who was seen eval reexamined, patient does have a history of prostate cancer with chronic lower extremity swelling which were getting worse post radiation therapy, patient noted to have a low pulse ox advised to be evaluated further, patient has +3 lower extremity edema he has a history of dyslipidemia, coronary artery disease, prostate cancer, prior HI, history of status post stroke with right-sided weakness, carotid endarterectomy with history of cardiac bypass surgery, used to smoke in the past, on arrival he was noted to have hypertensive with evidence of chronic kidney injury, covert testing was negative, labs were mildly elevated, and was positive for leukocyte esterase trace, patient has significant electrolyte abnormality including hypon atremia and hypomagnesemia as well, patient has a previous echocardiogram back in July 2020 shown to have a significant chronic systolic heart failure ejection fraction of less than 20% and severe aortic stenosis with a valve 80 or less than a centimeter, chest x-ray revealed cardiomegaly along with interstitial edema and small pleural effusion consistent with heart failure among currently oxygen saturation is 94-98% on 2 L oxygen, Objective - Vital Signs Vital signs: Vital Signs Temp 97.6 F 09/11/20 10:24 Pulse 85 09/11/20 10:24 Resp 18 09/11/20 10:24 BP 111/79 09/11/20 10:24 Pulse Ox 93 L 09/11/20 10:24 Intake & Output 09/10/20 09/11/20 09/11/20 18:59 06:59 18:59 Intake Total 738 20 790 Output Total 625 500 400 Balance 113 -480 390 Intake: IV 20 20 10 Invasive Line 3 20 20 10 Oral [id number] Output: Urine 625 500 400 Other: Voiding Method Indwelling Catheter Indwelling Catheter Indwelling Catheter - Exam - Constitutional General appearance: disheveled, morbidly obese, no acute distress - EENT Eyes: PERRLA Ears: bilateral: normal - Neck Carotids: bilateral: upstroke delayed Thyroid: bilateral: normal size - Respiratory Respiratory: bilateral: diminished - Cardiovascular Rhythm: regular Heart sounds: normal: S1, S2 - Gastrointestinal General gastrointestinal: hyperactive bowel sounds - Integumentary +3 lower extremity edema Integumentary: normal, normal turgor - Neurologic Neurologic: CNII-XII intact - Musculoskeletal Musculoskeletal: gait normal, generalized weakness, strength equal bilaterally, extensive +3 edema extending up to lower abdomen level - Psychiatric Psychiatric: A&O x's 3, appropriate affect, intact judgment & insight - Labs CBC & Chem 7: 09/10/20 08:20 09/10/20 08:20 Labs: Abnormal Lab Results - Last 24 Hours (Table) 09/10/20 09/10/20 09/10/20 Range/Units 11:50 16:18 20:06 POC Glucose (mg/dL) 161 H 138 H 125 H (75-99) mg/dL 09/11/20 Range/Units 06:11 POC Glucose (mg/dL) 120 H (75-99) mg/dL Assessment and Plan Assessment: Shortness of breath related to acute on chronic systolic heart failure Severe systolic heart failure ejection fraction of less than 20%, Bilateral small pleural effusion likely related to acute on chronic systolic heart failure Acute hypoxic respiratory failure slowly improving with supplemental oxygen, Elevated troponin of unclear etiology Severe lower extremity edema Positive leukocyte is trace likely related to candidauria, Diflucan has been st arted with advice to change the Blanton's catheter Plan: Robin wrap to lower extremity Supplemental oxygen Continue Gentle diuresis Breathing exercise Incentive spirometry No aggressive intervention recommended for small pleural effusion will monitor observe closely Time with Patient: Greater than 30
[2020-09-11 11:42] LABS: Glucose,Whole Blood 144 mg/dL (75-99)
[2020-09-11 12:10] VITALS: BP 118/68; PULSE 86
--- NOTE | 2020-09-11 13:59 | P.PN ---
Subjective Patient is pleasant 80-year-old male with history of abdominal aortic aneurysm, bilateral carotid artery disease, prostate cancer s/p radiation, hypertension, coronary artery disease status post CABG in 2011, ischemic cardiomyopathy with ejection fraction <20%, moderate mitral regurgitation, moderate aortic insufficiency, hyperlipidemia, chronic kidney disease and former tobacco abuse. Patient follows with Dr. Cochran. We are following the patient for congestive heart failure and elevated troponin. Elevated troponin trend 0.05--0.08--0.14--0.08. Patient has been IV Lasix started on 09/04/20, patient was hyponatremia and his volume status has been monitored. Patient has had a lot of urine output. Echocardiogram 08/05/2020 showed ejection fraction less than 20%, aortic stenosis concerning for low-flow low gradient with aortic valve area by continuity 0.9 09/11/20: Patient seen and examined at bedside. No complaints at this time. Patient con tinues to have good urine output with 1.1L over the past 24 hours. Continues to have lower extremity edema. Blood pressure 118/68, heart rate 86 afebrile, maintaining oxygen saturations 94 % on 2 L nasal cannula. Patient currently being maintained on aspirin 81 mg daily, atorvastatin 40 mg nightly, Lasix 80 mg twice a day, metoprolol tartrate 25 mg daily, midodrine 2.5 mg twice daily GENERAL: no acute distress. NECK: Supple without JVD or thyromegaly. LUNGS: Breath sounds clear to auscultation bilaterally. Respiration equal and unlabored. No wheezes, rales or rhonchi. HEART: Regular rate and rhythm without murmurs, rubs or gallops. S1 and S2 heard. EXTREMITIES: Bilateral legs wrappe din GORDY wraps. Continues to have 2+ edema in bilateral lower extremities up to thighs. No clubbing or cyanosis. Peripheral pulses intact. ASSESSMENT Elevated troponins of unclear significance. Patient denying any specific angina-type symptoms. Hyponatremia- improving Coronary artery disease with history of CABG in 2011 History of ischemic cardiomyopathy ejection fraction <20% Acute on chronic systolic heart failure History of prostate cancer status post radiation, currently with a Blanton in plac e for last month and a half Aortic stenosis, may be low flow low gradient with AMANDA by continuity of 0.9cm2 however no elevated gradients PLAN Patient's plan to go to [place] on discharge Patient hemodynamically stable, no further changes from cardiology standpoint. We will sign off at this time, please reach out with any further questions or concerns Patient can follow up in [facility] office with Dr. Cochran Objective - Vital Signs Vital signs: Vital Signs Temp 97.6 F 09/11/20 10:24 Pulse 86 09/11/20 12:09 Resp 18 09/11/20 12:09 BP 118/68 09/11/20 12:09 Pulse Ox 94 L 09/11/20 12:09 Intake & Output 09/10/20 09/11/20 09/11/20 18:59 06:59 18:59 Intake Total 738 20 790 Output Total 625 500 400 Balance 113 -480 390 Intake: IV 20 20 10 Invasive Line 3 20 20 10 Oral [id number] Output: Urine 625 500 400 Other: Voiding Method Indwelling Catheter Indwelling Catheter Indwelling Catheter - Labs CBC & Chem 7: 09/10/20 08:20 09/10/20 08:20 Labs: Abnormal Lab Results - Last 24 Hours (Table) 09/10/20 09/10/20 09/11/20 Range/Units 16:18 20:06 06:11 POC Glucose (mg/dL) 138 H 125 H 120 H (75-99) mg/dL 09/11/20 Range/Units 11:40 POC Glucose (mg/dL) 144 H (75-99) mg/dL
--- NOTE | 2020-09-11 16:35 | P.PN ---
Progress Note - Text Progress Note Date: 09/11/20 REASON FOR FOLLOWUP: 1. Urinary tract infection. 2. Left gluteal shingles. INTERVAL HISTORY: The patient is afebrile. The pt is breathing comfortably. Pt denies having any chest pain. Did have some cough. No abdominal pain and no worsening pain to the bilateral gluteal wound area. PHYSICAL EXAMINATION: Blood pressure 110/60, pulse of 70, temperature 98.6. He is 97% on 2 L nasal cannula. General description is an elderly male lying in bed in no distress. RESPIRATORY SYSTEM: Unlabored breathing. Clear to auscultation anteriorly. HEART: S1, S2. Regular rate and rhythm. ABDOMEN: Soft. No tenderness. LABS: Reviewed DIAGNOSTIC IMPRESSION AND PLAN: 1. Patient with catheter-associated urinary tract infection. Blanton has been changed. Urine with Kitty, covered with oral Diflucan x 3 more days. 2. Patient with left gluteal shingles. Continue with Valtrex 1gm BID to finish a seven-day course. 3. Right gluteal stage II pressure ulcer. Local wound care with dry Aquacel Silver dressing. Keep the area dry and off pressure.
== END 2020-09-11 16:04 | DRG 291 ==
LOC: EC 09:02 → 3SCARD 11:17
PROVIDERS: ADMIT Family Medicine; ATTEND Family Medicine
DX: I13.0 Hypertensive heart and chronic kidney disease with heart failure and stage 1 through stage 4 chronic kidney disease, or unspecified chronic kidney disease (principal); I50.23 Acute on chronic systolic (congestive) heart failure; J96.01 Acute respiratory failure with hypoxia; G93.41 Metabolic encephalopathy; T83.511A Infection and inflammatory reaction due to indwelling urethral catheter, initial encounter; E87.1 Hypo-osmolality and hyponatremia; B37.49 Other urogenital candidiasis; T83.518A Infection and inflammatory reaction due to other urinary catheter, initial encounter; E44.1 Mild protein-calorie malnutrition; K57.92 Diverticulitis of intestine, part unspecified, without perforation or abscess without bleeding; E11.622 Type 2 diabetes mellitus with other skin ulcer; E11.22 Type 2 diabetes mellitus with diabetic chronic kidney disease; E78.5 Hyperlipidemia, unspecified; Z85.46 Personal history of malignant neoplasm of prostate; Z92.21 Personal history of antineoplastic chemotherapy; M19.90 Unspecified osteoarthritis, unspecified site; Z95.1 Presence of aortocoronary bypass graft; Z95.5 Presence of coronary angioplasty implant and graft; Z86.73 Personal history of transient ischemic attack (TIA), and cerebral infarction without residual deficits; N18.30 Chronic kidney disease, stage 3 unspecified; R19.7 Diarrhea, unspecified; E11.51 Type 2 diabetes mellitus with diabetic peripheral angiopathy without gangrene; L89.152 Pressure ulcer of sacral region, stage 2; E66.9 Obesity, unspecified; Z79.899 Other long term (current) drug therapy; D63.1 Anemia in chronic kidney disease; E86.0 Dehydration; E83.42 Hypomagnesemia; D72.810 Lymphocytopenia; I25.10 Atherosclerotic heart disease of native coronary artery without angina pectoris; I08.0 Rheumatic disorders of both mitral and aortic valves; I25.5 Ischemic cardiomyopathy; Z86.79 Personal history of other diseases of the circulatory system; Z87.891 Personal history of nicotine dependence; Z92.3 Personal history of irradiation; I25.2 Old myocardial infarction; H26.9 Unspecified cataract; Z79.84 Long term (current) use of oral hypoglycemic drugs; I71.4 Abdominal aortic aneurysm, without rupture; L98.492 Non-pressure chronic ulcer of skin of other sites with fat layer exposed; L89.312 Pressure ulcer of right buttock, stage 2; R25.1 Tremor, unspecified; L89.322 Pressure ulcer of left buttock, stage 2; Z79.82 Long term (current) use of aspirin; Z79.02 Long term (current) use of antithrombotics/antiplatelets; Y84.6 Urinary catheterization as the cause of abnormal reaction of the patient, or of later complication, without mention of misadventure at the time of the procedure; Z68.29 Body mass index [BMI] 29.0-29.9, adult; R33.9 Retention of urine, unspecified; B02.9 Zoster without complications; C61 Malignant neoplasm of prostate; Z82.49 Family history of ischemic heart disease and other diseases of the circulatory system; Z83.3 Family history of diabetes mellitus; Z20.822 Contact with and (suspected) exposure to COVID-19; R77.8 Other specified abnormalities of plasma proteins; Z74.01 Bed confinement status; G47.00 Insomnia, unspecified; Z98.42 Cataract extraction status, left eye
CPT/HCPCS: 36415; 71046; 74018; 80048; 80053; 80061; 81001; 82550; 83690; 83735; 83880; 84484; 85025; 87086; 87635; 96360; 96361; 99285

== ENCOUNTER 2020-09-21 16:38 | Inpatient (IN) | payer MEDICARE, BC ==
--- NOTE | 2020-09-21 16:58 | ED ---
Weakness HPI - General Chief complaint: Weakness Stated complaint: WEAKNESS Time Seen by Provider: 09/21/20 16:55 Source: patient, EMS Mode of arrival: EMS Limitations: no limitations - History of Present Illness Initial comments: 79-year-old male who presents emergency Department with reported altered mental status. The patient does come from [facility]. Staff at the facility reported that the patient had some altered mental status. Last known well was yesterday. They did have concern for stroke as they thought the patient had some left-sided facial droop. EMS report that they were called to the facility where they stated the patient was completely unresponsive. EMS states that they walked into the room and found the patient alert and able to answer all questions appropriately. I felt the patient looked fatigued and dehydrated. Upon arrival to the hospital the patient states that he has been hospitalized multiple times for the same complaint. He reports that they "send him to the hospital all the time thinking he is having a stroke". Patient denies weakness in his extremities. No confusion or speech difficulties. Patient reports to a poor appetite with poor oral intake. Admits to feeling generally weak. No recent falls or head trauma. No abdominal pain. No other alleviating, precipitating or modifying factors - Related Data Home Medications Medication Instructions Recorded Confirmed Atorvastatin [Lipitor] 40 mg PO HS@209901/30/14 09/29/20 allopurinoL [Zyloprim] 100 mg PO DAILY@89901/30/14 09/29/20 Clopidogrel [Plavix] 75 mg PO DAILY@89905/02/14 09/29/20 Ascorbic Acid [Vitamin C] 500 mg PO DAILY@89908/14/14 09/29/20 Magnesium Oxide [Mag-Ox] 250 mg PO DAILY@89908/14/14 09/29/20 Ferrous Sulfate [Iron (65 MG 325 mg PO DAILY@89905/19/20 09/29/20 Elemental)] Acetaminophen Tab [Tylenol] 650 mg PO HS 09/03/20 09/29/20 Cholecalciferol [Vitamin D3 (25 50 mcg PO DAILY@89909/03/20 09/29/20 Mcg = 1000 Iu)] Lactobacillus Acidophilus 1 cap PO DAILY@89909/03/20 09/29/20 [Acidophilus Probiotic] Metoprolol Tartrate [Lopressor] 25 mg PO DAILY@0900 09/03/20 09/29/20 Midodrine HCl [ProAmantine] 2.5 mg PO BID@0900,2100 09/03/20 09/29/20 Ondansetron [Zofran] 4 mg PO Q8HR PRN 09/03/20 09/29/20 Aspirin 325 mg PO DAILY@0900 09/21/20 09/29/20 Benzocaine/Menthol Lozeng [Cepacol 1 lozenge MUCOUS MEM Q4HR PRN 09/21/20 09/29/20 lozenge] Fluconazole [Diflucan] 100 mg PO DAILY@0900 09/21/20 09/29/20 Furosemide [Lasix] 80 mg PO BID@0900,1600 09/21/20 09/29/20 Multivitamins, Thera [Multivitamin 1 tab PO DAILY@0909/21/20 09/29/20 (formulary)] Potassium Chloride ER [K-Dur 20] 20 meq PO DAILY@0900 09/21/20 09/29/20 Prostat 30 ml PO DAILY@0900 09/21/20 09/29/20 Temazepam [Restoril] 15 mg PO HS@2100 09/21/20 09/29/20 metOLazone [Zaroxolyn] 2.5 mg PO DAILY@89909/21/20 09/29/20 polyethylene glycoL 3350 [Miralax] 17 gm PO DAILY@0900 09/21/20 09/29/20 Previous Rx's Medication Instructions Recorded Acetaminophen Tab [Tylenol] 650 mg PO Q6HR PRN tab 09/10/20 Nitroglycerin Sl Tabs [Nitrostat] 0.4 mg SUBLINGUAL Q5M PRN tab 09/10/20 Loperamide [Imodium] 2 mg PO Q8H PRN #9 cap 09/11/20 Temazepam [Restoril] 7.5 mg PO HS PRN #3 cap 09/11/20 Allergies Allergy/AdvReac Type Severity Reaction Status Date / Time No Known Allergies Allergy Verified 09/29/20 12:40 Review of Systems ROS Statement: Those systems with pertinent positive or pertinent negative responses have been documented in the HPI. ROS Other: All systems not noted in ROS Statement are negative. 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 Last Myocardial Infarction Date:: 2011 History of Any Multi-Drug Resistant Organisms: None Reported Past Surgical History: Back Surgery, Coronary Bypass/CABG, Heart Catheterization, Heart Catheterization With Stent Additional Past Surgical History / Comment(s): 2011 CABG 3 vessel, vascular procedures/stents in bilaeteral common iliac arteries, bilateral SFA stents, colonoscopy, prostate biopsy, spacOAR implant Past Anesthesia/Blood Transfusion Reactions: No Reported Reaction Date of Last Stent Placement:: 2014 Past Psychological History: No Psychological Hx Reported Smoking Status: Former smoker Past Alcohol Use History: Rare Past Drug Use History: None Reported - Past Family History Father Family Medical History: Hypertension Additional Family Medical History / Comment(s): Father at age 82yrs. Mother Family Medical History: Diabetes Mellitus Additional Family Medical History / Comment(s): Mother at age 69yrs. General Exam Limitations: no limitations General appearance: alert, in no apparent distress Head exam: Present: atraumatic, normocephalic, normal inspection Eye exam: Present: normal appearance, PERRL, EOMI. Absent: scleral icterus, conjunctival injection, periorbital swelling ENT exam: Present: normal exam, mucous membranes moist Neck exam: Present: normal inspection. Absent: tenderness, meningismus, lymphadenopathy Respiratory exam: Present: rales. Absent: respiratory distress, wheezes, rhonchi, stridor Cardiovascular Exam: Present: regular rate, normal rhythm, normal heart sounds. Absent: systolic murmur, diastolic murmur, rubs, gallop, clicks GI/Abdominal exam: Present: soft, normal bowel sounds. Absent: distended, tenderness, guarding, rebound, rigid Extremities exam: Present: normal inspection, full ROM, normal capillary refill, pedal edema. Absent: tenderness, joint swelling, calf tenderness Back exam: Present: normal inspection Neurological exam: Present: alert, oriented X3, CN II-XII intact Psychiatric exam: Present: normal affect, normal mood Skin exam: Present: warm, dry, intact, normal color. Absent: rash Course Vital Signs 09/21/20 09/21/20 09/21/20 16:53 18:31 20:39 Temperature 98.1 F 98.1 F Pulse Rate 96 74 97 Respiratory 18 16 22 Rate Blood Pressure 101/83 109/83 106/85 O2 Sat by Pulse 88 L 96 98 Oximetry 09/21/20 21:29 Temperature 98.2 F Pulse Rate 82 Respiratory 20 Rate Blood Pressure 93/69 O2 Sat by Pulse 96 Oximetry EKG Findings - EKG Comments: EKG Findings:: EKG demonstrates sinus rhythm with PACs. Left bundle branch block. Rate of 77. QRS 200. QTC of 146. QTC 518. Medical Decision Making - Medical Decision Making On arrival patient was placed into room 1. A thorough history and physical exam was performed. NIH is 0. Patient does admit to generalized weakness for which workup was performed. Laboratory studies demonstrate a sodium of 125. Potassium 3.2. Creatinine 1.8. Troponin 0.305. BNP 71,700. Chest x-ray demonstrates findings consistent with marked CHF similar in degree from September 03. CT of the brain was performed because of the reported confusion however this fails to demonstrate any acute findings. I did slowly hydrate the patient due to his acute kidney injury. Patient unfortunately has significant third spacing. I recommended hospital admission for which I spoke with Dr. Duff. S he agreed to admisson with slow hydration. I will place a consult for nephrology and cardiology. given aspirin. We'll trend his troponins. Patient remained in stable condition was taken of the floor - Lab Data Result diagrams: 09/22/20 06:22 09/26/20 07:20 Lab Results 09/21/20 09/21/20 09/21/20 Range/Units 17:45 17:45 18:10 WBC 10.9 H (3.8-10.6) k/uL RBC 4.18 L (4.30-5.90) m/uL Hgb 12.9 L (13.0-17.5) gm/dL Hct 40.7 (39.0-53.0) % MCV 97.4 (80.0-100.0) fL MCH 30.8 (25.0-35.0) pg MCHC 31.6 (31.0-37.0) g/dL RDW 18.7 H (11.5-15.5) % Plt Count 207 (150-450) k/uL MPV 7.7 Neutrophils % 85 % Lymphocytes % 7 % Monocytes % 7 % Eosinophils % 0 % Basophils % 0 % Neutrophils # 9.2 H (1.3-7.7) k/uL Lymphocytes # 0.7 L (1.0-4.8) k/uL Monocytes # 0.7 (0-1.0) k/uL Eosinophils # 0.0 (0-0.7) k/uL Basophils # 0.0 (0-0.2) k/uL Anisocytosis Slight Macrocytosis Slight PT (9.0-12.0) sec INR (<1.2) APTT (22.0-30.0) sec Sodium (137-145) mmol/L Potassium (3.5-5.1) mmol/L Chloride (98-107) mmol/L Carbon Dioxide (22-30) mmol/L Anion Gap mmol/L BUN (9-20) mg/dL Creatinine (0.66-1.25) mg/dL Est GFR (CKD-EPI)AfAm (>60 ml/min/1.73 sqM) Est GFR (CKD-EPI)NonAf (>60 ml/min/1.73 sqM) Glucose (74-99) mg/dL Plasma Lactic Acid Darion (0.7-2.0) mmol/L Calcium (8.4-10.2) mg/dL Magnesium (1.6-2.3) mg/dL Total Bilirubin (0.2-1.3) mg/dL AST (17-59) U/L ALT (4-49) U/L Alkaline Phosphatase (38-126) U/L Creatine Kinase (55-170) U/L Troponin I (0.000-0.034) ng/mL NT-Pro-B Natriuret Pep pg/mL Total Protein (6.3-8.2) g/dL Albumin (3.5-5.0) g/dL Urine Color Yellow Urine Appearance Cloudy (Clear) Urine pH 5.0 (5.0-8.0) Ur Specific [place] 1.011 (1.001-1.035) Urine Protein Trace H (Negative) Urine Glucose (UA) Negative (Negative) Urine Ketones Negative (Negative) Urine Blood Negative (Negative) Urine Nitrite Negative (Negative) Urine Bilirubin Negative (Negative) Urine Urobilinogen <2.0 (<2.0) mg/dL Ur Leukocyte Esterase Trace H (Negative) Urine RBC 1 (0-5) /hpf Urine WBC 1 (0-5) /hpf Ur Squamous Epith Cells 1 (0-4) /hpf Urine Bacteria Few H (None) /hpf Hyaline Casts 90 H (0-2) /lpf Urine Mucus Few H (None) /hpf Influenza Type A (PCR) Not Detected (Not Detectd) Influenza Type B (PCR) Not Detected (Not Detectd) RSV (PCR) Not Detected (Not Detectd) SARS-CoV-2 (PCR) Not Detected (Not Detectd) 09/21/20 09/21/20 09/21/20 Range/Units 18:10 18:10 18:10 WBC (3.8-10.6) k/uL RBC (4.30-5.90) m/uL Hgb (13.0-17.5) gm/dL Hct (39.0-53.0) % MCV (80.0-100.0) fL MCH (25.0-35.0) pg MCHC (31.0-37.0) g/dL RDW (11.5-15.5) % Plt Count (150-450) k/uL MPV Neutrophils % % Lymphocytes % % Monocytes % % Eosinophils % % Basophils % % Neutrophils # (1.3-7.7) k/uL Lymphocytes # (1.0-4.8) k/uL Monocytes # (0-1.0) k/uL Eosinophils # (0-0.7) k/uL Basophils # (0-0.2) k/uL Anisocytosis Macrocytosis PT 13.2 H (9.0-12.0) sec INR 1.3 H (<1.2) APTT 29.0 (22.0-30.0) sec Sodium 125 L (137-145) mmol/L Potassium 3.2 L (3.5-5.1) mmol/L Chloride 77 L (98-107) mmol/L Carbon Dioxide 38 H (22-30) mmol/L Anion Gap 10 mmol/L BUN 67 H (9-20) mg/dL Creatinine 1.86 H (0.66-1.25) mg/dL Est GFR (CKD-EPI)AfAm 40 (>60 ml/min/1.73 sqM) Est GFR (CKD-EPI)NonAf 34 (>60 ml/min/1.73 sqM) Glucose 116 H (74-99) mg/dL Plasma Lactic Acid Darion 1.6 (0.7-2.0) mmol/L Calcium 9.1 (8.4-10.2) mg/dL Magnesium 2.0 (1.6-2.3) mg/dL Total Bilirubin 1.2 (0.2-1.3) mg/dL AST 132 H (17-59) U/L ALT 124 H (4-49) U/L Alkaline Phosphatase 130 H (38-126) U/L Creatine Kinase 63 (55-170) U/L Troponin I (0.000-0.034) ng/mL NT-Pro-B Natriuret Pep pg/mL Total Protein 5.8 L (6.3-8.2) g/dL Albumin 3.1 L (3.5-5.0) g/dL Urine Color Urine Appearance (Clear) Urine pH (5.0-8.0) Ur Specific [place] (1.001-1.035) Urine Protein (Negative) Urine Glucose (UA) (Negative) Urine Ketones (Negative) Urine Blood (Negative) Urine Nitrite (Negative) Urine Bilirubin (Negative) Urine Urobilinogen (<2.0) mg/dL Ur Leukocyte Esterase (Negative) Urine RBC (0-5) /hpf Urine WBC (0-5) /hpf Ur Squamous Epith Cells (0-4) /hpf Urine Bacteria (None) /hpf Hyaline Casts (0-2) /lpf Urine Mucus (None) /hpf Influenza Type A (PCR) (Not Detectd) Influenza Type B (PCR) (Not Detectd) RSV (PCR) (Not Detectd) SARS-CoV-2 (PCR) (Not Detectd) 09/21/20 09/21/20 Range/Units 18:10 18:10 WBC (3.8-10.6) k/uL RBC (4.30-5.90) m/uL Hgb (13.0-17.5) gm/dL Hct (39.0-53.0) % MCV (80.0-100.0) fL MCH (25.0-35.0) pg MCHC (31.0-37.0) g/dL RDW (11.5-15.5) % Plt Count (150-450) k/uL MPV Neutrophils % % Lymphocytes % % Monocytes % % Eosinophils % % Basophils % % Neutrophils # (1.3-7.7) k/uL Lymphocytes # (1.0-4.8) k/uL Monocytes # (0-1.0) k/uL Eosinophils # (0-0.7) k/uL Basophils # (0-0.2) k/uL Anisocytosis Macrocytosis PT (9.0-12.0) sec INR (<1.2) APTT (22.0-30.0) sec Sodium (137-145) mmol/L Potassium (3.5-5.1) mmol/L Chloride (98-107) mmol/L Carbon Dioxide (22-30) mmol/L Anion Gap mmol/L BUN (9-20) mg/dL Creatinine (0.66-1.25) mg/dL Est GFR (CKD-EPI)AfAm (>60 ml/min/1.73 sqM) Est GFR (CKD-EPI)NonAf (>60 ml/min/1.73 sqM) Glucose (74-99) mg/dL Plasma Lactic Acid Darion (0.7-2.0) mmol/L Calcium (8.4-10.2) mg/dL Magnesium (1.6-2.3) mg/dL Total Bilirubin (0.2-1.3) mg/dL AST (17-59) U/L ALT (4-49) U/L Alkaline Phosphatase (38-126) U/L Creatine Kinase (55-170) U/L Troponin I 0.305 H* (0.000-0.034) ng/mL NT-Pro-B Natriuret Pep 48738 pg/mL Total Protein (6.3-8.2) g/dL Albumin (3.5-5.0) g/dL Urine Color Urine Appearance (Clear) Urine pH (5.0-8.0) Ur Specific [place] (1.001-1.035) Urine Protein (Negative) Urine Glucose (UA) (Negative) Urine Ketones (Negative) Urine Blood (Negative) Urine Nitrite (Negative) Urine Bilirubin (Negative) Urine Urobilinogen (<2.0) mg/dL Ur Leukocyte Esterase (Negative) Urine RBC (0-5) /hpf Urine WBC (0-5) /hpf Ur Squamous Epith Cells (0-4) /hpf Urine Bacteria (None) /hpf Hyaline Casts (0-2) /lpf Urine Mucus (None) /hpf Influenza Type A (PCR) (Not Detectd) Influenza Type B (PCR) (Not Detectd) RSV (PCR) (Not Detectd) SARS-CoV-2 (PCR) (Not Detectd) Disposition Clinical Impression: Dehydration, Hyponatremia, Acute on chronic systolic CHF (congestive heart failure), Urinary retention Disposition: ADMITTED IP TO THIS [facility] Condition: Poor Is patient prescribed a controlled substance at d/c from ED?: No Decision to Admit Reason: Admit from EC Decision Date: 09/21/20 Decision Time: 19:03
--- NOTE | 2020-09-21 17:43 | CT ---
EXAMINATION TYPE: CT brain wo con DATE OF EXAM: 09/21/2020 COMPARISON: None HISTORY: weakness CT DLP: 1189.4 mGycm Automated exposure control for dose reduction was used. FINDINGS: The ventricles, basal cisterns and sulci over the convexities are moderately enlarged consistent with the patient's age. There is no acute intra or extra-axial hemorrhage. There is no mass effect or shift of midline structures. There are remote lacunar infarcts in the left periventricular white matter. The posterior fossa is grossly normal. Intraorbital contents are normal and symmetric. There is mild mucosal thickening in the left maxillary sinus. There is fluid in the right mastoid air cells. IMPRESSION: MODERATE ATROPHY APPROPRIATE FOR THE PATIENT'S AGE. NO ACUTE BLEED OR MASS EFFECT. REMOTE LACUNAR INF ARCTS IN THE LEFT PERIVENTRICULAR WHITE MATTER.
--- NOTE | 2020-09-21 17:48 | XR ---
EXAMINATION TYPE: XR chest 2V DATE OF EXAM: 09/21/2020 COMPARISON: 09/03/2020 HISTORY: Weakness TECHNIQUE: Frontal and lateral views of the chest are obtained. FINDINGS: There is cardiomegaly and diffuse interstitial opacity with small bilateral pleural effusi ons. Findings are most consistent with CHF. There is been no significant interval change when compare d to the prior study. There are median sternotomy wires otherwise the osseous structures are intact. There is no pneumothorax IMPRESSION: Findings consistent with marked CHF similar in degree to that seen on 09/03/2020
[2020-09-21 18:25] LABS: Albumin 3.1 g/dL (3.5-5.0); Calcium 9.1 mg/dL (8.4-10.2); INR 1.3 (<1.2); Potassium 3.2 mmol/L (3.5-5.1); Prothrombin Time 13.2 sec (9.0-12.0); Total Bilirubin 1.2 mg/dL (0.2-1.3); Total Protein 5.8 g/dL (6.3-8.2)
[2020-09-21 18:42] LABS: Anisocytosis Slight; Basophils % (A) 0 %; Eosinophils % (A) 0 %; HCT 40.7 % (39.0-53.0); HGB 12.9 gm/dL (13.0-17.5); Lymphocytes # (A) 0.7 k/uL (1.0-4.8); Lymphocytes % (A) 7 %; MCH 30.8 pg (25.0-35.0); MCHC 31.6 g/dL (31.0-37.0); MCV 97.4 fL (80.0-100.0); Macrocytosis Slight; Mean Platelet Volume 7.7; Monocytes # (A) 0.7 k/uL (0-1.0); Monocytes % (A) 7 %; Neutrophils # (A) 9.2 k/uL (1.3-7.7); Neutrophils % (A) 85 %; Platelet Count 207 k/uL (150-450); RBC 4.18 m/uL (4.30-5.90); RDW 18.7 % (11.5-15.5); WBC 10.9 k/uL (3.8-10.6)
[2020-09-21 18:46] LABS: Appearance,Urine Cloudy (Clear); Bacteria,Urine Few /hpf; Bilirubin,Urine Negative (Negative); Blood,Urine Negative (Negative); Color,Urine Yellow; Glucose,Urine (UA) Negative (Negative); Hyaline Casts,Urine 90 /lpf (0-2); Ketones,Urine Negative (Negative); Leukocyte Esterase,Urine Trace (Negative); Mucus,Urine Few /hpf; Nitrite,Urine Negative (Negative); Protein,Urine Trace (Negative); RBC,Urine 1 /hpf (0-5); Specific Gravity,Urine 1.011 (1.001-1.035); Squamous Epithelial Cell,Urine 1 /hpf (0-4); Urobilinogen,Urine <2.0 mg/dL (<2.0); WBC,Urine 1 /hpf (0-5)
[2020-09-21] MEDS ORDERED: SODIUM CHLORIDE 0.9% 1,000 ML IV SCH (19:00)
[2020-09-21] MEDS ORDERED: NALOXONE 0.4 MG/ML 1 ML VIAL IV PRN (19:03)
[2020-09-21] MEDS ORDERED: ASPIRIN 325 MG TAB PO STA (19:07)
[2020-09-21] MEDS ORDERED: TEMAZEPAM 7.5 MG CAP PO PRN (23:03)
[2020-09-22 06:19] LABS: Glucose,Whole Blood 127 mg/dL (75-99)
[2020-09-22 07:47] LABS: Calcium 8.5 mg/dL (8.4-10.2)
[2020-09-22 07:57] LABS: Potassium 2.7 mmol/L (3.5-5.1)
[2020-09-22] MEDS ORDERED: Potassium Replacement Protocol 1 EACH MISC MISCELLANE PRN ×2 (08:00→15:04)
[2020-09-22 08:03] LABS: Anisocytosis Slight; Basophils % (A) 0 %; Eosinophils # (A) 0.1 k/uL (0-0.7); Eosinophils % (A) 1 %; HCT 39.7 % (39.0-53.0); HGB 12.7 gm/dL (13.0-17.5); Lymphocytes # (A) 1.6 k/uL (1.0-4.8); Lymphocytes % (A) 21 %; MCH 31.1 pg (25.0-35.0); MCHC 32.1 g/dL (31.0-37.0); Macrocytosis Slight; Mean Platelet Volume 7.7; Monocytes # (A) 0.6 k/uL (0-1.0); Monocytes % (A) 8 %; Neutrophils # (A) 5.6 k/uL (1.3-7.7); Neutrophils % (A) 70 %; Platelet Count 186 k/uL (150-450); RBC 4.09 m/uL (4.30-5.90); RDW 18.6 % (11.5-15.5)
[2020-09-22] MEDS ORDERED: METOPROLOL TARTRATE 25 MG TAB PO SCH (09:00)
[2020-09-22] MEDS ORDERED: FLUCONAZOLE 100 MG TAB PO SCH (09:00)
[2020-09-22] MEDS ORDERED: POTASSIUM CHLORIDE ER 20 MEQ TAB.ER PO SCH (09:00)
[2020-09-22] MEDS ORDERED: ASPIRIN 325 MG TAB PO SCH (09:00)
[2020-09-22 09:21] LABS: Poikilocytosis (M) Present
[2020-09-22] MEDS: MULTIVITAMINS, THERA 1 EACH TAB PO SCH (09:22)
[2020-09-22] MEDS: FERROUS SULFATE 325 MG TAB PO SCH (09:22)
[2020-09-22] MEDS: POTASSIUM CHLORIDE ER 20 MEQ TAB.ER PO SCH ×7 (09:22→23:41)
[2020-09-22] MEDS: CLOPIDOGREL 75 MG TAB PO SCH (09:22)
[2020-09-22] MEDS: MIDODRINE 5 MG TAB PO SCH ×2 (09:22→20:49)
[2020-09-22] MEDS: METOPROLOL TARTRATE 25 MG TAB PO SCH ×2 (09:28→20:49)
[2020-09-22] MEDS: ASPIRIN 81 MG PO SCH (09:31)
[2020-09-22] MEDS: SPIRONOLACTONE 25 MG TAB PO SCH (09:33)
[2020-09-22] MEDS: metOLazone 2.5 MG TAB PO SCH (10:52)
--- NOTE | 2020-09-22 11:43 | P.NPCON ---
History of Present Illness - Reason for Consult acute renal failure, hyponatremia - History of Present Illness Reason for consultation: Acute kidney injury and hyponatremia History of present illness: Patient is a 79-year-old male seen in consultation for acute kidney injury and hyponatremia. Patient's baseline creatinine is near 1 and was 1.86 on admission. It is 1.54 today. Patient presented to the hospital with altered mental status. He resides at an extended care facility. There was also concern for stroke as left-sided facial droop was noted prior to admission. He was found unresponsive by the EMS. He is currently awake and alert. Brain CT revealed no acute changes. Chest x-ray was suggestive of CHF. He does have edema in his lower extremities as well. He is currently on 5 L nasal cannula. Blood pressure stable. He does of systolic CHF with ejection fraction of less than 20% and moderate to severe pulmonary hypertension. He was maintained normal saline at 50 mL an hour since admission. Sodium level this morning was 126. Potassium level was 2.7 and is being replaced. Vital signs are stable. HEENT: Head exam is unremarkable. On nasal cannula. LUNGS: Breath sounds decreased. HEART: Rate and Rhythm are regular. ABDOMEN: Soft, no distention. EXTREMITITES: 2+ edema. 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 Last Myocardial Infarction Date:: 2011 History of Any Multi-Drug Resistant Organisms: None Reported Past Surgical History: Back Surgery, Coronary Bypass/CABG, Heart Catheterization, Heart Catheterization With Stent Additional Past Surgical History / Comment(s): 2011 CABG 3 vessel, vascular procedures/stents in bilaeteral common iliac arteries, bilateral SFA stents, colonoscopy, prostate biopsy, spacOAR implant Past Anesthesia/Blood Transfusion Reactions: No Reported Reaction Date of Last Stent Placement:: 2014 Past Psychological History: No Psychological Hx Reported Smoking Status: Former smoker Past Alcohol Use History: Rare Past Drug Use History: None Reported - Past Family History Father Family Medical History: Hypertension Additional Family Medical History / Comment(s): Father at age 82yrs. Mother Family Medical History: Diabetes Mellitus Additional Family Medical History / Comment(s): Mother at age 69yrs. Medications and Allergies Home Medications Medication Instructions Recorded Confirmed Type Atorvastatin [Lipitor] 40 mg PO HS@209901/30/14 09/21/20 History allopurinoL [Zyloprim] 100 mg PO DAILY@89901/30/14 09/21/20 History Clopidogrel [Plavix] 75 mg PO DAILY@89905/02/14 09/21/20 History Ascorbic Acid [Vitamin C] 500 mg PO DAILY@89908/14/14 09/21/20 History Magnesium Oxide [Mag-Ox] 250 mg PO DAILY@89908/14/14 09/21/20 History Ferrous Sulfate [Iron (65 MG 325 mg PO DAILY@89905/19/20 09/21/20 History Elemental)] Acetaminophen Tab [Tylenol] 650 mg PO HS 09/03/20 09/21/20 History Cholecalciferol [Vitamin D3 (25 50 mcg PO DAILY@89909/03/20 09/21/20 History Mcg = 1000 Iu)] Lactobacillus Acidophilus 1 cap PO DAILY@89909/03/20 09/21/20 History [Acidophilus Probiotic] Metoprolol Tartrate [Lopressor] 25 mg PO DAILY@89909/03/20 09/21/20 History Midodrine HCl [ProAmantine] 2.5 mg PO BID@0900,2100 09/03/20 09/21/20 History Ondansetron [Zofran] 4 mg PO Q8HR PRN 09/03/20 09/21/20 History Acetaminophen Tab [Tylenol] 650 mg PO Q6HR PRN tab 09/10/20 09/21/20 Rx Nitroglycerin Sl Tabs [Nitrostat] 0.4 mg SUBLINGUAL Q5M PRN tab 09/10/20 09/21/20 Rx Loperamide [Imodium] 2 mg PO Q8H PRN #9 cap 09/11/20 09/21/20 Rx Temazepam [Restoril] 7.5 mg PO HS PRN #3 cap 09/11/20 09/21/20 Rx Aspirin 325 mg PO DAILY@89909/21/20 09/21/20 History Benzocaine/Menthol Lozeng [Cepacol 1 lozenge MUCOUS MEM Q4HR PRN 09/21/20 09/21/20 History lozenge] Fluconazole [Diflucan] 100 mg PO DAILY@0900 09/21/20 09/21/20 History Furosemide [Lasix] 80 mg PO BID@0900,1600 09/21/20 09/21/20 History Multivitamins, Thera [Multivitamin 1 tab PO DAILY@00 09/21/20 09/21/20 History (formulary)] Potassium Chloride ER [K-Dur 20] 20 meq PO DAILY@89909/21/20 09/21/20 History Prostat 30 ml PO DAILY@89909/21/20 09/21/20 History Temazepam [Restoril] 15 mg PO HS@2100 09/21/20 09/21/20 History metOLazone [Zaroxolyn] 2.5 mg PO DAILY@89909/21/20 09/21/20 History polyethylene glycoL 3350 [Miralax] 17 gm PO DAILY@0900 09/21/20 09/21/20 History Allergies Allergy/AdvReac Type Severity Reaction Status Date / Time No Known Allergies Allergy Verified 09/21/20 18:09 Physical Exam Vitals: Vital Signs Temp Pulse Pulse Resp BP BP Pulse Ox 09/22/20 08:00 96.6 F L 88 18 129/61 99 09/22/20 04:00 97.9 F 108 H 18 111/60 99 09/22/20 02:00 82 18 09/22/20 00:00 98.1 F 82 18 111/55 100 09/21/20 22:00 98.0 F 90 20 118/79 100 09/21/20 21:29 98.2 F 82 20 93/69 96 09/21/20 20:39 98.1 F 97 22 106/85 98 09/21/20 18:31 74 16 109/83 96 09/21/20 16:53 98.1 F 96 18 101/83 88 L Intake and Output 09/21/20 09/22/20 09/22/20 22:59 06:59 14:59 Intake Total 0 Output Total 900 Balance -900 0 Intake: Oral 0 Output: Urine 900 Other: Voiding Method Indwelling Catheter Indwelling Catheter Indwelling Catheter Weight 105.687 kg 100.5 kg Results - Lab Results Most recent lab results Calcium 8.5 mg/dL (8.4-10.2) 09/22/20 06:22 Magnesium 2.0 mg/dL (1.6-2.3) 09/21/20 18:10 09/22/20 06:22 09/22/20 06:22 Assessment and Plan Plan: Assessment: 1. Acute kidney injury mostly prerenal secondary to cardiorenal syndrome. Creatinine 1.86 on admission and is 1.54 today. Baseline creatinine near 1. UA fairly benign. 2. Acute on chronic systolic CHF with ejection fraction of less than 20% with moderate to severe pulmonary hypertension. 3. Hypokalemia from diuresis. 4. Hypervolemic hyponatremia. 5. Fluid overload. Plan: Agree with stopping IV fluids and resuming diuretics. Maintain Lasix 80 mg orally twice daily. Maintain metolazone 2.5 mg daily. Potassium being replaced. Low-salt diet and 1200 mL fluid restriction. Continue to monitor renal function and urine output. Check renal ultrasound. Thank you for the consultation. I will continue to follow the patient with you during his hospital stay.
[2020-09-22 11:54] LABS: Glucose,Whole Blood 132 mg/dL (75-99)
--- NOTE | 2020-09-22 12:36 | US ---
EXAMINATION TYPE: US kidneys/renal and bladder DATE OF EXAM: 09/22/2020 COMPARISON: 06/16/2020 CLINICAL HISTORY: kelsey. kelsey, no symptoms per patient EXAM MEASUREMENTS: Right Kidney: 11.9 x 5.2 x 5.6 cm Left Kidney: N/A Right Kidney: multiple inferior pole cysts, largest = 2.1 x 2.1 x 1.9cm . No hydronephrosis or nephr olithiasis. Lobulated right renal cortex. Left Kidney: unable to assess due to pt's inability to move and overlying bowel gas obscuring view. Bladder: not seen IMPRESSION: 1. Limited assessment of left kidney as discussed above. 2. Right renal cysts with no hydronephrosis or nephrolithiasis. Right renal cortex appears lobulated and similar to prior exam.
--- NOTE | 2020-09-22 12:50 | P.CRDCN ---
History of Present Illness History of present illness: HISTORY OF PRESENTING ILLNESS This is a pleasant 79-year-old male past medical history significant for abdominal aortic aneurysm, bilateral carotid artery disease, hypertension, coronary artery disease status post bypass grafting 2012, ischemic cardiomyopathy with ejection fraction <20%, valvular heart disease with moderate mitral regurgitation and moderate aortic insufficiency, dyslipidemia, chronic kidney disease and former nicotine dependence. He follows in the office with Dr. Cochran. We have been asked to see in consultation for elevated troponin and congestive heart failure. Patient comes from [facility] and brought to the emergency department due to altered mental status and concerns of stroke like symptoms (according to the notes possible left sided facial droop). Per ED note, EMS reported that they were called to the facility being told the patient was unresponsive. EMS states that when they presented to [facility] they found the patient alert and able to answer all questions appropriately. Patient states that this has happened to him before being brought into the hospital thinking he had a stroke. He states he has had decreased PO intake. He denies chest pain, lightheadedness, dizziness, shortness of breath, or palpitations. DIAGNOSTICS EKG reveals sinus rhythm, heart rate 77 left bundle branch block with underlying premature atrial complexes, T wave inversions in lateral leads and inferior leads and V4-V6. Similar changes to prior Laboratory reviewed, troponin 0.33, sodium 125, potassium 2.7, serum creatinine 1.54, BUN 68, mag 2.0, WBC 8.0, hemoglobin 12.7, platelets 186, total protein 5.8, albumin 3.1, BNP 71,700 (previously 58,000) Current cardiac medications include aspirin 81 mg daily, atorvastatin 40 mg daily, Plavix 75 mg daily, lisinopril 5 mg daily and Lopressor 12.5 mg twice a day. Most recent echocardiogram obtained 08/05/20 severely impaired LV systolic function with ejection fraction less than 20%, severely dilated left atrium, mild aortic stenosis with a mean gradient of 15 mmHg, mild tricuspid regurgitation and moderate to severe pulmonary hypertension with RVSP of [address] brain - No acute bleed or mass effect. Remote lacuna infarcts in yvrose left periventricular white matter Chest x-ray consistent with mild CHF similar in degree was seen on 09/03/2020 REVIEW OF SYSTEMS At the time of my exam: CONSTITUTIONAL: Denies fever or chills. CARDIOVASCULAR: Denies chest pain, shortness of breath, orthopnea, PND or palpitations. RESPIRATORY: Denies cough. GASTROINTESTINAL: Denies abdominal pain, diarrhea, constipation, nausea or vomiting. MUSCULOSKELETAL: Denies myalgias. NEUROLOGIC: Denies numbness, tingling, headacbe or weakness. ENDOCRINE: +fatigue, Denies weight change, polydipsia or polyurina. GENITOURINARY: Denies burning, hematuria or urgency with micturation. HEMATOLOGIC: Denies history of anemia or bleeding. PHYSICAL EXAMINATION Blood pressure 116/52 heart rate 67 afebrile and maintaining oxygen saturation on room air. CONSTITUTIONAL: No apparent distress. HEENT: Head is normocephalic. Pupils are equal, round. Sclerae anicteric. Mucous membranes of the mouth are moist. +JVD. No carotid bruit. CHEST EXAMINATION: Lungs are clear to auscultation. No chest wall tenderness is noted on palpation or with deep breathing. HEART EXAMINATION: Regular rate and rhythm. S1, S2 heard. Systolic ejection murmur at the base, no gallops or rub. ABDOMEN: Soft, nontender. Positive bowel sounds. EXTREMITIES: 2+ peripheral pulses, 2+ pitting bilateral lower extremity edema and no calf tenderness. SKIN: appears pale NEUROLOGIC EXAMINATION: Patient is awake, alert and oriented x3. ASSESSMENT Elevated troponin, not indicative of acute coronary syndrome Acute on Chronic systolic heart failure with reduced ejection fraction History of coronary artery disease status post bypass grafting in 2012. Ischemic cardiomyopathy EF <20% Chronic kidney disease- nephrology following Hypertension Dyslipidemia Valvular heart disease, aortic stenosis, aortic regurgitation and mitral regurgitation Hypokalemia PLAN -No need for repeat echocardiogram at this time -Start spironolactone 25mg daily -Potassium being replaced -Lasix PO 80mg BID -Metoprolol tartrate 25mg BID -Continue aspirin and statin -Continue monitor renal function and electrolytes Nurse Practitioner note has been reviewed, I agree with a documented findings and plan of care. Patient was seen and examined. 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 Last Myocardial Infarction Date:: 2011 History of Any Multi-Drug Resistant Organisms: None Reported Past Surgical History: Back Surgery, Coronary Bypass/CABG, Heart Catheterization, Heart Catheterization With Stent Additional Past Surgical History / Comment(s): 2011 CABG 3 vessel, vascular procedures/stents in bilaeteral common iliac arteries, bilateral SFA stents, colonoscopy, prostate biopsy, spacOAR implant Past Anesthesia/Blood Transfusion Reactions: No Reported Reaction Date of Last Stent Placement:: 2014 Past Psychological History: No Psychological Hx Reported Smoking Status: Former smoker Past Alcohol Use History: Rare Past Drug Use History: None Reported - Past Family History Father Family Medical History: Hypertension Additional Family Medical History / Comment(s): Father at age 82yrs. Mother Family Medical History: Diabetes Mellitus Additional Family Medical History / Comment(s): Mother at age 69yrs. Medications and Allergies Home Medications Medication Instructions Recorded Confirmed Type Atorvastatin [Lipitor] 40 mg PO HS@209901/30/14 09/21/20 History allopurinoL [Zyloprim] 100 mg PO DAILY@89901/30/14 09/21/20 History Clopidogrel [Plavix] 75 mg PO DAILY@89905/02/14 09/21/20 History Ascorbic Acid [Vitamin C] 500 mg PO DAILY@89908/14/14 09/21/20 History Magnesium Oxide [Mag-Ox] 250 mg PO DAILY@89908/14/14 09/21/20 History Ferrous Sulfate [Iron (65 MG 325 mg PO DAILY@89905/19/20 09/21/20 History Elemental)] Acetaminophen Tab [Tylenol] 650 mg PO HS 09/03/20 09/21/20 History Cholecalciferol [Vitamin D3 (25 50 mcg PO DAILY@89909/03/20 09/21/20 History Mcg = 1000 Iu)] Lactobacillus Acidophilus 1 cap PO DAILY@89909/03/20 09/21/20 History [Acidophilus Probiotic] Metoprolol Tartrate [Lopressor] 25 mg PO DAILY@89909/03/20 09/21/20 History Midodrine HCl [ProAmantine] 2.5 mg PO BID@0900,209909/03/20 09/21/20 History Ondansetron [Zofran] 4 mg PO Q8HR PRN 09/03/20 09/21/20 History Acetaminophen Tab [Tylenol] 650 mg PO Q6HR PRN tab 09/10/20 09/21/20 Rx Nitroglycerin Sl Tabs [Nitrostat] 0.4 mg SUBLINGUAL Q5M PRN tab 09/10/20 09/21/20 Rx Loperamide [Imodium] 2 mg PO Q8H PRN #9 cap 09/11/20 09/21/20 Rx Temazepam [Restoril] 7.5 mg PO HS PRN #3 cap 09/11/20 09/21/20 Rx Aspirin 325 mg PO DAILY@0900 09/21/20 09/21/20 History Benzocaine/Menthol Lozeng [Cepacol 1 lozenge MUCOUS MEM Q4HR PRN 09/21/20 09/21/20 History lozenge] Fluconazole [Diflucan] 100 mg PO DAILY@89909/21/20 09/21/20 History Furosemide [Lasix] 80 mg PO BID@0900,1600 09/21/20 09/21/20 History Multivitamins, Thera [Multivitamin 1 tab PO DAILY@0909/21/20 09/21/20 History (formulary)] Potassium Chloride ER [K-Dur 20] 20 meq PO DAILY@89909/21/20 09/21/20 History Prostat 30 ml PO DAILY@89909/21/20 09/21/20 History Temazepam [Restoril] 15 mg PO HS@2100 09/21/20 09/21/20 History metOLazone [Zaroxolyn] 2.5 mg PO DAILY@89909/21/20 09/21/20 History polyethylene glycoL 3350 [Miralax] 17 gm PO DAILY@89909/21/20 09/21/20 History Allergies Allergy/AdvReac Type Severity Reaction Status Date / Time No Known Allergies Allergy Verified 09/21/20 18:09 Physical Exam Vitals: Vital Signs Temp Pulse Pulse Resp BP BP Pulse Ox 09/22/20 04:00 97.9 F 108 H 18 111/60 99 09/22/20 02:00 82 18 09/22/20 00:00 98.1 F 82 18 111/55 100 09/21/20 22:00 98.0 F 90 20 118/79 100 09/21/20 21:29 98.2 F 82 20 93/69 96 09/21/20 20:39 98.1 F 97 22 106/85 98 09/21/20 18:31 74 16 109/83 96 09/21/20 16:53 98.1 F 96 18 101/83 88 L Intake and Output 09/21/20 09/21/20 09/22/20 14:59 22:59 06:59 Output Total 900 Balance -900 Output: Urine 900 Other: Voiding Method Indwelling Catheter Indwelling Catheter Weight 105.687 kg 100.5 kg Results 09/22/20 06:22 09/22/20 06:22 Cardiac Enzymes 09/21/20 09/21/20 09/21/20 Range/Units 18:10 18:10 20:52 AST 132 H (17-59) U/L Troponin I 0.305 H* 0.308 H* (0.000-0.034) ng/mL 09/21/20 Range/Units 23:33 AST (17-59) U/L Troponin I 0.304 H* (0.000-0.034) ng/mL Coagulation 09/21/20 Range/Units 18:10 PT 13.2 H (9.0-12.0) sec APTT 29.0 (22.0-30.0) sec CBC 09/21/20 Range/Units 18:10 WBC 10.9 H (3.8-10.6) k/uL RBC 4.18 L (4.30-5.90) m/uL Hgb 12.9 L (13.0-17.5) gm/dL Hct 40.7 (39.0-53.0) % Plt Count 207 (150-450) k/uL Comprehensive Metabolic Panel 09/21/20 Range/Units 18:10 Sodium 125 L (137-145) mmol/L Potassium 3.2 L (3.5-5.1) mmol/L Chloride 77 L (98-107) mmol/L Carbon Dioxide 38 H (22-30) mmol/L BUN 67 H (9-20) mg/dL Creatinine 1.86 H (0.66-1.25) mg/dL Glucose 116 H (74-99) mg/dL Calcium 9.1 (8.4-10.2) mg/dL AST 132 H (17-59) U/L ALT 124 H (4-49) U/L Alkaline Phosphatase 130 H (38-126) U/L Total Protein 5.8 L (6.3-8.2) g/dL Albumin 3.1 L (3.5-5.0) g/dL Current Medications Generic Name Dose Route Start Last Admin Trade Name Freq PRN Reason Stop Dose Admin Aspirin 325 mg 09/22/20 09:00 Aspirin 325 Mg Tab PO DAILY@0900 [facility] Atorvastatin Calcium 40 mg 09/22/20 21:00 Atorvastatin 40 Mg Tab PO HS@2100 [facility] Clopidogrel Bisulfate 75 mg 09/22/20 09:00 Clopidogrel 75 Mg Tab PO DAILY@0900 [facility] Ferrous Sulfate 325 mg 09/22/20 09:00 Ferrous Sulfate 325 Mg Tab PO DAILY@0900 [facility] Fluconazole 100 mg 09/22/20 09:00 Fluconazole 100 Mg Tab PO 09/22/20 09:01 DAILY@0900 [facility] Sodium Chloride 1,000 mls @ 50 mls/hr 09/21/20 19:00 09/21/20 20:38 Saline 0.9% IV 50 mls/hr .Q20H [facility] Administration Metoprolol Tartrate 25 mg 09/22/20 09:00 Metoprolol Tartrate 25 Mg Tab PO DAILY@0900 [facility] Midodrine 2.5 mg 09/22/20 09:00 Midodrine 5 Mg Tab PO BID@0900,2100 [facility] Multivitamins 1 each 09/22/20 09:00 Multivitamins, Thera 1 Each Tab PO DAILY@0900 [facility] Naloxone HCl 0.2 mg 09/21/20 19:03 Naloxone 0.4 Mg/Ml 1 Ml Vial IV Q2M PRN Opioid Reversal Potassium Chloride 20 meq 09/22/20 09:00 Potassium Chloride Er 20 Meq Tab.Er PO DAILY@0900 [facility] Temazepam 7.5 mg 09/21/20 23:03 Temazepam 7.5 Mg Cap PO HS PRN Insomnia Temazepam 15 mg 09/22/20 21:00 Temazepam 15 Mg Cap PO HS@2100 [facility] Intake and Output 09/21/20 09/21/20 09/22/20 14:59 22:59 06:59 Output Total 900 Balance -900 Output: Urine 900 Other: Voiding Method Indwelling Catheter Indwelling Catheter Weight 105.687 kg 100.5 kg Patient Weight 09/22/20 06:59 Weight 100.5 kg 09/21/20 18:10 09/21/20 18:10
--- NOTE | 2020-09-22 14:05 | P.CNNES ---
History of Present Illness Consult date: 09/22/20 Requesting physician: Antoinette Perez Reason for Consult: stroke History of Present Illness: This is a 79-year-old gentleman with medical history of stroke (1997) who had right sided weakness and dysarthria without any neurological deficit, multiple TIA (right sided weakness and slurring speech), right carotid endoartectomy, diabetes, hyperlipidemia, hypertension, coronary artery disease status post stent and CABG myocardial infarction, peripheral vascular disease status post stent, prostate cancer and last chemo was in July 2020 who presented to the emergency department on 09/21/2020 for altered mental status. Straight is obtained from the patient's daughter who is at bedside. She stated that the patient had the stroke and 1997 in which she had right-sided weakness and slurred speech. She stated that the patient had the right carotid neurectomy that she recalls and had a [facility]. She was told that the patient had left carotid stenosis but the stenosis has improved and didn't need any intervention on it. She said yesterday she got a call from the from [facility] for some altered mental status. At this facility they're concerned about a stroke since the patient had some right sided weakness and slurred speech (she said he had similar episodes in past and last one was > 1 year ago and were told TIA). Per medical records left-sided facial droop and he was unresponsive. Upon EMS arrival to the seen the patient was alert and able to answer all questions appropriately per the ED note. But the patient seemed the fatigue and dehydrated. Patient denies of any weakness, numbness, any confusion, any speech difficulty. But that does admit that he has been having decrease the appetite with oral intake and feels generalized weak. Per the daughter during these episode of right sided weakness he does not have jerking of extremities. Some of the patient's home medication includes aspirin 325, Plavix 75 mg daily, Lipitor 40 mg qhs and has been on it for years. Some other workup in the hospital consisted of: Initial vital signs: Blood pressure of 101/83, heart rate of 96, respiratory of 18, temperature of 98.1 Fahrenheit axillary and pulse ox of 88% on 4 L of nasal cannula in which the patient had to go up on the nasal cannula in the hospital to [address] of the head is reported as moderate atrophy appropriate for the patient agent. No acute bleed or mass effect. Remote lacunar infarct in the left periventricular white matter. His initial white blood cell is 10.9 and the repeated was 8. Initial sodium was 125 potassium was 3.2 which are low. The BUN is 67 and the creatinine is 1.86 which are elevated. Initial serum glucose is 116. AST is 132 and the ALT is 124 which are elevated. Troponin is 0.305 repeated is 0.308 SARS-COV2 PCR is not detected. Review of Systems Review of system: The 12 point system was reviewed and apparent positive and negative per HPI. 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 Last Myocardial Infarction Date:: 2011 History of Any Multi-Drug Resistant Organisms: None Reported Past Surgical History: Back Surgery, Coronary Bypass/CABG, Heart Catheterization, Heart Catheterization With Stent Additional Past Surgical History / Comment(s): 2011 CABG 3 vessel, vascular procedures/stents in bilaeteral common iliac arteries, bilateral SFA stents, colonoscopy, prostate biopsy, spacOAR implant Past Anesthesia/Blood Transfusion Reactions: No Reported Reaction Date of Last Stent Placement:: 2014 Past Psychological History: No Psychological Hx Reported Smoking Status: Former smoker Past Alcohol Use History: Rare Past Drug Use History: None Reported - Past Family History Father Family Medical History: Hypertension Additional Family Medical History / Comment(s): Father at age 82yrs. Mother Family Medical History: Diabetes Mellitus Additional Family Medical History / Comment(s): Mother at age 69yrs. Medications and Allergies Home Medications Medication Instructions Recorded Confirmed Type Atorvastatin [Lipitor] 40 mg PO HS@2100 01/30/14 09/21/20 History allopurinoL [Zyloprim] 100 mg PO DAILY@0901/30/14 09/21/20 History Clopidogrel [Plavix] 75 mg PO DAILY@0905/02/14 09/21/20 History Ascorbic Acid [Vitamin C] 500 mg PO DAILY@0900 08/14/14 05/09/21 History Magnesium Oxide [Mag-Ox] 250 mg PO DAILY@89908/14/14 09/21/20 History Ferrous Sulfate [Iron (65 MG 325 mg PO DAILY@89905/19/20 09/21/20 History Elemental)] Acetaminophen Tab [Tylenol] 650 mg PO HS 09/03/20 09/21/20 History Cholecalciferol [Vitamin D3 (25 50 mcg PO DAILY@89909/03/20 09/21/20 History Mcg = 1000 Iu)] Lactobacillus Acidophilus 1 cap PO DAILY@89909/03/20 09/21/20 History [Acidophilus Probiotic] Metoprolol Tartrate [Lopressor] 25 mg PO DAILY@89909/03/20 09/21/20 History Midodrine HCl [ProAmantine] 2.5 mg PO BID@0900,2100 09/03/20 09/21/20 History Ondansetron [Zofran] 4 mg PO Q8HR PRN 09/03/20 09/21/20 History Acetaminophen Tab [Tylenol] 650 mg PO Q6HR PRN tab 09/10/20 09/21/20 Rx Nitroglycerin Sl Tabs [Nitrostat] 0.4 mg SUBLINGUAL Q5M PRN tab 09/10/20 09/21/20 Rx Loperamide [Imodium] 2 mg PO Q8H PRN #9 cap 09/11/20 09/21/20 Rx Temazepam [Restoril] 7.5 mg PO HS PRN #3 cap 09/11/20 09/21/20 Rx Aspirin 325 mg PO DAILY@89909/21/20 09/21/20 History Benzocaine/Menthol Lozeng [Cepacol 1 lozenge MUCOUS MEM Q4HR PRN 09/21/20 09/21/20 History lozenge] Fluconazole [Diflucan] 100 mg PO DAILY@89909/21/20 09/21/20 History Furosemide [Lasix] 80 mg PO BID@0900,1600 09/21/20 09/21/20 History Multivitamins, Thera [Multivitamin 1 tab PO DAILY@89909/21/20 09/21/20 History (formulary)] Potassium Chloride ER [K-Dur 20] 20 meq PO DAILY@89909/21/20 09/21/20 History Prostat 30 ml PO DAILY@89909/21/20 09/21/20 History Temazepam [Restoril] 15 mg PO HS@2100 09/21/20 09/21/20 History metOLazone [Zaroxolyn] 2.5 mg PO DAILY@89909/21/20 09/21/20 History polyethylene glycoL 3350 [Miralax] 17 gm PO DAILY@89909/21/20 09/21/20 History Allergies Allergy/AdvReac Type Severity Reaction Status Date / Time No Known Allergies Allergy Verified 09/21/20 18:09 Physical Examination - Vital Signs Vital Signs: Vital Signs Temp Pulse Pulse Resp BP BP Pulse Ox 09/22/20 11:57 67 116/52 09/22/20 08:00 96.6 F L 88 18 129/61 99 09/22/20 04:00 97.9 F 108 H 18 111/60 99 09/22/20 02:00 82 18 09/22/20 00:00 98.1 F 82 18 111/55 100 09/21/20 22:00 98.0 F 90 20 118/79 100 09/21/20 21:29 98.2 F 82 20 93/69 96 09/21/20 20:39 98.1 F 97 22 106/85 98 09/21/20 18:31 74 16 109/83 96 09/21/20 16:53 98.1 F 96 18 101/83 88 L Intake and Output 09/21/20 09/22/20 09/22/20 22:59 06:59 14:59 Intake Total 0 Output Total 900 Balance -900 0 Intake: Oral 0 Output: Urine 900 Other: Voiding Method Indwelling Catheter Indwelling Catheter Indwelling Catheter Weight 105.687 kg 100.5 kg GENERAL: The patient is lying in bed and is not in acute distress. CHEST: The heart rate is regular rate rhythm. No murmurs to auscultation. No carotid bruit bilaterally. LUNG: Clear to auscultation bilaterally no wheezing noted throughout. Not labored breathing. ABDOMEN/GI: Bowel sounds present in all 4 quadrants. No tenderness to palpation throughout. INTEGUMENTARY: Pitting edema of lower extremities 2+. NEUROLOGICAL: Higher mental function: The patient wasawake, alert, oriented to self, place (with option he correctly stated he was in the hospital but could not tell which one) and time. Able to name objects correctly (pen and watch). Patient is following commands. No aphasia and no neglect. Cranial nerves: The pupils are round, equal and reactive to light and accommodation. Visual arrieta are full to confrontation throughout. Extraocular movement is intact no nystagmus is noted. Facial sensation is normal to touch throughout. The facial strength is normal throughout. Hearing is mildly decreased bilaterally to hand rub. Tongue is midline and moved [id number] without any difficulty. Mildy dysarthria is noted (chronic per daughter). Shoulder shrug is normal bilaterally. Motor: Gait is deferred. The strength is 5 over 5 throughout upper while lower he had predominately 2/5 and few occasions 3/5 (per daughter chronic). Normal tone and bulk. Sensation: Sensation is normal to touch throughout. Reflexes (right/left): 2+ upper and 1+ lower Plantars are downgoing bilaterally. Results - Laboratory Findings CBC and BMP: 09/22/20 06:22 09/22/20 06:22 Abnormal Lab Findings: Abnormal Labs 09/21/20 09/21/20 09/21/20 17:45 18:10 18:10 WBC 10.9 H RBC 4.18 L Hgb 12.9 L RDW 18.7 H Neutrophils # 9.2 H Lymphocytes # 0.7 L PT 13.2 H INR 1.3 H Sodium Potassium Chloride Carbon Dioxide BUN Creatinine Glucose POC Glucose (mg/dL) AST ALT Alkaline Phosphatase Troponin I Total Protein Albumin Urine Protein Trace H Ur Leukocyte Esterase Trace H Urine Bacteria Few H Hyaline Casts 90 H Urine Mucus Few H 09/21/20 09/21/20 09/21/20 18:10 18:10 20:52 WBC RBC Hgb RDW Neutrophils # Lymphocytes # PT INR Sodium 125 L Potassium 3.2 L Chloride 77 L Carbon Dioxide 38 H BUN 67 H Creatinine 1.86 H Glucose 116 H POC Glucose (mg/dL) AST 132 H ALT 124 H Alkaline Phosphatase 130 H Troponin I 0.305 H* 0.308 H* Total Protein 5.8 L Albumin 3.1 L Urine Protein Ur Leukocyte Esterase Urine Bacteria Hyaline Casts Urine Mucus 09/21/20 09/22/20 09/22/20 23:33 06:18 06:22 WBC RBC 4.09 L Hgb 12.7 L RDW 18.6 H Neutrophils # Lymphocytes # PT INR Sodium Potassium Chloride Carbon Dioxide BUN Creatinine Glucose POC Glucose (mg/dL) 127 H AST ALT Alkaline Phosphatase Troponin I 0.304 H* Total Protein Albumin Urine Protein Ur Leukocyte Esterase Urine Bacteria Hyaline Casts Urine Mucus 09/22/20 09/22/20 06:22 11:52 WBC RBC Hgb RDW Neutrophils # Lymphocytes # PT INR Sodium 126 L Potassium 2.7 L* Chloride 78 L Carbon Dioxide 40 H BUN 68 H Creatinine 1.54 H Glucose 110 H POC Glucose (mg/dL) 132 H AST ALT Alkaline Phosphatase Troponin I Total Protein Albumin Urine Protein Ur Leukocyte Esterase Urine Bacteria Hyaline Casts Urine Mucus Assessment and Plan Assessment: Altered mental status seems due to metabolic encephalopathy (elevated LFT's, hyponatremia, VERONICA) lack of oral/fluid intake---mentation improved Right sided weakness with dysarthria is concerning for TIA (per daughter had similar episodes in past). Has multiple risk factors. Remote lacunar infarct in the left periventricular white matter. Seems small vessel disease due to patient risk factors Right carotid endartectomy in (At [facility]) Elevated troponin Acute kidney injury on chronic kidney insufficiency--improving Electrode imbalance with hyponatremia hypokalemia Diabetes Hyperlipidemia Hypertension History of coronary artery disease status post stent and CABG Ischemic cardiomyopathy with ejection fraction less than 20% Peripheral vascular disease status post stent Prostate cancer in last chemo was in July 2020 Plan: CT of the head is reported as moderate atrophy appropriate for the patient agent. No acute bleed or mass effect. Remote lacunar infarct in the left pe riventricular white matter. Patient was restarted on aspirin 81 and Plavix 75 mg daily. Patient was also restarted on the Lipitor 40 mg which are sufficient for secondary stroke prophylaxis. I notified the daughter we can switch the Plavix to Brilinta but daughter wants to continue same medications. I ordered the a carotid duplex. I consulted the physical therapy and occupation therapy Also on to consider is if the patient continues to have the similar presentations and if the workup is negative from a carotid perspective and then recommend possibly a routine EEG. Cardiology is on board Nephrology is on board Will defer the rest of medical management to the primary team. Thank you for the consult. The patient needs to follow-up with a neurologist as outpatient within 1-2 weeks. The plan is discussed with the patient's daughter who is at bedside. Matt Gonzalez MD Neuro-Hospitalist Time with Patient: Greater than 30
--- NOTE | 2020-09-22 14:53 | US ---
EXAMINATION TYPE: US carotid duplex BILAT DATE OF EXAM: 09/22/2020 COMPARISON: 06/23/2011 CLINICAL HISTORY: tia. . TIA hx of right neck surgery 1997. EXAM MEASUREMENTS: RIGHT: Peak Systolic Velocity (PSV) cm/sec ----- Right CCA: No flow visualized ----- Right ICA: No flow visualized ----- Right ECA: No flow visualized ICA/CCA ratio: occluded LEFT: Peak Systolic Velocity (PSV) cm/sec ----- Left CCA: No flow visualized ----- Left ICA: No flow visualized ----- Left ECA: No flowvisualized ICA/CCA ratio: Occluded VERTEBRALS (direction of flow): Right Vertebral: Antegrade Left Vertebral: Antegrade Rhythm: Normal No flow visualized bilaterally. IMPRESSION: 1. Bilateral carotid artery occlusion. Criteria for Assigning % of Stenosis / Diameter reduction (Estimation based on the indirect measurements of the internal carotid artery velocities (ICA PSV). 1. Normal (no stenosis)=ICA PSV < 125 cm/s: ratio < 2.0: ICA EDV<40 cm/s. 2. Less than 50% stenosis=ICA PSV < 125 cm/s: ratio < 2.0: ICA EDV<40 cm/s. 3. 50 to 69% stenosis=ICA PSV of 125 to 230 cm/s: ration 2.0 ? 4.0: ICA EDV 40-100 cm/s. 4. Greater than 70% stenosis to near occlusion= ICA PSV > 230 cm/s: ratio > 4.0: ICA EDV > 100 cm/s. 5. Near occlusion= ICA PSV velocities may be low or undetectable: variable ratio and ICA EDV. 6. Total occlusion=unable to detect flow.
[2020-09-22] MEDS: FUROSEMIDE 80 MG TAB PO SCH (16:02)
[2020-09-22 16:52] LABS: Glucose,Whole Blood 165 mg/dL (75-99)
[2020-09-22 20:11] LABS: Glucose,Whole Blood 169 mg/dL (75-99)
[2020-09-22] MEDS: TEMAZEPAM 15 MG CAP PO SCH (20:49)
[2020-09-22] MEDS ORDERED: ATORVASTATIN 40 MG TAB PO SCH (21:00)
--- NOTE | 2020-09-22 23:31 | P.HPIM ---
History of Present Illness H&P Date: 09/22/20 Chief Complaint: Stroke like symptoms Mr. Liana dos santos is a 79-year-old male with a past medical history significant for coronary artery disease, abdominal aortic aneurysm, CVA/TIA, diabetes mellitus, hypertension, hyperlipidemia, osteoarthritis, prostate cancer last chemotherapy 07/2020 sent in from [facility] for altered mental status changes and concerns for stroke like symptoms. At the facility patient was noted to have left-sided facial droop and he was unresponsive for few minutes so EMS was called. When EMS arrived they found the patient was alert and able to answer all their questions appropriately. Patient's daughter at the bedside and m entions that she has multiple episodes of mini strokes in the past which is similar to this episode. Patient denies having any fevers chills or rigors. No cough or difficulty in breathing. No chest pain or palpitations. He states that he is at his baseline. In the ER at the time of admission patient's temperature 98.1, heart rate 96, respiratory 18, blood pressure 101/83, saturating at 88% on 4 L of nasal cannula. He had labs done showing white count of 8.0, hemoglobin 12.8, platelets 196. Sodium 126, potassium 3.4, chloride 78, bicarb 40, BUN 60, creatinine 1.86, troponin 0 0.304 urine analysis is negative for nitrites and trace leukocyte Estrace . Coronavirus PCR is negative patient had a brain CT study showing moderate atrophy appropriate for patient's age, no acute bleed or mass-effect and remote lacunar infarcts in the left periventricular white matter he had a chest x-ray consistent with mild CHF and an EKG done showing sinus rhythm with left bundle branch block. So the patient was admitted for further management. Review of Systems REVIEW OF SYSTEMS: CONSTITUTIONAL: Generalized weakness and fatigue HEENT: No recent visual problems or hearing problems. Denied any sore throat. CARDIOVASCULAR: No chest pain, orthopnea, PND, no palpitations, no syncope. PULMONARY: no hemoptysis. GASTROINTESTINAL: No diarrhea, no nausea, no vomiting, no abdominal pain. NEUROLOGICAL: As per HPI HEMATOLOGICAL: Denies any bleeding or petechiae. GENITOURINARY: Denies any burning micturition, frequency, or urgency. MUSCULOSKELETAL/RHEUMATOLOGICAL: multiple muscle/joint pains ENDOCRINE: Denies any polyuria or polydipsia. The rest of the 14-point review of systems is negative. 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 Last Myocardial Infarction Date:: 2011 History of Any Multi-Drug Resistant Organisms: None Reported Past Surgical History: Back Surgery, Coronary Bypass/CABG, Heart Catheterization, Heart Catheterization With Stent Additional Past Surgical History / Comment(s): 2011 CABG 3 vessel, vascular procedures/stents in bilaeteral common iliac arteries, bilateral SFA stents, colonoscopy, prostate biopsy, spacOAR implant Past Anesthesia/Blood Transfusion Reactions: No Reported Reaction Date of Last Stent Placement:: 2014 Past Psychological History: No Psychological Hx Reported Smoking Status: Former smoker Past Alcohol Use History: Rare Past Drug Use History: None Reported - Past Family History Father Family Medical History: Hypertension Additional Family Medical History / Comment(s): Father at age 82yrs. Mother Family Medical History: Diabetes Mellitus Additional Family Medical History / Comment(s): Mother at age 69yrs. Medications and Allergies Home Medications Medication Instructions Recorded Confirmed Type Atorvastatin [Lipitor] 40 mg PO HS@2100 01/30/14 09/29/20 History allopurinoL [Zyloprim] 100 mg PO DAILY@89901/30/14 09/29/20 History Clopidogrel [Plavix] 75 mg PO DAILY@89905/02/14 09/29/20 History Ascorbic Acid [Vitamin C] 500 mg PO DAILY@89908/14/14 09/29/20 History Magnesium Oxide [Mag-Ox] 250 mg PO DAILY@89908/14/14 09/29/20 History Ferrous Sulfate [Iron (65 MG 325 mg PO DAILY@89905/19/20 09/29/20 History Elemental)] Acetaminophen Tab [Tylenol] 650 mg PO HS 09/03/20 09/29/20 History Cholecalciferol [Vitamin D3 (25 50 mcg PO DAILY@89909/03/20 09/29/20 History Mcg = 1000 Iu)] Lactobacillus Acidophilus 1 cap PO DAILY@0900 09/03/20 09/29/20 History [Acidophilus Probiotic] Metoprolol Tartrate [Lopressor] 25 mg PO DAILY@0900 09/03/20 09/29/20 History Midodrine HCl [ProAmantine] 2.5 mg PO BID@0900,2100 09/03/20 09/29/20 History Ondansetron [Zofran] 4 mg PO Q8HR PRN 09/03/20 09/29/20 History Acetaminophen Tab [Tylenol] 650 mg PO Q6HR PRN tab 09/10/20 09/29/20 Rx Nitroglycerin Sl Tabs [Nitrostat] 0.4 mg SUBLINGUAL Q5M PRN tab 09/10/20 09/29/20 Rx Loperamide [Imodium] 2 mg PO Q8H PRN #9 cap 09/11/20 09/29/20 Rx Temazepam [Restoril] 7.5 mg PO HS PRN #3 cap 09/11/20 09/29/20 Rx Aspirin 325 mg PO DAILY@0900 09/21/20 09/29/20 History Benzocaine/Menthol Lozeng [Cepacol 1 lozenge MUCOUS MEM Q4HR PRN 09/21/20 09/29/20 History lozenge] Fluconazole [Diflucan] 100 mg PO DAILY@89909/21/20 09/29/20 History Furosemide [Lasix] 80 mg PO BID@0900,1600 09/21/20 09/29/20 History Multivitamins, Thera [Multivitamin 1 tab PO DAILY@89909/21/20 09/29/20 History (formulary)] Potassium Chloride ER [K-Dur 20] 20 meq PO DAILY@0900 09/21/20 09/29/20 History Prostat 30 ml PO DAILY@89909/21/20 09/29/20 History Temazepam [Restoril] 15 mg PO HS@209909/21/20 09/29/20 History metOLazone [Zaroxolyn] 2.5 mg PO DAILY@0900 09/21/20 09/29/20 History polyethylene glycoL 3350 [Miralax] 17 gm PO DAILY@00 09/21/20 09/29/20 History Allergies Allergy/AdvReac Type Severity Reaction Status Date / Time No Known Allergies Allergy Verified 09/29/20 12:40 Physical Exam Vitals: Vital Signs Temp Pulse Pulse Resp BP BP Pulse Ox 09/22/20 11:57 67 116/52 09/22/20 08:00 96.6 F L 88 18 129/61 99 09/22/20 04:00 97.9 F 108 H 18 111/60 99 09/22/20 02:00 82 18 09/22/20 00:00 98.1 F 82 18 111/55 100 09/21/20 22:00 98.0 F 90 20 118/79 100 09/21/20 21:29 98.2 F 82 20 93/69 96 09/21/20 20:39 98.1 F 97 22 106/85 98 09/21/20 18:31 74 16 109/83 96 09/21/20 16:53 98.1 F 96 18 101/83 88 L Intake and Output 09/21/20 09/22/20 09/22/20 22:59 06:59 14:59 Intake Total 0 Output Total 900 Balance -900 0 Intake: Oral 0 Output: Urine 900 Other: Voiding Method Indwelling Catheter Indwelling Catheter Indwelling Catheter Weight 105.687 kg 100.5 kg PHYSICAL EXAMINATION: GENERAL: Elderly male lying in bed appears to be in no acute distress. HEENT: Pupils are round and equally reacting to light. EOMI. No scleral icterus. No conjunctival pallor. Normocephalic, atraumatic. No pharyngeal erythema. No thyromegaly. CARDIOVASCULAR: S1 and S2 present. PULMONARY: bilateral basal crackles ABDOMEN: Soft, nontender, nondistended, normoactive bowel sounds. No palpable organomegaly. MUSCULOSKELETAL: No joint swelling or deformity. EXTREMITIES: No cyanosis, clubbing, pitting bilateral pedal edema NEUROLOGICAL: patient is alert awake oriented 3 .Gross neurological examination did not reveal any focal deficits. SKIN: frail Results CBC & Chem 7: 09/22/20 06:22 09/26/20 07:20 Labs: Abnormal Lab Results - Last 24 Hours (Table) 09/21/20 09/21/20 09/21/20 Range/Units 17:45 18:10 18:10 WBC 10.9 H (3.8-10.6) k/uL RBC 4.18 L (4.30-5.90) m/uL Hgb 12.9 L (13.0-17.5) gm/dL RDW 18.7 H (11.5-15.5) % Neutrophils # 9.2 H (1.3-7.7) k/uL Lymphocytes # 0.7 L (1.0-4.8) k/uL PT 13.2 H (9.0-12.0) sec INR 1.3 H (<1.2) Sodium (137-145) mmol/L Potassium (3.5-5.1) mmol/L Chloride (98-107) mmol/L Carbon Dioxide (22-30) mmol/L BUN (9-20) mg/dL Creatinine (0.66-1.25) mg/dL Glucose (74-99) mg/dL POC Glucose (mg/dL) (75-99) mg/dL AST (17-59) U/L ALT (4-49) U/L Alkaline Phosphatase (38-126) U/L Troponin I (0.000-0.034) ng/mL Total Protein (6.3-8.2) g/dL Albumin (3.5-5.0) g/dL Urine Protein Trace H (Negative) Ur Leukocyte Esterase Trace H (Negative) Urine Bacteria Few H (None) /hpf Hyaline Casts 90 H (0-2) /lpf Urine Mucus Few H (None) /hpf 09/21/20 09/21/20 09/21/20 Range/Units 18:10 18:10 20:52 WBC (3.8-10.6) k/uL RBC (4.30-5.90) m/uL Hgb (13.0-17.5) gm/dL RDW (11.5-15.5) % Neutrophils # (1.3-7.7) k/uL Lymphocytes # (1.0-4.8) k/uL PT (9.0-12.0) sec INR (<1.2) Sodium 125 L (137-145) mmol/L Potassium 3.2 L (3.5-5.1) mmol/L Chloride 77 L (98-107) mmol/L Carbon Dioxide 38 H (22-30) mmol/L BUN 67 H (9-20) mg/dL Creatinine 1.86 H (0.66-1.25) mg/dL Glucose 116 H (74-99) mg/dL POC Glucose (mg/dL) (75-99) mg/dL AST 132 H (17-59) U/L ALT 124 H (4-49) U/L Alkaline Phosphatase 130 H (38-126) U/L Troponin I 0.305 H* 0.308 H* (0.000-0.034) ng/mL Total Protein 5.8 L (6.3-8.2) g/dL Albumin 3.1 L (3.5-5.0) g/dL Urine Protein (Negative) Ur Leukocyte Esterase (Negative) Urine Bacteria (None) /hpf Hyaline Casts (0-2) /lpf Urine Mucus (None) /hpf 09/21/20 09/22/20 09/22/20 Range/Units 23:33 06:18 06:22 WBC (3.8-10.6) k/uL RBC 4.09 L (4.30-5.90) m/uL Hgb 12.7 L (13.0-17.5) gm/dL RDW 18.6 H (11.5-15.5) % Neutrophils # (1.3-7.7) k/uL Lymphocytes # (1.0-4.8) k/uL PT (9.0-12.0) sec INR (<1.2) Sodium (137-145) mmol/L Potassium (3.5-5.1) mmol/L Chloride (98-107) mmol/L Carbon Dioxide (22-30) mmol/L BUN (9-20) mg/dL Creatinine (0.66-1.25) mg/dL Glucose (74-99) mg/dL POC Glucose (mg/dL) 127 H (75-99) mg/dL AST (17-59) U/L ALT (4-49) U/L Alkaline Phosphatase (38-126) U/L Troponin I 0.304 H* (0.000-0.034) ng/mL Total Protein (6.3-8.2) g/dL Albumin (3.5-5.0) g/dL Urine Protein (Negative) Ur Leukocyte Esterase (Negative) Urine Bacteria (None) /hpf Hyaline Casts (0-2) /lpf Urine Mucus (None) /hpf 09/22/20 09/22/20 Range/Units 06:22 11:52 WBC (3.8-10.6) k/uL RBC (4.30-5.90) m/uL Hgb (13.0-17.5) gm/dL RDW (11.5-15.5) % Neutrophils # (1.3-7.7) k/uL Lymphocytes # (1.0-4.8) k/uL PT (9.0-12.0) sec INR (<1.2) Sodium 126 L (137-145) mmol/L Potassium 2.7 L* (3.5-5.1) mmol/L Chloride 78 L (98-107) mmol/L Carbon Dioxide 40 H (22-30) mmol/L BUN 68 H (9-20) mg/dL Creatinine 1.54 H (0.66-1.25) mg/dL Glucose 110 H (74-99) mg/dL POC Glucose (mg/dL) 132 H (75-99) mg/dL AST (17-59) U/L ALT (4-49) U/L Alkaline Phosphatase (38-126) U/L Troponin I (0.000-0.034) ng/mL Total Protein (6.3-8.2) g/dL Albumin (3.5-5.0) g/dL Urine Protein (Negative) Ur Leukocyte Esterase (Negative) Urine Bacteria (None) /hpf Hyaline Casts (0-2) /lpf Urine Mucus (None) /hpf Thrombosis Risk Factor Assmnt - Choose All That Apply Each Factor Represents 1 point: Obesity (BMI >25) Each Risk Factor Represents 3 Points: Age 75 years or older Thrombosis Risk Factor Assessment Total Risk Factor Score: 4 Thrombosis Risk Factor Assessment Level: Moderate Risk Assessment and Plan Assessment: ASSESSMENT Encephalopathy-multiple etiologies including hyponatremia, VERONICA, TIA Right-sided weakness with dysarthria and facial droop- possible TIA Acute kidney injury most likely prerenal due to cardiorenal syndrome Acute on chronic systolic congestive heart failure ejection fraction less than 20% Moderate to severe pulmonary hypertension Hyponatremia Hypokalemia Transaminitis Elevated troponin Chronic kidney disease stage III Hypertension Hyperlipidemia Valvular heart disease including aortic stenosis arctic regurgitation Chronic debility PLAN: Patient has multiple etiologies for altered mental status changes including hyponatremia, acute kidney injury, possible TIA like episode. As per discussion with his daughter at the bedside patient had multiple episodes of TIAs in the past. Patient's chest x-ray showing fluid overload, could be cardiorenal syndrome as the patient's ejection fraction is less than 20%. Patient is getting Lasix 80 mg twice daily, replacing potassium. Multiple consultants including nephrology, neurology, cardiology on board and following the patient closely. Overall prognosis is guarded due to chronic multiple conditions. Further recommendations to follow depending upon the progress of the patient. The treatment plan was discussed in detail with the patient and his daughter at bedside today.
[2020-09-23] MEDS: POTASSIUM CHLORIDE ER 20 MEQ TAB.ER PO SCH ×4 (05:07→15:08)
[2020-09-23 06:29] LABS: Glucose,Whole Blood 131 mg/dL (75-99)
[2020-09-23 09:02] LABS: Calcium 8.5 mg/dL (8.4-10.2); Magnesium 1.7 mg/dL (1.6-2.3); Potassium 3.2 mmol/L (3.5-5.1)
[2020-09-23] MEDS: ASPIRIN 81 MG PO SCH (10:10)
[2020-09-23] MEDS: MIDODRINE 5 MG TAB PO SCH ×2 (10:10→20:34)
[2020-09-23] MEDS: FERROUS SULFATE 325 MG TAB PO SCH (10:10)
[2020-09-23] MEDS: SPIRONOLACTONE 25 MG TAB PO SCH (10:11)
[2020-09-23] MEDS: CLOPIDOGREL 75 MG TAB PO SCH (10:11)
[2020-09-23] MEDS: FUROSEMIDE 80 MG TAB PO SCH ×2 (10:11→16:36)
[2020-09-23] MEDS: MULTIVITAMINS, THERA 1 EACH TAB PO SCH (10:11)
[2020-09-23] MEDS: METOPROLOL TARTRATE 25 MG TAB PO SCH ×2 (10:12→20:34)
[2020-09-23] MEDS: metOLazone 2.5 MG TAB PO SCH (10:25)
[2020-09-23] MEDS ORDERED: Magnesium Replacement Protocol 1 EACH MISC MISCELLANE PRN (11:30)
[2020-09-23 11:44] LABS: Glucose,Whole Blood 148 mg/dL (75-99)
--- NOTE | 2020-09-23 11:53 | P.GSCN ---
History of Present Illness Consult date: 09/23/20 Reason for Consult: Carotid occlusion Requesting physician: Matt Gonzalez History of present illness: This is a 79-year-old gentleman with medical history of stroke (1997) who had right sided weakness and dysarthria without any neurological deficit, multiple TIA (right sided weakness and slurring speech), right carotid endartectomy done at [facility], diabetes, hyperlipidemia, hypertension, coronary artery disease status post stent and CABG myocardial infarction, peripheral vascular disease status post stent by Dr. Cochran, prostate cancer and last chemo was in July 2020 who presented to the emergency department on 09/21/2020 for altered mental status. Patient's stroke from 1997 with some mild right-sided residual we akness. He's had multiple other episodes of TIA symptoms over the past year. Per medical records left-sided facial droop and he was unresponsive. Upon EMS arrival to the seen the patient was alert and able to answer all questions appropriately per the ED note. As part of his workup he had an ultrasound of the carotid arteries with an impression that states bilateral carotid artery occlusion, hence vascular surgery was consult. Today the patient is seen and examined sitting up at the bedside. He states he's feeling much better. His speech is fluent, he answers questions appropriately, he is alert and oriented. He denies any upper or lower extremity weakness at this time. He denies chest pain, shortness of breath, abdominal pain nausea or vomiting. Some of the patient's home medication includes aspirin 325, Plavix 75 mg daily, Lipitor 40 mg qhs and has been on it for years. CT of the head is reported as moderate atrophy appropriate for the patient agent. No acute bleed or mass effect. Remote lacunar infarct in the left periventricular white matter. Carotid ultrasound: Right CCA no flow visualized, right ICA no flow visualized, right ECA no flow visualized, ICA/CCA ratio occluded. Left CCA no flow visualized, left ICA no flow visualized, left ECA no flow visualized, ICA/CCA ratio occluded. Bilateral carotid artery occlusion. Review of Systems A 14 point review of systems was completed all pertinent positives and negatives as stated in the HPI. 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 Last Myocardial Infarction Date:: 2011 History of Any Multi-Drug Resistant Organisms: None Reported Past Surgical History: Back Surgery, Coronary Bypass/CABG, Heart Catheterization, Heart Catheterization With Stent Additional Past Surgical History / Comment(s): 2011 CABG 3 vessel, vascular procedures/stents in bilaeteral common iliac arteries, bilateral SFA stents, colonoscopy, prostate biopsy, spacOAR implant Past Anesthesia/Blood Transfusion Reactions: No Reported Reaction Date of Last Stent Placement:: 2014 Past Psychological History: No Psychological Hx Reported Smoking Status: Former smoker Past Alcohol Use History: Rare Past Drug Use History: None Reported - Past Family History Father Family Medical History: Hypertension Additional Family Medical History / Comment(s): Father at age 82yrs. Mother Family Medical History: Diabetes Mellitus Additional Family Medical History / Comment(s): Mother at age 69yrs. Medications and Allergies Home Medications Medication Instructions Recorded Confirmed Type Atorvastatin [Lipitor] 40 mg PO HS@2100 01/30/14 09/21/20 History allopurinoL [Zyloprim] 100 mg PO DAILY@89901/30/14 09/21/20 History Clopidogrel [Plavix] 75 mg PO DAILY@89905/02/14 09/21/20 History Ascorbic Acid [Vitamin C] 500 mg PO DAILY@89908/14/14 09/21/20 History Magnesium Oxide [Mag-Ox] 250 mg PO DAILY@89908/14/14 09/21/20 History Ferrous Sulfate [Iron (65 MG 325 mg PO DAILY@89905/19/20 09/21/20 History Elemental)] Acetaminophen Tab [Tylenol] 650 mg PO HS 09/03/20 09/21/20 History Cholecalciferol [Vitamin D3 (25 50 mcg PO DAILY@89909/03/20 09/21/20 History Mcg = 1000 Iu)] Lactobacillus Acidophilus 1 cap PO DAILY@89909/03/20 09/21/20 History [Acidophilus Probiotic] Metoprolol Tartrate [Lopressor] 25 mg PO DAILY@89909/03/20 09/21/20 History Midodrine HCl [ProAmantine] 2.5 mg PO BID@0900,2100 09/03/20 09/21/20 History Ondansetron [Zofran] 4 mg PO Q8HR PRN 09/03/20 09/21/20 History Acetaminophen Tab [Tylenol] 650 mg PO Q6HR PRN tab 09/10/20 09/21/20 Rx Nitroglycerin Sl Tabs [Nitrostat] 0.4 mg SUBLINGUAL Q5M PRN tab 09/10/20 09/21/20 Rx Loperamide [Imodium] 2 mg PO Q8H PRN #9 cap 09/11/20 09/21/20 Rx Temazepam [Restoril] 7.5 mg PO HS PRN #3 cap 09/11/20 09/21/20 Rx Aspirin 325 mg PO DAILY@89909/21/20 09/21/20 History Benzocaine/Menthol Lozeng [Cepacol 1 lozenge MUCOUS MEM Q4HR PRN 09/21/20 09/21/20 History lozenge] Fluconazole [Diflucan] 100 mg PO DAILY@89909/21/20 09/21/20 History Furosemide [Lasix] 80 mg PO BID@0900,1600 09/21/20 09/21/20 History Multivitamins, Thera [Multivitamin 1 tab PO DAILY@89909/21/20 09/21/20 History (formulary)] Potassium Chloride ER [K-Dur 20] 20 meq PO DAILY@00 09/21/20 09/21/20 History Prostat 30 ml PO DAILY@89909/21/20 09/21/20 History Temazepam [Restoril] 15 mg PO HS@209909/21/20 09/21/20 History metOLazone [Zaroxolyn] 2.5 mg PO DAILY@89909/21/20 09/21/20 History polyethylene glycoL 3350 [Miralax] 17 gm PO DAILY@89909/21/20 09/21/20 History Allergies Allergy/AdvReac Type Severity Reaction Status Date / Time No Known Allergies Allergy Verified 09/21/20 18:09 Surgical - Exam Vital Signs Temp Pulse Resp BP Pulse Ox 98.1 F 96 18 101/83 88 L 09/21/20 16:53 09/21/20 16:53 09/21/20 16:53 09/21/20 16:53 09/21/20 16:53 General appearance: The patient is alert, oriented, in no acute distress. HET: Head is normocephalic and atraumatic. Pupils are equal and reactive. Neck: Supple without lymphadenopathy. Trachea midline. Heart: S1 S2. Regular rate and rhythm. Lungs: No crackles or wheezes are heard. Abdomen: Soft, nontender, nondistended, Extremities: Normal skin color and turgor. Bilateral lower extremity edema. Palpable +2 bilateral radial pulses. Neurological: No focal deficits. Patient able to follow commands, speech is fluent and appropriate, tongue protrudes midline, patient has facial symmetry. He has equal bilateral upper and lower extremity strength. Results - Labs 09/22/20 06:22 09/23/20 07:32 Abnormal Lab Results - Last 24 Hours (Table) 09/22/20 09/22/20 09/22/20 Range/Units 11:52 13:45 16:50 Potassium 2.8 L (3.5-5.1) mmol/L POC Glucose (mg/dL) 132 H 165 H (75-99) mg/dL 09/22/20 09/22/20 09/23/20 Range/Units 20:09 21:08 06:27 Potassium 3.4 L (3.5-5.1) mmol/L POC Glucose (mg/dL) 169 H 131 H (75-99) mg/dL Diabetes panel 09/22/20 09/22/20 Range/Units 13:45 21:08 Potassium 2.8 L 3.4 L (3.5-5.1) mmol/L Pituitary panel 09/22/20 09/22/20 Range/Units 13:45 21:08 Potassium 2.8 L 3.4 L (3.5-5.1) mmol/L Adrenal panel 09/22/20 09/22/20 Range/Units 13:45 21:08 Potassium 2.8 L 3.4 L (3.5-5.1) mmol/L - Imaging Additional studies: CT of the head is reported as moderate atrophy appropriate for the patient agent. No acute bleed or mass effect. Remote lacunar infarct in the left periventricular white matter. Carotid ultrasound: Right CCA no flow visualized, right ICA no flow visualized, right ECA no flow visualized, ICA/CCA ratio occluded. Left CCA no flow visualized, left ICA no flow visualized, left ECA no flow visualized, ICA/CCA ratio occluded. Bilateral carotid artery occlusion. Assessment and Plan Assessment: 1. TIA 2. Bilateral carotid artery occlusion per carotid ultrasound report 3. History of right carotid endarterectomy done at [facility] date unknown 4. History of CVA 1997 5. Diabetes mellitus 6. Hyperlipidemia 7. Coronary artery disease status post stent and CABG 8. Hypertension 9. Prostate cancer Plan: 1. CT angiogram of head and neck ordered 2. Continue aspirim amount Plavix, and Lipitor 3. Continue medical management per primary team Thank you for this consultation, further recommendations to follow CTA findings The impression and plan of care has been dictated as directed. Dr. Blanton I performed a history and examination of this patient, discussed the same with the dictator. I agree with the dictator's note ,documented as a scribe. Any additional findings or plans will be noted.
--- NOTE | 2020-09-23 12:09 | P.PN ---
Subjective This is a pleasant 79-year-old male past medical history significant for abdominal aortic aneurysm, bilateral carotid artery disease, hypertension, coronary artery disease status post bypass grafting 2012, ischemic cardiomyopathy with ejection fraction <20%, valvular heart disease with moderate mitral regurgitation and moderate aortic insufficiency, dyslipidemia, chronic kidney disease and former nicotine dependence. He follows in the office with Dr. Cochran. We have been asked to see in consultation for elevated troponin and congestive heart failure. Patient comes from [facility] and brought to the emergency department due to altered mental status and concerns of stroke like symptoms (according to the notes possible left sided facial droop). Per ED note, EMS reported that they were called to the facility being told the patient was unresponsive. EMS states that when they presented to [facility] they found the patient alert and able to answer all questions appropriately. Patient states that this has happened to him before being brought into the hospital thinking he had a stroke. He states he has had decreased PO intake. He denies chest pain, lightheadedness, dizziness, shortness of breath, or palpitations. EKG reveals sinus rhythm, heart rate 77 left bundle branch block with underlying premature atrial complexes, T wave inversions in lateral leads and inferior leads and V4- V6. Similar changes to prior. Current cardiac medications include aspirin 81 mg daily, atorvastatin 40 mg daily, Plavix 75 mg daily, lisinopril 5 mg daily and Lopressor 12.5 mg twice a day. Most recent echocardiogram obtained 08/05/20 severely impaired LV systolic function with ejection fraction less than 20%, severely dilated left atrium, mild aortic stenosis with a mean gradient of 15 mmHg, mild tricuspid regurgitation and moderate to severe pulmonary hypertension with RVSP of [address] brain - No acute bleed or mass effect. Remote lacunar infarcts in the left periventricular white matter Chest x-ray consistent with mild CHF similar in degree was seen on 09/03/2020 09/23/2020: Patient seen and examined at bedside, appears comfortable. No complaint sat this time Carotid duplex revealed bilateral no flow visualized to bilateral carotid arteries. Vascular was consulted. Telemetry reviewed patient in sinus mechanism heart rate 60s, occasional PVCs. Patient did have an episode of bigeminy this morning around 5 AM. Patient with 1.4 L urine output over the past 24 hours. Blood pressure 118/69 heart rate 66 afebrile and maintaining oxygen saturation on room air. GENERAL: Alert, awake oriented x 2-3. Well-appearing, in no acute distress. NECK: Supple without JVD or thyromegaly. LUNGS: Breath sounds clear to auscultation bilaterally. Respiration equal and unlabored. No wheezes, rales or rhonchi. : Blanton placed with clear yellow urine draining HEART: Regular rate and rhythm Systolic ejection murmur at the base,. S1 and S2 heard. EXTREMITIES: Normal range of motion, 3+ bilateral pitting edema. No clubbing or cyanosis. Peripheral pulses intact. ASSESSMENT Altered mental status - Neurology following possible TIA Remote Lacunar infarct in the left periventricular white matter seen on CT brain Elevated troponin, not indicative of acute coronary syndrome Acute on Chronic systolic heart failure with reduced ejection fraction History of coronary artery disease status post bypass grafting in 2012. Ischemic cardiomyopathy EF <20% Chronic kidney disease- nephrology following Hypertension Dyslipidemia Valvular heart disease, aortic stenosis, aortic regurgitation and mitral regurgitation Hypokalemia - improving PLAN -Potassium being replaced -Lasix PO 80mg BID -Spironolactone 25mg daily -Metoprolol tartrate 25mg BID -Continue aspirin and statin and plavix -Continue monitor renal function and electrolytes -Neurology following -Vascular following, plan for CT angiogram of head and neck Nurse Practitioner note has been reviewed, I agree with a documented findings and plan of care. Patient was seen and examined. Objective - Vital Signs Vital signs: Vital Signs Temp 97.3 F L 09/23/20 09:14 Pulse 66 09/23/20 10:08 Resp 18 09/23/20 09:14 BP 118/69 09/23/20 10:08 Pulse Ox 96 09/23/20 09:14 Intake & Output 09/22/20 09/23/20 09/23/20 18:59 06:59 18:59 Intake Total 236 0 Output Total 875 525 700 Balance -168 -619 -147 Weight 100.5 kg 103.5 kg Intake: Oral 236 0 Output: Urine 875 525 700 Other: Voiding Method Indwelling Catheter Indwelling Catheter Indwelling Catheter - Labs CBC & Chem 7: 09/22/20 06:22 09/23/20 07:32 Labs: Abnormal Lab Results - Last 24 Hours (Table) 09/22/20 09/22/20 09/22/20 Range/Units 13:45 16:50 20:09 Sodium (137-145) mmol/L Potassium 2.8 L (3.5-5.1) mmol/L Chloride (98-107) mmol/L Carbon Dioxide (22-30) mmol/L BUN (9-20) mg/dL Creatinine (0.66-1.25) mg/dL Glucose (74-99) mg/dL POC Glucose (mg/dL) 165 H 169 H (75-99) mg/dL 09/22/20 09/23/20 09/23/20 Range/Units 21:08 06:27 07:32 Sodium 129 L (137-145) mmol/L Potassium 3.4 L 3.2 L (3.5-5.1) mmol/L Chloride 80 L (98-107) mmol/L Carbon Dioxide 38 H (22-30) mmol/L BUN 64 H (9-20) mg/dL Creatinine 1.34 H (0.66-1.25) mg/dL Glucose 123 H (74-99) mg/dL POC Glucose (mg/dL) 131 H (75-99) mg/dL 09/23/20 Range/Units 11:43 Sodium (137-145) mmol/L Potassium (3.5-5.1) mmol/L Chloride (98-107) mmol/L Carbon Dioxide (22-30) mmol/L BUN (9-20) mg/dL Creatinine (0.66-1.25) mg/dL Glucose (74-99) mg/dL POC Glucose (mg/dL) 148 H (75-99) mg/dL
[2020-09-23] MEDS: MAGNESIUM SULFATE-D5W PMX 1 GM in DEXTROSE/WATER 1 100ML.BAG IVPB SCH ×2 (13:13→15:06)
--- NOTE | 2020-09-23 14:01 | CT ---
EXAMINATION TYPE: CT angio head neck DATE OF EXAM: 09/23/2020 HISTORY: Abnormal US COMPARISON: 09/22/[address] DLP: 1183.1 mGycm. Automated Exposure Control for Dose Reduction was Utilized. TECHNIQUE: CTA scan of the neck is performed with IV Contrast, patient injected with 65 mL of Isovue 370, axial images are obtained, coronal and sagittal reformatted images are reviewed. Three-D recons tructed images are created on an independent workstation and reviewed. Source images are reviewed. FINDINGS: Carotid/Vascular Structures: There is a three-vessel arch. Axillary arteries are patent. There is poo r visualization of the common carotid arteries. Carotid bifurcations contain calcification. Common ca rotid artery internal carotid artery contrast however is not identified bilaterally. The vertebral ar teries are codominant and patent to the skull base. Cervical of Abdalla: Vertebral basilar system appears normal. Posterior cerebral vasculature is unrema rkable. A1 and M1 segments visualized containing contrast. Distal internal carotid arteries however a re not identified. There is a patent posterior right communicating artery. The posterior left communi cating artery may also be present. IMPRESSION: 1. There appears to be proximal bilateral carotid artery obstruction. 2. Cerebral vasculature appears to be fed by vertebral arteries with a patent right and likely patent left posterior communicating arteries.
--- NOTE | 2020-09-23 14:59 | P.PN ---
Subjective Progress Note Date: 09/23/20 Patient was seen at bedside and no further episodes of focal weakness, unresponsiveness. He is accompanied with his brother in-law who is at bedside. Carotid artery sessions reported as bilateral carotid artery occlusion. CT angiography of the head and neck was reported as there appears to be proximal bilateral carotid obstruction. Cerebral vasculature appears to be fed by vertebral arteries with a patent right and likely patent left posture to maintain arteries. Objective - Vital Signs Vital signs: Vital Signs Temp 97.5 F L 09/23/20 12:51 Pulse 60 09/23/20 12:51 Resp 18 09/23/20 12:51 BP 116/71 09/23/20 12:51 Pulse Ox 98 09/23/20 12:51 Intake & Output 09/22/20 09/23/20 09/23/20 18:59 06:59 18:59 Intake Total 236 100 Output Total 450 743 5871 Balance -605 -525 -8554 Weight 100.5 kg 103.5 kg Intake: Oral 236 100 Output: Urine 581 384 8018 Other: Voiding Method Indwelling Catheter Indwelling Catheter Indwelling Catheter - Exam GENERAL: The patient is lying in bed and is not in acute distress. INTEGUMENTARY: Pitting edema of lower extremities 2+. NEUROLOGICAL: Higher mental function: The patient was drowsy awakeable to voice, alert, oriented to self, place and time. Able to name objects correctly (pen and watch ). Patient is following commands. No aphasia and no neglect. Cranial nerves: The pupils are round, equal and reactive to light and accommodation. Visual arrieta are full to confrontation throughout. Extraocular movement is intact no nystagmus is noted. Facial sensation is normal to touch throughout. The facial strength is mildly right lower facial but symetrical to smile (per [id number] chronic). Tongue is midline and moved [id number] without any difficulty. Mildy dysarthria is noted (chronic per daughter). Shoulder shrug is normal bilaterally. Motor: Gait is deferred. The strength is 5 over 5 throughout upper while lower he had predominately 2/5 and few occasions 3/5 (per daughter chronic). Normal tone and bulk. Sensation: Sensation is normal to touch throughout. Reflexes (right/left): 2+ upper and 1+ lower Plantars are downgoing bilaterally. - Labs CBC & Chem 7: 09/22/20 06:22 09/23/20 07:32 Labs: Abnormal Lab Results - Last 24 Hours (Table) 09/22/20 09/22/20 09/22/20 Range/Units 13:45 16:50 20:09 Sodium (137-145) mmol/L Potassium 2.8 L (3.5-5.1) mmol/L Chloride (98-107) mmol/L Carbon Dioxide (22-30) mmol/L BUN (9-20) mg/dL Creatinine (0.66-1.25) mg/dL Glucose (74-99) mg/dL POC Glucose (mg/dL) 165 H 169 H (75-99) mg/dL 09/22/20 09/23/20 09/23/20 Range/Units 21:08 06:27 07:32 Sodium 129 L (137-145) mmol/L Potassium 3.4 L 3.2 L (3.5-5.1) mmol/L Chloride 80 L (98-107) mmol/L Carbon Dioxide 38 H (22-30) mmol/L BUN 64 H (9-20) mg/dL Creatinine 1.34 H (0.66-1.25) mg/dL Glucose 123 H (74-99) mg/dL POC Glucose (mg/dL) 131 H (75-99) mg/dL 09/23/20 Range/Units 11:43 Sodium (137-145) mmol/L Potassium (3.5-5.1) mmol/L Chloride (98-107) mmol/L Carbon Dioxide (22-30) mmol/L BUN (9-20) mg/dL Creatinine (0.66-1.25) mg/dL Glucose (74-99) mg/dL POC Glucose (mg/dL) 148 H (75-99) mg/dL Assessment and Plan Assessment: Transient Right sided weakness with dysarthriais is likely TIA (per daughter had similar episodes in past). Has multiple risk factors. Altered mental status seems due to metabolic encephalopathy (elevated LFT's, hyponatremia, VERONICA) lack of oral/fluid intake---mentation improved Bilateral carotid occlusion per carotid ultrasound. Remote lacunar infarct in the left periventricular white matter. Seems small vessel disease due to patient risk factors Right carotid endartectomy in (At [facility]) Elevated troponin Acute kidney injury on chronic kidney insufficiency--improving Electrode imbalance with hyponatremia hypokalemia Diabetes Hyperlipidemia Hypertension History of coronary artery disease status post stent and CABG Ischemic cardiomyopathy with ejection fraction less than 20% Peripheral vascular disease status post stent Prostate cancer in last chemo was in July 2020 Plan: CT of the head is reported as moderate atrophy appropriate for the patient agent. No acute bleed or mass effect. Remote lacunar infarct in the left periventricular white matter. Patient was restarted on aspirin 81 and Plavix 75 mg daily. Patient was also restarted on the Lipitor 40 mg which are sufficient for secondary stroke prophylaxis. I notified the daughter we can switch the Plavix to Brilinta but daughter wants to continue same medications. Carotid artery sessions reported as bilateral carotid artery occlusion. CT angiography of the head and neck was reported as there appears to be proximal bilateral carotid obstruction. Cerebral vasculature appears to be fed by vertebral arteries with a patent right and likely patent left posture to maintain arteries. Continue aspirin 81 mg, Plavix 75 mg. I increase the Lipitor from 40 mg to 80 mg qhs. I consulted vascular surgeon team. I ordered lipid panel, TSH and hemoglobin A1c level. I ordered a routine EEG since the patient had an episode of unresponsiveness at the the nursing facility. I will not start the patient on antiepileptic drug unless there is a performed discharge the procedure on the EEG. Physical therapy and occupation therapy are consulted Cardiology is on board Nephrology is on board Will defer the rest of medical management to the primary team. The patient needs to follow-up with a neurologist as outpatient within 1-2 weeks. The plan is discussed with the patient's [id number] who is at bedside. Matt Gonzalez MD Neuro-Hospitalist Time with Patient: Less than 30
--- NOTE | 2020-09-23 15:23 | P.PN ---
Subjective Progress Note Date: 09/23/20 Mr. Liana dos santos is a 79-year-old male with a past medical history significant for coronary artery disease, abdominal aortic aneurysm, CVA/TIA, diabetes mellitus, hypertension, hyperlipidemia, osteoarthritis, prostate cancer last chemotherapy 07/2020 sent in from [facility] for altered mental status changes and concerns for stroke like symptoms. At the facility patient was noted to have left-sided facial droop and he was unresponsive for few minutes so EMS was called. When EMS arrived they found the patient was alert and able to answer all their questions appropriately. Patient's daughter at the bedside and mentions that she has multiple episodes of mini strokes in the past which is si milar to this episode. Patient denies having any fevers chills or rigors. No cough or difficulty in breathing. No chest pain or palpitations. He states that he is at his baseline. In the ER at the time of admission patient's temperature 98.1, heart rate 96, respiratory 18, blood pressure 101/83, saturating at 88% on 4 L of nasal cannula. He had labs done showing white count of 8.0, hemoglobin 12.8, platelets 196. Sodium 126, potassium 3.4, chloride 78, bicarb 40, BUN 60, creatinine 1.86, troponin 0 0.304 urine analysis is negative for nitrites and trace leukocyte Estrace . Coronavirus PCR is negative patient had a brain CT study showing moderate atrophy appropriate for patient's age, no acute bleed or mass-effect and remote lacunar infarcts in the left periventricular white matter he had a chest x-ray consistent with mild CHF and an EKG done showing sinus rhythm with left bundle branch block. So the patient was admitted for further management. 09/23/2020 Patient is seen and evaluated follow-up this morning continues to be closely monitored in the cardiac stepdown unit. Patient is being followed closely by neurology and cardiology. Vascular surgery consulted. Mentation is improving. Family had discussion with hospice and were planning to proceed forward with this although patient states he wishes to remain a full code and is not ready for hospice. Patient continues on oral Lasix and will continue. Sodium continues to be low at 129 and creatinine slightly improved at 1.34. Magnesium 1.7 and will give 1 g of magnesium and also potassium was found to be low at 3.2 and will replace per protocol. We'll repeat a.m. labs. Patient underwent carotid study showing bilateral carotid artery occlusion and CTA of the head and neck was done showing proximal bilateral carotid obstruction. Patient continues on aspirin and Plavix and have resumed Lipitor and will continue. Vascular surgery consulted and pending at this time. EEG also ordered and pending. Review of systems: Constitutional: No reports of fatigue, fever, or chills Cardiovascular: No reports of chest pain or palpitations Respiratory: No reports of shortness of breath or cough GI: No reports of nausea, vomiting, or diarrhea : No reports of dysuria or retention Neurovascular: Reports generalized weakness All medications have been reviewed Active Medications Aspirin (Aspirin 81 Mg) 81 mg PO DAILY@0900 [facility] Last Admin: 09/23/20 10:10 Dose: 81 mg Documented by: Atorvastatin Calcium (Atorvastatin 40 Mg Tab) 80 mg PO HS@2100 [facility] Clopidogrel Bisulfate (Clopidogrel 75 Mg Tab) 75 mg PO DAILY@0900 [facility] Last Admin: 09/23/20 10:11 Dose: 75 mg Documented by: Ferrous Sulfate (Ferrous Sulfate 325 Mg Tab) 325 mg PO DAILY@0900 [facility] Last Admin: 09/23/20 10:10 Dose: 325 mg Documented by: Furosemide (Furosemide 80 Mg Tab) 80 mg PO BID@0900,1600 [facility] Last Admin: 09/23/20 10:11 Dose: 80 mg Documented by: Metolazone (Metolazone 2.5 Mg Tab) 2.5 mg PO DAILY [facility] Last Admin: 09/23/20 10:25 Dose: 2.5 mg Documented by: Metoprolol Tartrate (Metoprolol Tartrate 25 Mg Tab) 25 mg PO BID [facility] Last Admin: 09/23/20 10:12 Dose: 25 mg Documented by: Midodrine (Midodrine 5 Mg Tab) 2.5 mg PO BID@0900,2100 [facility] Last Admin: 09/23/20 10:10 Dose: 2.5 mg Documented by: Miscellaneous Information (Potassium Replacement Protocol 1 Each Misc) 1 each MISCELLANE DAILY PRN; Protocol PRN Reason: Per Protocol Miscellaneous Information (Potassium Replacement Protocol 1 Each Misc) 1 each MISCELLANE DAILY PRN; Protocol PRN Reason: Per Protocol Miscellaneous Information (Magnesium Replacement Protocol 1 Each Misc) 1 each MISCELLANE DAILY PRN; Protocol PRN Reason: Per Protocol Multivitamins (Multivitamins, Thera 1 Each Tab) 1 each PO DAILY@0900 [facility] Last Admin: 09/23/20 10:11 Dose: 1 each Documented by: Naloxone HCl (Naloxone 0.4 Mg/Ml 1 Ml Vial) 0.2 mg IV Q2M PRN PRN Reason: Opioid Reversal Potassium Chloride (Potassium Chloride Er 20 Meq Tab.Er) 20 meq PO DAILY@0900 [facility] Last Admin: 09/23/20 10:14 Dose: 20 meq Documented by: Spironolactone (Spironolactone 25 Mg Tab) 25 mg PO DAILY [facility] Last Admin: 09/23/20 10:11 Dose: 25 mg Documented by: Temazepam (Temazepam 7.5 Mg Cap) 7.5 mg PO HS PRN PRN Reason: Insomnia Temazepam (Temazepam 15 Mg Cap) 15 mg PO HS@2100 [facility] Last Admin: 09/22/20 20:49 Dose: 15 mg Documented by: Objective - Vital Signs Vital signs: Vital Signs Temp 97.5 F L 09/23/20 12:51 Pulse 60 09/23/20 12:51 Resp 18 09/23/20 12:51 BP 116/71 09/23/20 12:51 Pulse Ox 98 09/23/20 12:51 Intake & Output 09/22/20 09/23/20 09/23/20 18:59 06:59 18:59 Intake Total 236 100 Output Total [id number] [facility] -635 -[phone] -4246 Weight 100.5 kg 103.5 kg Intake: Oral 236 100 Output: Urine 948 671 8732 Other: Voiding Method Indwelling Catheter Indwelling Catheter Indwelling Catheter - Exam GENERAL: Elderly male lying in bed appears to be in no acute distress. Pale. Temp is 97.3F, pulse is 61, respirations 18, blood pressure is 120/72, oxygen saturation is 96% on 3 L via nasal cannula. HEENT: Pupils are round and equally reacting to light. EOMI. No scleral icterus. No conjunctival pallor. Normocephalic, atraumatic. No pharyngeal erythema. No thyromegaly. CARDIOVASCULAR: S1 and S2 present. PULMONARY: Diminished breath sounds bilaterally with some bibasilar crackles noted ABDOMEN: Soft, nontender, nondistended, normoactive bowel sounds. No palpable organomegaly. MUSCULOSKELETAL: No joint swelling or deformity. EXTREMITIES: No cyanosis, clubbing, pitting bilateral pedal edema NEUROLOGICAL: patient is alert awake oriented 3 .Gross neurological examination did not reveal any focal deficits. SKIN: frail - Labs CBC & Chem 7: 09/22/20 06:22 09/23/20 07:32 Labs: Abnormal Lab Results - Last 24 Hours (Table) 09/22/20 09/22/20 09/22/20 Range/Units 16:50 20:09 21:08 Sodium (137-145) mmol/L Potassium 3.4 L (3.5-5.1) mmol/L Chloride (98-107) mmol/L Carbon Dioxide (22-30) mmol/L BUN (9-20) mg/dL Creatinine (0.66-1.25) mg/dL Glucose (74-99) mg/dL POC Glucose (mg/dL) 165 H 169 H (75-99) mg/dL 09/23/20 09/23/20 09/23/20 Range/Units 06:27 07:32 11:43 Sodium 129 L (137-145) mmol/L Potassium 3.2 L (3.5-5.1) mmol/L Chloride 80 L (98-107) mmol/L Carbon Dioxide 38 H (22-30) mmol/L BUN 64 H (9-20) mg/dL Creatinine 1.34 H (0.66-1.25) mg/dL Glucose 123 H (74-99) mg/dL POC Glucose (mg/dL) 131 H 148 H (75-99) mg/dL Assessment and Plan Assessment: Encephalopathy-multiple etiologies including hyponatremia, VERONICA, TIA Right-sided weakness with dysarthria and facial droop- possible TIA Acute kidney injury most likely prerenal due to cardiorenal syndrome Acute on chronic systolic congestive heart failure ejection fraction less than 20% Moderate to severe pulmonary hypertension Hyponatremia Hypokalemia Transaminitis Elevated troponin Chronic kidney disease stage III Hypertension Hyperlipidemia Valvular heart disease including aortic stenosis arctic regurgitation Chronic debility Recommendation and discussion: Recommend continue with current medications and management. Multiple medical consultations including cardiology, nephrology, and neuro following. Vascular surgery consult was placed as patient underwent carotid Doppler study showing occlusion and also underwent CT angiogram showing proximal bilateral carotid artery obstruction with cerebral vascular appearing to be fed by the vertebral arteries with a patent right and likely patent left posterior communicating arteries. Will await vascular surgery report. Patient has multiple etiologies for altered mental status changes including hyponatremia, acute kidney injury, possible TIA like episode. As per discussion with his daughter at the bedside patient had multiple episodes of TIAs in the past. Patient is getting Lasix 80 mg twice daily, replacing potassium as it was found to be low at 3.2 as well as magnesium was 1.7 and will give 1 g. Will repeat a.m. labs and continue to monitor closely. Overall prognosis is guarded due to chronic multiple conditions. Further recommendations to follow depending upon the progress of the patient. Patient wishing to remain full code at this time although family has discussed about possible hospice versus palliative case management along with social work are following.
--- NOTE | 2020-09-23 15:54 | EEG ---
ELECTROENCEPHALOGRAM REPORT DATE OF SERVICE: 09/23/2020. CLINICAL HISTORY: This is a 79-year-old gentleman with an episode of unresponsiveness. The video EEG is obtained to evaluate for seizure and epileptiform activity. RELEVANT MEDICATION: The patient is not on any antiepileptic drugs. EEG TYPE: A routine 21-channel EEG is performed with video using the 10/20 electrode placement system. DESCRIPTION: Wakefulness and drowsiness are obtained. During wakefulness, there is a posterior- dominant rhythm of low to moderate voltage of 7-8 hertz activity. During drowsiness, there is slowing and attenuation of the background activity. There is no physiological stage II sleep. There is no focal slowing seen. Interictal and ictal are none. ACTIVATION PROCEDURE: Photic stimulation did not evoke a posterior driving response. There is no abnormality seen during photic stimulation. Hyperventilation is not performed. CLINICAL INTERPRETATION: This is a normal routine EEG. There are no focal slowing, epileptiform discharges or seizure on the routine EEG. Clinical correlation is recommended. MMROSALINE / NINAN: [id number] / [id number]
[2020-09-23 16:55] LABS: Glucose,Whole Blood 163 mg/dL (75-99)
[2020-09-23 20:09] LABS: Glucose,Whole Blood 165 mg/dL (75-99)
[2020-09-23] MEDS: ATORVASTATIN 40 MG TAB PO SCH (20:34)
[2020-09-23] MEDS: TEMAZEPAM 15 MG CAP PO SCH (20:35)
[2020-09-24 06:14] LABS: Glucose,Whole Blood 143 mg/dL (75-99)
[2020-09-24] MEDS: FUROSEMIDE 80 MG TAB PO SCH ×2 (08:13→17:06)
[2020-09-24] MEDS: CLOPIDOGREL 75 MG TAB PO SCH (08:13)
[2020-09-24] MEDS: ASPIRIN 81 MG PO SCH (08:13)
[2020-09-24] MEDS: MIDODRINE 5 MG TAB PO SCH (08:13)
[2020-09-24] MEDS: METOPROLOL TARTRATE 25 MG TAB PO SCH ×2 (08:13→20:50)
[2020-09-24] MEDS: SPIRONOLACTONE 25 MG TAB PO SCH (08:14)
[2020-09-24] MEDS: MULTIVITAMINS, THERA 1 EACH TAB PO SCH (08:14)
[2020-09-24] MEDS: FERROUS SULFATE 325 MG TAB PO SCH (08:14)
[2020-09-24] MEDS: metOLazone 2.5 MG TAB PO SCH (08:14)
[2020-09-24] MEDS: POTASSIUM CHLORIDE ER 20 MEQ TAB.ER PO SCH (08:14)
[2020-09-24 08:36] LABS: Calcium 8.9 mg/dL (8.4-10.2); Magnesium 1.7 mg/dL (1.6-2.3); Potassium 3.4 mmol/L (3.5-5.1)
[2020-09-24] MEDS ORDERED: POTASSIUM CHLORIDE ER 20 MEQ TAB.ER PO STA (09:44)
[2020-09-24 10:44] LABS: Glucose,Whole Blood 154 mg/dL (75-99)
--- NOTE | 2020-09-24 11:27 | CT ---
EXAMINATION TYPE: CODE STROKE: CT brain wo contr DATE OF EXAM: 09/24/2020 COMPARISON: 09/21/2020 INDICATION: Unresponsive. DLP: 1102.8 mGycm, Automated exposure control for dose reduction was used. CONTRAST: None CT of the brain is performed utilizing 3 mm thick sections through the posterior fossa and 3 mm thick sections through the remaining calvarium. Study is not performed within 24 hours of arrival to the hospital. No abnormal hyperdensity is present to suggest an acute intracranial hemorrhage. No mass lesion is evident. No acute infarcts are evident. Periventricular white matter hypodensity is present, compatible with c hronic white matter ischemic changes. An old lacunar infarct is in the left cruz radiata. Ventricles and sulci are prominent for the patient age. Paranasal sinuses and mastoid air cells within the [id number] are clear. IMPRESSIONS: 1. Atrophy with chronic appearing periventricular white matter ischemic changes. 2. Old left lacunar infarct 3. No acute intracranial process
--- NOTE | 2020-09-24 11:28 | P.PN ---
Subjective Progress Note Date: 09/24/20 Principal diagnosis: Carotid occlusion Patient is seen and examined sitting up in the bedside. No acute changes through the night. No reported focal deficits. He is alert and oriented, speech is fluent, and answering questions appropriately. CT angiogram of head and neck reviewed. Report reads There appears to be proximal bilateral carotid artery obstruction area of cerebrovascular chair appears to be fed by vertebral arteries with a patent right and likely patent left posterior communicating arteries. Objective - Vital Signs Vital signs: Vital Signs Temp 97.1 F L 09/24/20 08:00 Pulse 68 09/24/20 08:00 Resp 22 09/24/20 08:00 BP 120/70 09/24/20 08:00 Pulse Ox 100 09/24/20 08:01 Intake & Output 09/23/20 09/24/20 09/24/20 18:59 06:59 18:59 Intake Total 100 Output Total 2600 640 650 Balance -2500 -640 -650 Weight 94 kg Intake: Oral 100 Output: Urine 2600 640 650 Uretheral (Blanton) 750 Other: Voiding Method Indwelling Catheter Indwelling Catheter # Bowel Movements 1 - Exam General appearance: The patient is alert, oriented, appears in no acute distress. HET: Head is normocephalic and atraumatic. Neck: Supple without lymphadenopathy. Trachea midline. Extremities: Normal skin color and turgor. Radial pulses are +2 bilaterally. Neurological: No focal deficits. Strength and sensation are grossly intact. - Labs CBC & Chem 7: 09/22/20 06:22 09/24/20 07:17 Labs: Abnormal Lab Results - Last 24 Hours (Table) 09/23/20 09/23/20 09/23/20 Range/Units 07:32 11:43 16:53 Sodium 129 L (137-145) mmol/L Potassium 3.2 L (3.5-5.1) mmol/L Chloride 80 L (98-107) mmol/L Carbon Dioxide 38 H (22-30) mmol/L BUN 64 H (9-20) mg/dL Creatinine 1.34 H (0.66-1.25) mg/dL Glucose 123 H (74-99) mg/dL POC Glucose (mg/dL) 148 H 163 H (75-99) mg/dL 09/23/20 09/24/20 Range/Units 20:07 06:12 Sodium (137-145) mmol/L Potassium (3.5-5.1) mmol/L Chloride (98-107) mmol/L Carbon Dioxide (22-30) mmol/L BUN (9-20) mg/dL Creatinine (0.66-1.25) mg/dL Glucose (74-99) mg/dL POC Glucose (mg/dL) 165 H 143 H (75-99) mg/dL Assessment and Plan Assessment: 1. TIA 2. Bilateral carotid artery occlusion per carotid ultrasound report 3. History of right carotid endarterectomy done at [facility] date unknown 4. History of CVA 1997 5. Diabetes mellitus 6. Hyperlipidemia 7. Coronary artery disease status post stent and CABG 8. Hypertension 9. Prostate cancer Plan: 1. CT angiogram of head and neck ordered and reviewed, bilateral occlusion noted, therefore no intervention is indicated from vascular surgery. 2. Continue aspirim amount Plavix, and Lipitor 3. Continue medical management per primary team Thank you for this consultation, we will sign off at this time. The impression and plan of care has been dictated as directed. Dr. Blanton I performed a history and examination of this patient, discussed the same with the dictator. I agree with the dictator's note ,documented as a scribe. Any additional findings or plans will be noted.
[2020-09-24] MEDS ORDERED: levETIRAcetam IV 1,000 MG in SALINE 1 100ML.BAG IVPB STA (11:53)
--- NOTE | 2020-09-24 11:57 | CT ---
EXAMINATION TYPE: CODE STROKE: CTA head neck DATE OF EXAM: 09/24/2020 HISTORY: Unresponsive. COMPARISON: 09/23/2020 CT DLP: 496 mGycm. Automated Exposure Control for Dose Reduction was Utilized. TECHNIQUE: CTA scan of the neck is performed with IV Contrast, patient injected with 65 mL of Isovue 370, axial images are obtained, coronal and sagittal reformatted images are reviewed. Three-D recons tructed images are created on an independent workstation and reviewed. Source images are reviewed. FINDINGS: Carotid/Vascular Structures: There is a three-vessel arch. Vascular calcifications within the vessels . Bilateral carotid artery obstruction is again evident. Vertebral arteries remain patent. Note is ma de of the vascular calcification at the carotid bifurcations bilaterally. Cervical of [place]: Vertebral basilar system appears normal. Posterior cerebral vasculature is unrema rkable. No contrast is identified within the distal internal carotid arteries. However, the A1 and M1 segments as well as the A2 segments contain contrast. Middle cerebral artery branches appear within normal limits. The anterior communicating artery is patent. Left Posterior communicating artery is pa tent. Right posterior communicating artery is patent. Comparison: No significant interval change is evident. IMPRESSION: 1. Obstruction of the bilateral common carotid arteries with nonvisualization of internal/external ca rotid artery contrast. 2. Vertebral arteries remain patent. 3. [place] of [place] contains contrast from vertebral artery and communicating artery distribution.
[2020-09-24 12:03] LABS: Glucose,Whole Blood 125 mg/dL (75-99)
[2020-09-24] MEDS ORDERED: TICAGRELOR 90 MG TAB PO STA (12:47)
--- NOTE | 2020-09-24 12:50 | P.PN ---
Subjective Patient is seen in follow-up for acute kidney injury. Renal function continues to improve. Sodium level 131. Maintained on oral diuretics. Quite weak and lethargic. Not a reliable historian. Daughter present at bedside. Vital signs are stable. General: Lethargic. HEENT: Head exam is unremarkable. LUNGS: Breath sounds decreased. HEART: Rate and Rhythm are regular. ABDOMEN: Soft, no distention. EXTREMITITES: 1+ edema. Objective - Vital Signs Vital signs: Vital Signs Temp 97.1 F L 09/24/20 08:00 Pulse 63 09/24/20 10:50 Resp 16 09/24/20 10:50 BP 115/59 09/24/20 10:50 Pulse Ox 88 L 09/24/20 10:50 Intake & Output 09/23/20 09/24/20 09/24/20 18:59 06:59 18:59 Intake Total 100 0 Output Total 2600 640 975 Balance -2500 -640 -975 Weight 94 kg 94 kg Intake: Oral 100 0 Output: Urine 2600 640 975 Uretheral (Blanton) 750 Other: Voiding Method Indwelling Catheter Indwelling Catheter Indwelling Catheter # Bowel Movements 1 - Labs CBC & Chem 7: 09/22/20 06:22 09/24/20 07:17 Labs: Abnormal Lab Results - Last 24 Hours (Table) 09/23/20 09/23/20 09/24/20 Range/Units 16:53 20:07 06:12 Sodium (137-145) mmol/L Potassium (3.5-5.1) mmol/L Chloride (98-107) mmol/L Carbon Dioxide (22-30) mmol/L BUN (9-20) mg/dL Creatinine (0.66-1.25) mg/dL Glucose (74-99) mg/dL POC Glucose (mg/dL) 163 H 165 H 143 H (75-99) mg/dL 09/24/20 09/24/20 09/24/20 Range/Units 07:17 10:43 12:02 Sodium 131 L (137-145) mmol/L Potassium 3.4 L (3.5-5.1) mmol/L Chloride 81 L (98-107) mmol/L Carbon Dioxide 39 H (22-30) mmol/L BUN 57 H (9-20) mg/dL Creatinine 1.28 H (0.66-1.25) mg/dL Glucose 121 H (74-99) mg/dL POC Glucose (mg/dL) 154 H 125 H (75-99) mg/dL Assessment and Plan Plan: Assessment: 1. Acute kidney injury mostly prerenal secondary to cardiorenal syndrome. Cre atinine 1.86 on admission and is 1.28 today. Patient did receive IV contrast dye on September 23 and September 24. Baseline creatinine near 1. UA fairly benign. No hydronephrosis noted kidney ultrasound. Left kidney not visualized. 2. Acute on chronic systolic CHF with ejection fraction of less than 20% with moderate to severe pulmonary hypertension. 3. Hypokalemia from diuresis. 4. Hypervolemic hyponatremia. Improving. 5. Fluid overload. Improving with diuresis. Plan: Maintain Lasix 80 mg orally twice daily. Maintain metolazone 2.5 mg daily. Potassium being replaced. Low-salt diet and 1200 mL fluid restriction. Continue to monitor renal function and urine output. Monitor for contrast-induced acute kidney injury.
--- NOTE | 2020-09-24 13:29 | P.PN ---
Subjective This is a pleasant 79-year-old male past medical history significant for abdominal aortic aneurysm, bilateral carotid artery disease, hypertension, coronary artery disease status post bypass grafting 2012, ischemic cardiomyopathy with ejection fraction <20%, valvular heart disease with moderate mitral regurgitation and moderate aortic insufficiency, dyslipidemia, chronic kidney disease and former nicotine dependence. He follows in the office with Dr. Cochran. We have been asked to see in consultation for elevated troponin and congestive heart failure. Patient comes from [facility] and brought to the emergency department due to altered mental status and concerns of stroke like symptoms (according to the notes possible left sided facial droop). Per ED note, EMS reported that they were called to the facility being told the patient was unresponsive. EMS states that when they presented to [facility] they found the patient alert and able to answer all questions appropriately. Patient states that this has happened to him before being brought into the hospital thinking he had a stroke. He states he has had decreased PO intake. He denies chest pain, lightheadedness, dizziness, shortness of breath, or palpitations. EKG reveals sinus rhythm, heart rate 77 left bundle branch block with underlying premature atrial complexes, T wave inversions in lateral leads and inferior leads and V4- V6. Similar changes to prior. Current cardiac medications include aspirin 81 mg daily, atorvastatin 40 mg daily, Plavix 75 mg daily, lisinopril 5 mg daily and Lopressor 12.5 mg twice a day. Most recent echocardiogram obtained 08/05/20 severely impaired LV systolic function with ejection fraction less than 20%, severely dilated left atrium, mild aortic stenosis with a mean gradient of 15 mmHg, mild tricuspid regurgitation and moderate to severe pulmonary hypertension with RVSP of [address] brain - No acute bleed or mass effect. Remote lacunar infarcts in the left periventricular white matter Chest x-ray consistent with mild CHF similar in degree was seen on 09/03/2020 09/23/2020: Patient seen and examined at bedside, appears comfortable, alert and oriented x 3. No complaint sat this time Carotid duplex revealed bilateral no flow visualized to bilateral carotid arteries. Vascular was consulted. Telemetry reviewed patient in sinus mechanism heart rate 60s, occasional PVCs. Patient did have an episode of bigeminy this morning around 5 AM. Patient with 1.4 L urine output over the past 24 hours. 09/24/2020: Patient seen and examined at bedside around 10:30-10:40. Not alert or oriented. Not responsive to verbal stimuli. Minimally responsive to painful stimuli. Breathing appears regular. Code Stroke called for the patient. Blood pressure 107/69, heart rate 60s, on 3 L nasal cannula. Laboratory data reviewed sodium 131, potassium 3.4, serum creatinine 1.28, BUN 57, magnesium 1.7 patient with 3.2 L urine output over the past 24 hours, weight 94kg. patient currently being maintained on aspirin 81 mg daily, atorvastatin 80 mg nightly, by mouth Lasix 80 mg twice a day, metolazone 2.5 mg daily, metoprolol tartrate 25 mg twice a day, potassium chloride 20 mg daily, spironolactone 25 mg daily, Brilinta 90 mg twice a day. GENERAL: Change in mental status. Not alert or oriented. Not responsive to verbal stimuli. Minimally responsive to painful stimuli. NECK: Supple without JVD or thyromegaly. LUNGS: Breath sounds clear to auscultation bilaterally. Respiration equal and unlabored. No wheezes, rales or rhonchi. : Blanton placed with clear yellow urine draining HEART: Regular rate and rhythm Systolic ejection murmur at the base,. S1 and S2 heard. EXTREMITIES: 3+ bilateral pitting edema. No clubbing or cyanosis. Peripheral pulses intact. ASSESSMENT Altered mental status - Neurology following possible TIA Remote Lacunar infarct in the left periventricular white matter seen on CT brain Elevated troponin, not indicative of acute coronary syndrome Acute on Chronic systolic heart failure with reduced ejection fraction History of coronary artery disease status post bypass grafting in 2012. Ischemic cardiomyopathy EF <20% Chronic kidney disease- nephrology following Hypertension Dyslipidemia Valvular heart disease, aortic stenosis, aortic regurgitation and mitral regurgitation Hypokalemia - improving PLAN -Stop midodrine at this time, and monitor patient's Blood pressure -Potassium being replaced -Lasix PO 80mg BID -Spironolactone 25mg daily -Metoprolol tartrate 25mg BID -Continue aspirin and statin. Patient transitioned to Brilinta -Continue monitor renal function and electrolytes -Neurology following, Plan for repeat CT brain Nurse Practitioner note has been reviewed, I agree with a documented findings and plan of care. Patient was seen and examined. Objective - Vital Signs Vital signs: Vital Signs Temp 98.0 F 09/24/20 13:06 Pulse 66 09/24/20 13:06 Resp 18 09/24/20 13:06 BP 119/64 09/24/20 13:06 Pulse Ox 97 09/24/20 13:06 Intake & Output 09/23/20 09/24/20 09/24/20 18:59 06:59 18:59 Intake Total 100 0 Output Total 2600 640 975 Balance -2500 -640 -075 Weight 94 kg 94 kg Intake: Oral 100 0 Output: Urine 2600 640 975 Uretheral (Blanton) 750 Other: Voiding Method Indwelling Catheter Indwelling Catheter Indwelling Catheter # Bowel Movements 1 - Labs CBC & Chem 7: 09/22/20 06:22 09/24/20 07:17 Labs: Abnormal Lab Results - Last 24 Hours (Table) 09/23/20 09/23/20 09/24/20 Range/Units 16:53 20:07 06:12 Sodium (137-145) mmol/L Potassium (3.5-5.1) mmol/L Chloride (98-107) mmol/L Carbon Dioxide (22-30) mmol/L BUN (9-20) mg/dL Creatinine (0.66-1.25) mg/dL Glucose (74-99) mg/dL POC Glucose (mg/dL) 163 H 165 H 143 H (75-99) mg/dL 09/24/20 09/24/20 09/24/20 Range/Units 07:17 10:43 12:02 Sodium 131 L (137-145) mmol/L Potassium 3.4 L (3.5-5.1) mmol/L Chloride 81 L (98-107) mmol/L Carbon Dioxide 39 H (22-30) mmol/L BUN 57 H (9-20) mg/dL Creatinine 1.28 H (0.66-1.25) mg/dL Glucose 121 H (74-99) mg/dL POC Glucose (mg/dL) 154 H 125 H (75-99) mg/dL
--- NOTE | 2020-09-24 14:48 | P.PN ---
Subjective Progress Note Date: 09/24/20 Mr. Liana dos santos is a 79-year-old male with a past medical history significant for coronary artery disease, abdominal aortic aneurysm, CVA/TIA, diabetes mellitus, hypertension, hyperlipidemia, osteoarthritis, prostate cancer last chemotherapy 07/2020 sent in from [facility] for altered mental status changes and concerns for stroke like symptoms. At the facility patient was noted to have left-sided facial droop and he was unresponsive for few minutes so EMS was called. When EMS arrived they found the patient was alert and able to answer all their questions appropriately. Patient's daughter at the bedside and mentions that she has multiple episodes of mini strokes in the past which is si milar to this episode. Patient denies having any fevers chills or rigors. No cough or difficulty in breathing. No chest pain or palpitations. He states that he is at his baseline. In the ER at the time of admission patient's temperature 98.1, heart rate 96, respiratory 18, blood pressure 101/83, saturating at 88% on 4 L of nasal cannula. He had labs done showing white count of 8.0, hemoglobin 12.8, platelets 196. Sodium 126, potassium 3.4, chloride 78, bicarb 40, BUN 60, creatinine 1.86, troponin 0 0.304 urine analysis is negative for nitrites and trace leukocyte Estrace . Coronavirus PCR is negative patient had a brain CT study showing moderate atrophy appropriate for patient's age, no acute bleed or mass-effect and remote lacunar infarcts in the left periventricular white matter he had a chest x-ray consistent with mild CHF and an EKG done showing sinus rhythm with left bundle branch block. So the patient was admitted for further management. 09/23/2020 Patient is seen and evaluated follow-up this morning continues to be closely monitored in the cardiac stepdown unit. Patient is being followed closely by neurology and cardiology. Vascular surgery consulted. Mentation is improving. Family had discussion with hospice and were planning to proceed forward with this although patient states he wishes to remain a full code and is not ready for hospice. Patient continues on oral Lasix and will continue. Sodium continues to be low at 129 and creatinine slightly improved at 1.34. Magnesium 1.7 and will give 1 g of magnesium and also potassium was found to be low at 3.2 and will replace per protocol. We'll repeat a.m. labs. Patient underwent carotid study showing bilateral carotid artery occlusion and CTA of the head and neck was done showing proximal bilateral carotid obstruction. Patient continues on aspirin and Plavix and have resumed Lipitor and will continue. Vascular surgery consulted and pending at this time. EEG also ordered and pending. 09/24/2020 Patient is seen and evaluated with cardiology also at the bedside and patient is unresponsive and not following commands to verbal or painful stimuli and code stroke was called stat head CT done which shows atrophy with chronic appearing periventricular white matter ischemic changes and old left lacunar infarct with no acute intracranial process. Patient also underwent CT angiogram showing ob struction of bilateral common carotid arteries with nonvisualization of internal/external carotid artery contrast, vertebral arteries remain patent, [place] of [place] containing contrast from vertebral artery and communicating artery distribution. Neurology also following. Vascular surgery evaluated the patient recommending no surgical intervention at this time and continuing with current medication management. Patient is continued on aspirin, Lipitor, and originally Plavix although this was discontinued and patient is being started on Brilinta. Per nursing staff this morning patient was lethargic although awake and alert and following commands appropriately and was able to eat some apple sauce and took his pills and then fell asleep with last known well approximately 10 AM. Exam time and the room was approximately 1035 to 10:40 AM and nursing staff was immediately notified and a code stroke was called. Patient was unresponsive to pain or verbal stimuli with right facial droop and right-sided weakness along with some left-sided weakness of the left upper extremity. Sodium today is 131 with a potassium of 3.4 and creatinine slightly improved at 1.28. Will repeat a.m. labs. Review of systems: Constitutional: No reports of fatigue, fever, or chills Cardiovascular: No reports of chest pain or palpitations Respiratory: No reports of shortness of breath or cough GI: No reports of nausea, vomiting, or diarrhea : No reports of dysuria or retention Neurovascular: Reports generalized weakness All medications have been reviewed Active Medications Aspirin (Aspirin 81 Mg) 81 mg PO DAILY@0900 [facility] Last Admin: 09/24/20 08:13 Dose: 81 mg Documented by: Atorvastatin Calcium (Atorvastatin 40 Mg Tab) 80 mg PO HS@2100 [facility] Last Admin: 09/23/20 20:34 Dose: 80 mg Documented by: Ferrous Sulfate (Ferrous Sulfate 325 Mg Tab) 325 mg PO DAILY@0900 [facility] Last Admin: 09/24/20 08:14 Dose: 325 mg Documented by: Furosemide (Furosemide 80 Mg Tab) 80 mg PO BID@0900,1600 [facility] Last Admin: 09/24/20 08:13 Dose: 80 mg Documented by: Levetiracetam 500 mg/ Sodium (Chloride) 105 mls @ 400 mls/hr IVPB Q12HR [facility] Metolazone (Metolazone 2.5 Mg Tab) 2.5 mg PO DAILY [facility] Last Admin: 09/24/20 08:14 Dose: 2.5 mg Documented by: Metoprolol Tartrate (Metoprolol Tartrate 25 Mg Tab) 25 mg PO BID [facility] Last Admin: 09/24/20 08:13 Dose: 25 mg Documented by: Miscellaneous Information (Potassium Replacement Protocol 1 Each Misc) 1 each MISCELLANE DAILY PRN; Protocol PRN Reason: Per Protocol Miscellaneous Information (Magnesium Replacement Protocol 1 Each Misc) 1 each MISCELLANE DAILY PRN; Protocol PRN Reason: Per Protocol Multivitamins (Multivitamins, Thera 1 Each Tab) 1 each PO DAILY@0900 [facility] Last Admin: 09/24/20 08:14 Dose: 1 each Documented by: Naloxone HCl (Naloxone 0.4 Mg/Ml 1 Ml Vial) 0.2 mg IV Q2M PRN PRN Reason: Opioid Reversal Potassium Chloride (Potassium Chloride Er 20 Meq Tab.Er) 20 meq PO DAILY@0900 [facility] Last Admin: 09/24/20 08:14 Dose: 20 meq Documented by: Spironolactone (Spironolactone 25 Mg Tab) 25 mg PO DAILY [facility] Last Admin: 09/24/20 08:14 Dose: 25 mg Documented by: Temazepam (Temazepam 7.5 Mg Cap) 7.5 mg PO HS PRN PRN Reason: Insomnia Ticagrelor (Ticagrelor 90 Mg Tab) 90 mg PO BID [facility] Objective - Vital Signs Vital signs: Vital Signs Temp 97.1 F L 09/24/20 08:00 Pulse 68 09/24/20 08:00 Resp 22 09/24/20 08:00 BP 120/70 09/24/20 08:00 Pulse Ox 100 09/24/20 08:01 Intake & Output 09/23/20 09/24/20 09/24/20 18:59 06:59 18:59 Intake Total 100 0 Output Total 7060 295 97 Balance -7223 -640 -095 Weight 94 kg Intake: Oral 100 0 Output: Urine 2604 699 975 Uretheral ([place]) 750 Other: Voiding Method Indwelling Catheter Indwelling Catheter Indwelling Catheter # Bowel Movements 1 - Exam GENERAL: Elderly male lying in bed, unresponsive. Pale. Temp is 97.1F, pulse is 67, respirations 16, blood pressure is 107/69, oxygen saturation is 97% on 3 L via nasal cannula. HEENT: Pupils are round and equally reacting to light. EOMI. No scleral icterus. No conjunctival pallor. Normocephalic, atraumatic. No pharyngeal erythema. No thyromegaly. CARDIOVASCULAR: S1 and S2 muffled. PULMONARY: Diminished breath sounds bilaterally with severely diminished breath sounds noted on the left more so than the right with some bibasilar crackles noted at the bases ABDOMEN: Soft, nontender, nondistended, normoactive bowel sounds. No palpable organomegaly. MUSCULOSKELETAL: No joint swelling or deformity. EXTREMITIES: No cyanosis, clubbing, pitting bilateral pedal edema NEUROLOGICAL: patient is alert and oriented 0 .right-sided facial droop along with right-sided weakness of bilateral upper extremity, unable to follow commands and not responding to verbal or painful stimuli. Minimal stimulation with sternal rub SKIN: frail - Labs CBC & Chem 7: 09/22/20 06:22 09/24/20 07:17 Labs: Abnormal Lab Results - Last 24 Hours (Table) 09/23/20 09/23/20 09/23/20 Range/Units 11:43 16:53 20:07 Sodium (137-145) mmol/L Potassium (3.5-5.1) mmol/L Chloride (98-107) mmol/L Carbon Dioxide (22-30) mmol/L BUN (9-20) mg/dL Creatinine (0.66-1.25) mg/dL Glucose (74-99) mg/dL POC Glucose (mg/dL) 148 H 163 H 165 H (75-99) mg/dL 09/24/20 09/24/20 09/24/20 Range/Units 06:12 07:17 10:43 Sodium 131 L (137-145) mmol/L Potassium 3.4 L (3.5-5.1) mmol/L Chloride 81 L (98-107) mmol/L Carbon Dioxide 39 H (22-30) mmol/L BUN 57 H (9-20) mg/dL Creatinine 1.28 H (0.66-1.25) mg/dL Glucose 121 H (74-99) mg/dL POC Glucose (mg/dL) 143 H 154 H (75-99) mg/dL Assessment and Plan Assessment: Encephalopathy-multiple etiologies including hyponatremia, VERONICA, TIA Left-sided cortical stroke Right-sided weakness with dysarthria and facial droop- possible TIA, recurrent today Acute kidney injury most likely prerenal due to cardiorenal syndrome Acute on chronic systolic congestive heart failure ejection fraction less than 20% Moderate to severe pulmonary hypertension Hyponatremia Hypokalemia Transaminitis Elevated troponin Chronic kidney disease stage III Hypertension Hyperlipidemia Valvular heart disease including aortic stenosis arctic regurgitation Chronic debility Recommendation and discussion: Recommend continue with current medications and management. Multiple medical consultations including cardiology, nephrology, and neuro following. Vascular surgery evaluated the patient as patient underwent carotid Doppler study showing occlusion and also underwent CT angiogram showing proximal bilateral carotid artery obstruction with cerebral vascular appearing to be fed by the vertebral arteries with a patent right and likely patent left posterior communicating arteries. Vascular surgery not planning on any surgical interventions and to continue with current medication management. Patient has multiple etiologies for altered mental status changes including hyponatremia, acute kidney injury, possible TIA like episode with another recurrent episode of right-sided weakness and facial drooping and unresponsive with code stroke called around 10:40 AM. Lengthy discussion with his daughter at the bedside patient had multiple episodes of TIAs in the past. Patient Continues with Lasix 80 mg twice daily, replacing potassium as it was found to be low at 3.4. Will repeat a.m. labs and continue to monitor closely. Overall prognosis is guarded due to chronic multiple conditions. Further recommendations to follow depending upon the progress of the patient. Patient wishing to remain full code at this time although family has discussed about possible hospice versus palliative. Discussed again about palliative care and will talk with case management about referral for this. case management along with social work are following as patient's plan is to return to [facility] when stable. Time with Patient: Greater than 30
--- NOTE | 2020-09-24 15:05 | P.PN ---
Subjective Progress Note Date: 09/24/20 Today the patient had an episode of unresponsiveness with right facial droop and right upper extremity worse within the left upper extremity so stroke with was activated around 1049. Per the patient nurse his NIH was a [address] of the head as a result was done and the was reported as atrophy with chronic appearing periventricular white matter ischemic changes. Old left lacunar infarct. No acute intracranial process. CT angiography of the head and neck is reported as a functional bilateral common carotid arteries with non-vascularization of the internal/external carotid artery contrast. Vertebral arteries remain patent. [place], contains contrast from vertebral artery and communicating artery distribution. Stroke team stated that the patient and was noted to be cannulated and no intervention from there is side. Upon seeing the patient he was accompanied by his Daughter (aMrquita) and it appears the patient's symptoms resolved. Objective - Vital Signs Vital signs: Vital Signs Temp 97.1 F L 09/24/20 08:00 Pulse 63 09/24/20 10:50 Resp 16 09/24/20 10:50 BP 115/59 09/24/20 10:50 Pulse Ox 88 L 09/24/20 10:50 Intake & Output 09/23/20 09/24/20 09/24/20 18:59 06:59 18:59 Intake Total 100 0 Output Total 2600 640 975 Balance -2500 -640 -975 Weight 94 kg 94 kg Intake: Oral 100 0 Output: Urine 2600 640 975 Uretheral (Blanton) 750 Other: Voiding Method Indwelling Catheter Indwelling Catheter Indwelling Catheter # Bowel Movements 1 - Exam GENERAL: The patient is lying in bed and is not in acute distress. INTEGUMENTARY: Pitting edema of lower extremities 2+. NEUROLOGICAL: Higher mental function: The patient was drowsy awakeable to voice, alert, oriented to self, place and time. Patient is following commands. No aphasia and no neglect. Cranial nerves: The pupils are round, equal and reactive to light and accommodation. Visual arrieta are full to confrontation throughout. Extraocular movement is intact no nystagmus is noted. Facial sensation is normal to touch throughout. The facial strength is mildly right lower facial but symetrical to smile (per [id number] chronic). Tongue is midline and moved [id number] without any difficulty. Mildy dysarthria is noted (chronic per daughter). Shoulder shrug is normal bilaterally. Motor: Gait is deferred. The strength is 5 over 5 throughout upper while lower extremities he had predominately 2/5 and few occasions 3/5 (per daughter chronic). Normal tone and bulk. Sensation: Sensation is normal to touch throughout. Reflexes (right/left): 2+ upper and 1+ lower Plantars are downgoing bilaterally. NIH: 0. - Labs CBC & Chem 7: 09/22/20 06:22 09/24/20 07:17 Labs: Abnormal Lab Results - Last 24 Hours (Table) 09/23/20 09/23/20 09/24/20 Range/Units 16:53 20:07 06:12 Sodium (137-145) mmol/L Potassium (3.5-5.1) mmol/L Chloride (98-107) mmol/L Carbon Dioxide (22-30) mmol/L BUN (9-20) mg/dL Creatinine (0.66-1.25) mg/dL Glucose (74-99) mg/dL POC Glucose (mg/dL) 163 H 165 H 143 H (75-99) mg/dL 09/24/20 09/24/20 09/24/20 Range/Units 07:17 10:43 12:02 Sodium 131 L (137-145) mmol/L Potassium 3.4 L (3.5-5.1) mmol/L Chloride 81 L (98-107) mmol/L Carbon Dioxide 39 H (22-30) mmol/L BUN 57 H (9-20) mg/dL Creatinine 1.28 H (0.66-1.25) mg/dL Glucose 121 H (74-99) mg/dL POC Glucose (mg/dL) 154 H 125 H (75-99) mg/dL Assessment and Plan Assessment: Transient Right sided weakness with dysarthriais is likely TIA (per daughter had similar episodes in past) in which he had a repeated episode today (09/24/2020) with right facial droop, right upper extremity weakness > left and unresponsiveness. Has bilateral carotid obstruction and multiple other risk factor. Cannot exclusively exclude seizure because of episode of unresponsivenss. Altered mental status seems due to metabolic encephalopathy (elevated LFT's, hyponatremia, VERONICA) lack of oral/fluid intake---mentation improved Bilateral common carotid obstruction per CTA Remote lacunar infarct in the left periventricular white matter. Seems small vessel disease due to patient risk factors Right carotid endartectomy in 1989' (At [facility]) Elevated troponin Acute kidney injury on chronic kidney insufficiency--improving Electrode imbalance with hyponatremia hypokalemia Diabetes Hyperlipidemia Hypertension History of coronary artery disease status post stent and CABG Ischemic cardiomyopathy with ejection fraction less than 20% Peripheral vascular disease status post stent Prostate cancer in last chemo was in July 2020 Plan: CT of the head is reported as moderate atrophy appropriate for the patient agent. No acute bleed or mass effect. Remote lacunar infarct in the left periventricular white matter. Patient was restarted on aspirin 81 and Plavix 75 mg daily. Patient was also restarted on the Lipitor 40 mg which are sufficient for secondary stroke prophylaxis. I notified the daughter we can switch the Plavix to Brilinta but daughter wants to continue same medications. Carotid artery sessions reported as bilateral carotid artery occlusion. CT angiography of the head and neck was reported as there appears to be proximal bilateral carotid obstruction. Cerebral vasculature appears to be fed by vertebral arteries with a patent right and likely patent left posture to maintain arteries. Repeat on 09/24/2020:CT of the head as a result was done and the was reported as atrophy with chronic appearing periventricular white matter ischemic changes. Old left lacunar infarct. No acute intracranial process. CT angiography of the head and neck is reported as a functional bilateral common carotid arteries with non-vascularization of the internal/external carotid artery contrast. Vertebral arteries remain patent. [place], contains contrast from vertebral artery and communicating artery distribution. An EEG on 09/23/2020 was done because of a previous episode of unresponsiveness and the patient the EEG was normal. There are no focal slowing, epileptiform discharges or seizure on the EEG On aspirin 81 mg, Plavix 75 mg daily. I will stop Plavix and will start the patient on Brilinta loading 180mg once then 90mg 1 tab bid. Continue Lipitor 80 mg qhs. Vascular surgeon team: Stated no intervention because of bilateral carotid obstruction. And signed off. I ordered lipid panel, TSH and hemoglobin A1c level. Patient presented to the hospital with a similar episode of unresponsiveness at the nursing facility as well as right facial right-sided weakness but the EEG was normal. He had another episode of unresponsiveness with right facial droop and right sided weakness > left. I am loading the patient with Keppra 1000mg once then 500mg every 12 hours. Physical therapy and occupation therapy are consulted Cardiology is on board Nephrology is on board I had a conversation with the daughter regarding the bilateral carotid obstruction and she stated that the she is aware of that and the patient had the follow-ups at [facility] and the they stated that they can do revascularization but upon per the follow-ups the patient and his daughter were notified that his body developed revascularization and that surgery was not needed but the last on the scene the [facility] machine was more than 10-15 y ears ago. I notified her that to consider follow-up with [facility] again to assess the patient circulation to the brain. The patient stated that he wants everything done on him. Will defer the rest of medical management to the primary team. The patient needs to follow-up with a neurologist as outpatient within 1-2 weeks. The plan is discussed with the patient's daughter (Marquita) who is at bedside. Matt Gonzalez MD Neuro-Hospitalist Time with Patient: Less than 30
[2020-09-24 16:55] LABS: Glucose,Whole Blood 145 mg/dL (75-99)
[2020-09-24 19:56] LABS: Glucose,Whole Blood 154 mg/dL (75-99)
[2020-09-24] MEDS: levETIRAcetam IV 500 MG in SODIUM CHLORIDE 0.9% 100 ML IVPB SCH (20:47)
[2020-09-24] MEDS: TICAGRELOR 90 MG TAB PO SCH (20:50)
[2020-09-24] MEDS: ATORVASTATIN 40 MG TAB PO SCH (20:50)
[2020-09-24 22:21] LABS: Hemoglobin A1C 6.6 % (4.0-6.0)
[2020-09-25 06:13] LABS: Glucose,Whole Blood 218 mg/dL (75-99)
[2020-09-25 08:09] LABS: Calcium 9.3 mg/dL (8.4-10.2); Magnesium 1.7 mg/dL (1.6-2.3)
[2020-09-25] MEDS: levETIRAcetam IV 500 MG in SODIUM CHLORIDE 0.9% 100 ML IVPB SCH ×2 (09:09→20:45)
[2020-09-25] MEDS: METOPROLOL TARTRATE 25 MG TAB PO SCH ×2 (11:08→20:34)
[2020-09-25] MEDS: metOLazone 2.5 MG TAB PO SCH ×2 (11:08→11:11)
[2020-09-25] MEDS: ASPIRIN 81 MG PO SCH (11:08)
[2020-09-25] MEDS: TICAGRELOR 90 MG TAB PO SCH ×2 (11:08→20:34)
[2020-09-25] MEDS: FUROSEMIDE 80 MG TAB PO SCH (11:08)
[2020-09-25] MEDS: MULTIVITAMINS, THERA 1 EACH TAB PO SCH (11:09)
[2020-09-25] MEDS: POTASSIUM CHLORIDE ER 20 MEQ TAB.ER PO SCH (11:09)
[2020-09-25] MEDS: FERROUS SULFATE 325 MG TAB PO SCH (11:09)
--- NOTE | 2020-09-25 11:10 | P.PN ---
Subjective Patient is seen in follow-up for acute kidney injury. Renal function stable. Sodium level 132. Maintained on oral diuretics. Not a reliable historian. Nonoliguric. Vital signs are stable. HEENT: Head exam is unremarkable. LUNGS: Breath sounds decreased. HEART: Rate and Rhythm are regular. ABDOMEN: Soft, no distention. EXTREMITITES: 1+ edema. Objective - Vital Signs Vital signs: Vital Signs Temp 97.7 F 09/25/20 09:00 Pulse 92 09/25/20 09:00 Resp 16 09/25/20 09:00 BP 119/68 09/25/20 09:00 Pulse Ox 91 L 09/25/20 09:00 Intake & Output 09/24/20 09/25/20 09/25/20 18:59 06:59 18:59 Intake Total 0 0 Output Total 19745 Balance -1974 0 Weight 94 kg 91.5 kg Intake: Oral 0 0 Output: Urine 1974 1224 Other: Voiding Method Indwelling Catheter Indwelling Catheter Indwelling Catheter - Labs CBC & Chem 7: 09/22/20 06:22 09/25/20 07:36 Labs: Abnormal Lab Results - Last 24 Hours (Table) 09/24/20 09/24/20 09/24/20 Range/Units 07:08 07:08 12:02 Sodium (137-145) mmol/L Chloride (98-107) mmol/L Carbon Dioxide (22-30) mmol/L BUN (9-20) mg/dL Creatinine (0.66-1.25) mg/dL Glucose (74-99) mg/dL POC Glucose (mg/dL) 125 H (75-99) mg/dL Hemoglobin A1c 6.6 H (4.0-6.0) % HDL Cholesterol 21 L (40-60) mg/dL 09/24/20 09/24/20 09/25/20 Range/Units 16:53 19:50 06:11 Sodium (137-145) mmol/L Chloride (98-107) mmol/L Carbon Dioxide (22-30) mmol/L BUN (9-20) mg/dL Creatinine (0.66-1.25) mg/dL Glucose (74-99) mg/dL POC Glucose (mg/dL) 145 H 154 H 218 H (75-99) mg/dL Hemoglobin A1c (4.0-6.0) % HDL Cholesterol (40-60) mg/dL 09/25/20 Range/Units 07:36 Sodium 132 L (137-145) mmol/L Chloride 83 L (98-107) mmol/L Carbon Dioxide 34 H (22-30) mmol/L BUN 58 H (9-20) mg/dL Creatinine 1.35 H (0.66-1.25) mg/dL Glucose 171 H (74-99) mg/dL POC Glucose (mg/dL) (75-99) mg/dL Hemoglobin A1c (4.0-6.0) % HDL Cholesterol (40-60) mg/dL Assessment and Plan Plan: Assessment: 1. Acute kidney injury mostly prerenal secondary to cardiorenal syndrome. Creatinine 1.86 on admission and is 1.35 today. Patient did receive IV contrast dye on September 23 and September 24. Baseline creatinine near 1. UA fairly benign. No hydronephrosis noted kidney ultrasound. Left kidney not visualized. 2. Acute on chronic systolic CHF with ejection fraction of less than 20% with moderate to severe pulmonary hypertension. 3. Hypokalemia from diuresis. Replaced. This morning's potassium was a hemolyzed sample. 4. Hypervolemic hyponatremia. Improving. 5. Fluid overload. Improving with diuresis. Plan: Maintain Lasix 80 mg orally twice daily. Stop metolazone. Low-salt diet and 1200 mL fluid restriction. Continue to monitor renal function and urine output. Monitor for contrast-induced acute kidney injury.
[2020-09-25] MEDS: SPIRONOLACTONE 25 MG TAB PO SCH (11:11)
[2020-09-25 11:54] LABS: Glucose,Whole Blood 164 mg/dL (75-99)
--- NOTE | 2020-09-25 13:08 | P.PN ---
Subjective This is a pleasant 79-year-old male past medical history significant for abdominal aortic aneurysm, bilateral carotid artery disease, hypertension, coronary artery disease status post bypass grafting 2012, ischemic cardiomyopathy with ejection fraction <20%, valvular heart disease with moderate mitral regurgitation and moderate aortic insufficiency, dyslipidemia, chronic kidney disease and former nicotine dependence. He follows in the office with Dr. Cochran. We have been asked to see in consultation for elevated troponin and congestive heart failure. Patient comes from [facility] and brought to the emergency department due to altered mental status and concerns of stroke like symptoms (according to the notes possible left sided facial droop). Per ED note, EMS reported that they were called to the facility being told the patient was unresponsive. EMS states that when they presented to [facility] they found the patient alert and able to answer all questions appropriately. Patient states that this has happened to him before being brought into the hospital thinking he had a stroke. He states he has had decreased PO intake. He denies chest pain, lightheadedness, dizziness, shortness of breath, or palpitations. EKG reveals sinus rhythm, heart rate 77 left bundle branch block with underlying premature atrial complexes, T wave inversions in lateral leads and inferior leads and V4- V6. Similar changes to prior. Current cardiac medications include aspirin 81 mg daily, atorvastatin 40 mg daily, Plavix 75 mg daily, lisinopril 5 mg daily and Lopressor 12.5 mg twice a day. Most recent echocardiogram obtained 08/05/20 severely impaired LV systolic function with ejection fraction less than 20%, severely dilated left atrium, mild aortic stenosis with a mean gradient of 15 mmHg, mild tricuspid regurgitation and moderate to severe pulmonary hypertension with RVSP of [address] brain - No acute bleed or mass effect. Remote lacunar infarcts in the left periventricular white matter Chest x-ray consistent with mild CHF similar in degree was seen on 09/03/2020 09/23/2020: Patient seen and examined at bedside, appears comfortable, alert and oriented x 3. No complaint sat this time Carotid duplex revealed bilateral no flow visualized to bilateral carotid arteries. Vascular was consulted. Telemetry reviewed patient in sinus mechanism heart rate 60s, occasional PVCs. Patient did have an episode of bigeminy this morning around 5 AM. Patient with 1.4 L urine output over the past 24 hours. 09/24/2020: Patient seen and examined at bedside around 10:30-10:40. Not alert or oriented. Not responsive to verbal stimuli. Minimally responsive to painful stimuli. [place] thing appears regular. Code Stroke called for the patient. Blood pressure 107/69, heart rate 60s, on 3 L nasal cannula. Laboratory data reviewed sodium 131, potassium 3.4, serum creatinine 1.28, BUN 57, magnesium 1.7 patient with 3.2 L urine output over the past 24 hours, weight 94kg. patient currently being maintained on aspirin 81 mg daily, atorvastatin 80 mg nightly, by mouth Lasix 80 mg twice a day, metolazone 2.5 mg daily, metoprolol tartrate 25 mg twice a day, potassium chloride 20 mg daily, spironolactone 25 mg daily, Brilinta 90 mg twice a day. CT brain No acute intracranial process, atrophy with chronic appearing periventricular white matter ischemic changes, old left lacunar infarct. 09/25/20: Patient seen this morning, lethargic. Yesterday, family discussed patient's care and decided to make patient a DNR and are discussing possible hospice. Stopped patient's midodrine yesterday, Blood pressure has actually improved. Blood pressure 119/68, heart rate 92, afebrile, oxygen saturation 91-95% on 4 L nasal cannula. Sodium 132, potassium 5.0, serum creatinine 1.35, BUN 58, magnesium 1.7. GENERAL: Lethargic, Minimally responsive to verbal stimuli NECK: Supple without JVD or thyromegaly. LUNGS: Breath sounds clear to auscultation bilaterally. Respiration equal and unlabored. No wheezes, rales or rhonchi. : [place] placed with clear yellow urine draining HEART: Regular rate and rhythm Systolic ejection murmur at the base,. S1 and S2 heard. EXTREMITIES: 2+ bilateral pitting edema. No clubbing or cyanosis. Peripheral pulses intact. ASSESSMENT Altered mental status - Neurology following possible TIA Remote Lacunar infarct in the left periventricular white matter seen on CT brain Elevated troponin, not indicative of acute coronary syndrome Acute on Chronic systolic heart failure with reduced ejection fraction History of coronary artery disease status post bypass grafting in 2013. Ischemic cardiomyopathy EF <20% Chronic kidney disease- nephrology following Hypertension Dyslipidemia Valvular heart disease, aortic stenosis, aortic regurgitation and mitral regurgitation Hypokalemia -resolved PLAN -Yesterday, family discussed patient's care and decided to make patient a DNR and are discussing possible hospice -Metolazone has been stopped by Nephrology -Lasix PO 80mg BID -Spironolactone 25mg daily -Metoprolol tartrate 25mg BID -Continue aspirin and statin. Patient transitioned to Brilinta per neurology -From cardiology standpoint, patient stable, no further changes at this time. -We will sign off at this time, please reach out for further questions or concerns. Nurse Practitioner note has been reviewed, I agree with a documented findings and plan of care. Patient was seen and examined. Objective - Vital Signs Vital signs: Vital Signs Temp 97.8 F 09/25/20 11:17 Pulse 83 09/25/20 11:17 Resp 18 09/25/20 11:17 BP 119/65 09/25/20 11:17 Pulse Ox 95 09/25/20 11:17 Intake & Output 09/24/20 09/25/20 09/25/20 18:59 06:59 18:59 Intake Total 0 0 Output Total 19745 Balance -1974 0 Weight 94 kg 91.5 kg Intake: Oral 0 0 Output: Urine 1974 1224 Other: Voiding Method Indwelling Catheter Indwelling Catheter Indwelling Catheter # Bowel Movements 1 - Labs CBC & Chem 7: 09/22/20 06:22 09/25/20 07:36 Labs: Abnormal Lab Results - Last 24 Hours (Table) 09/24/20 09/24/20 09/24/20 Range/Units 07:08 07:08 16:53 Sodium (137-145) mmol/L Chloride (98-107) mmol/L Carbon Dioxide (22-30) mmol/L BUN (9-20) mg/dL Creatinine (0.66-1.25) mg/dL Glucose (74-99) mg/dL POC Glucose (mg/dL) 145 H (75-99) mg/dL Hemoglobin A1c 6.6 H (4.0-6.0) % HDL Cholesterol 21 L (40-60) mg/dL 09/24/20 09/25/20 09/25/20 Range/Units 19:50 06:11 07:36 Sodium 132 L (137-145) mmol/L Chloride 83 L (98-107) mmol/L Carbon Dioxide 34 H (22-30) mmol/L BUN 58 H (9-20) mg/dL Creatinine 1.35 H (0.66-1.25) mg/dL Glucose 171 H (74-99) mg/dL POC Glucose (mg/dL) 154 H 218 H (75-99) mg/dL Hemoglobin A1c (4.0-6.0) % HDL Cholesterol (40-60) mg/dL 09/25/20 Range/Units 11:53 Sodium (137-145) mmol/L Chloride (98-107) mmol/L Carbon Dioxide (22-30) mmol/L BUN (9-20) mg/dL Creatinine (0.66-1.25) mg/dL Glucose (74-99) mg/dL POC Glucose (mg/dL) 164 H (75-99) mg/dL Hemoglobin A1c (4.0-6.0) % HDL Cholesterol (40-60) mg/dL
--- NOTE | 2020-09-25 15:28 | P.PN ---
Subjective Progress Note Date: 09/25/20 Mr. Liana dos santos is a 79-year-old male with a past medical history significant for coronary artery disease, abdominal aortic aneurysm, CVA/TIA, diabetes mellitus, hypertension, hyperlipidemia, osteoarthritis, prostate cancer last chemotherapy 07/2020 sent in from [facility] for altered mental status changes and concerns for stroke like symptoms. At the facility patient was noted to have left-sided facial droop and he was unresponsive for few minutes so EMS was called. When EMS arrived they found the patient was alert and able to answer all their questions appropriately. Patient's daughter at the bedside and mentions that she has multiple episodes of mini strokes in the past which is si milar to this episode. Patient denies having any fevers chills or rigors. No cough or difficulty in breathing. No chest pain or palpitations. He states that he is at his baseline. In the ER at the time of admission patient's temperature 98.1, heart rate 96, respiratory 18, blood pressure 101/83, saturating at 88% on 4 L of nasal cannula. He had labs done showing white count of 8.0, hemoglobin 12.8, platelets 196. Sodium 126, potassium 3.4, chloride 78, bicarb 40, BUN 60, creatinine 1.86, troponin 0 0.304 urine analysis is negative for nitrites and trace leukocyte Estrace . Coronavirus PCR is negative patient had a brain CT study showing moderate atrophy appropriate for patient's age, no acute bleed or mass-effect and remote lacunar infarcts in the left periventricular white matter he had a chest x-ray consistent with mild CHF and an EKG done showing sinus rhythm with left bundle branch block. So the patient was admitted for further management. 09/23/2020 Patient is seen and evaluated follow-up this morning continues to be closely monitored in the cardiac stepdown unit. Patient is being followed closely by neurology and cardiology. Vascular surgery consulted. Mentation is improving. Family had discussion with hospice and were planning to proceed forward with this although patient states he wishes to remain a full code and is not ready for hospice. Patient continues on oral Lasix and will continue. Sodium continues to be low at 129 and creatinine slightly improved at 1.34. Magnesium 1.7 and will give 1 g of magnesium and also potassium was found to be low at 3.2 and will replace per protocol. We'll repeat a.m. labs. Patient underwent carotid study showing bilateral carotid artery occlusion and CTA of the head and neck was done showing proximal bilateral carotid obstruction. Patient continues on aspirin and Plavix and have resumed Lipitor and will continue. Vascular surgery consulted and pending at this time. EEG also ordered and pending. 09/24/2020 Patient is seen and evaluated with cardiology also at the bedside and patient is unresponsive and not following commands to verbal or painful stimuli and code stroke was called stat head CT done which shows atrophy with chronic appearing periventricular white matter ischemic changes and old left lacunar infarct with no acute intracranial process. Patient also underwent CT angiogram showing ob struction of bilateral common carotid arteries with nonvisualization of internal/external carotid artery contrast, vertebral arteries remain patent, [place] containing contrast from vertebral artery and communicating artery distribution. Neurology also following. Vascular surgery evaluated the patient recommending no surgical intervention at this time and continuing with current medication management. Patient is continued on aspirin, Lipitor, and originally Plavix although this was discontinued and patient is being started on Brilinta. Per nursing staff this morning patient was lethargic although awake and alert and following commands appropriately and was able to eat some apple sauce and took his pills and then fell asleep with last known well approximately 10 AM. Exam time and the room was approximately 1035 to 10:40 AM and nursing staff was immediately notified and a code stroke was called. Patient was unresponsive to pain or verbal stimuli with right facial droop and right-sided weakness along with some left-sided weakness of the left upper extremity. Sodium today is 131 with a potassium of 3.4 and creatinine slightly improved at 1.28. Will repeat a.m. labs. 09/25/2020 Patient is seen and evaluated and follow-up in per nursing staff continues to have periods of unresponsiveness and not following commands and very weak and lethargic and is being closely monitored. Cardiology along with nephrology and neurology following. Per nursing staff patient is also not tolerating food and fluids and has a very weak swallow and has not been taking oral medications. Family had a discussion and change the CODE STATUS to no code and has also contacted hospice and are signing on with them to take him home tomorrow. Further arrangements are being made for equipment needed and necessary supplies to get him home. Patient continues to be edematous and was maintained on oral Lasix and will transition back to IV Lasix as patient is not tolerating by mouth medications very well. Sodium today is 132 with a potassium of 5.0, BUN is 58 and creatinine is 1.35. Review of systems: Constitutional: fatigue, no reports of fever, or chills Cardiovascular: No reports of chest pain or palpitations Respiratory: No reports of shortness of breath or cough GI: No reports of nausea, vomiting, or diarrhea : No reports of dysuria or retention Neurovascular: Reports generalized weakness All medications have been reviewed Active Medications Aspirin (Aspirin 81 Mg) 81 mg PO DAILY@0900 [facility] Last Admin: 09/25/20 11:08 Dose: 81 mg Documented by: Atorvastatin Calcium (Atorvastatin 40 Mg Tab) 80 mg PO HS@2100 [facility] Last Admin: 09/24/20 20:50 Dose: 80 mg Documented by: Ferrous Sulfate (Ferrous Sulfate 325 Mg Tab) 325 mg PO DAILY@0900 [facility] Last Admin: 09/25/20 11:09 Dose: Not Given Documented by: Furosemide (Furosemide 10 Mg/Ml 10 Ml Vial) 80 mg IV Q12HR [facility] Levetiracetam 500 mg/ Sodium (Chloride) 105 mls @ 400 mls/hr IVPB Q12HR [facility] Last Admin: 09/25/20 09:09 Dose: 400 mls/hr Documented by: Metoprolol Tartrate (Metoprolol Tartrate 25 Mg Tab) 25 mg PO BID [facility] Last Admin: 09/25/20 11:08 Dose: 25 mg Documented by: Miscellaneous Information (Potassium Replacement Protocol 1 Each Misc) 1 each MISCELLANE DAILY PRN; Protocol PRN Reason: Per Protocol Miscellaneous Information (Magnesium Replacement Protocol 1 Each Misc) 1 each MISCELLANE DAILY PRN; Protocol PRN Reason: Per Protocol Multivitamins (Multivitamins, Thera 1 Each Tab) 1 each PO DAILY@0900 [facility] Last Admin: 09/25/20 11:09 Dose: Not Given Documented by: Naloxone HCl (Naloxone 0.4 Mg/Ml 1 Ml Vial) 0.2 mg IV Q2M PRN PRN Reason: Opioid Reversal Potassium Chloride (Potassium Chloride Er 20 Meq Tab.Er) 20 meq PO DAILY@0900 [facility] Last Admin: 09/25/20 11:09 Dose: Not Given Documented by: Spironolactone (Spironolactone 25 Mg Tab) 12.5 mg PO DAILY [facility] Temazepam (Temazepam 7.5 Mg Cap) 7.5 mg PO HS PRN PRN Reason: Insomnia Ticagrelor (Ticagrelor 90 Mg Tab) 90 mg PO BID [facility] Last Admin: 09/25/20 11:08 Dose: 90 mg Documented by: Objective - Vital Signs Vital signs: Vital Signs Temp 98.2 F 09/25/20 00:00 Pulse 88 09/25/20 04:00 Resp 20 09/25/20 04:00 BP 106/70 09/25/20 04:00 Pulse Ox 97 09/25/20 08:34 Intake & Output 09/24/20 09/25/20 09/25/20 18:59 06:59 18:59 Intake Total 0 Output Total 1974 1224 Balance -1974 Weight 94 kg 91.5 kg Intake: Oral 0 Output: Urine 1974 1224 Other: Voiding Method Indwelling Catheter Indwelling Catheter - Exam GENERAL: Elderly male lying in bed, minimally responsive. Pale. Temp is 97.7F, pulse is 92, respirations 16, blood pressure is 119/68, oxygen saturation is 91-95% on 4 L via nasal cannula. HEENT: Pupils are round and equally reacting to light. EOMI. No scleral icterus. No conjunctival pallor. Normocephalic, atraumatic. No pharyngeal erythema. No thyromegaly. CARDIOVASCULAR: S1 and S2 muffled. PULMONARY: Diminished breath sounds bilaterally with severely diminished breath sounds noted on the left more so than the right with some bibasilar crackles noted at the bases ABDOMEN: Soft, nontender, nondistended, normoactive bowel sounds. No palpable organomegaly. MUSCULOSKELETAL: No joint swelling or deformity. EXTREMITIES: No cyanosis, clubbing, pitting bilateral pedal edema NEUROLOGICAL: patient is alert and oriented 0 .diffusely weak, confused, lethargic SKIN: frail - Labs CBC & Chem 7: 09/22/20 06:22 09/25/20 07:36 Labs: Abnormal Lab Results - Last 24 Hours (Table) 09/24/20 09/24/20 09/24/20 Range/Units 07:08 07:08 07:17 Sodium 131 L (137-145) mmol/L Potassium 3.4 L (3.5-5.1) mmol/L Chloride 81 L (98-107) mmol/L Carbon Dioxide 39 H (22-30) mmol/L BUN 57 H (9-20) mg/dL Creatinine 1.28 H (0.66-1.25) mg/dL Glucose 121 H (74-99) mg/dL POC Glucose (mg/dL) (75-99) mg/dL Hemoglobin A1c 6.6 H (4.0-6.0) % HDL Cholesterol 21 L (40-60) mg/dL 09/24/20 09/24/20 09/24/20 Range/Units 10:43 12:02 16:53 Sodium (137-145) mmol/L Potassium (3.5-5.1) mmol/L Chloride (98-107) mmol/L Carbon Dioxide (22-30) mmol/L BUN (9-20) mg/dL Creatinine (0.66-1.25) mg/dL Glucose (74-99) mg/dL POC Glucose (mg/dL) 154 H 125 H 145 H (75-99) mg/dL Hemoglobin A1c (4.0-6.0) % HDL Cholesterol (40-60) mg/dL 09/24/20 09/25/20 09/25/20 Range/Units 19:50 06:11 07:36 Sodium 132 L (137-145) mmol/L Potassium (3.5-5.1) mmol/L Chloride 83 L (98-107) mmol/L Carbon Dioxide 34 H (22-30) mmol/L BUN 58 H (9-20) mg/dL Creatinine 1.35 H (0.66-1.25) mg/dL Glucose 171 H (74-99) mg/dL POC Glucose (mg/dL) 154 H 218 H (75-99) mg/dL Hemoglobin A1c (4.0-6.0) % HDL Cholesterol (40-60) mg/dL Assessment and Plan Assessment: Encephalopathy-multiple etiologies including hyponatremia, VERONICA, TIA Left-sided cortical stroke Right-sided weakness with dysarthria and facial droop- possible TIA, recurrent today Acute kidney injury most likely prerenal due to cardiorenal syndrome Acute on chronic systolic congestive heart failure ejection fraction less than 20% Moderate to severe pulmonary hypertension Hyponatremia Hypokalemia Transaminitis Elevated troponin Chronic kidney disease stage III Hypertension Hyperlipidemia Valvular heart disease including aortic stenosis arctic regurgitation Chronic debility No code, no CPR, no vent Recommendation and discussion: Recommend continue with current medications and management. Multiple medical consultations including cardiology, nephrology, and neuro following. Vascular surgery evaluated the patient and not planning on any surgical interventions and to continue with current medication management. Patient has multiple etiologies for altered mental status changes including hyponatremia, acute kidney injury, possible TIA like episodes that are recurrent Lengthy discussion with his daughter at the bedside patient had multiple episodes of TIAs in the past. Patient Continues with Lasix 80 mg twice daily, replacing potassium as it was found to be low at 3.4. Will repeat a.m. labs and continue to monitor closely. Overall prognosis is guarded due to chronic multiple conditions. Family has opted for no code and have contacted hospice and are making arrangements for equipment needed in the home as they will be taking the patient home with hospice and comfort care measures. Further recommendations to follow depending upon the progress of the patient. Prognosis remains extremely guarded. Possible discharge in 24 hours to home with hospice. Time with Patient: Greater than 30
[2020-09-25 17:02] LABS: Glucose,Whole Blood 159 mg/dL (75-99)
[2020-09-25 20:09] LABS: Glucose,Whole Blood 148 mg/dL (75-99)
[2020-09-25] MEDS: ATORVASTATIN 40 MG TAB PO SCH (20:30)
[2020-09-25] MEDS: FUROSEMIDE 10 MG/ML 10 ML VIAL IV SCH (20:36)
[2020-09-26 06:02] LABS: Glucose,Whole Blood 121 mg/dL (75-99)
[2020-09-26 08:04] LABS: Calcium 8.9 mg/dL (8.4-10.2); Magnesium 1.6 mg/dL (1.6-2.3); Potassium 3.6 mmol/L (3.5-5.1)
[2020-09-26] MEDS: FUROSEMIDE 10 MG/ML 10 ML VIAL IV SCH ×2 (10:06→20:34)
[2020-09-26] MEDS: levETIRAcetam IV 500 MG in SODIUM CHLORIDE 0.9% 100 ML IVPB SCH (10:07)
[2020-09-26] MEDS: POTASSIUM CHLORIDE ER 20 MEQ TAB.ER PO SCH (10:21)
[2020-09-26] MEDS: ASPIRIN 81 MG PO SCH (10:21)
[2020-09-26] MEDS: FERROUS SULFATE 325 MG TAB PO SCH (10:21)
[2020-09-26] MEDS: METOPROLOL TARTRATE 25 MG TAB PO SCH ×2 (10:22→20:35)
[2020-09-26] MEDS: TICAGRELOR 90 MG TAB PO SCH ×2 (10:22→20:35)
[2020-09-26] MEDS: MULTIVITAMINS, THERA 1 EACH TAB PO SCH (10:22)
[2020-09-26] MEDS: SPIRONOLACTONE 25 MG TAB PO SCH (10:22)
--- NOTE | 2020-09-26 11:27 | P.PN ---
Subjective Patient is seen in follow-up for acute kidney injury. Renal function a little worse today. Sodium level 134. Maintained on oral diuretics. Not a reliable historian. Nonoliguric. He was changed over to IV diuretics yesterday. Vital signs are stable. HEENT: Head exam is unremarkable. LUNGS: Breath sounds decreased. HEART: Rate and Rhythm are regular. ABDOMEN: Soft, no distention. EXTREMITITES: 1+ edema. Objective - Vital Signs Vital signs: Vital Signs Temp 97.2 F L 09/26/20 08:00 Pulse 81 09/26/20 08:00 Resp 16 09/26/20 08:00 BP 119/62 09/26/20 08:00 Pulse Ox 92 L 09/26/20 08:00 Intake & Output 09/25/20 09/26/20 09/26/20 18:59 06:59 18:59 Intake Total 0 Output Total 100 650 500 Balance -100 -650 -500 Weight 89 kg Intake: Oral 0 Output: Urine 100 650 500 Other: Voiding Method Indwelling Catheter Indwelling Catheter # Bowel Movements 1 - Labs CBC & Chem 7: 09/22/20 06:22 09/26/20 07:20 Labs: Abnormal Lab Results - Last 24 Hours (Table) 09/25/20 09/25/20 09/25/20 Range/Units 11:53 17:00 20:08 Sodium (137-145) mmol/L Chloride (98-107) mmol/L Carbon Dioxide (22-30) mmol/L BUN (9-20) mg/dL Creatinine (0.66-1.25) mg/dL Glucose (74-99) mg/dL POC Glucose (mg/dL) 164 H 159 H 148 H (75-99) mg/dL 09/26/20 09/26/20 Range/Units 06:00 07:20 Sodium 134 L (137-145) mmol/L Chloride 84 L (98-107) mmol/L Carbon Dioxide 38 H (22-30) mmol/L BUN 66 H (9-20) mg/dL Creatinine 1.61 H (0.66-1.25) mg/dL Glucose 110 H (74-99) mg/dL POC Glucose (mg/dL) 121 H (75-99) mg/dL Assessment and Plan Plan: Assessment: 1. Acute kidney injury mostly prerenal secondary to cardiorenal syndrome. Renal function a little worse today from diuresis. Creatinine 1.61. Patient did receive IV contrast dye on September 23 and September 24. Baseline creatinine near 1. UA fairly benign. No hydronephrosis noted kidney ultrasound. Left kidney not visualized. 2. Acute on chronic systolic CHF with ejection fraction of less than 20% with moderate to severe pulmonary hypertension. 3. Hypokalemia from diuresis. 4. Hypervolemic hyponatremia. Improving. 5. Fluid overload. Improving with diuresis. Plan: Family has decided to proceed with hospice. I will sign off.
[2020-09-26 12:13] LABS: Glucose,Whole Blood 132 mg/dL (75-99)
[2020-09-26 12:32] VITALS: BMI 23.8
--- NOTE | 2020-09-26 15:58 | P.PN ---
Subjective Progress Note Date: 09/26/20 Mr. Liana dos santos is a 79-year-old male with a past medical history significant for coronary artery disease, abdominal aortic aneurysm, CVA/TIA, diabetes mellitus, hypertension, hyperlipidemia, osteoarthritis, prostate cancer last chemotherapy 07/2020 sent in from [facility] for altered mental status changes and concerns for stroke like symptoms. At the facility patient was noted to have left-sided facial droop and he was unresponsive for few minutes so EMS was called. When EMS arrived they found the patient was alert and able to answer all their questions appropriately. Patient's daughter at the bedside and mentions that she has multiple episodes of mini strokes in the past which is si milar to this episode. Patient denies having any fevers chills or rigors. No cough or difficulty in breathing. No chest pain or palpitations. He states that he is at his baseline. In the ER at the time of admission patient's temperature 98.1, heart rate 96, respiratory 18, blood pressure 101/83, saturating at 88% on 4 L of nasal cannula. He had labs done showing white count of 8.0, hemoglobin 12.8, platelets 196. Sodium 126, potassium 3.4, chloride 78, bicarb 40, BUN 60, creatinine 1.86, troponin 0 0.304 urine analysis is negative for nitrites and trace leukocyte Estrace . Coronavirus PCR is negative patient had a brain CT study showing moderate atrophy appropriate for patient's age, no acute bleed or mass-effect and remote lacunar infarcts in the left periventricular white matter he had a chest x-ray consistent with mild CHF and an EKG done showing sinus rhythm with left bundle branch block. So the patient was admitted for further management. 09/23/2020 Patient is seen and evaluated follow-up this morning continues to be closely monitored in the cardiac stepdown unit. Patient is being followed closely by neurology and cardiology. Vascular surgery consulted. Mentation is improving. Family had discussion with hospice and were planning to proceed forward with this although patient states he wishes to remain a full code and is not ready for hospice. Patient continues on oral Lasix and will continue. Sodium continues to be low at 129 and creatinine slightly improved at 1.34. Magnesium 1.7 and will give 1 g of magnesium and also potassium was found to be low at 3.2 and will replace per protocol. We'll repeat a.m. labs. Patient underwent carotid study showing bilateral carotid artery occlusion and CTA of the head and neck was done showing proximal bilateral carotid obstruction. Patient continues on aspirin and Plavix and have resumed Lipitor and will continue. Vascular surgery consulted and pending at this time. EEG also ordered and pending. 09/24/2020 Patient is seen and evaluated with cardiology also at the bedside and patient is unresponsive and not following commands to verbal or painful stimuli and code stroke was called stat head CT done which shows atrophy with chronic appearing periventricular white matter ischemic changes and old left lacunar infarct with no acute intracranial process. Patient also underwent CT angiogram showing ob struction of bilateral common carotid arteries with nonvisualization of internal/external carotid artery contrast, vertebral arteries remain patent, [place] containing contrast from vertebral artery and communicating artery distribution. Neurology also following. Vascular surgery evaluated the patient recommending no surgical intervention at this time and continuing with current medication management. Patient is continued on aspirin, Lipitor, and originally Plavix although this was discontinued and patient is being started on Brilinta. Per nursing staff this morning patient was lethargic although awake and alert and following commands appropriately and was able to eat some apple sauce and took his pills and then fell asleep with last known well approximately 10 AM. Exam time and the room was approximately 1035 to 10:40 AM and nursing staff was immediately notified and a code stroke was called. Patient was unresponsive to pain or verbal stimuli with right facial droop and right-sided weakness along with some left-sided weakness of the left upper extremity. Sodium today is 131 with a potassium of 3.4 and creatinine slightly improved at 1.28. Will repeat a.m. labs. 09/25/2020 Patient is seen and evaluated and follow-up in per nursing staff continues to have periods of unresponsiveness and not following commands and very weak and lethargic and is being closely monitored. Cardiology along with nephrology and neurology following. Per nursing staff patient is also not tolerating food and fluids and has a very weak swallow and has not been taking oral medications. Family had a discussion and change the CODE STATUS to no code and has also contacted hospice and are signing on with them to take him home tomorrow. Further arrangements are being made for equipment needed and necessary supplies to get him home. Patient continues to be edematous and was maintained on oral Lasix and will transition back to IV Lasix as patient is not tolerating by mouth medications very well. Sodium today is 132 with a potassium of 5.0, BUN is 58 and creatinine is 1.35. 09/27/2019 Patient is seen in follow-up this morning continues to be lethargic although arousable and confused at times. Patient is having difficulties with swallowing and intake has been poor and unable to tolerate large amounts of medication at one time. Plan is for the patient to either go to a nursing facility or hospice house or possible home with hospice once arrangements have been made with [facility] and family. Sodium is 134 with a potassium of 3.6 BUN is 66 with a creatinine of 1.61. Sugars continue to be monitored and will continue with Accu-Cheks before meals and at bedtime and sliding scale as needed. No reports of chest pain, shortness of breath, or palpitations. Patient is eating very little and denies any nausea or vomiting. Continued with lower extremity edema noted on exam and will continue with IV Lasix for now as patient was having difficulty swallowing pills. Prognosis remains poor and guarded. [facility] is following. Review of systems: Constitutional: fatigue, no reports of fever, or chills Cardiovascular: No reports of chest pain or palpitations Respiratory: No reports of shortness of breath or cough GI: No reports of nausea, vomiting, or diarrhea : No reports of dysuria or retention Neurovascular: Reports generalized weakness All medications have been reviewed Active Medications Aspirin (Aspirin 81 Mg) 81 mg PO DAILY@0900 [facility] Last Admin: 09/26/20 10:21 Dose: 81 mg Documented by: Atorvastatin Calcium (Atorvastatin 40 Mg Tab) 80 mg PO HS@2100 [facility] Last Admin: 09/25/20 20:30 Dose: Not Given Documented by: Ferrous Sulfate (Ferrous Sulfate 325 Mg Tab) 325 mg PO DAILY@0900 [facility] Last Admin: 09/26/20 10:21 Dose: 325 mg Documented by: Furosemide (Furosemide 10 Mg/Ml 10 Ml Vial) 80 mg IV Q12HR [facility] Last Admin: 09/26/20 10:06 Dose: 80 mg Documented by: Levetiracetam 500 mg/ Sodium (Chloride) 105 mls @ 400 mls/hr IVPB Q12HR [facility] Last Admin: 09/26/20 10:07 Dose: 400 mls/hr Documented by: Metoprolol Tartrate (Metoprolol Tartrate 25 Mg Tab) 25 mg PO BID [facility] Last Admin: 09/26/20 10:22 Dose: 25 mg Documented by: Miscellaneous Information (Potassium Replacement Protocol 1 Each Misc) 1 each MISCELLANE DAILY PRN; Protocol PRN Reason: Per Protocol Miscellaneous Information (Magnesium Replacement Protocol 1 Each Misc) 1 each MISCELLANE DAILY PRN; Protocol PRN Reason: Per Protocol Multivitamins (Multivitamins, Thera 1 Each Tab) 1 each PO DAILY@0900 [facility] Last Admin: 09/26/20 10:22 Dose: 1 each Documented by: Naloxone HCl (Naloxone 0.4 Mg/Ml 1 Ml Vial) 0.2 mg IV Q2M PRN PRN Reason: Opioid Reversal Potassium Chloride (Potassium Chloride Er 20 Meq Tab.Er) 20 meq PO DAILY@0900 [facility] Last Admin: 09/26/20 10:21 Dose: 20 meq Documented by: Spironolactone (Spironolactone 25 Mg Tab) 12.5 mg PO DAILY [facility] Last Admin: 09/26/20 10:22 Dose: 12.5 mg Documented by: Temazepam (Temazepam 7.5 Mg Cap) 7.5 mg PO HS PRN PRN Reason: Insomnia Ticagrelor (Ticagrelor 90 Mg Tab) 90 mg PO BID [facility] Last Admin: 09/26/20 10:22 Dose: 90 mg Documented by: Objective - Vital Signs Vital signs: Vital Signs Temp 97.2 F L 09/26/20 08:00 Pulse 81 09/26/20 08:00 Resp 16 09/26/20 08:00 BP 119/62 09/26/20 08:00 Pulse Ox 92 L 09/26/20 08:00 Intake & Output 09/25/20 09/26/20 09/26/20 18:59 06:59 18:59 Intake Total 0 Output Total 100 650 500 Balance -100 -650 -500 Weight 89 kg Intake: Oral 0 Output: Urine 100 650 500 Other: Voiding Method Indwelling Catheter Indwelling Catheter Indwelling Catheter # Bowel Movements 1 - Exam GENERAL: Elderly male lying in bed, minimally responsive. Pale. Temp is 97.0F, pulse is 73, respirations 18, blood pressure is 117/70, oxygen saturation is 99% on 5 L via nasal cannula. HEENT: Pupils are round and equally reacting to light. EOMI. No scleral icterus. No conjunctival pallor. Normocephalic, atraumatic. No pharyngeal erythema. No thyromegaly. CARDIOVASCULAR: S1 and S2 muffled. PULMONARY: Diminished breath sounds bilaterally with severely diminished breath sounds noted on the left more so than the right with some bibasilar crackles noted at the bases ABDOMEN: Soft, nontender, nondistended, normoactive bowel sounds. No palpable organomegaly. MUSCULOSKELETAL: No joint swelling or deformity. EXTREMITIES: No cyanosis, clubbing, pitting bilateral pedal edema NEUROLOGICAL: patient is alert and oriented 1-2 .diffusely weak, confused, lethargic SKIN: frail - Labs CBC & Chem 7: 09/22/20 06:22 09/26/20 07:20 Labs: Abnormal Lab Results - Last 24 Hours (Table) 09/25/20 09/25/20 09/26/20 Range/Units 17:00 20:08 06:00 Sodium (137-145) mmol/L Chloride (98-107) mmol/L Carbon Dioxide (22-30) mmol/L BUN (9-20) mg/dL Creatinine (0.66-1.25) mg/dL Glucose (74-99) mg/dL POC Glucose (mg/dL) 159 H 148 H 121 H (75-99) mg/dL 09/26/20 09/26/20 Range/Units 07:20 12:11 Sodium 134 L (137-145) mmol/L Chloride 84 L (98-107) mmol/L Carbon Dioxide 38 H (22-30) mmol/L BUN 66 H (9-20) mg/dL Creatinine 1.61 H (0.66-1.25) mg/dL Glucose 110 H (74-99) mg/dL POC Glucose (mg/dL) 132 H (75-99) mg/dL Assessment and Plan Assessment: Encephalopathy-multiple etiologies including hyponatremia, VERONICA, TIA Left-sided cortical stroke Right-sided weakness with dysarthria and facial droop- possible TIA, recurrent today Acute kidney injury most likely prerenal due to cardiorenal syndrome Acute on chronic systolic congestive heart failure ejection fraction less than 20% Moderate to severe pulmonary hypertension Hyponatremia Hypokalemia Transaminitis Elevated troponin Chronic kidney disease stage III Hypertension Hyperlipidemia Valvular heart disease including aortic stenosis arctic regurgitation Chronic debility No code, no CPR, no vent Recommendation and discussion: Recommend continue with current medications and management. Multiple medical consultations including cardiology, nephrology, and neuro following as needed as patient and family have signed on with [facility] and making arrangements for placement or possible home with hospice in the next 1-2 days. Vascular surgery evaluated the patient and not planning on any surgical interventions and to continue with current medication management. Patient has multiple etiologies for altered mental status changes including hyponatremia, acute kidney injury, possible TIA like episodes that are recurrent Lengthy discussion with his daughter at the bedside patient had multiple episodes of TIAs in the past. Patient Continues with Lasix 80 mg twice daily, replace electrolytes per protocol. Overall prognosis is guarded due to chronic multiple conditions. Family has opted for no code and have contacted hospice and are making arrangements for equipment needed in the home as they will be possibly taking the patient home with hospice and comfort care measures or possible hospice house placement and working with [facility] to do so. Further recommendations to follow depending upon the progress of the patient. Prognosis remains extremely poor and guarded. Possible discharge in 24 hours to home with hospice or hospice house. Time with Patient: Greater than 30
--- NOTE | 2020-09-26 17:12 | P.PN ---
Subjective Progress Note Date: 09/26/20 The patient was seen at bedside and he feels that he is doing well. He feels he is back to baseline and denies any new weakness numbness or visual disturbance. Objective - Vital Signs Vital signs: Vital Signs Temp 97.0 F L 09/26/20 12:24 Pulse 73 09/26/20 12:24 Resp 18 09/26/20 12:24 BP 117/70 09/26/20 12:24 Pulse Ox 99 09/26/20 12:24 Intake & Output 09/25/20 09/26/20 09/26/20 18:59 06:59 18:59 Intake Total 0 Output Total 100 650 800 Balance -100 -650 -800 Weight 89 kg 89 kg Intake: Oral 0 Output: Urine 100 650 800 Other: Voiding Method Indwelling Catheter Indwelling Catheter Indwelling Catheter # Bowel Movements 1 1 - Exam GENERAL: The patient is lying in bed and is not in acute distress. INTEGUMENTARY: Pitting edema of lower extremities 2+. NEUROLOGICAL: Higher mental function: The patient was drowsy awakeable to voice, alert, oriented to self, place and time. Patient is following commands. No aphasia and no neglect. Cranial nerves: The pupils are round, equal and reactive to light and accommodation. Visual arrieta are full to confrontation throughout. Extraocular movement is intact no nystagmus is noted. Facial sensation is normal to touch throughout. The facial strength is mildly right lower facial but symetrical to smile (per [id number] chronic). Tongue is midline and moved [id number] without any difficulty. Mildy dysarthria is noted (chronic per daughter). Shoulder shrug is normal bilaterally. Motor: Gait is deferred. The strength is 5 over 5 throughout upper while lower extremities he had predominately 2/5 and few occasions 3/5 (per daughter chronic). Normal tone and bulk. Sensation: Sensation is normal to touch throughout. Reflexes (right/left): 2+ upper and 1+ lower Plantars are downgoing bilaterally. - Labs CBC & Chem 7: 09/22/20 06:22 09/26/20 07:20 Labs: Abnormal Lab Results - Last 24 Hours (Table) 09/25/20 09/26/20 09/26/20 Range/Units 20:08 06:00 07:20 Sodium 134 L (137-145) mmol/L Chloride 84 L (98-107) mmol/L Carbon Dioxide 38 H (22-30) mmol/L BUN 66 H (9-20) mg/dL Creatinine 1.61 H (0.66-1.25) mg/dL Glucose 110 H (74-99) mg/dL POC Glucose (mg/dL) 148 H 121 H (75-99) mg/dL 09/26/20 Range/Units 12:11 Sodium (137-145) mmol/L Chloride (98-107) mmol/L Carbon Dioxide (22-30) mmol/L BUN (9-20) mg/dL Creatinine (0.66-1.25) mg/dL Glucose (74-99) mg/dL POC Glucose (mg/dL) 132 H (75-99) mg/dL Assessment and Plan Assessment: Transient Right sided weakness with dysarthriais is likely TIA (per daughter had similar episodes in past) in which he had a repeated episode today (09/24/2020) with right facial droop, right upper extremity weakness > left and unresponsiveness. Has bilateral carotid obstruction and multiple other risk factor. Cannot exclusively exclude seizure because of episode of unresponsivenss. Altered mental status seems due to metabolic encephalopathy (elevated LFT's, hyponatremia, VERONICA) lack of oral/fluid intake---mentation improved Bilateral common carotid obstruction per CTA Remote lacunar infarct in the left periventricular white matter. Seems small vessel disease due to patient risk factors Right carotid endartectomy in (At [facility]) Elevated troponin Acute kidney injury on chronic kidney insufficiency--improving Electrode imbalance with hyponatremia hypokalemia Diabetes Hyperlipidemia Hypertension History of coronary artery disease status post stent and CABG Ischemic cardiomyopathy with ejection fraction less than 20% Peripheral vascular disease status post stent Prostate cancer in last chemo was in July 2020 Plan: * CT of the head is reported as moderate atrophy appropriate for the patient agent. No acute bleed or mass effect. Remote lacunar infarct in the left periventricular white matter. * Patient was restarted on aspirin 81 and Plavix 75 mg daily. Patient was also restarted on the Lipitor 40 mg which are sufficient for secondary stroke prophylaxis. * I notified the daughter we can switch the Plavix to Brilinta but daughter wants to continue same medications. * Carotid artery sessions reported as bilateral carotid artery occlusion. * CT angiography of the head and neck was reported as there appears to be proximal bilateral carotid obstruction. Cerebral vasculature appears to be fed by vertebral arteries with a patent right and likely patent left posture to maintain arteries. * Repeat on 09/24/2020:CT of the head as a result was done and the was reported as atrophy with chronic appearing periventricular white matter ischemic changes. Old left lacunar infarct. No acute intracranial process. * CT angiography of the head and neck is reported as a functional bilateral common carotid arteries with non-vascularization of the internal/external carotid artery contrast. Vertebral arteries remain patent. [place], contains contrast from vertebral artery and communicating artery distribution. * An EEG on 09/23/2020 was done because of a previous episode of unresponsiveness and the patient the EEG was normal. There are no focal slowing, epileptiform discharges or seizure on the EEG * Lipid panel: Triglyceride of 87, cholesterol of 83, LDL 45 and HDL 21. And stroke LDL goal is less than 70 and he is within goal. * TSH is 2.31 which is considered normal. * Hemoglobin A1c is 6.6 which is elevated * Continue aspirin 81 mg and Brilinta 90mg 1 tab bid. Continue Lipitor 80 mg qhs. * Vascular surgeon team: Stated no intervention because of bilateral carotid obstruction. And signed off. * Continue Keppra 500 mg 1 tablet twice a day since the patient had 2 episodes of unresponsiveness for seizure prophylaxis. * Physical therapy and occupation therapy are consulted * Cardiology is on board * Nephrology is on board * Will defer the rest of medical management to the primary team. * I had two conversation with the daughter regarding the bilateral carotid obstruction and she stated that the she is aware of that and the patient had the follow-ups at [facility] and the they stated that they can do revascularization but upon per the follow-ups the patient and his daughter were notified that his body developed revascularization and that surgery was not needed but the last on the scene the [facility] machine was more than 10- 15 years ago. I notified her that to consider follow-up with [facility] again to assess the patient circulation to the brain. The patient stated that he wants everything done on him. * The patient needs to follow-up with a neurologist as outpatient within 1-2 weeks. There is no further neurological workup needed. Neurology will sign off. Please reconsult if needed. The plan is discussed with the patient's nurse. Matt Gonzalez MD Neuro-Hospitalist Time with Patient: Less than 30
[2020-09-26 17:21] LABS: Glucose,Whole Blood 154 mg/dL (75-99)
[2020-09-26 20:35] LABS: Glucose,Whole Blood 132 mg/dL (75-99)
[2020-09-26] MEDS: ATORVASTATIN 40 MG TAB PO SCH (20:35)
[2020-09-26] MEDS: levETIRAcetam 500 MG TAB PO SCH (20:35)
[2020-09-27 06:38] LABS: Glucose,Whole Blood 126 mg/dL (75-99)
[2020-09-27] MEDS: ASPIRIN 81 MG PO SCH (10:19)
[2020-09-27] MEDS: MULTIVITAMINS, THERA 1 EACH TAB PO SCH (10:19)
[2020-09-27] MEDS: POTASSIUM CHLORIDE ER 20 MEQ TAB.ER PO SCH (10:19)
[2020-09-27] MEDS: levETIRAcetam 500 MG TAB PO SCH ×2 (10:19→20:25)
[2020-09-27] MEDS: FERROUS SULFATE 325 MG TAB PO SCH (10:19)
[2020-09-27] MEDS: SPIRONOLACTONE 25 MG TAB PO SCH (10:19)
[2020-09-27] MEDS: FUROSEMIDE 10 MG/ML 10 ML VIAL IV SCH ×2 (10:20→20:24)
[2020-09-27] MEDS: METOPROLOL TARTRATE 25 MG TAB PO SCH ×2 (10:20→20:25)
[2020-09-27] MEDS: TICAGRELOR 90 MG TAB PO SCH ×2 (10:20→20:25)
[2020-09-27 11:57] LABS: Glucose,Whole Blood 142 mg/dL (75-99)
[2020-09-27 17:11] LABS: Glucose,Whole Blood 140 mg/dL (75-99)
[2020-09-27 19:55] LABS: Glucose,Whole Blood 142 mg/dL (75-99)
--- NOTE | 2020-09-27 19:57 | PN ---
PROGRESS NOTE DATE OF SERVICE: 09/27/2020 This 79-year-old gentleman who was admitted with change in mental status and multiple other complex medical issues including encephalopathy and hyponatremia is being closely monitored at this time. The family is apparently planning hospice at home. No chest pain. No palpitations. No fever. PHYSICAL EXAMINATION: Patient is conscious, confused. Pulse 80. Blood pressure 115/60, respiration 20, temperature 98 degrees, pulse ox 92% on nasal cannula. HEENT: Conjunctivae normal. NECK: No JVD. CARDIOVASCULAR: S1, S2 muffled. RESPIRATION: Breath sounds diminished in the bases. A few scattered rhonchi. ABDOMEN: Soft. NERVOUS SYSTEM: Diffusely weak. LAB INVESTIGATIONS: Lab investigations are Accu-Cheks 140. Other labs are noted. ASSESSMENT: 1. Acute encephalopathy multifactorial etiology including hyponatremia, acute kidney injury, transient ischemic attack. 2. Left-sided cortical stroke. 3. Right-sided weakness with dysarthria with facial droop, possible transient ischemic attack, recurrent. 4. Acute kidney injury, most likely prerenal with cardiorenal syndrome. 5. Acute on chronic systolic congestive heart failure with ejection fraction less than 20%. 6. Moderate to severe pulmonary hypertension. 7. Hyponatremia. 8. Hypokalemia. 9. Transaminitis. 10.Elevated troponin. 11.Chronic kidney stage 3. 12.Hypertension. 13.Hyperlipidemia. 14.Valvular heart disease including aortic stenosis, aortic regurgitation. 15.Chronic debility. 16.NO CODE, NO CPR, NO VENT. RECOMMENDATIONS AND DISCUSSION: I recommend to continue current medication, continue symptomatic treatment. Otherwise, at this time, I recommend closely follow with Neurology and ID. I had a detailed discussion with the family on multiple occasions and at this time arrange for hospice at home. Guarded prognosis. Further recommendations to follow. MMODL / IJN: [id number] /
[2020-09-27] MEDS: ATORVASTATIN 40 MG TAB PO SCH (20:25)
[2020-09-28 06:06] LABS: Glucose,Whole Blood 166 mg/dL (75-99)
[2020-09-28] MEDS: FUROSEMIDE 10 MG/ML 10 ML VIAL IV SCH ×2 (12:00→20:58)
[2020-09-28 12:15] LABS: Glucose,Whole Blood 132 mg/dL (75-99)
[2020-09-28] MEDS ORDERED: ONDANSETRON 4 MG/2 ML VIAL IVP PRN (13:45)
[2020-09-28] MEDS: PANTOPRAZOLE 40 MG/10 ML VIAL IVP SCH (14:30)
--- NOTE | 2020-09-28 14:43 | PN ---
PROGRESS NOTE DATE OF SERVICE: 09/28/2020 This 79-year-old gentleman with acute encephalopathy multifactorial etiology including hyponatremia, acute kidney injury, TIA, also had left-sided cortical stroke. The patient otherwise had weakness. Patient had fluctuations in sensorium. Patient complained of nausea at this time. We had a detailed discussion with the family. At this time, the family would like the patient to go on comfort care/hospice to ECF at this time. No chest pain. No palpitations. PAST MEDICAL HISTORY: Reviewed. REVIEW OF SYMPTOMS: Could not be taken. MEDICATIONS: Aspirin, Lipitor, iron sulfate, Lasix and Keppra. Doses reviewed. PHYSICAL EXAMINATION: The patient is conscious, confused. Pulse 50. Blood pressure 120/81, respiration 20, temperature 97.3, pulse ox 94% on 5 L. HEENT: Conjunctivae normal. NECK: No JVD. CARDIOVASCULAR: S1, S2 muffled. RESPIRATORY: Breath sounds diminished in the bases. Scattered rhonchi. ABDOMEN: Soft, nontender. NERVOUS SYSTEM: No focal deficits. LABS: Noted. ASSESSMENT: 1. Acute encephalopathy multifactorial etiology including hyponatremia, acute kidney injury and transient ischemic attack. 2. Left-sided cortical stroke. 3. Right-sided weakness with dysarthria, facial droop, possible transient ischemic attack, recurrent. 4. Acute kidney injury, most likely prerenal with cardiorenal syndrome. 5. Nausea, acute gastritis. 6. Acute on chronic systolic congestive heart failure, ejection fraction less than 20%. 7. Moderate history of pulmonary hypertension. 8. Hyponatremia. 9. Hypokalemia. 10.Transaminitis. 11.Elevated troponin. 12.Chronic kidney stage 3. 13.Hypertension. 14.Hyperlipidemia. 15.Valvular heart disease including aortic stenosis and aortic regurgitation. 16.Chronic debility. 17.NO CODE, NO CPR and NO VENT. RECOMMENDATIONS AND DISCUSSION: I recommend to continue current medications, management and symptomatic treatment. Add Protonix. Otherwise continue to monitor. Discussed with the family as mentioned earlier. Will follow with post tensioning ironworker and discharge planning team for possible ECF discharge. Guarded prognosis. Further recommendations to follow. Patient is NO CODE. MMODL / IJN: [id number] /
[2020-09-28 17:11] LABS: Glucose,Whole Blood 145 mg/dL (75-99)
[2020-09-28] MEDS ORDERED: LORazepam 2 MG/ML INJ IV PRN (17:23)
[2020-09-28] MEDS ORDERED: FUROSEMIDE 10 MG/ML 4 ML VIAL IV STA (17:40)
[2020-09-28] MEDS: METOPROLOL TARTRATE 25 MG TAB PO SCH (19:05)
[2020-09-28] MEDS: levETIRAcetam 500 MG TAB PO SCH (19:05)
[2020-09-28] MEDS: FERROUS SULFATE 325 MG TAB PO SCH (19:05)
[2020-09-28] MEDS: ASPIRIN 81 MG PO SCH (19:05)
[2020-09-28] MEDS: SPIRONOLACTONE 25 MG TAB PO SCH (19:06)
[2020-09-28] MEDS: MULTIVITAMINS, THERA 1 EACH TAB PO SCH (19:06)
[2020-09-28] MEDS: TICAGRELOR 90 MG TAB PO SCH (19:06)
[2020-09-28] MEDS: POTASSIUM CHLORIDE ER 20 MEQ TAB.ER PO SCH (19:06)
[2020-09-28 19:43] LABS: Glucose,Whole Blood 121 mg/dL (75-99)
[2020-09-29 05:48] LABS: Glucose,Whole Blood 148 mg/dL (75-99)
[2020-09-29] MEDS: levETIRAcetam 500 MG TAB PO SCH ×2 (06:52→10:26)
[2020-09-29] MEDS: METOPROLOL TARTRATE 25 MG TAB PO SCH ×2 (06:52→10:26)
[2020-09-29] MEDS: ATORVASTATIN 40 MG TAB PO SCH (06:52)
[2020-09-29] MEDS: PANTOPRAZOLE 40 MG/10 ML VIAL IVP SCH ×2 (06:52→10:26)
[2020-09-29] MEDS: TICAGRELOR 90 MG TAB PO SCH ×2 (06:53→10:26)
[2020-09-29] MEDS: FUROSEMIDE 10 MG/ML 10 ML VIAL IV SCH (09:28)
[2020-09-29] MEDS: ASPIRIN 81 MG PO SCH (10:25)
[2020-09-29] MEDS: POTASSIUM CHLORIDE ER 20 MEQ TAB.ER PO SCH (10:26)
[2020-09-29] MEDS: FERROUS SULFATE 325 MG TAB PO SCH (10:26)
[2020-09-29] MEDS: MULTIVITAMINS, THERA 1 EACH TAB PO SCH (10:26)
[2020-09-29] MEDS: SPIRONOLACTONE 25 MG TAB PO SCH (10:26)
[2020-09-29 11:12] VITALS: BP 109/70; PULSE 102; RESP 20; TEMP 97.7
--- NOTE | 2020-09-29 16:04 | P.DS ---
Providers Date of admission: 09/21/20 19:03 Expected date of discharge: 09/29/20 Attending physician: Angela Duff Consults: 09/21/20 19:05 Consult Physician Urgent Consulting Provider: [facility] Consult Reason/Comments: NSTEMI, AECHF Do you want consulting provider notified?: Yes 09/21/20 19:06 Consult Physician Urgent Consulting Provider: Titus Disla Consult Reason/Comments: acute hyponatremia, veronica Do you want consulting provider notified?: Yes 09/22/20 10:22 Consult Physician Routine Consulting Provider: Matt Gonzalez Consult Reason/Comments: stroke Do you want consulting provider notified?: Yes Primary care physician: [facility] Course: Final diagnosis Encephalopathy-multiple etiologies including hyponatremia, VERONICA, TIA Left-sided cortical stroke Right-sided weakness with dysarthria and facial droop- possible TIA, recurrent today Acute kidney injury most likely prerenal due to cardiorenal syndrome Acute on chronic systolic congestive heart failure ejection fraction less than 20% Moderate to severe pulmonary hypertension Hyponatremia Hypokalemia Transaminitis Elevated troponin Chronic kidney disease stage III Hypertension Hyperlipidemia Valvular heart disease including aortic stenosis arctic regurgitation Chronic debility No code, no CPR, no vent Discharge disposition Patient is being transferred to inpatient and being made hospice and [facility] hospice following. Family at the bedside and agreeable to this as his status has deteriorated and would like him to be comfort only. Total time taken is greater than 35 minutes. Hospital course This is a 79-year-old male with a past medical history significant with coronary artery disease, abdominal aortic aneurysm, CVA/TIA multiple episodes, diabetes mellitus, hypertension, hyperlipidemia, osteoarthritis, prostate cancer with most recent chemo in July of this year and was brought in from the ECF facility for altered mental status changes and strokelike symptoms and is being closely monitored. Multiple medical consultations including nephrology, cardiology, neurology were following closely. Patient's clinical status continued to deteriorate and family were making arrangements for possible hospice in the home or returning to [facility] with hospice with [facility]. Patient's clinical status continued to deteriorate and patient is unresponsive and unable to take any of his medications. [facility] hospice recommending inpatient hospice comfort care measures and family at the bedside are agreeable. Patient will continue with comfort measures only. Please refer to previous dictations for further HPI. Will continue to follow closely. Please refer to medication reconciliation sheet for a list of medications. Patient Condition at Discharge: Poor Plan - Discharge Summary Discharge Rx Participant: No New Discharge Prescriptions: No Action allopurinoL [Zyloprim] 100 mg PO DAILY@0900 Atorvastatin [Lipitor] 40 mg PO HS@2100 Clopidogrel [Plavix] 75 mg PO DAILY@0900 Magnesium Oxide [Mag-Ox] 250 mg PO DAILY@0900 Ascorbic Acid [Vitamin C] 500 mg PO DAILY@0900 Ferrous Sulfate [Iron (65 MG Elemental)] 325 mg PO DAILY@0900 Metoprolol Tartrate [Lopressor] 25 mg PO DAILY@0900 Cholecalciferol [Vitamin D3 (25 Mcg = 1000 Iu)] 50 mcg PO DAILY@0900 Loperamide [Imodium] 2 mg PO Q8H PRN #9 cap PRN Reason: Diarrhea Prostat 30 ml PO DAILY@0900 Aspirin 325 mg PO DAILY@0900 Fluconazole [Diflucan] 100 mg PO DAILY@0900 Furosemide [Lasix] 80 mg PO BID@0900,1600 metOLazone [Zaroxolyn] 2.5 mg PO DAILY@0900 Potassium Chloride ER [K-Dur 20] 20 meq PO DAILY@0900 Temazepam [Restoril] 15 mg PO HS@2100 Benzocaine/Menthol Lozeng [Cepacol lozenge] 1 lozenge MUCOUS MEM Q4HR PRN PRN Reason: Cough Ondansetron [Zofran] 4 mg PO Q8HR PRN PRN Reason: Nausea And Vomiting Midodrine HCl [ProAmantine] 2.5 mg PO BID@0900,2100 Lactobacillus Acidophilus [Acidophilus Probiotic] 1 cap PO DAILY@0900 Acetaminophen Tab [Tylenol] 650 mg PO HS Nitroglycerin Sl Tabs [Nitrostat] 0.4 mg SUBLINGUAL Q5M PRN tab PRN Reason: Chest Pain Acetaminophen Tab [Tylenol] 650 mg PO Q6HR PRN tab PRN Reason: Fever and/ or Mild Pain Temazepam [Restoril] 7.5 mg PO HS PRN #3 cap PRN Reason: Insomnia Multivitamins, Thera [Multivitamin (formulary)] 1 tab PO DAILY@0900 polyethylene glycoL 3350 [Miralax] 17 gm PO DAILY@0900 Discharge Medication List Atorvastatin [Lipitor] 40 mg PO HS@2100 01/30/14 [History] allopurinoL [Zyloprim] 100 mg PO DAILY@89901/30/14 [History] Clopidogrel [Plavix] 75 mg PO DAILY@89905/02/14 [History] Ascorbic Acid [Vitamin C] 500 mg PO DAILY@89908/14/14 [History] Magnesium Oxide [Mag-Ox] 250 mg PO DAILY@89908/14/14 [History] Ferrous Sulfate [Iron (65 MG Elemental)] 325 mg PO DAILY@89905/19/20 [History] Acetaminophen Tab [Tylenol] 650 mg PO HS 09/03/20 [History] Cholecalciferol [Vitamin D3 (25 Mcg = 1000 Iu)] 50 mcg PO DAILY@89909/03/20 [History] Lactobacillus Acidophilus [Acidophilus Probiotic] 1 cap PO DAILY@89909/03/20 [History] Metoprolol Tartrate [Lopressor] 25 mg PO DAILY@89909/03/20 [History] Midodrine HCl [ProAmantine] 2.5 mg PO BID@0900,209909/03/20 [History] Ondansetron [Zofran] 4 mg PO Q8HR PRN 09/03/20 [History] Acetaminophen Tab [Tylenol] 650 mg PO Q6HR PRN tab 09/10/20 [Rx] Nitroglycerin Sl Tabs [Nitrostat] 0.4 mg SUBLINGUAL Q5M PRN tab 09/10/20 [Rx] Loperamide [Imodium] 2 mg PO Q8H PRN #9 cap 09/11/20 [Rx] Temazepam [Restoril] 7.5 mg PO HS PRN #3 cap 09/11/20 [Rx] Aspirin 325 mg PO DAILY@89909/21/20 [History] Benzocaine/Menthol Lozeng [Cepacol lozenge] 1 lozenge MUCOUS MEM Q4HR PRN 09/21/20 [History] Fluconazole [Diflucan] 100 mg PO DAILY@89909/21/20 [History] Furosemide [Lasix] 80 mg PO BID@0900,1600 09/21/20 [History] Multivitamins, Thera [Multivitamin (formulary)] 1 tab PO DAILY@89909/21/20 [History] Potassium Chloride ER [K-Dur 20] 20 meq PO DAILY@89909/21/20 [History] Prostat 30 ml PO DAILY@89909/21/20 [History] Temazepam [Restoril] 15 mg PO HS@2100 09/21/20 [History] metOLazone [Zaroxolyn] 2.5 mg PO DAILY@89909/21/20 [History] polyethylene glycoL 3350 [Miralax] 17 gm PO DAILY@89909/21/20 [History] Follow up Appointment(s)/Referral(s): Mert Cochran MD [STAFF PHYSICIAN] - 2 Weeks Alfonso Gross DO [Primary Care Provider] - 1-2 days Discharge Disposition: DISCH TO HOSPICE MED [facility]
--- NOTE | 2020-10-01 09:13 | CDI ---
Documentation Clarification Form Date: 10/01/2020 08:52:00 AM From: Korin Quinonez Phone: If you have a question about this query, please contact Radha Black, Celebrity [employer] at [phone] between 8am and 5pm. Admit Date: 09/21/2020 07:03:00 PM Patient Name: Justin Chapman Visit Number: [id number] Discharge Date: 09/29/2020 11:28:00 AM ATTENTION: The Clinical Documentation Specialists (CDI) and [facility] Coding Staff appreciate your assistance in clarifying documentation. Please respond to the clarification below the line at the bottom and electronically sign. The CDI & [facility] Coding staff will review the response and follow-up if needed. Please note: Queries are made part of the Legal Health Record. If you have any questions, please contact the author of this message via ITS. Dr. Morrow: Per DCS Left sided cortical stroke is documented. Patient underwent a carotid study showing bilateral carotid occlusion and CTA of the head and neck was done showing proximal bilateral carotid obstruction. Clarification of etiology of left coritcal stroke is requested. History/risk factors: History of CVA/TIA carotid stenosis Clinical Indicators CT: Atrophy with chronic appearing periventricula white matter ischemic changes. Carotid doppler: bilaterally occluded Treatment: closely monitored multiple medical consultations. Hospice Please clarify the cause stroke: Cause of Stroke/CVA: [ ] Stenosis/Occlusion Carotid artery bilaterally [ ] Embolic [ ] Thrombolytic [ ] Hypertension [ ] Other (please specify) [ ] Unable to Determine Stenosis/Occlusion Carotid artery bilaterally MTDD
== END 2020-09-29 11:28 | disposition hospice, inpatient (51) | DRG 64 ==
LOC: EC 16:38 → 3SCARD 19:03
PROVIDERS: ADMIT Internal Medicine; ATTEND Internal Medicine
DX: I63.233 Cerebral infarction due to unspecified occlusion or stenosis of bilateral carotid arteries (principal); I50.23 Acute on chronic systolic (congestive) heart failure; G93.41 Metabolic encephalopathy; E87.1 Hypo-osmolality and hyponatremia; I13.0 Hypertensive heart and chronic kidney disease with heart failure and stage 1 through stage 4 chronic kidney disease, or unspecified chronic kidney disease; G81.91 Hemiplegia, unspecified affecting right dominant side; N17.9 Acute kidney failure, unspecified; C61 Malignant neoplasm of prostate; E11.22 Type 2 diabetes mellitus with diabetic chronic kidney disease; E11.51 Type 2 diabetes mellitus with diabetic peripheral angiopathy without gangrene; E78.5 Hyperlipidemia, unspecified; E86.0 Dehydration; E87.6 Hypokalemia; I08.3 Combined rheumatic disorders of mitral, aortic and tricuspid valves; I25.10 Atherosclerotic heart disease of native coronary artery without angina pectoris; I25.2 Old myocardial infarction; I25.5 Ischemic cardiomyopathy; Z51.5 Encounter for palliative care; Z66 Do not resuscitate; Z20.822 Contact with and (suspected) exposure to COVID-19; I27.20 Pulmonary hypertension, unspecified; R53.81 Other malaise; I44.7 Left bundle-branch block, unspecified; I49.1 Atrial premature depolarization; R47.1 Dysarthria and anarthria; R33.9 Retention of urine, unspecified; K29.00 Acute gastritis without bleeding; H26.9 Unspecified cataract; N18.30 Chronic kidney disease, stage 3 unspecified; R29.810 Facial weakness; R74.01 Elevation of levels of liver transaminase levels; Z79.02 Long term (current) use of antithrombotics/antiplatelets; Z79.82 Long term (current) use of aspirin; M19.90 Unspecified osteoarthritis, unspecified site; I71.4 Abdominal aortic aneurysm, without rupture; Z79.899 Other long term (current) drug therapy; Z82.49 Family history of ischemic heart disease and other diseases of the circulatory system; Z83.3 Family history of diabetes mellitus; Z85.46 Personal history of malignant neoplasm of prostate; Z87.891 Personal history of nicotine dependence; Z92.21 Personal history of antineoplastic chemotherapy; Z95.1 Presence of aortocoronary bypass graft; Z95.5 Presence of coronary angioplasty implant and graft; Z95.820 Peripheral vascular angioplasty status with implants and grafts
CPT/HCPCS: 36415; 70450; 70496; 70498; 71046; 76770; 80048; 80053; 80061; 81001; 82550; 83036; 83605; 83735; 83880; 84132; 84443; 84484; 85025; 85610; 85730; 87636; 93005; 93880; 94760; 95816; 99285

== ENCOUNTER 2020-09-29 11:19 | Inpatient (IN) | payer MEDICAID ==
[2020-09-29] MEDS ORDERED: ONDANSETRON 4 MG/2 ML VIAL IVP PRN (11:21)
[2020-09-29] MEDS ORDERED: MORPHINE SULFATE 2 MG/ML SYRINGE IV PRN (11:21)
[2020-09-29] MEDS ORDERED: ATROPINE OPHTH SOLN 1% 5ML BTL SUBLINGUAL PRN (11:21)
[2020-09-29] MEDS ORDERED: LORazepam 2 MG/ML INJ IV PRN (11:21)
[2020-09-29] MEDS ORDERED: GLYCOPYRROLATE 0.2 MG/ML 2 ML VIAL IVP PRN (11:21)
[2020-09-29] MEDS ORDERED: ACETAMINOPHEN SUPPOSITORY 650 MG SUPP RECTAL PRN (11:21)
[2020-09-29] MEDS ORDERED: SCOPOLAMINE 1.5MG/72HR PATCH TRANSDERM SCH (11:30)
[2020-09-29] MEDS ORDERED: MORPHINE SULFATE (100 MG/2 ML) 100 MG in SODIUM CHLORIDE 0.9% 100 ML IV SCH (11:30)
[2020-09-29 15:46] VITALS: BP 91/47
--- NOTE | 2020-09-30 13:36 | P.DS ---
Providers Date of admission: 09/29/20 11:30 Expected date of discharge: 09/30/20 Attending physician: Anne Morrow Primary care physician: [facility] Course: Final diagnosis Encephalopathy-multiple etiologies including hyponatremia, VERONICA, TIA Left-sided cortical stroke Right-sided weakness with dysarthria and facial droop- possible TIA, recurrent today Acute kidney injury most likely prerenal due to cardiorenal syndrome Acute on chronic systolic congestive heart failure ejection fraction less than 20% Moderate to severe pulmonary hypertension Hyponatremia Hypokalemia Transaminitis Elevated troponin Chronic kidney disease stage III Hypertension Hyperlipidemia Valvular heart disease including aortic stenosis arctic regurgitation Chronic debility No code, no CPR, no vent Preliminary cause of Acute on chronic systolic Congestive heart failure, transient ischemic attack, moderate to severe pulmonary hypertension Discharge disposition Patient has . Per nursing documentation time of was 12:18 PM on 09/29/2020 Hospital course This is a 79-year-old male with significant past medical history including coronary artery disease , abdominal aortic aneurysm, CVA/TIA, diabetes mellitus, hypertension, hyperlipidemia, osteoarthritis, prostate cancer last chemotherapy 07/2020 sent in from [facility] for altered mental status changes and concerns for stroke like symptoms. At the facility patient was noted to have left-sided facial droop and he was unresponsive for few minutes so EMS was called. When EMS arrived they found the patient was alert and able to answer all their questions appropriately. Patient's daughter at the bedside and mentions that she has multiple episodes of mini strokes in the past which is similar to this episode. Patient denies having any fevers chills or rigors. No cough or difficulty in breathing. No chest pain or palpitations. He states that he is at his baseline. In the ER at the time of admission patient's temperature 98.1, heart rate 96, respiratory 18, blood pressure 101/83, saturating at 88% on 4 L of nasal cannula. He had labs done showing white count of 8.0, hemoglobin 12.8, platelets 196. Sodium 126, potassium 3.4, chloride 78, bicarb 40, BUN 60, creatinine 1.86, troponin 0 0.304 urine analysis is negative for nitrites and trace leukocyte Estrace . Coronavirus PCR is negative patient had a brain CT study showing moderate atrophy appropriate for patient's age, no acute bleed or mass-effect and remote lacunar infarcts in the left periventricular white matter he had a chest x-ray consistent with mild CHF and an EKG done showing sinus rhythm with left bundle branch block. So the patient was admitted for further management. 09/29/2020 Patients clinical status continued to deteriorate and family had met with [facility] and were planning on returning to [facility] but condition continued to worsen and was made inpatient with hospice and shortly after at 12:18 PM on 09/29/2020 when present at the bedside. Please refer to previous dictations for further HPI Patient Condition at Discharge: Poor Plan - Discharge Summary New Discharge Prescriptions: No Action allopurinoL [Zyloprim] 100 mg PO DAILY@0900 Atorvastatin [Lipitor] 40 mg PO HS@2100 Clopidogrel [Plavix] 75 mg PO DAILY@0900 Magnesium Oxide [Mag-Ox] 250 mg PO DAILY@0900 Ascorbic Acid [Vitamin C] 500 mg PO DAILY@0900 Ferrous Sulfate [Iron (65 MG Elemental)] 325 mg PO DAILY@0900 Metoprolol Tartrate [Lopressor] 25 mg PO DAILY@0900 Cholecalciferol [Vitamin D3 (25 Mcg = 1000 Iu)] 50 mcg PO DAILY@0900 Loperamide [Imodium] 2 mg PO Q8H PRN #9 cap PRN Reason: Diarrhea Prostat 30 ml PO DAILY@0900 Aspirin 325 mg PO DAILY@0900 Fluconazole [Diflucan] 100 mg PO DAILY@0900 Furosemide [Lasix] 80 mg PO BID@0900,1600 metOLazone [Zaroxolyn] 2.5 mg PO DAILY@0900 Potassium Chloride ER [K-Dur 20] 20 meq PO DAILY@0900 Temazepam [Restoril] 15 mg PO HS@2100 Benzocaine/Menthol Lozeng [Cepacol lozenge] 1 lozenge MUCOUS MEM Q4HR PRN PRN Reason: Cough Ondansetron [Zofran] 4 mg PO Q8HR PRN PRN Reason: Nausea And Vomiting Midodrine HCl [ProAmantine] 2.5 mg PO BID@0900,2100 Lactobacillus Acidophilus [Acidophilus Probiotic] 1 cap PO DAILY@0900 Acetaminophen Tab [Tylenol] 650 mg PO HS Nitroglycerin Sl Tabs [Nitrostat] 0.4 mg SUBLINGUAL Q5M PRN tab PRN Reason: Chest Pain Acetaminophen Tab [Tylenol] 650 mg PO Q6HR PRN tab PRN Reason: Fever and/ or Mild Pain Temazepam [Restoril] 7.5 mg PO HS PRN #3 cap PRN Reason: Insomnia Multivitamins, Thera [Multivitamin (formulary)] 1 tab PO DAILY@0900 polyethylene glycoL 3350 [Miralax] 17 gm PO DAILY@0900 Discharge Medication List Atorvastatin [Lipitor] 40 mg PO HS@209901/30/14 [History] allopurinoL [Zyloprim] 100 mg PO DAILY@89901/30/14 [History] Clopidogrel [Plavix] 75 mg PO DAILY@89905/02/14 [History] Ascorbic Acid [Vitamin C] 500 mg PO DAILY@89908/14/14 [History] Magnesium Oxide [Mag-Ox] 250 mg PO DAILY@89908/14/14 [History] Ferrous Sulfate [Iron (65 MG Elemental)] 325 mg PO DAILY@0900 05/19/20 [History] Acetaminophen Tab [Tylenol] 650 mg PO HS 09/03/20 [History] Cholecalciferol [Vitamin D3 (25 Mcg = 1000 Iu)] 50 mcg PO DAILY@89909/03/20 [History] Lactobacillus Acidophilus [Acidophilus Probiotic] 1 cap PO DAILY@89909/03/20 [History] Metoprolol Tartrate [Lopressor] 25 mg PO DAILY@89909/03/20 [History] Midodrine HCl [ProAmantine] 2.5 mg PO BID@0900,2100 09/03/20 [History] Ondansetron [Zofran] 4 mg PO Q8HR PRN 09/03/20 [History] Acetaminophen Tab [Tylenol] 650 mg PO Q6HR PRN tab 09/10/20 [Rx] Nitroglycerin Sl Tabs [Nitrostat] 0.4 mg SUBLINGUAL Q5M PRN tab 09/10/20 [Rx] Loperamide [Imodium] 2 mg PO Q8H PRN #9 cap 09/11/20 [Rx] Temazepam [Restoril] 7.5 mg PO HS PRN #3 cap 09/11/20 [Rx] Aspirin 325 mg PO DAILY@0900 09/21/20 [History] Benzocaine/Menthol Lozeng [Cepacol lozenge] 1 lozenge MUCOUS MEM Q4HR PRN 09/21/20 [History] Fluconazole [Diflucan] 100 mg PO DAILY@0909/21/20 [History] Furosemide [Lasix] 80 mg PO BID@0900,1600 09/21/20 [History] Multivitamins, Thera [Multivitamin (formulary)] 1 tab PO DAILY@0909/21/20 [History] Potassium Chloride ER [K-Dur 20] 20 meq PO DAILY@89909/21/20 [History] Prostat 30 ml PO DAILY@89909/21/20 [History] Temazepam [Restoril] 15 mg PO HS@2100 09/21/20 [History] metOLazone [Zaroxolyn] 2.5 mg PO DAILY@89909/21/20 [History] polyethylene glycoL 3350 [Miralax] 17 gm PO DAILY@89909/21/20 [History] Discharge Disposition: - Preliminary Cause of Preliminary Cause of : Acute on chronic systolic congestive heart failure,pulmonary hypert,tia
== END 2020-09-29 14:18 | disposition expired | DRG 951 ==
LOC: 3SCARD 11:30
PROVIDERS: ADMIT Hospitalist; ATTEND Hospitalist
DX: Z51.5 Encounter for palliative care (principal); I63.233 Cerebral infarction due to unspecified occlusion or stenosis of bilateral carotid arteries; G93.41 Metabolic encephalopathy; I50.23 Acute on chronic systolic (congestive) heart failure; G81.91 Hemiplegia, unspecified affecting right dominant side; N17.9 Acute kidney failure, unspecified; I13.0 Hypertensive heart and chronic kidney disease with heart failure and stage 1 through stage 4 chronic kidney disease, or unspecified chronic kidney disease; N18.30 Chronic kidney disease, stage 3 unspecified; I27.20 Pulmonary hypertension, unspecified